=== PATIENT | female | born 1955 | race Caucasian/White ===

== ENCOUNTER 2021-12-30 22:38 | Inpatient (IN) | payer MEDICARE ==
[2021-12-30] MEDS ORDERED: SODIUM CHLORIDE 0.9% 1,000 ML IV STA (23:12)
--- NOTE | 2021-12-30 23:19 | ED ---
Dizziness HPI - General Chief Complaint: Dizziness Stated Complaint: weakness, SOB Time Seen by Provider: 12/30/21 22:48 Source: patient, EMS Mode of arrival: EMS - History of Present Illness Initial Comments: This patient is a 66-year-old woman who presents with complaint that she is having generalized weakness, nausea, and feeling off balance which is been getting progressively worse over about the past 9 days. The patient states that she had been stressed by the ride back from [facility] proximally 9 days ago. She states since that time she was having nausea and not taking much to eat or drink. She is noted she is becoming increasingly weak and feeling off balance. She is having use a walker to get around her house which she typically does not do. She denies focal weakness, but states that its everywhere. MD Complaint: dizziness, difficulty walking Onset/Timin -: days(s) Timing: gradual onset Description: lightheadedness, off-balance, difficulty walking Severity: moderate Improves With: remaining still Worsens With: exertion Associated Symptoms: weakness - Related Data Home Medications Medication Instructions Recorded Confirmed Aspirin EC [Ecotrin Low Dose] 81 mg PO DAILY 12/31/21 12/31/21 Atorvastatin Calcium [Lipitor] 80 mg PO HS 12/31/21 12/31/21 Bumetanide [BUMEX] 2 mg PO BID 12/31/21 12/31/21 Clopidogrel [Plavix] 75 mg PO DAILY 12/31/21 12/31/21 Spironolactone 25 mg PO DAILY 12/31/21 12/31/21 carvediloL [Coreg] 6.25 mg PO BID 12/31/21 12/31/21 glipiZIDE 10 mg PO BID 12/31/21 12/31/21 lisinopriL [Zestril] 20 mg PO DAILY 12/31/21 12/31/21 metFORMIN HCL [Glucophage] 500 mg PO BID 12/31/21 12/31/21 Allergies Allergy/AdvReac Type Severity Reaction Status Date / Time moxifloxacin [From Avelox] Allergy Anaphylaxis Verified 12/31/21 10:41 Review of Systems ROS Statement: Those systems with pertinent positive or pertinent negative responses have been documented in the HPI. ROS Other: All systems not noted in ROS Statement are negative. Constitutional: Reports: weakness. Denies: fever, chills Respiratory: Denies: cough, dyspnea, wheezes Cardiovascular: Denies: chest pain, palpitations Gastrointestinal: Reports: nausea. Denies: abdominal pain, vomiting, diarrhea Genitourinary: Denies: dysuria, hematuria Musculoskeletal: Denies: back pain Skin: Denies: rash Neurological: Denies: headache, weakness, numbness Past Medical History Additional Past Medical History / Comment(s): pacemaker History of Any Multi-Drug Resistant Organisms: None Reported Past Surgical History: Adenoidectomy, Heart Catheterization With Stent, Hysterectomy, Tonsillectomy Additional Past Surgical History / Comment(s): pacemaker Past Psychological History: No Psychological Hx Reported Smoking Status: Former smoker Past Alcohol Use History: None Reported Past Drug Use History: None Reported General Exam General appearance: alert, in no apparent distress Head exam: Present: atraumatic, normocephalic Eye exam: Present: normal appearance, PERRL, EOMI. Absent: scleral icterus, conjunctival injection ENT exam: Present: mucous membranes dry Neck exam: Present: normal inspection Respiratory exam: Present: normal lung sounds bilaterally. Absent: respiratory distress, wheezes, rales, rhonchi, stridor Cardiovascular Exam: Present: regular rate, normal rhythm, normal heart sounds. Absent: systolic murmur, diastolic murmur, rubs, gallop GI/Abdominal exam: Present: soft. Absent: distended, tenderness, guarding, rebound, rigid, mass Extremities exam: Present: normal inspection, normal capillary refill. Absent: pedal edema, calf tenderness Back exam: Present: normal inspection. Absent: CVA tenderness (R), CVA tenderness (L) Neurological exam: Present: alert, CN II-XII intact. Absent: motor sensory deficit Skin exam: Present: warm, dry, intact, normal color. Absent: rash Course Vital Signs 12/30/21 12/31/21 12/31/21 22:51 00:18 02:00 Temperature 98.4 F 98.3 F Pulse Rate 80 85 79 Respiratory Rate Blood Pressure 98/76 102/48 120/55 O2 Sat by Pulse 98 98 100 Oximetry EKG Findings - EKG Comments: EKG Findings:: Ventricular paced rhythm 79 bpm - EKG Results: EKG: interpreted by JOO, normal axis, normal QRS, normal ST/T Medical Decision Making - Lab Data Result diagrams: 01/02/22 08:08 01/02/22 08:08 Lab Results 12/30/21 12/30/21 12/30/21 Range/Units 23:05 23:05 23:05 WBC 20.2 H (3.8-10.6) k/uL RBC 2.78 L (3.80-5.40) m/uL Hgb 8.4 L (11.4-16.0) gm/dL Hct 25.1 L (34.0-46.0) % MCV 90.2 (80.0-100.0) fL MCH 30.4 (25.0-35.0) pg MCHC 33.6 (31.0-37.0) g/dL RDW 12.0 (11.5-15.5) % Plt Count 480 H (150-450) k/uL MPV 7.9 Neutrophils % 90 % Lymphocytes % 3 % Monocytes % 4 % Eosinophils % 2 % Basophils % 0 % Neutrophils # 18.2 H (1.3-7.7) k/uL Lymphocytes # 0.7 L (1.0-4.8) k/uL Monocytes # 0.8 (0-1.0) k/uL Eosinophils # 0.3 (0-0.7) k/uL Basophils # 0.1 (0-0.2) k/uL Sodium 129 L (137-145) mmol/L Potassium 5.4 H (3.5-5.1) mmol/L Chloride 90 L (98-107) mmol/L Carbon Dioxide 15 L (22-30) mmol/L Anion Gap 24 mmol/L BUN 191 H* (7-17) mg/dL Creatinine 3.51 H (0.52-1.04) mg/dL Est GFR (CKD-EPI)AfAm 15 (>60 ml/min/1.73 sqM) Est GFR (CKD-EPI)NonAf 13 (>60 ml/min/1.73 sqM) Glucose 278 H (74-99) mg/dL Lactic Ac Sepsis Rflx Plasma Lactic Acid Diogenes 3.1 H* (0.7-2.0) mmol/L Calcium 9.2 (8.4-10.2) mg/dL Magnesium 2.0 (1.6-2.3) mg/dL Total Bilirubin 0.7 (0.2-1.3) mg/dL AST 138 H (14-36) U/L ALT 124 H (4-34) U/L Alkaline Phosphatase 171 H (38-126) U/L Troponin I (0.000-0.034) ng/mL NT-Pro-B Natriuret Pep pg/mL Total Protein 7.0 (6.3-8.2) g/dL Albumin 3.7 (3.5-5.0) g/dL 12/30/21 12/30/21 12/31/21 Range/Units 23:05 23:05 00:02 WBC (3.8-10.6) k/uL RBC (3.80-5.40) m/uL Hgb (11.4-16.0) gm/dL Hct (34.0-46.0) % MCV (80.0-100.0) fL MCH (25.0-35.0) pg MCHC (31.0-37.0) g/dL RDW (11.5-15.5) % Plt Count (150-450) k/uL MPV Neutrophils % % Lymphocytes % % Monocytes % % Eosinophils % % Basophils % % Neutrophils # (1.3-7.7) k/uL Lymphocytes # (1.0-4.8) k/uL Monocytes # (0-1.0) k/uL Eosinophils # (0-0.7) k/uL Basophils # (0-0.2) k/uL Sodium (137-145) mmol/L Potassium (3.5-5.1) mmol/L Chloride (98-107) mmol/L Carbon Dioxide (22-30) mmol/L Anion Gap mmol/L BUN (7-17) mg/dL Creatinine (0.52-1.04) mg/dL Est GFR (CKD-EPI)AfAm (>60 ml/min/1.73 sqM) Est GFR (CKD-EPI)NonAf (>60 ml/min/1.73 sqM) Glucose (74-99) mg/dL Lactic Ac Sepsis Rflx Y Plasma Lactic Acid Diogenes (0.7-2.0) mmol/L Calcium (8.4-10.2) mg/dL Magnesium (1.6-2.3) mg/dL Total Bilirubin (0.2-1.3) mg/dL AST (14-36) U/L ALT (4-34) U/L Alkaline Phosphatase (38-126) U/L Troponin I 0.051 H* (0.000-0.034) ng/mL NT-Pro-B Natriuret Pep 1550 pg/mL Total Protein (6.3-8.2) g/dL Albumin (3.5-5.0) g/dL Disposition Clinical Impression: Generalized weakness, Acute kidney injury Disposition: ADMITTED IP TO THIS [facility] Condition: Serious Is patient prescribed a controlled substance at d/c from ED?: No
[2021-12-30 23:27] LABS: Basophils # (A) 0.1 k/uL (0-0.2); Basophils % (A) 0 %; Eosinophils # (A) 0.3 k/uL (0-0.7); Eosinophils % (A) 2 %; HCT 25.1 % (34.0-46.0); HGB 8.4 gm/dL (11.4-16.0); Lymphocytes # (A) 0.7 k/uL (1.0-4.8); Lymphocytes % (A) 3 %; MCH 30.4 pg (25.0-35.0); MCHC 33.6 g/dL (31.0-37.0); MCV 90.2 fL (80.0-100.0); Mean Platelet Volume 7.9; Monocytes # (A) 0.8 k/uL (0-1.0); Monocytes % (A) 4 %; Neutrophils # (A) 18.2 k/uL (1.3-7.7); Neutrophils % (A) 90 %; Platelet Count 480 k/uL (150-450); RBC 2.78 m/uL (3.80-5.40); WBC 20.2 k/uL (3.8-10.6)
--- NOTE | 2021-12-30 23:37 | XR ---
EXAMINATION TYPE: XR chest 1V portable DATE OF EXAM: 12/30/2021 COMPARISON: NONE HISTORY: Weakness TECHNIQUE: Single view FINDINGS: There is no heart failure nor confluent pneumonic infiltrate. Costophrenic angles are clear . There is left axillary pacemaker. There are chest leads. Bony thorax is intact. IMPRESSION: No active cardiopulmonary disease.
[2021-12-30 23:54] LABS: Albumin 3.7 g/dL (3.5-5.0); Calcium 9.2 mg/dL (8.4-10.2); Potassium 5.4 mmol/L (3.5-5.1); Total Bilirubin 0.7 mg/dL (0.2-1.3)
[2021-12-31] MEDS ORDERED: SODIUM CHLORIDE 0.9% 500 ML 500 ML IV STA (00:03)
[2021-12-31] MEDS ORDERED: INSULIN REGULAR 100 UNIT/ML VIAL (IV) SQ STA (00:04)
[2021-12-31] MEDS ORDERED: NALOXONE 0.4 MG/ML 1 ML VIAL IV PRN (02:01)
[2021-12-31] MEDS: SODIUM CHLORIDE 0.9% 1,000 ML IV SCH ×2 (04:23→16:58)
[2021-12-31 06:12] LABS: Glucose,Whole Blood 228 mg/dL (70-110)
[2021-12-31 07:08] LABS: Appearance,Urine Cloudy (Clear); Bacteria,Urine Rare /hpf; Bilirubin,Urine Negative (Negative); Blood,Urine Negative (Negative); Color,Urine Light Yellow; Glucose,Urine (UA) Negative (Negative); Hyaline Casts,Urine 9 /lpf (0-2); Ketones,Urine Negative (Negative); Leukocyte Esterase,Urine Large (Negative); Mucus,Urine Rare /hpf; Nitrite,Urine Negative (Negative); Protein,Urine Negative (Negative); Specific Gravity,Urine 1.011 (1.001-1.035); Squamous Epithelial Cell,Urine 3 /hpf (0-4); Urobilinogen,Urine <2.0 mg/dL (<2.0); WBC,Urine 21 /hpf (0-5)
[2021-12-31] MEDS ORDERED: FAMOTIDINE 20 MG TAB PO SCH (09:00)
--- NOTE | 2021-12-31 09:26 | US ---
EXAMINATION TYPE: US kidneys/renal and bladder DATE OF EXAM: 12/31/2021 COMPARISON: NONE CLINICAL HISTORY: sinan. EXAM MEASUREMENTS: Right Kidney: 10.7 x 3.8 x 4.7 cm Left Kidney: 10.0 x4.4 x 4.7 cm Right Kidney: No hydronephrosis or masses seen Left Kidney: No hydronephrosis or masses seen Bladder: wnl There is no evidence for hydronephrosis at this point in time. No nephrolithiasis is seen. No leila s are identified. The urinary bladder is anechoic. Bilateral ureteral jets are seen. IMPRESSION: No discrete abnormality appreciated.
[2021-12-31] MEDS: FAMOTIDINE 20 MG TAB PO SCH (09:40)
--- NOTE | 2021-12-31 10:40 | P.NPCON ---
History of Present Illness - Reason for Consult acute renal failure - History of Present Illness Reason for consultation: Acute kidney injury History of present illness: Patient is a 66-year-old female seen in the left consultation for acute kidney injury. Unknown baseline renal function. Creatinine 3.51 on admission yesterday. Patient presented to the hospital with generalized weakness along with nausea vomiting and diarrhea going on for about 5 days. Oral intake has been poor as well. She's currently receiving IV fluids. Vomiting and diarrhea have improved. Denies use of nonsteroidals. She does have history of diabetes. Also has history of coronary artery disease and multiple cardiac stents. No hematuria or dysuria. No chest pain or shortness of breath. Most recent blood pressure from this morning was 93/51. Renal ultrasound shows no evidence of hydronephrosis. No acute findings noted on chest x-ray. Denies fever or chills. Denies family history of renal disease. Denies any personal history of kidney disease. Vital signs are stable. Blood pressure on the lower side. General: Awake. No acute distress. HEENT: Head exam is unremarkable. LUNGS: Breath sounds decreased. HEART: Rate and Rhythm are regular. ABDOMEN: Soft, no distention. EXTREMITITES: No edema. Past Medical History Additional Past Medical History / Comment(s): pacemaker History of Any Multi-Drug Resistant Organisms: None Reported Past Surgical History: Adenoidectomy, Heart Catheterization With Stent, Hysterectomy, Tonsillectomy Additional Past Surgical History / Comment(s): pacemaker Date of Last Stent Placement:: 06/27/20 Past Psychological History: No Psychological Hx Reported Smoking Status: Former smoker Past Alcohol Use History: None Reported Past Drug Use History: None Reported Medications and Allergies Allergies Allergy/AdvReac Type Severity Reaction Status Date / Time avolox Allergy Anaphylaxis Uncoded 12/30/21 22:57 Physical Exam Vitals: Vital Signs Temp Pulse Pulse Resp BP BP Pulse Ox 12/31/21 07:57 75 93/51 100 12/31/21 02:38 98.2 F 78 15 101/65 100 12/31/21 02:00 98.3 F 79 22 120/55 100 12/31/21 00:18 85 22 102/48 98 12/30/21 22:51 98.4 F 80 18 98/76 98 Intake and Output 12/30/21 12/31/21 12/31/21 22:59 06:59 14:59 Intake Total 180 118 Output Total 400 Balance 180 -282 Intake: Intake, IV Titration 180 Amount Sodium Chloride 0.9% 1, 180 000 ml @ 75 mls/hr IV . [id number] [facility] Rx#:[id number] Oral 118 Output: Urine 400 Other: Voiding Method Bedside Commode Bedpan # Voids 2 1 Weight 72.575 kg 72.575 kg Results - Lab Results Most recent lab results Calcium 9.2 mg/dL (8.4-10.2) 12/30/21 23:05 Magnesium 2.0 mg/dL (1.6-2.3) 12/30/21 23:05 12/30/21 23:05 12/30/21 23:05 Assessment and Plan Plan: Assessment: 1. Acute kidney injury mostly prerenal secondary to hypovolemia from poor intake and vomiting and diarrhea. Creatinine 3.51 on admission. Unknown baseline renal function. No hydronephrosis noted on CAT scan. No proteinuria on UA. 2. Nausea vomiting and diarrhea. Possible gastroenteritis. Improved. 3. Hypovolemic hyponatremia. 4. Metabolic acidosis secondary to acute kidney injury and GI losses. Also lactic acidosis. 5. Anemia. Iron deficiency. 6. Diabetes mellitus. 7. Coronary artery disease status post cardiac stenting. Plan: Maintain IV fluids. Check cortisol level. Encourage oral intake. Avoid nephrotoxins. Follow-up labs. Check iron studies. Thank you for the consultation. I will continue to follow the patient with you during her hospital stay.
[2021-12-31 11:17] LABS: Calcium 8.3 mg/dL (8.4-10.2); Magnesium 1.9 mg/dL (1.6-2.3); Potassium 4.5 mmol/L (3.5-5.1)
[2021-12-31 11:31] LABS: Glucose,Whole Blood 327 mg/dL (70-110)
[2021-12-31] MEDS ORDERED: DEXTROSE 50% SYRINGE 50 ML IVP PRN ×2 (11:41)
--- NOTE | 2021-12-31 12:23 | P.CRDCN ---
History of Present Illness Consult date: 12/31/21 History of present illness: History of Present Illness: The patient is a 66-year-old female with a history of hypertension, diabetes and hyperlipidemia as well as a history of ischemic cardiomyopathy, post stenting and ICD implantation who presented to the hospital with symptoms of nausea, vomiting and fatigue. Her symptoms been going on for the last few days, she be came much worse yesterday. On admission she was noted to have mild troponin elevation. She has no fever, evidence of GI bleeding. She's feeling slightly better today. She had worsening of her renal functions on admission. Her cardiac history is remarkable for the fact that in June 2020 she presented with evidence of CHF and cardiomyopathy, details are not available, subsequently transferred to [facility] underwent multiple stenting, received 7 stents according to her and subsequent placement of an ICD in April of this year. She has been doing relatively well from the cardiac standpoint since that time, her physical activity has been stable. She denies any significant changes in her breathing. She has no chest discomfort, PND or orthopnea. She denies any peripheral edema. She had no discharges from the device. The detail of her workup at [facility] are not available at this time. She has been followed by Dr. Kowalski. She has been told that she has renal insufficiency although the severity is not clear. Medications: Metformin 500 mg twice a day, glipizide 10 mg twice a day, Lipitor 80 mg daily, Zestril 20 mg daily, Coreg 6.5 mg twice a day, spironolactone 25 mg daily, Plavix 75 mg daily, aspirin once a day, Bumex 2 mg twice a day Review of Systems: Respiratory: No history of asthma, bronchitis or recent cough. GI: She has the recent nausea and vomiting but denies any GI bleeding : No hematuria or dysuria. Nervous System: No stroke or seizure. Physical Examination: 66-year-old female, alert oriented no apparent distress ,Blood pressure 101/60, Heart rate 70 Head: Normocephalic. Eyes: Sclerae nonicteric. Neck: Good carotid upstroke, no bruit, no jugular venous distention. Lungs: Clear to auscultation. Heart: Regular rate and rhythm, S1-S2, no S3, no rub. Systolic ejection murmur. Abdomen: Soft nontender, positive bowel sounds no organomegaly. Extremities: No edema, intact distal pulses. Labs: White blood cell 20.2, hemoglobin 8.4, BUN 191, creatinine 3.5, potassium 5.4, troponin 0.05 and 0.04. NT proBNP 1550, plasma lactic acid 3.1. AST 138, ALT 124. Today her BUN is 171 and creatinine 2.67, her potassium 4.5, ultrasound of the abdomen is unremarkable, chest x-ray shows no acute infiltrate EKG: Sinus mechanism with 100% ventricular pacing Impression: 1. Nausea and vomiting, probable gastroenteritis 2. Troponin elevation, no evidence to suggest acute coronary syndrome, probably related to the worsening renal failure 3. Acute on chronic renal failure, worsened by the nausea and vomiting and dehydration 4. History of CAD with multiple stenting with no evidence to suggest acute event 5. History of cardiomyopathy, no evidence of heart failure 6. Status post ICD 7. History of diabetes 8. Hyperlipidemia Plan: 1. IV hydration 2. Follow her renal function 3. Obtain an echocardiogram with Doppler 4. Obtain records from [facility] 5. Hold diuretics and SUYAPA inhibitor at this time 6. Depending on her progress further recommendations will be made, thank you for this consult we will follow with you. Past Medical History Additional Past Medical History / Comment(s): pacemaker History of Any Multi-Drug Resistant Organisms: None Reported Past Surgical History: Adenoidectomy, Heart Catheterization With Stent, Hysterectomy, Tonsillectomy Additional Past Surgical History / Comment(s): pacemaker Date of Last Stent Placement:: 06/27/20 Past Psychological History: No Psychological Hx Reported Smoking Status: Former smoker Past Alcohol Use History: None Reported Past Drug Use History: None Reported Medications and Allergies Home Medications Medication Instructions Recorded Confirmed Type Aspirin EC [Ecotrin Low Dose] 81 mg PO DAILY 12/31/21 12/31/21 History Atorvastatin Calcium [Lipitor] 80 mg PO HS 12/31/21 12/31/21 History Bumetanide [BUMEX] 2 mg PO BID 12/31/21 12/31/21 History Clopidogrel [Plavix] 75 mg PO DAILY 12/31/21 12/31/21 History Spironolactone 25 mg PO DAILY 12/31/21 12/31/21 History carvediloL [Coreg] 6.25 mg PO BID 12/31/21 12/31/21 History glipiZIDE 10 mg PO BID 12/31/21 12/31/21 History lisinopriL [Zestril] 20 mg PO DAILY 12/31/21 12/31/21 History metFORMIN HCL [Glucophage] 500 mg PO BID 12/31/21 12/31/21 History Allergies Allergy/AdvReac Type Severity Reaction Status Date / Time moxifloxacin [From Avelox] Allergy Anaphylaxis Verified 12/31/21 10:41 Physical Exam Vitals: Vital Signs Temp Pulse Pulse Resp BP BP Pulse Ox 12/31/21 07:57 75 93/51 100 12/31/21 02:38 98.2 F 78 15 101/65 100 12/31/21 02:00 98.3 F 79 22 120/55 100 12/31/21 00:18 85 22 102/48 98 12/30/21 22:51 98.4 F 80 18 98/76 98 Intake and Output 12/30/21 12/31/21 12/31/21 22:59 06:59 14:59 Intake Total 180 118 Output Total 400 Balance 180 -282 Intake: Intake, IV Titration 180 Amount Sodium Chloride 0.9% 1, 180 000 ml @ 75 mls/hr IV . [id number] [facility] Rx#:[id number] Oral 118 Output: Urine 400 Other: Voiding Method Bedside Commode Bedpan # Voids 2 1 Weight 72.575 kg 72.575 kg Results 12/30/21 23:05 12/31/21 08:35 Cardiac Enzymes 12/30/21 12/30/21 12/31/21 Range/Units 23:05 23:05 04:04 AST 138 H (14-36) U/L Troponin I 0.051 H* 0.041 H* (0.000-0.034) ng/mL 12/31/21 Range/Units 08:35 AST (14-36) U/L Troponin I 0.036 H* (0.000-0.034) ng/mL CBC 12/30/21 Range/Units 23:05 WBC 20.2 H (3.8-10.6) k/uL RBC 2.78 L (3.80-5.40) m/uL Hgb 8.4 L (11.4-16.0) gm/dL Hct 25.1 L (34.0-46.0) % Plt Count 480 H (150-450) k/uL Comprehensive Metabolic Panel 12/30/21 12/31/21 Range/Units 23:05 08:35 Sodium 129 L 134 L (137-145) mmol/L Potassium 5.4 H 4.5 (3.5-5.1) mmol/L Chloride 90 L 98 (98-107) mmol/L Carbon Dioxide 15 L 17 L (22-30) mmol/L BUN 191 H* 171 H* (7-17) mg/dL Creatinine 3.51 H 2.67 H (0.52-1.04) mg/dL Glucose 278 H 249 H (74-99) mg/dL Calcium 9.2 8.3 L (8.4-10.2) mg/dL AST 138 H (14-36) U/L ALT 124 H (4-34) U/L Alkaline Phosphatase 171 H (38-126) U/L Total Protein 7.0 (6.3-8.2) g/dL Albumin 3.7 (3.5-5.0) g/dL Current Medications Generic Name Dose Route Start Last Admin Trade Name Freq PRN Reason Stop Dose Admin Acetaminophen 650 mg 12/31/21 02:01 Acetaminophen Tab 325 Mg Tab PO Q6HR PRN Mild Pain or Fever > 100.5 Al Hydroxide/Mg Hydroxide 15 ml 12/31/21 02:01 Mag Hydrox/Al Hydrox/Simeth 30 Ml Cup PO Q6HR PRN Indigestion Aspirin 81 mg 01/01/22 09:00 Aspirin 81 Mg PO DAILY [facility] Atorvastatin Calcium 80 mg 12/31/21 21:00 Atorvastatin 80 Mg Tab PO HS [facility] Carvedilol 6.25 mg 12/31/21 11:45 Carvedilol 6.25 Mg Tab PO AC-BID [facility] Clopidogrel Bisulfate 75 mg 12/31/21 11:45 Clopidogrel 75 Mg Tab PO DAILY [facility] Dextrose/Water 25 ml 12/31/21 11:41 Dextrose 50% Syringe 50 Ml IVP PER PROTOCOL PRN Hypoglycemia Protocol Dextrose/Water 50 ml 12/31/21 11:41 Dextrose 50% Syringe 50 Ml IVP PER PROTOCOL PRN Hypoglycemia Protocol Famotidine 20 mg 12/31/21 09:00 12/31/21 09:40 Famotidine 20 Mg Tab PO 20 mg DAILY [facility] Administration Glipizide 10 mg 12/31/21 21:00 Glipizide 10 Mg Tab PO BID [facility] Sodium Chloride 1,000 mls @ 75 mls/hr 12/30/21 23:12 12/30/21 23:19 Saline 0.9% IV 12/31/21 12:31 75 mls/hr .[id number] [facility] Administration Sodium Chloride 1,000 mls @ 75 mls/hr 12/31/21 02:15 12/31/21 04:23 Saline 0.9% IV Not Given .[id number] [facility] Ceftriaxone Sodium 1 gm/ 50 mls @ 100 mls/hr 12/31/21 10:00 12/31/21 10:24 Sodium Chloride IVPB 100 mls/hr Q24HR [facility] Administration Protocol Insulin Aspart 0 unit 12/31/21 12:30 Insulin Aspart (Novolog) 100 Unit/Ml Vial SQ ACHS [facility] Protocol Naloxone HCl 0.2 mg 12/31/21 02:01 Naloxone 0.4 Mg/Ml 1 Ml Vial IV Q2M PRN Opioid Reversal Intake and Output 12/30/21 12/31/21 12/31/21 22:59 06:59 14:59 Intake Total 180 118 Output Total 400 Balance 180 -282 Intake: Intake, IV Titration 180 Amount Sodium Chloride 0.9% 1, 180 000 ml @ 75 mls/hr IV . [id number] [facility] Rx#:[id number] Oral 118 Output: Urine 400 Other: Voiding Method Bedside Commode Bedpan # Voids 2 1 Weight 72.575 kg 72.575 kg 12/30/21 23:05 12/31/21 08:35
[2021-12-31] MEDS: carvediloL 6.25 MG TAB PO SCH ×2 (12:32→18:29)
[2021-12-31] MEDS: CLOPIDOGREL 75 MG TAB PO SCH (12:32)
[2021-12-31] MEDS: INSULIN ASPART (NovoLOG) 100 UNIT/ML VIAL SQ SCH ×3 (12:32→20:04)
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
[2021-12-31 16:42] LABS: Glucose,Whole Blood 293 mg/dL (70-110)
--- NOTE | 2021-12-31 16:45 | CA ---
Transthoracic Echo Report Name: Monica Crawley Age: 66 Gender: F : 1955 Exam Date: 12/31/2021 15:59 Exam Location: [facility] Ht (in): 68 Wt (lb): 160 Ordering Physician: Roberth Lay MD ([id number]) Attending/Referring Phys: Clam Dredge Boat Captain Ellen Meadows RDCS Procedure CPT: Indications: CAD Cardiac Hx: Technical Quality: Good Contrast 1: Total Dose (mL): Contrast 2: Total Dose (mL): MEASUREMENTS (Male / Female) Normal Values 2D ECHO LV Diastolic Diameter PLAX 4.6 cm 4.2 - 5.9 / 3.9 - 5.3 cm LV Systolic Diameter PLAX 2.4 cm IVS Diastolic Thickness 1.3 cm 0.6 - 1.0 / 0.6 - 0.9 cm LVPW Diastolic Thickness 1.3 cm 0.6 - 1.0 / 0.6 - 0.9 cm LV Relative Wall Thickness 0.6 RV Internal Dim ED PLAX 3.2 cm LA Systolic Diameter LX 3.8 cm 3.0 - 4.0 / 2.7 - 3.8 cm LA Volume 65.4 cm??? 18 - 58 / 22 - 52 cm??? M-MODE Aortic Root Diameter MM 3.3 cm MV E Point Septal Separation 1.2 cm AV Cusp Separation MM 1.6 cm DOPPLER AV Peak Velocity 134.4 cm/s AV Peak Gradient 7.2 mmHg MV Area PHT 3.0 cm??? Mitral E Point Velocity 81.4 cm/s Mitral A Point Velocity 95.4 cm/s Mitral E to A Ratio 0.9 MV Deceleration Time 249.4 ms MV E' Velocity 5.1 cm/s Mitral E to MV E' Ratio 15.9 TR Peak Velocity 236.9 cm/s TR Peak Gradient 22.5 mmHg Right Ventricular Systolic Press 26.8 mmHg FINDINGS Left Ventricle Left ventricular ejection fraction is estimated at 50-55 %. Left ventricular cavity size normal. Mild concentric left ventricular hypertrophy. Right Ventricle Normal right ventricular size and function. Right ventricular systolic pressure within normal limits. A wire is noted in the right ventricle Right Atrium Normal right atrial size. Left Atrium Moderately increased left atrial volume. Mildly increased left atrial area. No evidence for an atrial septal defect. Mitral Valve Mitral valve thickened. Mild mitral regurgitation. Aortic Valve Focal thickening of the aortic valve cusps. No aortic valve stenosis or regurgitation. Tricuspid Valve Mild tricuspid regurgitation.structurally normal tricuspid valve. Pulmonic Valve Structurally normal pulmonic valve. Pericardium Normal pericardium. No pericardial effusion. Aorta Normal size aortic root and proximal ascending aorta. CONCLUSIONS 1. The ventricle size is normal with borderline left ventricle systolic function 2. Mild mitral and tricuspid regurgitation 3. A wire was noted in the right ventricle Previewed by: Dr. Roberth Lay MD (Electronically Signed) Final Date: 31 December 2021 16:44
[2021-12-31] MEDS: SODIUM BICARBONATE TAB 650 MG TAB PO SCH ×2 (16:53→20:04)
[2021-12-31 17:05] LABS: % Iron Saturation 11.99 (12.00-45.00)
[2021-12-31 19:57] LABS: Glucose,Whole Blood 287 mg/dL (70-110)
[2021-12-31] MEDS: glipiZIDE 10 MG TAB PO SCH (20:04)
[2021-12-31] MEDS: ATORVASTATIN 80 MG TAB PO SCH (20:04)
[2022-01-01] MEDS: SODIUM CHLORIDE 0.9% 1,000 ML IV SCH ×2 (04:32→18:12)
[2022-01-01 06:05] LABS: Glucose,Whole Blood 178 mg/dL (70-110)
[2022-01-01] MEDS: carvediloL 6.25 MG TAB PO SCH ×2 (06:21→17:25)
[2022-01-01] MEDS: INSULIN ASPART (NovoLOG) 100 UNIT/ML VIAL SQ SCH ×4 (06:21→20:32)
[2022-01-01 07:25] LABS: Basophils % (A) 0 %; Eosinophils # (A) 0.2 k/uL (0-0.7); Eosinophils % (A) 2 %; HGB 7.1 gm/dL (11.4-16.0); Lymphocytes # (A) 0.5 k/uL (1.0-4.8); Lymphocytes % (A) 4 %; MCH 28.7 pg (25.0-35.0); MCHC 32.3 g/dL (31.0-37.0); MCV 88.9 fL (80.0-100.0); Monocytes # (A) 0.7 k/uL (0-1.0); Monocytes % (A) 5 %; Neutrophils % (A) 88 %; Platelet Count 329 k/uL (150-450); RBC 2.48 m/uL (3.80-5.40); RDW 12.1 % (11.5-15.5); WBC 13.7 k/uL (3.8-10.6)
[2022-01-01 07:39] LABS: Albumin 2.7 g/dL (3.5-5.0); Calcium 8.1 mg/dL (8.4-10.2); Magnesium 1.8 mg/dL (1.6-2.3); Potassium 4.1 mmol/L (3.5-5.1); Total Bilirubin 0.5 mg/dL (0.2-1.3); Total Protein 5.5 g/dL (6.3-8.2)
[2022-01-01] MEDS: CLOPIDOGREL 75 MG TAB PO SCH (08:51)
[2022-01-01] MEDS: SODIUM BICARBONATE TAB 650 MG TAB PO SCH ×3 (08:51→20:32)
[2022-01-01] MEDS: FAMOTIDINE 20 MG TAB PO SCH (08:51)
[2022-01-01] MEDS: glipiZIDE 10 MG TAB PO SCH ×2 (08:51→20:32)
[2022-01-01] MEDS: ASPIRIN 81 MG PO SCH (08:51)
--- NOTE | 2022-01-01 09:47 | P.PN ---
Subjective Patient is seen in follow-up for acute kidney injury. Renal function improving. Receiving IV fluids. Good urine output. No vomiting or diarrhea. Vital signs are stable. General: Awake. No acute distress. HEENT: Head exam is unremarkable. LUNGS: Breath sounds decreased. HEART: Rate and Rhythm are regular. ABDOMEN: Soft, no distention. EXTREMITITES: No edema. Objective - Vital Signs Vital signs: Vital Signs Temp 98.3 F 01/01/22 04:00 Pulse 79 01/01/22 08:09 Resp 20 01/01/22 04:00 BP 97/59 01/01/22 08:09 Pulse Ox 99 01/01/22 08:09 FiO2 Intake & Output 12/31/21 01/01/22 01/01/22 18:59 06:59 18:59 Intake Total 118 240 358 Output Total 1450 1000 200 Balance -1332 -760 158 Intake: Oral 118 240 358 Output: Urine 1450 1000 200 Other: Voiding Method Bedside Commode Bedside Commode Bedpan # Voids 1 2 - Labs CBC & Chem 7: 01/01/22 06:54 01/01/22 06:54 Labs: Abnormal Lab Results - Last 24 Hours (Table) 12/31/21 12/31/21 12/31/21 Range/Units 08:35 08:35 08:35 WBC (3.8-10.6) k/uL RBC (3.80-5.40) m/uL Hgb (11.4-16.0) gm/dL Hct (34.0-46.0) % Neutrophils # (1.3-7.7) k/uL Lymphocytes # (1.0-4.8) k/uL Sodium 134 L (137-145) mmol/L Carbon Dioxide 17 L (22-30) mmol/L BUN 171 H* (7-17) mg/dL Creatinine 2.67 H (0.52-1.04) mg/dL Glucose 249 H (74-99) mg/dL POC Glucose (mg/dL) (70-110) mg/dL Hemoglobin A1c (0.0-6.0) % Calcium 8.3 L (8.4-10.2) mg/dL Iron 24 L (50-170) ug/dL TIBC 200 L (228-460) ug/dL % Saturation 11.99 L (12.00-45.00) Transferrin 143.0 L (204.0-354.0) mg/dL Ferritin 805.0 H (10.0-291.0) ng/mL AST (14-36) U/L ALT (4-34) U/L Alkaline Phosphatase (38-126) U/L Troponin I 0.036 H* (0.000-0.034) ng/mL Total Protein (6.3-8.2) g/dL Albumin (3.5-5.0) g/dL 12/31/21 12/31/21 12/31/21 Range/Units 08:35 11:29 16:36 WBC (3.8-10.6) k/uL RBC (3.80-5.40) m/uL Hgb (11.4-16.0) gm/dL Hct (34.0-46.0) % Neutrophils # (1.3-7.7) k/uL Lymphocytes # (1.0-4.8) k/uL Sodium (137-145) mmol/L Carbon Dioxide (22-30) mmol/L BUN (7-17) mg/dL Creatinine (0.52-1.04) mg/dL Glucose (74-99) mg/dL POC Glucose (mg/dL) 327 H 293 H (70-110) mg/dL Hemoglobin A1c 9.1 H (0.0-6.0) % Calcium (8.4-10.2) mg/dL Iron (50-170) ug/dL TIBC (228-460) ug/dL % Saturation (12.00-45.00) Transferrin (204.0-354.0) mg/dL Ferritin (10.0-291.0) ng/mL AST (14-36) U/L ALT (4-34) U/L Alkaline Phosphatase (38-126) U/L Troponin I (0.000-0.034) ng/mL Total Protein (6.3-8.2) g/dL Albumin (3.5-5.0) g/dL 12/31/21 01/01/22 01/01/22 Range/Units 19:57 06:04 06:54 WBC 13.7 H (3.8-10.6) k/uL RBC 2.48 L (3.80-5.40) m/uL Hgb 7.1 L (11.4-16.0) gm/dL Hct 22.0 L (34.0-46.0) % Neutrophils # 12.0 H (1.3-7.7) k/uL Lymphocytes # 0.5 L (1.0-4.8) k/uL Sodium (137-145) mmol/L Carbon Dioxide (22-30) mmol/L BUN (7-17) mg/dL Creatinine (0.52-1.04) mg/dL Glucose (74-99) mg/dL POC Glucose (mg/dL) 287 H 178 H (70-110) mg/dL Hemoglobin A1c (0.0-6.0) % Calcium (8.4-10.2) mg/dL Iron (50-170) ug/dL TIBC (228-460) ug/dL % Saturation (12.00-45.00) Transferrin (204.0-354.0) mg/dL Ferritin (10.0-291.0) ng/mL AST (14-36) U/L ALT (4-34) U/L Alkaline Phosphatase (38-126) U/L Troponin I (0.000-0.034) ng/mL Total Protein (6.3-8.2) g/dL Albumin (3.5-5.0) g/dL 01/01/22 Range/Units 06:54 WBC (3.8-10.6) k/uL RBC (3.80-5.40) m/uL Hgb (11.4-16.0) gm/dL Hct (34.0-46.0) % Neutrophils # (1.3-7.7) k/uL Lymphocytes # (1.0-4.8) k/uL Sodium (137-145) mmol/L Carbon Dioxide 19 L (22-30) mmol/L BUN 116 H* (7-17) mg/dL Creatinine 1.73 H (0.52-1.04) mg/dL Glucose 163 H (74-99) mg/dL POC Glucose (mg/dL) (70-110) mg/dL Hemoglobin A1c (0.0-6.0) % Calcium 8.1 L (8.4-10.2) mg/dL Iron (50-170) ug/dL TIBC (228-460) ug/dL % Saturation (12.00-45.00) Transferrin (204.0-354.0) mg/dL Ferritin (10.0-291.0) ng/mL AST 67 H (14-36) U/L ALT 81 H (4-34) U/L Alkaline Phosphatase 128 H (38-126) U/L Troponin I (0.000-0.034) ng/mL Total Protein 5.5 L (6.3-8.2) g/dL Albumin 2.7 L (3.5-5.0) g/dL Assessment and Plan Plan: Assessment: 1. Acute kidney injury mostly prerenal secondary to hypovolemia from poor intake and vomiting and diarrhea. Creatinine 3.51 on admission -1.73 today. Unknown baseline renal function. No hydronephrosis noted on ultrasound.. No proteinuria on UA. 2. Nausea vomiting and diarrhea. Possible gastroenteritis. Improved. 3. Hypovolemic hyponatremia.Improved. 4. Metabolic acidosis secondary to acute kidney injury and GI losses. Also lactic acidosis. On oral bicarbonate. Better. 5. Anemia. Iron deficiency noted. 6. Diabetes mellitus. 7. Coronary artery disease status post cardiac stenting. Plan: Maintain IV fluids. Cortisol level not low. Add IV iron. Encourage oral intake. Avoid nephrotoxins. Defer to cardiology if for Coreg dose can be decreased. Add midodrine 5 mg 3 times daily. Hold for systolic blood pressure greater than 1:15. EF preserved.
[2022-01-01] MEDS: SODIUM FERRIC GLUCONAT-SUCROSE 125 MG in SODIUM CHLORIDE 0.9% 100 ML IVPB SCH (11:29)
[2022-01-01 11:42] LABS: Glucose,Whole Blood 267 mg/dL (70-110)
[2022-01-01] MEDS: MIDODRINE 5 MG TAB PO SCH ×2 (11:55→17:26)
--- NOTE | 2022-01-01 12:49 | P.PN ---
Subjective Progress Note Date: 01/01/22 This is a pleasant 66-year-old female patient with history of hypertension, diabetes and hyperlipidemia. Also has a history of ischemic cardiomyopathy post-stenting and ICD implantation done in [facility]. She presented to the hospital with symptoms of nausea, vomiting and fatigue. She was noted to be anemic with mild troponin elevation and acute kidney injury. Echocardiogram with Doppler study done this admission showed EF 50-55% with mild MR and mild TR. Labs this morning showed improvement in her renal function with a BUN of 116 and a creatinine of 1.73. Hemoglobin is 7.1. She is overall feeling better. Objective - Vital Signs Vital signs: Vital Signs Temp 98.3 F 01/01/22 04:00 Pulse 74 01/01/22 12:00 Resp 20 01/01/22 04:00 BP 104/51 01/01/22 12:00 Pulse Ox 98 01/01/22 12:00 FiO2 Intake & Output 12/31/21 01/01/22 01/01/22 18:59 06:59 18:59 Intake Total 118 240 358 Output Total 1450 1000 200 Balance -1332 -760 158 Intake: Oral 118 240 358 Output: Urine 1450 1000 200 Other: Voiding Method Bedside Commode Bedside Commode Toilet Bedpan # Voids 1 2 - Exam Head: Normocephalic. Eyes: Sclerae nonicteric. Neck: Good carotid upstroke, no bruit, no jugular venous distention. Lungs: Clear to auscultation. Heart: Regular rate and rhythm, S1-S2, no S3, no rub. Systolic ejection murmur. Abdomen: Soft nontender, positive bowel sounds no organomegaly. Extremities: No edema, intact distal pulses. - Labs CBC & Chem 7: 01/01/22 06:54 01/01/22 06:54 Labs: Abnormal Lab Results - Last 24 Hours (Table) 12/31/21 12/31/21 12/31/21 Range/Units 08:35 08:35 16:36 WBC (3.8-10.6) k/uL RBC (3.80-5.40) m/uL Hgb (11.4-16.0) gm/dL Hct (34.0-46.0) % Neutrophils # (1.3-7.7) k/uL Lymphocytes # (1.0-4.8) k/uL Carbon Dioxide (22-30) mmol/L BUN (7-17) mg/dL Creatinine (0.52-1.04) mg/dL Glucose (74-99) mg/dL POC Glucose (mg/dL) 293 H (70-110) mg/dL Hemoglobin A1c 9.1 H (0.0-6.0) % Calcium (8.4-10.2) mg/dL Iron 24 L (50-170) ug/dL TIBC 200 L (228-460) ug/dL % Saturation 11.99 L (12.00-45.00) Transferrin 143.0 L (204.0-354.0) mg/dL Ferritin 805.0 H (10.0-291.0) ng/mL AST (14-36) U/L ALT (4-34) U/L Alkaline Phosphatase (38-126) U/L Total Protein (6.3-8.2) g/dL Albumin (3.5-5.0) g/dL 12/31/21 01/01/22 01/01/22 Range/Units 19:57 06:04 06:54 WBC 13.7 H (3.8-10.6) k/uL RBC 2.48 L (3.80-5.40) m/uL Hgb 7.1 L (11.4-16.0) gm/dL Hct 22.0 L (34.0-46.0) % Neutrophils # 12.0 H (1.3-7.7) k/uL Lymphocytes # 0.5 L (1.0-4.8) k/uL Carbon Dioxide (22-30) mmol/L BUN (7-17) mg/dL Creatinine (0.52-1.04) mg/dL Glucose (74-99) mg/dL POC Glucose (mg/dL) 287 H 178 H (70-110) mg/dL Hemoglobin A1c (0.0-6.0) % Calcium (8.4-10.2) mg/dL Iron (50-170) ug/dL TIBC (228-460) ug/dL % Saturation (12.00-45.00) Transferrin (204.0-354.0) mg/dL Ferritin (10.0-291.0) ng/mL AST (14-36) U/L ALT (4-34) U/L Alkaline Phosphatase (38-126) U/L Total Protein (6.3-8.2) g/dL Albumin (3.5-5.0) g/dL 01/01/22 01/01/22 Range/Units 06:54 11:41 WBC (3.8-10.6) k/uL RBC (3.80-5.40) m/uL Hgb (11.4-16.0) gm/dL Hct (34.0-46.0) % Neutrophils # (1.3-7.7) k/uL Lymphocytes # (1.0-4.8) k/uL Carbon Dioxide 19 L (22-30) mmol/L BUN 116 H* (7-17) mg/dL Creatinine 1.73 H (0.52-1.04) mg/dL Glucose 163 H (74-99) mg/dL POC Glucose (mg/dL) 267 H (70-110) mg/dL Hemoglobin A1c (0.0-6.0) % Calcium 8.1 L (8.4-10.2) mg/dL Iron (50-170) ug/dL TIBC (228-460) ug/dL % Saturation (12.00-45.00) Transferrin (204.0-354.0) mg/dL Ferritin (10.0-291.0) ng/mL AST 67 H (14-36) U/L ALT 81 H (4-34) U/L Alkaline Phosphatase 128 H (38-126) U/L Total Protein 5.5 L (6.3-8.2) g/dL Albumin 2.7 L (3.5-5.0) g/dL Assessment and Plan Assessment: 1. Nausea and vomiting, probable gastroenteritis 2. Troponin elevation, no evidence to suggest acute coronary syndrome, probably related to the worsening renal failure 3. Acute on chronic renal failure, worsened by the nausea and vomiting and dehydration, improving 4. History of CAD with multiple stenting with no evidence to suggest acute event 5. History of cardiomyopathy, no evidence of heart failure, EF currently 50-55% 6. Status post ICD 7. History of diabetes 8. Hyperlipidemia Plan: From cardiology's perspective will continue to hold diuretics and SUYAPA inhibitor at this time. Continue to follow renal function. We will continue to follow the patient and provide further recommendations accordingly. [employer] note has been reviewed, I agree with a documented findings and plan of care. Patient was seen and examined.
[2022-01-01 14:15] LABS: Glucose,Whole Blood 345 mg/dL (70-110)
[2022-01-01 16:42] LABS: Glucose,Whole Blood 289 mg/dL (70-110)
[2022-01-01 20:08] LABS: Glucose,Whole Blood 238 mg/dL (70-110)
[2022-01-01] MEDS: ATORVASTATIN 80 MG TAB PO SCH (20:32)
[2022-01-02 06:12] LABS: Glucose,Whole Blood 150 mg/dL (70-110)
[2022-01-02] MEDS: MIDODRINE 5 MG TAB PO SCH ×3 (06:14→16:31)
[2022-01-02] MEDS: carvediloL 6.25 MG TAB PO SCH ×2 (06:14→16:35)
[2022-01-02] MEDS: INSULIN ASPART (NovoLOG) 100 UNIT/ML VIAL SQ SCH ×4 (06:15→20:05)
--- NOTE | 2022-01-02 07:06 | PN ---
PROGRESS NOTE SUBJECTIVE: This 66-year-old woman was admitted with UTI and renal failure, is being closely monitored. The patient also had chest pain on presentation. Multiple consultants following the patient closely. No fever. No cough. Cultures are negative so far. 2D echo showed borderline left ventricular systolic function. Creatinine is 1.73. PHYSICAL EXAMINATION: VITAL SIGNS: Pulse is 79, blood pressure 97/50, respiration 20. HEENT: Conjunctivae normal. NECK: No jugular venous distention. CARDIOVASCULAR: S1, S2 normal. RESPIRATIONS: Clear to auscultation. ABDOMEN: Soft, nontender. NERVOUS SYSTEM: No focal deficit. LABORATORY DATA: Reviewed. Hemoglobin 7.1. The rest of the labs are noted. ASSESSMENT: 1. Acute renal failure from dehydration. 2. Acute urinary tract infection, present on admission. 3. Troponin 0.036, indeterminate. 4. Possible coronary artery disease. 5. Diabetes mellitus type 2. 6. Multiple medical issues. RECOMMENDATIONS AND DISCUSSION: To continue current medications, symptomatic treatment. Otherwise, continue the antibiotics. Repeat labs. Prognosis guarded. Because of multiple complex medical issues, will closely follow up with multiple consultants. Discussed with the patient. Further recommendations to follow. MMODL / IJN: [id number] /
[2022-01-02] MEDS: ASPIRIN 81 MG PO SCH (08:54)
[2022-01-02] MEDS: glipiZIDE 10 MG TAB PO SCH ×2 (08:55→20:05)
[2022-01-02] MEDS: SODIUM BICARBONATE TAB 650 MG TAB PO SCH ×3 (08:55→20:05)
[2022-01-02] MEDS: FAMOTIDINE 20 MG TAB PO SCH (08:55)
[2022-01-02] MEDS: CLOPIDOGREL 75 MG TAB PO SCH (08:55)
--- NOTE | 2022-01-02 09:25 | P.PN ---
Subjective Patient is seen in follow-up for acute kidney injury. Renal function improving. Receiving IV fluids. Good urine output. No vomiting or diarrhea. Hemodynamically stable. Vital signs are stable. General: Awake. No acute distress. HEENT: Head exam is unremarkable. LUNGS: Breath sounds decreased. HEART: Rate and Rhythm are regular. ABDOMEN: Soft, no distention. EXTREMITITES: No edema. Objective - Vital Signs Vital signs: Vital Signs Temp 98.2 F 01/02/22 00:00 Pulse 91 01/02/22 03:10 Resp 18 01/02/22 03:10 BP 101/58 01/02/22 03:10 Pulse Ox 96 01/02/22 03:10 FiO2 Intake & Output 01/01/22 01/02/22 01/02/22 18:59 06:59 18:59 Intake Total 594 120 Output Total 500 1050 400 Balance 94 -1050 -280 Intake: Oral 594 120 Output: Urine 500 1050 400 Other: Voiding Method Toilet Toilet # Voids 1 # Bowel Movements 1 - Labs CBC & Chem 7: 01/01/22 06:54 01/01/22 06:54 Labs: Abnormal Lab Results - Last 24 Hours (Table) 01/01/22 01/01/22 01/01/22 Range/Units 11:41 14:12 16:41 POC Glucose (mg/dL) 267 H 345 H 289 H (70-110) mg/dL 01/01/22 01/02/22 Range/Units 20:07 06:11 POC Glucose (mg/dL) 238 H 150 H (70-110) mg/dL Assessment and Plan Plan: Assessment: 1. Acute kidney injury mostly prerenal secondary to hypovolemia from poor intake and vomiting and diarrhea. Creatinine 3.51 on admission -1.73 yesterday. Unknown baseline renal function. No hydronephrosis noted on ultrasound.. No proteinuria on UA. 2. Nausea vomiting and diarrhea. Possible gastroenteritis. Improved. 3. Hypovolemic hyponatremia. Improved. 4. Metabolic acidosis secondary to acute kidney injury and GI losses. Also lactic acidosis. On oral bicarbonate. Better. 5. Anemia. Iron deficiency noted. 6. Diabetes mellitus. 7. Coronary artery disease status post cardiac stenting. Plan: Maintain IV fluids. Cortisol level not low. Maintain IV iron. Encourage oral intake. Avoid nephrotoxins. Defer to cardiology if for Coreg dose can be decreased. Maintain midodrine 5 mg 3 times daily. Hold for systolic blood pressure greater than 1:15. EF preserved. Morning labs pending.
[2022-01-02 09:32] LABS: Basophils % (A) 0 %; Eosinophils # (A) 0.3 k/uL (0-0.7); Eosinophils % (A) 2 %; HCT 23.4 % (34.0-46.0); HGB 7.5 gm/dL (11.4-16.0); Hypochromasia Slight; Lymphocytes # (A) 0.6 k/uL (1.0-4.8); Lymphocytes % (A) 5 %; MCHC 32.1 g/dL (31.0-37.0); MCV 93.7 fL (80.0-100.0); Mean Platelet Volume 7.3; Monocytes # (A) 0.6 k/uL (0-1.0); Monocytes % (A) 5 %; Neutrophils # (A) 11.1 k/uL (1.3-7.7); Neutrophils % (A) 87 %; Platelet Count 346 k/uL (150-450); RBC 2.49 m/uL (3.80-5.40); RDW 12.4 % (11.5-15.5); WBC 12.8 k/uL (3.8-10.6)
[2022-01-02 09:57] LABS: Calcium 7.9 mg/dL (8.4-10.2); Magnesium 1.7 mg/dL (1.6-2.3); Potassium 4.7 mmol/L (3.5-5.1)
[2022-01-02] MEDS: SODIUM FERRIC GLUCONAT-SUCROSE 125 MG in SODIUM CHLORIDE 0.9% 100 ML IVPB SCH (09:58)
[2022-01-02 10:44] VITALS: BMI 24.3
[2022-01-02 11:38] LABS: Glucose,Whole Blood 340 mg/dL (70-110)
--- NOTE | 2022-01-02 11:53 | P.PN ---
Subjective This is a pleasant 66-year-old female patient with history of hypertension, diabetes and hyperlipidemia. Also has a history of ischemic cardiomyopathy post-stenting and ICD implantation done in [facility]. 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 She presented to the hospital with symptoms of nausea, vomiting and fatigue. She was noted to be anemic with mild troponin elevation and acute kidney injury. Echocardiogram with Doppler study done this admission showed EF 50-55% with mild MR and mild TR. Patient seen and examined at bedside, no acute distress. Denies any chest pain or shortness of breath. Vital signs are stable. BMP this morning pending GENERAL: Well-appearing, well-nourished and in no acute distress. NECK: Supple without JVD or thyromegaly. LUNGS: Breath sounds clear to auscultation bilaterally. Respiration equal and unlabored. No wheezes, rales or rhonchi. HEART: Regular rate and rhythm without murmurs, rubs or gallops. S1 and S2 heard. EXTREMITIES: Normal range of motion, no edema. No clubbing or cyanosis. Peripheral pulses intact. ASSESSMENT 1. Nausea and vomiting, probable gastroenteritis 2. Troponin elevation, no evidence to suggest acute coronary syndrome, probably related to the worsening renal failure 3. Acute on chronic renal failure, worsened by the nausea and vomiting and dehydration, improving 4. History of CAD with multiple stenting with no evidence to suggest acute event 5. History of cardiomyopathy, no evidence of heart failure, EF currently 50-55% 6. Status post ICD 7. History of diabetes 8. Hyperlipidemia PLAN From cardiology's perspective will continue to hold diuretics and SUYAPA inhibitor at this time. Renal function is improving. Continue aspirin, statin, Coreg. Continue to follow renal function. Nephrology following Continue to monitor BP closely. On discharge, patient to follow up outpatient with her primary dock operations supervisor at [facility] or Dr. Lay per patient preference Nurse Practitioner note has been reviewed, I agree with a documented findings and plan of care. Patient was seen and examined. Objective - Vital Signs Vital signs: Vital Signs Temp 98.2 F 01/02/22 00:00 Pulse 91 01/02/22 03:10 Resp 18 01/02/22 03:10 BP 101/58 01/02/22 03:10 Pulse Ox 96 01/02/22 03:10 FiO2 Intake & Output 01/01/22 01/02/22 01/02/22 18:59 06:59 18:59 Intake Total 594 120 Output Total 500 1050 400 Balance 94 -1050 -280 Intake: Oral 594 120 Output: Urine 500 1050 400 Other: Voiding Method Toilet Toilet # Voids 1 # Bowel Movements 1 - Labs CBC & Chem 7: 01/02/22 08:08 01/02/22 08:08 Labs: Abnormal Lab Results - Last 24 Hours (Table) 01/01/22 01/01/22 01/01/22 Range/Units 11:41 14:12 16:41 POC Glucose (mg/dL) 267 H 345 H 289 H (70-110) mg/dL 01/01/22 01/02/22 Range/Units 20:07 06:11 POC Glucose (mg/dL) 238 H 150 H (70-110) mg/dL
[2022-01-02] MEDS: SODIUM CHLORIDE 0.9% 1,000 ML IV SCH (12:02)
--- NOTE | 2022-01-02 14:12 | P.CONS ---
History of Present Illness - Reason for Consult Consult date: 01/02/22 GI bleed Requesting physician: Tri Walters - Chief Complaint Weakness - History of Present Illness This is a pleasant 66-year-old female with a significant cardiac history including heart failure, multiple cardiac stents, diabetes mellitus, who presented to the emergency department [facility] with complaints of generalized weakness, fall, and nausea and vomiting. At that time patient was noted to have a hemoglobin 8.4 which has subsequently dropped to 7.4 today. Gastroenterology was consulted for possible GI bleed. Patient denies any blood in her stool or black stool. However when asked about her emesis she does state that there were a couple that were dark. She states that she did feel that she had indigestion and epigastric discomfort. She denies any previous history of ulcers or GI bleed. She has no previous EGD or colonoscopy. Unsure if she has a history of anemia. No prior admissions for comparison at this hospital. Currently denies any abdominal pain, nausea or vomiting. Denies any blood in her stool. Labs: WBC 12.8 hemoglobin 7.5 hematocrit 23 platelet count 346,000 sodium 139 potassium 4.7P 158 creatinine 1.28 iron 24 TIBC 200 saturation 11.9 ferritin 805 total bilirubin 0.5 AST 67 AST 81 alkaline phosphatase 128 Review of Systems REVIEW OF SYSTEMS: CARDIOPULMONARY: No chest pain or shortness of breath. Gastrointestinal: Complaints of indigestion discomfort last week when she was having episodes of nausea with vomiting. States that possible dark emesis 1-2 times. No rectal bleeding, or melena. GENITOURINARY: No dysuria or hematuria. MUSCULOSKELETAL: Reports normal range of motion. SKIN: No rashes. No jaundice. ENDOCRINE: No chills, fevers. No excessive weight gain or loss. No polydipsia or polyuria. PSYCHIATRIC: Unremarkable. NEUROLOGY: No change in mental status. Denies dizziness, headache. ENT: Vision unremarkable. CONSTITUTIONAL: No recent weight loss. No fever, chills, night sweats. Weakness, dizziness. Past Medical History Additional Past Medical History / Comment(s): pacemaker History of Any Multi-Drug Resistant Organisms: None Reported Past Surgical History: Adenoidectomy, Heart Catheterization With Stent, Hysterectomy, Tonsillectomy Additional Past Surgical History / Comment(s): pacemaker Date of Last Stent Placement:: 06/27/20 Past Psychological History: No Psychological Hx Reported Smoking Status: Former smoker Past Alcohol Use History: None Reported Past Drug Use History: None Reported Medications and Allergies Home Medications Medication Instructions Recorded Confirmed Type Aspirin EC [Ecotrin Low Dose] 81 mg PO DAILY 12/31/21 12/31/21 History Atorvastatin Calcium [Lipitor] 80 mg PO HS 12/31/21 12/31/21 History Bumetanide [BUMEX] 2 mg PO BID 12/31/21 12/31/21 History Clopidogrel [Plavix] 75 mg PO DAILY 12/31/21 12/31/21 History Spironolactone 25 mg PO DAILY 12/31/21 12/31/21 History carvediloL [Coreg] 6.25 mg PO BID 12/31/21 12/31/21 History glipiZIDE 10 mg PO BID 12/31/21 12/31/21 History lisinopriL [Zestril] 20 mg PO DAILY 12/31/21 12/31/21 History metFORMIN HCL [Glucophage] 500 mg PO BID 12/31/21 12/31/21 History Allergies Allergy/AdvReac Type Severity Reaction Status Date / Time moxifloxacin [From Avelox] Allergy Anaphylaxis Verified 12/31/21 10:41 Physical Exam Vitals: Vital Signs Temp Pulse Resp BP Pulse Ox 01/02/22 03:10 91 18 101/58 96 01/02/22 00:00 98.2 F 74 18 113/58 100 01/01/22 20:30 98 F 75 17 108/66 100 01/01/22 17:22 128/61 01/01/22 15:06 73 14 112/55 97 01/01/22 12:00 74 104/51 98 Intake and Output 01/01/22 01/02/22 01/02/22 22:59 06:59 14:59 Intake Total 118 120 Output Total 397 405 8976 Balance -382 -430 -655 Intake: Oral 118 120 Output: Urine 167 044 2706 Other: Voiding Method Toilet Toilet Weight 72.575 kg General appearance: The patient is alert, oriented, appears in no acute distress. HET: Head is normocephalic and atraumatic. Conjunctiva pink. Sclera anicteric. Neck: Supple without lymphadenopathy. Trachea midline. Heart: S1 S2. Regular rate and rhythm. Lungs: Clear to auscultation. Abdomen: Soft, nontender, nondistended with bowel sounds. No guarding or rigidity. Skin: No rashes. No jaundice. Extremities: Normal skin color and turgor. No pedal edema. Neurological: No focal deficits. Alert and oriented x3. Results CBC & Chem 7: 01/02/22 08:08 01/02/22 08:08 Labs: Abnormal Lab Results - Last 24 Hours (Table) 01/01/22 01/01/22 01/01/22 Range/Units 14:12 16:41 20:07 WBC (3.8-10.6) k/uL RBC (3.80-5.40) m/uL Hgb (11.4-16.0) gm/dL Hct (34.0-46.0) % Neutrophils # (1.3-7.7) k/uL Lymphocytes # (1.0-4.8) k/uL Carbon Dioxide (22-30) mmol/L BUN (7-17) mg/dL Creatinine (0.52-1.04) mg/dL Glucose (74-99) mg/dL POC Glucose (mg/dL) 345 H 289 H 238 H (70-110) mg/dL Calcium (8.4-10.2) mg/dL 01/02/22 01/02/22 01/02/22 Range/Units 06:11 08:08 08:08 WBC 12.8 H (3.8-10.6) k/uL RBC 2.49 L (3.80-5.40) m/uL Hgb 7.5 L (11.4-16.0) gm/dL Hct 23.4 L (34.0-46.0) % Neutrophils # 11.1 H (1.3-7.7) k/uL Lymphocytes # 0.6 L (1.0-4.8) k/uL Carbon Dioxide 20 L (22-30) mmol/L BUN 58 H (7-17) mg/dL Creatinine 1.28 H (0.52-1.04) mg/dL Glucose 300 H (74-99) mg/dL POC Glucose (mg/dL) 150 H (70-110) mg/dL Calcium 7.9 L (8.4-10.2) mg/dL 01/02/22 Range/Units 11:37 WBC (3.8-10.6) k/uL RBC (3.80-5.40) m/uL Hgb (11.4-16.0) gm/dL Hct (34.0-46.0) % Neutrophils # (1.3-7.7) k/uL Lymphocytes # (1.0-4.8) k/uL Carbon Dioxide (22-30) mmol/L BUN (7-17) mg/dL Creatinine (0.52-1.04) mg/dL Glucose (74-99) mg/dL POC Glucose (mg/dL) 340 H (70-110) mg/dL Calcium (8.4-10.2) mg/dL Assessment and Plan (1) Normocytic normochromic anemia Narrative/Plan: 66-year-old female presented to the emergency department with complaints of generalized weakness and fall. States she was dehydrated. She was having episodes of nausea with vomiting. Presented to the emergency department with acute kidney injury. Patient has significant cardiac history with history of heart failure and 7 stents, AICD placement. On admission patient was found to be anemic. She had a hemoglobin 8.4 with strep to 7.4. Denies any blood in her stool or black stool. She was having episodes of nausea and vomiting which she states a couple may have been dark. No previous history of ulcers, no NSAID use or anticoagulation however patient is on a low-dose aspirin and Plavix daily for cardiac disease. No previous history of ulcer, unsure if she has a history of anemia. Iron studies were consistent with an iron deficiency anemia. Patient is currently getting IV iron. This quite possibly could be anemia of chronic disease. However patient has not had prior EGD or colonoscopy silk cannot rule out GI blood source for anemia. Patient has been on Plavix, recommend outpatient EGD and colonoscopy with patient being off her Plavix for 5 days. Patient is agreeable to this plan. Current Visit: Yes Status: Acute Code(s): D64.9 - ANEMIA, UNSPECIFIED SNOMED Code(s): 11527425 (2) History of coronary artery disease Current Visit: Yes Status: Acute Code(s): Z86.79 - PERSONAL HISTORY OF OTHER DISEASES OF THE CIRCULATORY SYSTEM SNOMED Code(s): 487156247 (3) Acute kidney injury Current Visit: Yes Status: Acute Code(s): N17.9 - ACUTE KIDNEY FAILURE, UNSPECIFIED SNOMED Code(s): 95982424 (4) Generalized weakness Current Visit: Yes Status: Acute Code(s): R53.1 - WEAKNESS SNOMED Code(s): 85441023 Plan: 1. Continue symptomatic and supportive care 2. Daily CBC, transfuse for hemoglobin less than 7 3. Avoid NSAIDs 4. Protonix 40 mg daily GI prophylaxis 5. Continue IV iron 6. Recommend outpatient EGD colonoscopy, at that time patient will have to be off her Plavix for 5 days prior to procedure. 7. Continue with recommendations from nephrology and cardiology Thank you for this consultation, we will continue to follow. Dr. Beatriz Martin I agree with the dictator's note, documented as a scribe by Bella Tanner.
[2022-01-02 16:19] LABS: % Iron Saturation 21.43 (12.00-45.00)
[2022-01-02 16:27] LABS: Glucose,Whole Blood 235 mg/dL (70-110)
[2022-01-02] MEDS: PANTOPRAZOLE 40 MG TABLET PO SCH (16:35)
[2022-01-02 19:37] LABS: Glucose,Whole Blood 187 mg/dL (70-110)
[2022-01-02] MEDS: ATORVASTATIN 80 MG TAB PO SCH (20:05)
[2022-01-03 05:45] LABS: Glucose,Whole Blood 225 mg/dL (70-110)
[2022-01-03] MEDS: MIDODRINE 5 MG TAB PO SCH ×3 (06:22→17:01)
[2022-01-03] MEDS: INSULIN ASPART (NovoLOG) 100 UNIT/ML VIAL SQ SCH ×4 (06:22→20:24)
[2022-01-03] MEDS: carvediloL 6.25 MG TAB PO SCH ×2 (06:22→17:01)
[2022-01-03] MEDS: PANTOPRAZOLE 40 MG TABLET PO SCH ×2 (06:22→17:01)
[2022-01-03] MEDS: ASPIRIN 81 MG PO SCH (08:41)
[2022-01-03] MEDS: FAMOTIDINE 20 MG TAB PO SCH (08:42)
[2022-01-03] MEDS: CLOPIDOGREL 75 MG TAB PO SCH (08:42)
[2022-01-03] MEDS: SODIUM BICARBONATE TAB 650 MG TAB PO SCH ×3 (08:43→20:24)
[2022-01-03] MEDS: glipiZIDE 10 MG TAB PO SCH ×2 (08:43→20:24)
[2022-01-03] MEDS: SODIUM CHLORIDE 0.9% 1,000 ML IV SCH (08:52)
[2022-01-03 09:03] LABS: HCT 21.2 % (34.0-46.0); Hypochromasia Slight; MCH 30.5 pg (25.0-35.0); MCHC 32.3 g/dL (31.0-37.0); MCV 94.4 fL (80.0-100.0); Mean Platelet Volume 7.3; Platelet Count 343 k/uL (150-450); RBC 2.25 m/uL (3.80-5.40); RDW 12.3 % (11.5-15.5); WBC 13.6 k/uL (3.8-10.6)
[2022-01-03 09:15] LABS: HGB 6.9 gm/dL (11.4-16.0)
[2022-01-03 09:19] LABS: Calcium 7.6 mg/dL (8.4-10.2)
--- NOTE | 2022-01-03 09:32 | P.PN ---
Subjective Patient is seen in follow-up for acute kidney injury. Renal function continues to improve. Receiving IV fluids. Good urine output. No vomiting or diarrhea. Hemodynamically stable. Hemoglobin 6.9 today. No active bleeding noted. Vital signs are stable. General: Awake. No acute distress. HEENT: Head exam is unremarkable. LUNGS: Breath sounds decreased. HEART: Rate and Rhythm are regular. ABDOMEN: Soft, no distention. EXTREMITITES: No edema. Objective - Vital Signs Vital signs: Vital Signs Temp 98.1 F 01/03/22 08:00 Pulse 79 01/03/22 08:00 Resp 18 01/03/22 08:00 BP 113/55 01/03/22 08:00 Pulse Ox 97 01/03/22 08:00 FiO2 Intake & Output 01/02/22 01/03/22 01/03/22 18:59 06:59 18:59 Intake Total 240 Output Total 1550 450 Balance -1310 -450 Weight 72.575 kg Intake: Oral 240 Output: Urine 1550 450 Other: Voiding Method Toilet Toilet # Voids 3 - Labs CBC & Chem 7: 01/03/22 07:50 01/03/22 07:50 Labs: Abnormal Lab Results - Last 24 Hours (Table) 01/02/22 01/02/22 01/02/22 Range/Units 08:08 08:08 08:08 WBC 12.8 H (3.8-10.6) k/uL RBC 2.49 L (3.80-5.40) m/uL Hgb 7.5 L (11.4-16.0) gm/dL Hct 23.4 L (34.0-46.0) % Neutrophils # 11.1 H (1.3-7.7) k/uL Lymphocytes # 0.6 L (1.0-4.8) k/uL Carbon Dioxide 20 L (22-30) mmol/L BUN 58 H (7-17) mg/dL Creatinine 1.28 H (0.52-1.04) mg/dL Glucose 300 H (74-99) mg/dL POC Glucose (mg/dL) (70-110) mg/dL Calcium 7.9 L (8.4-10.2) mg/dL Iron 38 L (50-170) ug/dL TIBC 175 L (228-460) ug/dL Transferrin 125.0 L (204.0-354.0) mg/dL Ferritin 890.0 H (10.0-291.0) ng/mL 01/02/22 01/02/22 01/02/22 Range/Units 11:37 16:20 19:34 WBC (3.8-10.6) k/uL RBC (3.80-5.40) m/uL Hgb (11.4-16.0) gm/dL Hct (34.0-46.0) % Neutrophils # (1.3-7.7) k/uL Lymphocytes # (1.0-4.8) k/uL Carbon Dioxide (22-30) mmol/L BUN (7-17) mg/dL Creatinine (0.52-1.04) mg/dL Glucose (74-99) mg/dL POC Glucose (mg/dL) 340 H 235 H 187 H (70-110) mg/dL Calcium (8.4-10.2) mg/dL Iron (50-170) ug/dL TIBC (228-460) ug/dL Transferrin (204.0-354.0) mg/dL Ferritin (10.0-291.0) ng/mL 01/03/22 01/03/22 01/03/22 Range/Units 05:42 07:50 07:50 WBC 13.6 H (3.8-10.6) k/uL RBC 2.25 L (3.80-5.40) m/uL Hgb 6.9 L* (11.4-16.0) gm/dL Hct 21.2 L (34.0-46.0) % Neutrophils # (1.3-7.7) k/uL Lymphocytes # (1.0-4.8) k/uL Carbon Dioxide (22-30) mmol/L BUN 28 H (7-17) mg/dL Creatinine 1.09 H (0.52-1.04) mg/dL Glucose 179 H (74-99) mg/dL POC Glucose (mg/dL) 225 H (70-110) mg/dL Calcium 7.6 L (8.4-10.2) mg/dL Iron (50-170) ug/dL TIBC (228-460) ug/dL Transferrin (204.0-354.0) mg/dL Ferritin (10.0-291.0) ng/mL Assessment and Plan Plan: Assessment: 1. Acute kidney injury mostly prerenal secondary to hypovolemia from poor intake and vomiting and diarrhea. Creatinine 3.51 on admission -1.09 today. Unknown baseline renal function. No hydronephrosis noted on ultrasound.. No proteinuria on UA. 2. Nausea vomiting and diarrhea. Possible gastroenteritis. Improved. 3. Hypovolemic hyponatremia. Improved. 4. Metabolic acidosis secondary to acute kidney injury and GI losses. Also lactic acidosis. On oral bicarbonate. Better. 5. Anemia. Iron deficiency noted. Hemoglobin 6.9 today. No active bleeding. 6. Diabetes mellitus. 7. Coronary artery disease status post cardiac stenting. Plan: Hep-Lock IV fluids. Cortisol level not low. Maintain IV iron. Consider blood transfusion. Defer to primary team. Encourage oral intake. Avoid nephrotoxins. Maintain midodrine 5 mg 3 times daily. Hold for systolic blood pressure greater than 115. EF preserved.
[2022-01-03] MEDS: SODIUM FERRIC GLUCONAT-SUCROSE 125 MG in SODIUM CHLORIDE 0.9% 100 ML IVPB SCH (10:00)
[2022-01-03] MEDS ORDERED: MAGNESIUM SULFATE-D5W PMX 1 GM in DEXTROSE/WATER 1 100ML.BAG IVPB ONE (10:00)
[2022-01-03 11:40] LABS: Glucose,Whole Blood 221 mg/dL (70-110)
--- NOTE | 2022-01-03 11:42 | P.PN ---
Subjective This is a pleasant 66-year-old female patient with history of hypertension, diabetes and hyperlipidemia. Also has a history of ischemic cardiomyopathy post-stenting and ICD implantation done in [facility]. She follows with a elementary secretary at [facility] Dr. Kowalski. She presented to the hospital with symptoms of nausea, vomiting and fatigue. She was noted to be anemic with mild troponin elevation and acute kidney injury. Echocardiogram with Doppler study done this admission showed EF 50-55% with mild MR and mild TR. Patient seen and examined at bedside, no acute distress. Denies any chest pain or shortness of breath. Vital signs are stable. Labs revealed a hemoglobin is 6.9, renal function is improving, BUN 28, serum creatinine 1.09 GENERAL: Well-appearing, well-nourished and in no acute distress. NECK: Supple without JVD or thyromegaly. LUNGS: Breath sounds clear to auscultation bilaterally. Respiration equal and unlabored. No wheezes, rales or rhonchi. HEART: Regular rate and rhythm without murmurs, rubs or gallops. S1 and S2 heard. EXTREMITIES: Normal range of motion, no edema. No clubbing or cyanosis. Peripheral pulses intact. ASSESSMENT 1. Nausea and vomiting, probable gastroenteritis 2. Troponin elevation, no evidence to suggest acute coronary syndrome, probably related to the worsening renal failure 3. Acute on chronic renal failure, worsened by the nausea and vomiting and dehydration, improving 4. History of CAD with multiple stenting with no evidence to suggest acute event, Most recent stenting per patient 08/2020 5. History of cardiomyopathy, no evidence of heart failure, EF currently 50-55% 6. Status post ICD 7. History of diabetes 8. Hyperlipidemia 9. Anemia PLAN From cardiology's perspective will continue to hold diuretics and SUYAPA inhibitor at this time. Recommend Stopping Plavix with most recent PCI 08/2020 and anemia with decreased hemoglobin. Renal function is improving. Continue aspirin, statin, Coreg. Continue to follow renal function. Nephrology following GI consulted for possible EGD/Colonoscopy inpatient vs outpatient, no absolute cardiac contraindication to not proceed with procedure if indicated We will follow the patient as needed. Please reconsult if needed On discharge, patient to follow up outpatient with her primary elementary secretary at [facility] Dr. Kowalski. Nurse Practitioner note has been reviewed, I agree with a documented findings and plan of care. Patient was seen and examined. Objective - Vital Signs Vital signs: Vital Signs Temp 97.9 F 01/03/22 11:24 Pulse 77 01/03/22 11:24 Resp 17 01/03/22 11:24 BP 114/53 01/03/22 11:24 Pulse Ox 98 01/03/22 11:24 FiO2 Intake & Output 01/02/22 01/03/22 01/03/22 18:59 06:59 18:59 Intake Total 240 120 Output Total 1550 450 Balance -1310 -450 120 Weight 72.575 kg Intake: Oral 240 120 Output: Urine 1550 450 Other: Voiding Method Toilet Toilet Toilet # Voids 3 - Labs CBC & Chem 7: 01/03/22 07:50 01/03/22 07:50 Labs: Abnormal Lab Results - Last 24 Hours (Table) 01/02/22 01/02/22 01/02/22 Range/Units 08:08 11:37 16:20 WBC (3.8-10.6) k/uL RBC (3.80-5.40) m/uL Hgb (11.4-16.0) gm/dL Hct (34.0-46.0) % BUN (7-17) mg/dL Creatinine (0.52-1.04) mg/dL Glucose (74-99) mg/dL POC Glucose (mg/dL) 340 H 235 H (70-110) mg/dL Calcium (8.4-10.2) mg/dL Iron 38 L (50-170) ug/dL TIBC 175 L (228-460) ug/dL Transferrin 125.0 L (204.0-354.0) mg/dL Ferritin 890.0 H (10.0-291.0) ng/mL 01/02/22 01/03/22 01/03/22 Range/Units 19:34 05:42 07:50 WBC (3.8-10.6) k/uL RBC (3.80-5.40) m/uL Hgb (11.4-16.0) gm/dL Hct (34.0-46.0) % BUN 28 H (7-17) mg/dL Creatinine 1.09 H (0.52-1.04) mg/dL Glucose 179 H (74-99) mg/dL POC Glucose (mg/dL) 187 H 225 H (70-110) mg/dL Calcium 7.6 L (8.4-10.2) mg/dL Iron (50-170) ug/dL TIBC (228-460) ug/dL Transferrin (204.0-354.0) mg/dL Ferritin (10.0-291.0) ng/mL 01/03/22 Range/Units 07:50 WBC 13.6 H (3.8-10.6) k/uL RBC 2.25 L (3.80-5.40) m/uL Hgb 6.9 L* (11.4-16.0) gm/dL Hct 21.2 L (34.0-46.0) % BUN (7-17) mg/dL Creatinine (0.52-1.04) mg/dL Glucose (74-99) mg/dL POC Glucose (mg/dL) (70-110) mg/dL Calcium (8.4-10.2) mg/dL Iron (50-170) ug/dL TIBC (228-460) ug/dL Transferrin (204.0-354.0) mg/dL Ferritin (10.0-291.0) ng/mL
--- NOTE | 2022-01-03 13:32 | P.PN ---
Subjective Progress Note Date: 01/03/22 Principal diagnosis: Anemia This is a pleasant 66-year-old female with a significant cardiac history including heart failure, multiple cardiac stents, diabetes mellitus, who prese nted to the emergency department Dick with complaints of generalized weakness, fall, and nausea and vomiting. At that time patient was noted to have a hemoglobin 8.4 which has subsequently dropped to 7.4 today. Gastroenterology was consulted for possible GI bleed. Patient denies any blood in her stool or black stool. However when asked about her emesis she does state that there were a couple that were dark. She states that she did feel that she had indigestion and epigastric discomfort. She denies any previous history of ulcers or GI bleed. She has no previous EGD or colonoscopy. Unsure if she has a history of anemia. No prior admissions for comparison at this hospital. Currently denies any abdominal pain, nausea or vomiting. Denies any blood in her stool. 01/03/2022: Patient is seen today's follow-up. Patient states she is feeling tired other than that she is feeling well. She's been up and ambulating. Has not had any bowel movements. She denies any abdominal pain, nausea or vomiting. No rectal bleeding. Hemoglobin this morning was 6.9. Iron studies are consistent with an iron deficiency anemia. She is getting IV iron. Objective - Vital Signs Vital signs: Vital Signs Temp 98.1 F 01/03/22 08:00 Pulse 79 01/03/22 08:00 Resp 18 01/03/22 08:00 BP 113/55 01/03/22 08:00 Pulse Ox 97 01/03/22 08:00 FiO2 Intake & Output 01/02/22 01/03/22 01/03/22 18:59 06:59 18:59 Intake Total 240 Output Total 1550 450 Balance -1310 -450 Weight 72.575 kg Intake: Oral 240 Output: Urine 1550 450 Other: Voiding Method Toilet Toilet # Voids 3 - Exam General appearance: The patient is alert, oriented, appears in no acute distress. HET: Head is normocephalic and atraumatic. Conjunctiva pink. Sclera anicteric. Neck: Supple without lymphadenopathy. Abdomen: Soft, nontender, nondistended with bowel sounds. No guarding or rigidity. Extremities: Normal skin color and turgor. No pedal edema Skin: No rashes, no jaundice Neurological: No focal deficits. Alert and oriented x 3. - Labs CBC & Chem 7: 01/03/22 07:50 01/03/22 07:50 Labs: Abnormal Lab Results - Last 24 Hours (Table) 01/02/22 01/02/22 01/02/22 Range/Units 08:08 08:08 11:37 WBC (3.8-10.6) k/uL RBC (3.80-5.40) m/uL Hgb (11.4-16.0) gm/dL Hct (34.0-46.0) % Carbon Dioxide 20 L (22-30) mmol/L BUN 58 H (7-17) mg/dL Creatinine 1.28 H (0.52-1.04) mg/dL Glucose 300 H (74-99) mg/dL POC Glucose (mg/dL) 340 H (70-110) mg/dL Calcium 7.9 L (8.4-10.2) mg/dL Iron 38 L (50-170) ug/dL TIBC 175 L (228-460) ug/dL Transferrin 125.0 L (204.0-354.0) mg/dL Ferritin 890.0 H (10.0-291.0) ng/mL 01/02/22 01/02/22 01/03/22 Range/Units 16:20 19:34 05:42 WBC (3.8-10.6) k/uL RBC (3.80-5.40) m/uL Hgb (11.4-16.0) gm/dL Hct (34.0-46.0) % Carbon Dioxide (22-30) mmol/L BUN (7-17) mg/dL Creatinine (0.52-1.04) mg/dL Glucose (74-99) mg/dL POC Glucose (mg/dL) 235 H 187 H 225 H (70-110) mg/dL Calcium (8.4-10.2) mg/dL Iron (50-170) ug/dL TIBC (228-460) ug/dL Transferrin (204.0-354.0) mg/dL Ferritin (10.0-291.0) ng/mL 01/03/22 01/03/22 Range/Units 07:50 07:50 WBC 13.6 H (3.8-10.6) k/uL RBC 2.25 L (3.80-5.40) m/uL Hgb 6.9 L* (11.4-16.0) gm/dL Hct 21.2 L (34.0-46.0) % Carbon Dioxide (22-30) mmol/L BUN 28 H (7-17) mg/dL Creatinine 1.09 H (0.52-1.04) mg/dL Glucose 179 H (74-99) mg/dL POC Glucose (mg/dL) (70-110) mg/dL Calcium 7.6 L (8.4-10.2) mg/dL Iron (50-170) ug/dL TIBC (228-460) ug/dL Transferrin (204.0-354.0) mg/dL Ferritin (10.0-291.0) ng/mL Assessment and Plan (1) Normocytic normochromic anemia Narrative/Plan: 66-year-old female presented to the emergency department with complaints of generalized weakness and fall. States she was dehydrated. She was having episodes of nausea with vomiting. Presented to the emergency department with acute kidney injury. Patient has significant cardiac history with history of heart failure and 7 stents, AICD placement. On admission patient was found to b e anemic. She had a hemoglobin 8.4 with strep to 7.4. Denies any blood in her stool or black stool. She was having episodes of nausea and vomiting which she states a couple may have been dark. No previous history of ulcers, no NSAID use or anticoagulation however patient is on a low-dose aspirin and Plavix daily for cardiac disease. No previous history of ulcer, unsure if she has a history of anemia. Iron studies were consistent with an iron deficiency anemia. Patient is currently getting IV iron. This quite possibly could be anemia of chronic disease. However patient has not had prior EGD or colonoscopy silk cannot rule out GI blood source for anemia. Patient has been on Plavix, recommend outpatient EGD and colonoscopy with patient being off her Plavix for 5 days. Patient is agreeable to this plan. Patient had a drop in her hemoglobin today is 6.9. Plavix has been discontin ued. No overt signs or symptoms of GI bleed. 1 unit of PRBC transfusion ordered. If no further drop in hemoglobin we'll continue to plan outpatient EGD colonoscopy next week otherwise if patient continues to have drop in his and admitted to the hospital will consider EGD colonoscopy on Sunday. Current Visit: Yes Status: Acute Code(s): D64.9 - ANEMIA, UNSPECIFIED SNOMED Code(s): 04416154 (2) History of coronary artery disease Current Visit: Yes Status: Acute Code(s): Z86.79 - PERSONAL HISTORY OF OTHER DISEASES OF THE CIRCULATORY SYSTEM SNOMED Code(s): 398370734 (3) Acute kidney injury Current Visit: Yes Status: Acute Code(s): N17.9 - ACUTE KIDNEY FAILURE, UNSPECIFIED SNOMED Code(s): 89201603 (4) Generalized weakness Current Visit: Yes Status: Acute Code(s): R53.1 - WEAKNESS SNOMED Code(s): 63289641 Plan: 1. Continue symptomatic and supportive care 2. Daily CBC, transfuse for hemoglobin less than 7 3. Avoid NSAIDs 4. Protonix 40 mg daily GI prophylaxis 5. Transfuse 1 unit blood 6. Recommend outpatient EGD and colonoscopy and 5 no further bleeding or drop in hemoglobin. Otherwise if patient continues to have drop in hemoglobin will need to consider EGD colonoscopy on Sunday.. 7. Continue with recommendations from nephrology and cardiology Thank you for this consultation, we will continue to follow. Dr. Beatriz Martin I agree with the dictator's note, documented as a scribe by Bella Tanner.
--- NOTE | 2022-01-03 15:36 | P.PN ---
Subjective Progress Note Date: 01/02/22 Patient was admitted to the hospital due to complaints of chest discomfort and also found have acute urinary tract infection and acute kidney injury. Next and 01/02/2022 Patient is currently lying in bed. Awake alert and oriented 3. Denied any complaints of chest discomfort today. Symptomatically improved. Renal function is improving as well. No complaints of shortness of breath. Mild nausea. No feverno cough or sputum production. Laboratory data showed WBC 12.8 hemoglobin 7.5 and platelets 346. Patient was also found have iron deficient and was given IV iron Laboratory data showed BUN 58 and creatinine 1.8 and bicarb is 20 and magnesium 1.7 Patient is being currently on antibiotics in the form of ceftriaxone. Cultures have been negative. cardiology and nephrology is on board. Current medications reviewed. Objective - Vital Signs Vital signs: Vital Signs Temp 98 F 01/02/22 20:05 Pulse 70 01/02/22 20:05 Resp 17 01/02/22 20:05 BP 114/65 01/02/22 20:05 Pulse Ox 100 01/02/22 20:05 FiO2 Intake & Output 01/02/22 01/02/22 01/03/22 06:59 18:59 06:59 Intake Total 240 Output Total 1050 1550 Balance -1050 -1310 Weight 72.575 kg Intake: Oral 240 Output: Urine 1050 1550 Other: Voiding Method Toilet Toilet Toilet - Exam PHYSICAL EXAMINATION: Patient is lying in the bed comfortably, no acute distress, awake alert and oriented.. HEENT: Normocephalic. Neck is supple. Pupils reactive. Nostrils clear. Oral cavity is moist. Neck reveals no JVD, carotid bruits, or thyromegaly. CHEST EXAMINATION: Trachea is central. Symmetrical expansion. Lung salas clear to auscultation and percussion. CARDIAC: Normal S1, S2 with no gallops. No murmurs ABDOMEN: Soft. Bowel sounds normal. No organomegaly. No abdominal bruits. Extremities: reveal no edema. No clubbing or cyanosis Neurologically awake, alert, oriented x3 with well-coordinated movements. No focal deficits noted Skin: No rash or skin lesions. Psychiatric: Coperative. Nonsuicidal Musculoskeletal: No joint swelling or deformity. Normal range of motion. - Labs CBC & Chem 7: 01/03/22 07:50 01/03/22 07:50 Labs: Abnormal Lab Results - Last 24 Hours (Table) 01/02/22 01/02/22 01/02/22 Range/Units 06:11 08:08 08:08 WBC 12.8 H (3.8-10.6) k/uL RBC 2.49 L (3.80-5.40) m/uL Hgb 7.5 L (11.4-16.0) gm/dL Hct 23.4 L (34.0-46.0) % Neutrophils # 11.1 H (1.3-7.7) k/uL Lymphocytes # 0.6 L (1.0-4.8) k/uL Carbon Dioxide 20 L (22-30) mmol/L BUN 58 H (7-17) mg/dL Creatinine 1.28 H (0.52-1.04) mg/dL Glucose 300 H (74-99) mg/dL POC Glucose (mg/dL) 150 H (70-110) mg/dL Calcium 7.9 L (8.4-10.2) mg/dL Iron (50-170) ug/dL TIBC (228-460) ug/dL Transferrin (204.0-354.0) mg/dL Ferritin (10.0-291.0) ng/mL 01/02/22 01/02/22 01/02/22 Range/Units 08:08 11:37 16:20 WBC (3.8-10.6) k/uL RBC (3.80-5.40) m/uL Hgb (11.4-16.0) gm/dL Hct (34.0-46.0) % Neutrophils # (1.3-7.7) k/uL Lymphocytes # (1.0-4.8) k/uL Carbon Dioxide (22-30) mmol/L BUN (7-17) mg/dL Creatinine (0.52-1.04) mg/dL Glucose (74-99) mg/dL POC Glucose (mg/dL) 340 H 235 H (70-110) mg/dL Calcium (8.4-10.2) mg/dL Iron 38 L (50-170) ug/dL TIBC 175 L (228-460) ug/dL Transferrin 125.0 L (204.0-354.0) mg/dL Ferritin 890.0 H (10.0-291.0) ng/mL 01/02/22 Range/Units 19:34 WBC (3.8-10.6) k/uL RBC (3.80-5.40) m/uL Hgb (11.4-16.0) gm/dL Hct (34.0-46.0) % Neutrophils # (1.3-7.7) k/uL Lymphocytes # (1.0-4.8) k/uL Carbon Dioxide (22-30) mmol/L BUN (7-17) mg/dL Creatinine (0.52-1.04) mg/dL Glucose (74-99) mg/dL POC Glucose (mg/dL) 187 H (70-110) mg/dL Calcium (8.4-10.2) mg/dL Iron (50-170) ug/dL TIBC (228-460) ug/dL Transferrin (204.0-354.0) mg/dL Ferritin (10.0-291.0) ng/mL Assessment and Plan Assessment: Acute kidney injury likely prerenal secondary to hypovolemia and nausea vomiting and poor oral intake. Improved creatinine level Metabolic acidosis secondary to acute kidney injury. Improving Nausea vomiting and diarrhea likely due to gastroenteritis. Improved now Intermediate troponin level elevation. Likely due to worsening. Unlikely ACS as per cardiology. Hypovolemic hyponatremia History of CAD with multiple stent placement Cardiomyopathy with no evidence of heart failure. Ejection fraction currently at 50-55 %. Patient is status post AICD placement Possible acute urinary tract infection Diabetes type 2 Hyperlipidemia DVT prophylaxis Plan: Plan: patient is being continued on IV hydration and encourage oral intake. Renal fu nction is improving. Patient is being converted on Midodrin 5 mg 3 times a day due to hypotension. Diuretics and esther inhibitors on hold. Continue with aspirin statins and Coreg and is also on Midodrin with holding parameters. Continue with Protonix and symptomatic management for nausea. GI evaluation. Follow up closely. Monitor H&H. Time with Patient: Greater than 30
[2022-01-03 16:40] LABS: Glucose,Whole Blood 201 mg/dL (70-110)
[2022-01-03 19:25] LABS: Glucose,Whole Blood 209 mg/dL (70-110)
[2022-01-03] MEDS: ATORVASTATIN 80 MG TAB PO SCH (20:23)
[2022-01-04 05:37] LABS: Glucose,Whole Blood 176 mg/dL (70-110)
[2022-01-04 06:11] LABS: Basophils # (A) 0.1 k/uL (0-0.2); Basophils % (A) 0 %; Eosinophils # (A) 0.4 k/uL (0-0.7); Eosinophils % (A) 3 %; HCT 24.2 % (34.0-46.0); HGB 7.8 gm/dL (11.4-16.0); Lymphocytes # (A) 0.7 k/uL (1.0-4.8); Lymphocytes % (A) 6 %; MCH 29.2 pg (25.0-35.0); MCHC 32.4 g/dL (31.0-37.0); MCV 90.4 fL (80.0-100.0); Mean Platelet Volume 7.7; Monocytes # (A) 0.7 k/uL (0-1.0); Monocytes % (A) 5 %; Neutrophils # (A) 11.5 k/uL (1.3-7.7); Neutrophils % (A) 85 %; Platelet Count 332 k/uL (150-450); Poikilocytosis Slight; RBC 2.67 m/uL (3.80-5.40); RDW 13.7 % (11.5-15.5); WBC 13.5 k/uL (3.8-10.6)
[2022-01-04 06:15] LABS: Calcium 7.7 mg/dL (8.4-10.2); Potassium 4.2 mmol/L (3.5-5.1)
[2022-01-04] MEDS: MIDODRINE 5 MG TAB PO SCH ×3 (06:15→16:54)
[2022-01-04] MEDS: INSULIN ASPART (NovoLOG) 100 UNIT/ML VIAL SQ SCH ×4 (06:15→21:01)
[2022-01-04] MEDS: PANTOPRAZOLE 40 MG TABLET PO SCH ×2 (06:15→16:58)
[2022-01-04] MEDS: carvediloL 6.25 MG TAB PO SCH ×2 (06:15→16:58)
[2022-01-04] MEDS: SODIUM BICARBONATE TAB 650 MG TAB PO SCH ×3 (08:16→21:09)
[2022-01-04] MEDS: ASPIRIN 81 MG PO SCH (08:16)
[2022-01-04] MEDS: CLOPIDOGREL 75 MG TAB PO SCH (08:16)
[2022-01-04] MEDS: glipiZIDE 10 MG TAB PO SCH ×2 (08:16→21:10)
[2022-01-04] MEDS: SODIUM FERRIC GLUCONAT-SUCROSE 125 MG in SODIUM CHLORIDE 0.9% 100 ML IVPB SCH (08:16)
[2022-01-04] MEDS: FAMOTIDINE 20 MG TAB PO SCH (08:16)
[2022-01-04] MEDS: polyethylene glycoL 3350 17 GM POWD.PACK PO SCH (09:37)
--- NOTE | 2022-01-04 10:11 | P.PN ---
Subjective Patient is seen in follow-up for acute kidney injury. Renal function continues to improve. Off IV fluids. Oral intake is good. Good urine output. No vomiting or diarrhea. Hemodynamically stable. Hemoglobin improved post blood test fusion. No active bleeding noted. Vital signs are stable. General: Awake. No acute distress. HEENT: Head exam is unremarkable. LUNGS: Breath sounds decreased. HEART: Rate and Rhythm are regular. ABDOMEN: Soft, no distention. EXTREMITITES: No edema. Objective - Vital Signs Vital signs: Vital Signs Temp 98.6 F 01/04/22 08:06 Pulse 74 01/04/22 08:06 Resp 17 01/04/22 08:06 BP 118/68 01/04/22 08:06 Pulse Ox 98 01/04/22 08:06 FiO2 Intake & Output 01/03/22 01/04/22 01/04/22 18:59 06:59 18:59 Intake Total 300 310 Output Total 1350 300 Balance -1050 10 Intake: Oral 300 Blood Product 0 310 Rc As-1 Unit 0 310 [id number] Output: Urine 1350 300 Other: Voiding Method Toilet Toilet Toilet - Labs CBC & Chem 7: 01/04/22 04:58 01/04/22 04:58 Labs: Abnormal Lab Results - Last 24 Hours (Table) 01/03/22 01/03/22 01/03/22 Range/Units 10:20 11:38 16:38 WBC (3.8-10.6) k/uL RBC (3.80-5.40) m/uL Hgb (11.4-16.0) gm/dL Hct (34.0-46.0) % Neutrophils # (1.3-7.7) k/uL Lymphocytes # (1.0-4.8) k/uL Chloride (98-107) mmol/L BUN (7-17) mg/dL Glucose (74-99) mg/dL POC Glucose (mg/dL) 221 H 201 H (70-110) mg/dL Calcium (8.4-10.2) mg/dL Crossmatch See Detail 01/03/22 01/04/22 01/04/22 Range/Units 19:24 04:58 04:58 WBC 13.5 H (3.8-10.6) k/uL RBC 2.67 L (3.80-5.40) m/uL Hgb 7.8 L (11.4-16.0) gm/dL Hct 24.2 L (34.0-46.0) % Neutrophils # 11.5 H (1.3-7.7) k/uL Lymphocytes # 0.7 L (1.0-4.8) k/uL Chloride 108 H (98-107) mmol/L BUN 21 H (7-17) mg/dL Glucose 149 H (74-99) mg/dL POC Glucose (mg/dL) 209 H (70-110) mg/dL Calcium 7.7 L (8.4-10.2) mg/dL Crossmatch 01/04/22 Range/Units 05:35 WBC (3.8-10.6) k/uL RBC (3.80-5.40) m/uL Hgb (11.4-16.0) gm/dL Hct (34.0-46.0) % Neutrophils # (1.3-7.7) k/uL Lymphocytes # (1.0-4.8) k/uL Chloride (98-107) mmol/L BUN (7-17) mg/dL Glucose (74-99) mg/dL POC Glucose (mg/dL) 176 H (70-110) mg/dL Calcium (8.4-10.2) mg/dL Crossmatch Assessment and Plan Plan: Assessment: 1. Acute kidney injury mostly prerenal secondary to hypovolemia from poor intake and vomiting and diarrhea. Creatinine 3.51 on admission -0.98 today. Unknown baseline renal function. No hydronephrosis noted on ultrasound.. No proteinuria on UA. 2. Nausea vomiting and diarrhea. Possible gastroenteritis. Improved. 3. Hypovolemic hyponatremia. Improved. 4. Metabolic acidosis secondary to acute kidney injury and GI losses. Also lactic acidosis. On oral bicarbonate. Better. 5. Anemia. Iron deficiency noted. Status post IV iron. Status post blood transfusion this admission. No active bleeding. GI following. Possible endoscopy this admission. 6. Diabetes mellitus. 7. Coronary artery disease status post cardiac stenting. Plan: Remains off IV fluids. Cortisol level not low. Encouraged oral intake. Avoid nephrotoxins. Maintain midodrine 5 mg 3 times daily. Hold for systolic blood pressure greater than 115. EF preserved.
[2022-01-04 11:33] LABS: Glucose,Whole Blood 368 mg/dL (70-110)
--- NOTE | 2022-01-04 15:04 | P.PN ---
Subjective Progress Note Date: 01/04/22 Principal diagnosis: Anemia This is a pleasant 66-year-old female with a significant cardiac history including heart failure, multiple cardiac stents, diabetes mellitus, who prese nted to the emergency department [facility] with complaints of generalized weakness, fall, and nausea and vomiting. At that time patient was noted to have a hemoglobin 8.4 which has subsequently dropped to 7.4 today. Gastroenterology was consulted for possible GI bleed. Patient denies any blood in her stool or black stool. However when asked about her emesis she does state that there were a couple that were dark. She states that she did feel that she had indigestion and epigastric discomfort. She denies any previous history of ulcers or GI bleed. She has no previous EGD or colonoscopy. Unsure if she has a history of anemia. No prior admissions for comparison at this hospital. Currently denies any abdominal pain, nausea or vomiting. Denies any blood in her stool. 01/03/2022: Patient is seen today's follow-up. Patient states she is feeling tired other than that she is feeling well. She's been up and ambulating. Has not had any bowel movements. She denies any abdominal pain, nausea or vomiting. No rectal bleeding. Hemoglobin this morning was 6.9. Iron studies are consistent with an iron deficiency anemia. She is getting IV iron. On 01/04/2022. Patient seen and examined as a follow-up for anemia. Patient had a drop in her hemoglobin yesterday to 6.9 and was transfused 1 unit of blood. Today's repeat hemoglobin is 7.8. She continues to deny any signs or symptoms of GI bleed. She has not had any bowel movement since she's been here. No abdominal pain, nausea or vomiting. Objective - Vital Signs Vital signs: Vital Signs Temp 98.6 F 01/04/22 08:06 Pulse 74 01/04/22 08:06 Resp 17 01/04/22 08:06 BP 118/68 01/04/22 08:06 Pulse Ox 98 01/04/22 08:06 FiO2 Intake & Output 01/03/22 01/04/22 01/04/22 18:59 06:59 18:59 Intake Total 300 310 Output Total 1350 300 Balance -1050 10 Intake: Oral 300 Blood Product 0 310 Rc As-1 Unit 0 310 [id number] Output: Urine 1350 300 Other: Voiding Method Toilet Toilet - Exam General appearance: The patient is alert, oriented, appears in no acute distress. HET: Head is normocephalic and atraumatic. Conjunctiva pink. Sclera anicteric. Neck: Supple without lymphadenopathy. Abdomen: Soft, nontender, nondistended with bowel sounds. No guarding or rigidity. Extremities: Normal skin color and turgor. No pedal edema Skin: No rashes, no jaundice Neurological: No focal deficits. Alert and oriented x 3. - Labs CBC & Chem 7: 01/04/22 04:58 01/04/22 04:58 Labs: Abnormal Lab Results - Last 24 Hours (Table) 01/03/22 01/03/22 01/03/22 Range/Units 10:20 11:38 16:38 WBC (3.8-10.6) k/uL RBC (3.80-5.40) m/uL Hgb (11.4-16.0) gm/dL Hct (34.0-46.0) % Neutrophils # (1.3-7.7) k/uL Lymphocytes # (1.0-4.8) k/uL Chloride (98-107) mmol/L BUN (7-17) mg/dL Glucose (74-99) mg/dL POC Glucose (mg/dL) 221 H 201 H (70-110) mg/dL Calcium (8.4-10.2) mg/dL Crossmatch See Detail 01/03/22 01/04/22 01/04/22 Range/Units 19:24 04:58 04:58 WBC 13.5 H (3.8-10.6) k/uL RBC 2.67 L (3.80-5.40) m/uL Hgb 7.8 L (11.4-16.0) gm/dL Hct 24.2 L (34.0-46.0) % Neutrophils # 11.5 H (1.3-7.7) k/uL Lymphocytes # 0.7 L (1.0-4.8) k/uL Chloride 108 H (98-107) mmol/L BUN 21 H (7-17) mg/dL Glucose 149 H (74-99) mg/dL POC Glucose (mg/dL) 209 H (70-110) mg/dL Calcium 7.7 L (8.4-10.2) mg/dL Crossmatch 01/04/22 Range/Units 05:35 WBC (3.8-10.6) k/uL RBC (3.80-5.40) m/uL Hgb (11.4-16.0) gm/dL Hct (34.0-46.0) % Neutrophils # (1.3-7.7) k/uL Lymphocytes # (1.0-4.8) k/uL Chloride (98-107) mmol/L BUN (7-17) mg/dL Glucose (74-99) mg/dL POC Glucose (mg/dL) 176 H (70-110) mg/dL Calcium (8.4-10.2) mg/dL Crossmatch Assessment and Plan (1) Normocytic normochromic anemia Narrative/Plan: 66-year-old female presented to the emergency department with complaints of generalized weakness and fall. States she was dehydrated. She was having episodes of nausea with vomiting. Presented to the emergency department with acute kidney injury. Patient has significant cardiac history with history of heart failure and 7 stents, AICD placement. On admission patient was found to be anemic. She had a hemoglobin 8.4 with strep to 7.4. Denies any blood in her stool or black stool. She was having episodes of nausea and vomiting which she states a couple may have been dark. No previous history of ulcers, no NSAID use or anticoagulation however patient is on a low-dose aspirin and Plavix daily for cardiac disease. No previous history of ulcer, unsure if she has a history of anemia. Iron studies were consistent with an iron deficiency anemia. Patient is currently getting IV iron. This quite possibly could be anemia of chronic disease. However patient has not had prior EGD or colonoscopy silk cannot rule out GI blood source for anemia. Patient has been on Plavix, recommend outpatient EGD and colonoscopy with patient being off her Plavix for 5 days. Patient is agreeable to this plan. Patient had a drop in her hemoglobin today is 6.9. Plavix has been discontinued. No overt signs or symptoms of GI bleed. 1 unit of PRBC transfusion ordered. We will plan on outpatient EGD and colonoscopy as patient has had Plavix yesterday and today. Patient will need to be off Plavix for 5 days prior to EGD colonoscopy Current Visit: Yes Status: Acute Code(s): D64.9 - ANEMIA, UNSPECIFIED SNOMED Code(s): 47369792 (2) History of coronary artery disease Current Visit: Yes Status: Acute Code(s): Z86.79 - PERSONAL HISTORY OF OTHER DISEASES OF THE CIRCULATORY SYSTEM SNOMED Code(s): 043369693 (3) Acute kidney injury Narrative/Plan: Improved Current Visit: Yes Status: Acute Code(s): N17.9 - ACUTE KIDNEY FAILURE, UNSPECIFIED SNOMED Code(s): 07877680 (4) Generalized weakness Current Visit: Yes Status: Acute Code(s): R53.1 - WEAKNESS SNOMED Code(s): 44721778 Plan: 1. Continue symptomatic and supportive care 2. Daily CBC, transfuse for hemoglobin less than 7 3. Avoid NSAIDs 4. Protonix 40 mg daily GI prophylaxis 5. Discontinue Plavix 6. No plans for inpatient EGD at this time due to Plavix. Recommend outpatient EGD and colonoscopy. Patient will be scheduled for outpatient colonoscopy next week, will need to be off of Plavix for 5 days duration prior. 7. Continue with recommendations from nephrology and cardiology Thank you for this consultation, we will continue to follow. Dr. Beatriz Martin I agree with the dictator's note, documented as a scribe by Bella Tanner.
[2022-01-04 16:25] LABS: Glucose,Whole Blood 177 mg/dL (70-110)
[2022-01-04] MEDS ORDERED: ONDANSETRON 4 MG/2 ML VIAL IVP PRN (19:08)
[2022-01-04 20:26] LABS: Glucose,Whole Blood 147 mg/dL (70-110)
[2022-01-04] MEDS: ATORVASTATIN 80 MG TAB PO SCH (21:09)
[2022-01-04] MEDS: ACETAMINOPHEN TAB 325 MG TAB PO PRN (21:10)
[2022-01-05 06:06] LABS: Glucose,Whole Blood 116 mg/dL (70-110)
[2022-01-05] MEDS: MIDODRINE 5 MG TAB PO SCH ×3 (06:37→16:10)
[2022-01-05] MEDS: INSULIN ASPART (NovoLOG) 100 UNIT/ML VIAL SQ SCH ×4 (06:38→20:25)
[2022-01-05] MEDS: PANTOPRAZOLE 40 MG TABLET PO SCH ×2 (06:40→16:10)
[2022-01-05] MEDS: carvediloL 6.25 MG TAB PO SCH ×2 (06:40→16:10)
[2022-01-05 08:05] LABS: Basophils % (A) 0 %; Eosinophils # (A) 0.3 k/uL (0-0.7); Eosinophils % (A) 3 %; HCT 28.5 % (34.0-46.0); HGB 9.2 gm/dL (11.4-16.0); Hypochromasia Slight; Lymphocytes # (A) 0.4 k/uL (1.0-4.8); Lymphocytes % (A) 3 %; MCH 29.4 pg (25.0-35.0); MCHC 32.2 g/dL (31.0-37.0); MCV 91.2 fL (80.0-100.0); Mean Platelet Volume 7.5; Monocytes # (A) 0.5 k/uL (0-1.0); Monocytes % (A) 4 %; Neutrophils % (A) 89 %; Platelet Count 304 k/uL (150-450); RBC 3.13 m/uL (3.80-5.40); RDW 13.4 % (11.5-15.5); WBC 12.4 k/uL (3.8-10.6)
[2022-01-05 08:18] LABS: Calcium 8.1 mg/dL (8.4-10.2); Potassium 5.2 mmol/L (3.5-5.1)
[2022-01-05] MEDS: ASPIRIN 81 MG PO SCH (09:30)
[2022-01-05] MEDS: glipiZIDE 10 MG TAB PO SCH ×2 (09:30→20:24)
[2022-01-05] MEDS: MAG HYDROX/AL HYDROX/SIMETH 30 ML CUP PO PRN ×3 (09:30→23:50)
[2022-01-05] MEDS: SODIUM BICARBONATE TAB 650 MG TAB PO SCH ×3 (09:30→20:25)
[2022-01-05] MEDS: FAMOTIDINE 20 MG TAB PO SCH ×2 (09:30→20:25)
[2022-01-05] MEDS: polyethylene glycoL 3350 17 GM POWD.PACK PO SCH ×2 (09:31→16:09)
[2022-01-05] MEDS: ACETAMINOPHEN TAB 325 MG TAB PO PRN ×2 (09:40→20:25)
--- NOTE | 2022-01-05 10:49 | XR ---
EXAMINATION TYPE: XR chest 1V DATE OF EXAM: 01/05/2022 COMPARISON: NONE HISTORY: Fever TECHNIQUE: Single frontal view of the chest is obtained. FINDINGS: There is no focal air space opacity, pleural effusion, or pneumothorax seen. The cardiac silhouette size is within normal limits. The osseous structures are intact. Triple lead cardiac dev ice seen with suggestion coronary artery stenting. Atherosclerotic change aorta. Arthropathy of the s houlders with diffuse osteopenia. IMPRESSION: No acute process.
[2022-01-05 11:42] LABS: Glucose,Whole Blood 179 mg/dL (70-110)
[2022-01-05] MEDS: IPRATROPIUM-ALBUTEROL 3 ML NEB INHALATION SCH ×3 (14:54→21:32)
[2022-01-05 15:15] LABS: Appearance,Urine Clear (Clear); Bacteria,Urine Rare /hpf; Bilirubin,Urine Negative (Negative); Blood,Urine Trace (Negative); Color,Urine Yellow; Glucose,Urine (UA) 2+ (Negative); Ketones,Urine Trace (Negative); Leukocyte Esterase,Urine Trace (Negative); Mucus,Urine Rare /hpf; Nitrite,Urine Negative (Negative); PH, Urine 5.5 (5.0-8.0); Protein,Urine 1+ (Negative); RBC,Urine 1 /hpf (0-5); Specific Gravity,Urine 1.015 (1.001-1.035); Squamous Epithelial Cell,Urine 1 /hpf (0-4); Urobilinogen,Urine <2.0 mg/dL (<2.0); WBC,Urine 1 /hpf (0-5)
--- NOTE | 2022-01-05 16:11 | P.PN ---
Subjective Progress Note Date: 01/05/22 Principal diagnosis: Anemia This is a pleasant 66-year-old female with a significant cardiac history including heart failure, multiple cardiac stents, diabetes mellitus, who prese nted to the emergency department [facility] with complaints of generalized weakness, fall, and nausea and vomiting. At that time patient was noted to have a hemoglobin 8.4 which has subsequently dropped to 7.4 today. Gastroenterology was consulted for possible GI bleed. Patient denies any blood in her stool or black stool. However when asked about her emesis she does state that there were a couple that were dark. She states that she did feel that she had indigestion and epigastric discomfort. She denies any previous history of ulcers or GI bleed. She has no previous EGD or colonoscopy. Unsure if she has a history of anemia. No prior admissions for comparison at this hospital. Currently denies any abdominal pain, nausea or vomiting. Denies any blood in her stool. 01/03/2022: Patient is seen today's follow-up. Patient states she is feeling tired other than that she is feeling well. She's been up and ambulating. Has not had any bowel movements. She denies any abdominal pain, nausea or vomiting. No rectal bleeding. Hemoglobin this morning was 6.9. Iron studies are consistent with an iron deficiency anemia. She is getting IV iron. On 01/04/2022. Patient seen and examined as a follow-up for anemia. Patient had a drop in her hemoglobin yesterday to 6.9 and was transfused 1 unit of blood. Today's repeat hemoglobin is 7.8. She continues to deny any signs or symptoms of GI bleed. She has not had any bowel movement since she's been here. No abdominal pain, nausea or vomiting. 01/05/2022. Again patient seen and examined as follow-up for anemia. Hemoglobin is improving now at 9.2. The patient continues to deny any rectal bleeding, no bowel movement. No nausea or vomiting, no abdominal pain. Apparently patient spiked a fever through the night with a max temp of 100.6. Again this morning had a temp of 100.7. Chest x-ray showed no acute process. Objective - Vital Signs Vital signs: Vital Signs Temp 100.7 F H 01/05/22 08:00 Pulse 90 01/05/22 08:00 Resp 15 01/05/22 08:00 BP 119/57 01/05/22 08:00 Pulse Ox 99 01/05/22 08:00 FiO2 Intake & Output 01/04/22 01/05/22 01/05/22 18:59 06:59 18:59 Intake Total 236 Output Total 1425 400 Balance -1189 -400 Intake: Oral 236 Output: Urine 1425 400 Other: Voiding Method Toilet Toilet Toilet # Voids 2 - Exam General appearance: The patient is alert, oriented, appears in no acute distress. HET: Head is normocephalic and atraumatic. Conjunctiva pink. Sclera anicteric. Neck: Supple without lymphadenopathy. Abdomen: Soft, nontender, nondistended with bowel sounds. No guarding or rigidity. Extremities: Normal skin color and turgor. No pedal edema Skin: No rashes, no jaundice Neurological: No focal deficits. Alert and oriented x 3. - Labs CBC & Chem 7: 01/05/22 07:12 01/05/22 07:12 Labs: Abnormal Lab Results - Last 24 Hours (Table) 01/04/22 01/04/22 01/04/22 Range/Units 11:32 16:23 20:24 WBC (3.8-10.6) k/uL RBC (3.80-5.40) m/uL Hgb (11.4-16.0) gm/dL Hct (34.0-46.0) % Neutrophils # (1.3-7.7) k/uL Lymphocytes # (1.0-4.8) k/uL Potassium (3.5-5.1) mmol/L Glucose (74-99) mg/dL POC Glucose (mg/dL) 368 H 177 H 147 H (70-110) mg/dL Calcium (8.4-10.2) mg/dL 01/05/22 01/05/22 01/05/22 Range/Units 06:04 07:12 07:12 WBC 12.4 H (3.8-10.6) k/uL RBC 3.13 L (3.80-5.40) m/uL Hgb 9.2 L (11.4-16.0) gm/dL Hct 28.5 L (34.0-46.0) % Neutrophils # 11.0 H (1.3-7.7) k/uL Lymphocytes # 0.4 L (1.0-4.8) k/uL Potassium 5.2 H (3.5-5.1) mmol/L Glucose 150 H (74-99) mg/dL POC Glucose (mg/dL) 116 H (70-110) mg/dL Calcium 8.1 L (8.4-10.2) mg/dL Assessment and Plan (1) Normocytic normochromic anemia Narrative/Plan: 66-year-old female presented to the emergency department with complaints of generalized weakness and fall. States she was dehydrated. She was having episodes of nausea with vomiting. Presented to the emergency department with acute kidney injury. Patient has significant cardiac history with history of heart failure and 7 stents, AICD placement. On admission patient was found to be anemic. She had a hemoglobin 8.4 with strep to 7.4. Denies any blood in her stool or black stool. She was having episodes of nausea and vomiting which she states a couple may have been dark. No previous history of ulcers, no NSAID use or anticoagulation however patient is on a low-dose aspirin and Plavix daily for cardiac disease. No previous history of ulcer, unsure if she has a history of anemia. Iron studies were consistent with an iron deficiency anemia. Patient is currently getting IV iron. This quite possibly could be anemia of chronic disease. However patient has not had prior EGD or colonoscopy silk cannot rule out GI blood source for anemia. Patient has been on Plavix, recommend outpatient EGD and colonoscopy with patient being off her Plavix for 5 days. Patient is agreeable to this plan. Patient had a drop in her hemoglobin today is 6.9. Plavix has been discontinued. No overt signs or symptoms of GI bleed. 1 unit of PRBC transfusion ordered. We will plan on outpatient EGD and colonoscopy as patient has had Plavix yesterday and today. Patient will need to be off Plavix for 5 days prior to EGD colonoscopy Current Visit: Yes Status: Acute Code(s): D64.9 - ANEMIA, UNSPECIFIED SNOMED Code(s): 64152957 (2) History of coronary artery disease Current Visit: Yes Status: Acute Code(s): Z86.79 - PERSONAL HISTORY OF OTHER DISEASES OF THE CIRCULATORY SYSTEM SNOMED Code(s): 484629738 (3) Acute kidney injury Narrative/Plan: Improved Current Visit: Yes Status: Acute Code(s): N17.9 - ACUTE KIDNEY FAILURE, UNSPECIFIED SNOMED Code(s): 77135456 (4) Generalized weakness Current Visit: Yes Status: Acute Code(s): R53.1 - WEAKNESS SNOMED Code(s): 86474389 (5) Fever of unknown origin Current Visit: Yes Status: Acute Code(s): R50.9 - FEVER, UNSPECIFIED SNOMED Code(s): 6635638 Plan: 1. Continue symptomatic and supportive care 2. Avoid NSAIDs 3. Protonix 40 mg daily GI prophylaxis 4. Discontinue Plavix 5. Recommend outpatient EGD and colonoscopy. This is been scheduled for January [address] Martin. Thank you for this consultation, we will sign off at this time. Dr. Beatriz Martin I agree with the dictator's note, documented as a scribe by Bella Tanner.
[2022-01-05 16:33] LABS: Glucose,Whole Blood 236 mg/dL (70-110)
[2022-01-05 20:14] LABS: Glucose,Whole Blood 249 mg/dL (70-110)
[2022-01-05] MEDS: ATORVASTATIN 80 MG TAB PO SCH (20:25)
[2022-01-06] MEDS: ACETAMINOPHEN TAB 325 MG TAB PO PRN ×3 (03:55→20:12)
[2022-01-06 06:21] LABS: Glucose,Whole Blood 141 mg/dL (70-110)
[2022-01-06] MEDS: INSULIN ASPART (NovoLOG) 100 UNIT/ML VIAL SQ SCH ×4 (06:24→20:13)
[2022-01-06] MEDS: PANTOPRAZOLE 40 MG TABLET PO SCH (06:39)
[2022-01-06] MEDS: MIDODRINE 5 MG TAB PO SCH ×3 (06:39→16:57)
[2022-01-06] MEDS: carvediloL 6.25 MG TAB PO SCH ×2 (06:39→16:57)
[2022-01-06 07:44] LABS: Basophils % (A) 0 %; Eosinophils # (A) 0.1 k/uL (0-0.7); Eosinophils % (A) 2 %; HCT 22.7 % (34.0-46.0); Lymphocytes # (A) 0.3 k/uL (1.0-4.8); Lymphocytes % (A) 4 %; MCH 29.6 pg (25.0-35.0); MCHC 33.4 g/dL (31.0-37.0); MCV 88.6 fL (80.0-100.0); Mean Platelet Volume 7.7; Monocytes # (A) 0.7 k/uL (0-1.0); Monocytes % (A) 7 %; Neutrophils # (A) 7.8 k/uL (1.3-7.7); Neutrophils % (A) 86 %; Platelet Count 265 k/uL (150-450); RBC 2.56 m/uL (3.80-5.40); RDW 13.7 % (11.5-15.5); WBC 9.1 k/uL (3.8-10.6)
[2022-01-06 07:47] LABS: HGB 7.6 gm/dL (11.4-16.0)
[2022-01-06 07:58] LABS: Calcium 7.1 mg/dL (8.4-10.2); Potassium 4.3 mmol/L (3.5-5.1)
[2022-01-06] MEDS: FAMOTIDINE 20 MG TAB PO SCH (08:37)
[2022-01-06] MEDS: polyethylene glycoL 3350 17 GM POWD.PACK PO SCH (08:37)
[2022-01-06] MEDS: ASPIRIN 81 MG PO SCH (08:37)
[2022-01-06] MEDS: glipiZIDE 10 MG TAB PO SCH ×2 (08:37→20:12)
[2022-01-06] MEDS: SODIUM BICARBONATE TAB 650 MG TAB PO SCH ×3 (08:37→20:12)
[2022-01-06] MEDS: MAG HYDROX/AL HYDROX/SIMETH 30 ML CUP PO PRN (08:37)
[2022-01-06] MEDS: IPRATROPIUM-ALBUTEROL 3 ML NEB INHALATION SCH ×4 (09:06→20:22)
[2022-01-06] MEDS: AZITHROMYCIN 500 MG TAB PO SCH (09:38)
--- NOTE | 2022-01-06 10:55 | P.PN ---
Subjective Progress Note Date: 01/03/22 Patient was admitted to the hospital due to complaints of chest discomfort and also found have acute urinary tract infection and acute kidney injury. Next and 01/02/2022 Patient is currently lying in bed. Awake alert and oriented 3. Denied any complaints of chest discomfort today. Symptomatically improved. Renal function is improving as well. No complaints of shortness of breath. Mild nausea. No feverno cough or sputum production. Laboratory data showed WBC 12.8 hemoglobin 7.5 and platelets 346. Patient was also found have iron deficient and was given IV iron Laboratory data showed BUN 58 and creatinine 1.8 and bicarb is 20 and magnesium 1.7 Patient is being currently on antibiotics in the form of ceftriaxone. Cultures have been negative. cardiology and nephrology is on board. 01/03/2022 Patient is resting in the bed. Awake alert and oriented 3. Denied any complaints of chest pain or shortness breath. No complaints of nausea vomiting or abdominal pain. No diarrhea. Patient did have a bowel movement. Renal function is improving. Patient is being fed on IV hydration. Patient was seen in the this morning with hemoglobin level .9 and ordered 1 unit of PRBC. Other laboratory data showed a BUN 28 and creatinine 1.09, WBC 13.6 and hemoglobin 6.9 and platelets 343. Magnesium 1.7. Patient was seen by GI and recommended outpatient EGD and colonoscopy. Current medications reviewed. Objective - Vital Signs Vital signs: Vital Signs Temp 99.4 F 01/03/22 20:44 Pulse 72 01/03/22 20:44 Resp 18 01/03/22 20:44 BP 122/73 01/03/22 20:44 Pulse Ox 99 01/03/22 20:44 FiO2 Intake & Output 01/03/22 01/03/22 01/04/22 06:59 18:59 06:59 Intake Total 300 310 Output Total 450 1350 Balance -450 -1050 310 Intake: Oral 300 Blood Product 0 310 Rc As-1 Unit 0 310 [id number] Output: Urine 450 1350 Other: Voiding Method Toilet Toilet Toilet # Voids 3 - Exam PHYSICAL EXAMINATION: Patient is lying in the bed comfortably, no acute distress, awake alert and oriented.. HEENT: Normocephalic. Neck is supple. Pupils reactive. Nostrils clear. Oral cavity is moist. Neck reveals no JVD, carotid bruits, or thyromegaly. CHEST EXAMINATION: Trachea is central. Symmetrical expansion. Lung salas clear to auscultation and percussion. CARDIAC: Normal S1, S2 with no gallops. No murmurs ABDOMEN: Soft. Bowel sounds normal. No organomegaly. No abdominal bruits. Extremities: reveal no edema. No clubbing or cyanosis Neurologically awake, alert, oriented x3 with well-coordinated movements. No focal deficits noted Skin: No rash or skin lesions. Psychiatric: Coperative. Nonsuicidal Musculoskeletal: No joint swelling or deformity. Normal range of motion. - Labs CBC & Chem 7: 01/06/22 06:58 01/06/22 06:58 Labs: Abnormal Lab Results - Last 24 Hours (Table) 01/03/22 01/03/22 01/03/22 Range/Units 05:42 07:50 07:50 WBC 13.6 H (3.8-10.6) k/uL RBC 2.25 L (3.80-5.40) m/uL Hgb 6.9 L* (11.4-16.0) gm/dL Hct 21.2 L (34.0-46.0) % BUN 28 H (7-17) mg/dL Creatinine 1.09 H (0.52-1.04) mg/dL Glucose 179 H (74-99) mg/dL POC Glucose (mg/dL) 225 H (70-110) mg/dL Calcium 7.6 L (8.4-10.2) mg/dL Crossmatch 01/03/22 01/03/22 01/03/22 Range/Units 10:20 11:38 16:38 WBC (3.8-10.6) k/uL RBC (3.80-5.40) m/uL Hgb (11.4-16.0) gm/dL Hct (34.0-46.0) % BUN (7-17) mg/dL Creatinine (0.52-1.04) mg/dL Glucose (74-99) mg/dL POC Glucose (mg/dL) 221 H 201 H (70-110) mg/dL Calcium (8.4-10.2) mg/dL Crossmatch See Detail 01/03/22 Range/Units 19:24 WBC (3.8-10.6) k/uL RBC (3.80-5.40) m/uL Hgb (11.4-16.0) gm/dL Hct (34.0-46.0) % BUN (7-17) mg/dL Creatinine (0.52-1.04) mg/dL Glucose (74-99) mg/dL POC Glucose (mg/dL) 209 H (70-110) mg/dL Calcium (8.4-10.2) mg/dL Crossmatch Assessment and Plan Assessment: Acute kidney injury likely prerenal secondary to hypovolemia and nausea vomiting and poor oral intake. Improved creatinine level Metabolic acidosis secondary to acute kidney injury. Improving Iron deficiency anemia Nausea vomiting and diarrhea likely due to gastroenteritis. Improved now Intermediate troponin level elevation. Likely due to worsening. Unlikely ACS as per cardiology. Hypovolemic hyponatremia History of CAD with multiple stent placement Cardiomyopathy with no evidence of heart failure. Ejection fraction currently at 50-55 %. Patient is status post AICD placement Possible acute urinary tract infection Diabetes type 2 Hyperlipidemia DVT prophylaxis Plan: Plan: Encourage oral intake. IV fluids on hold.. Renal function is improving. Pat ient is being converted on Midodrin 5 mg 3 times a day due to hypotension. Diuretics and esther inhibitors on hold. Continue with aspirin statins and Coreg and is also on Midodrin with holding parameters. Continue with Protonix and symptomatic management for nausea. GI evaluation. Recommended outpatient EGD and colonoscopy unless there is drop in hemoglobin.. Follow up closely. Monitor H&H. Time with Patient: Greater than 30
--- NOTE | 2022-01-06 10:56 | P.PN ---
Subjective Progress Note Date: 01/04/22 Patient was admitted to the hospital due to complaints of chest discomfort and also found have acute urinary tract infection and acute kidney injury. Next and 01/02/2022 Patient is currently lying in bed. Awake alert and oriented 3. Denied any complaints of chest discomfort today. Symptomatically improved. Renal function is improving as well. No complaints of shortness of breath. Mild nausea. No feverno cough or sputum production. Laboratory data showed WBC 12.8 hemoglobin 7.5 and platelets 346. Patient was also found have iron deficient and was given IV iron Laboratory data showed BUN 58 and creatinine 1.8 and bicarb is 20 and magnesium 1.7 Patient is being currently on antibiotics in the form of ceftriaxone. Cultures have been negative. cardiology and nephrology is on board. 01/03/2022 Patient is resting in the bed. Awake alert and oriented 3. Denied any complaints of chest pain or shortness breath. No complaints of nausea vomiting or abdominal pain. No diarrhea. Patient did have a bowel movement. Renal function is improving. Patient is being fed on IV hydration. Patient was seen in the this morning with hemoglobin level .9 and ordered 1 unit of PRBC. Other laboratory data showed a BUN 28 and creatinine 1.09, WBC 13.6 and hemoglobin 6.9 and platelets 343. Magnesium 1.7. Patient was seen by GI and recommended outpatient EGD and colonoscopy. 01/04/2022 Patient is resting in bed. Awake alert and oriented 3. Patient was transfused with 1 unit of PRBC yesterday and hemoglobin improved to 7.8 today. No further episodes of GI bleeding. Patient also received IV iron. Next and no complaints of nausea vomiting abdominal pain or diarrhea. Patient was started on oral diet. Lasix is on hold for EGD and colonoscopy. Monitor H&H. GI and nephrology is on board.. Current medications reviewed. Objective - Vital Signs Vital signs: Vital Signs Temp 101.6 F H 01/04/22 20:00 Pulse 83 01/04/22 20:00 Resp 14 01/04/22 20:00 BP 130/60 01/04/22 20:00 Pulse Ox 98 01/04/22 20:00 FiO2 Intake & Output 01/04/22 01/04/22 01/05/22 06:59 18:59 06:59 Intake Total 310 236 Output Total 300 1425 Balance 10 -1189 Intake: Oral 236 Blood Product 310 Rc As-1 Unit 310 [id number] Output: Urine 300 1425 Other: Voiding Method Toilet Toilet # Voids 2 - Exam PHYSICAL EXAMINATION: Patient is lying in the bed comfortably, no acute distress, awake alert and oriented.. HEENT: Normocephalic. Neck is supple. Pupils reactive. Nostrils clear. Oral cavity is moist. Neck reveals no JVD, carotid bruits, or thyromegaly. CHEST EXAMINATION: Trachea is central. Symmetrical expansion. Lung salas clear to auscultation and percussion. CARDIAC: Normal S1, S2 with no gallops. No murmurs ABDOMEN: Soft. Bowel sounds normal. No organomegaly. No abdominal bruits. Extremities: reveal no edema. No clubbing or cyanosis Neurologically awake, alert, oriented x3 with well-coordinated movements. No focal deficits noted Skin: No rash or skin lesions. Psychiatric: Coperative. Nonsuicidal Musculoskeletal: No joint swelling or deformity. Normal range of motion. - Labs CBC & Chem 7: 01/06/22 06:58 01/06/22 06:58 Labs: Abnormal Lab Results - Last 24 Hours (Table) 01/04/22 01/04/22 01/04/22 Range/Units 04:58 04:58 05:35 WBC 13.5 H (3.8-10.6) k/uL RBC 2.67 L (3.80-5.40) m/uL Hgb 7.8 L (11.4-16.0) gm/dL Hct 24.2 L (34.0-46.0) % Neutrophils # 11.5 H (1.3-7.7) k/uL Lymphocytes # 0.7 L (1.0-4.8) k/uL Chloride 108 H (98-107) mmol/L BUN 21 H (7-17) mg/dL Glucose 149 H (74-99) mg/dL POC Glucose (mg/dL) 176 H (70-110) mg/dL Calcium 7.7 L (8.4-10.2) mg/dL 01/04/22 01/04/22 01/04/22 Range/Units 11:32 16:23 20:24 WBC (3.8-10.6) k/uL RBC (3.80-5.40) m/uL Hgb (11.4-16.0) gm/dL Hct (34.0-46.0) % Neutrophils # (1.3-7.7) k/uL Lymphocytes # (1.0-4.8) k/uL Chloride (98-107) mmol/L BUN (7-17) mg/dL Glucose (74-99) mg/dL POC Glucose (mg/dL) 368 H 177 H 147 H (70-110) mg/dL Calcium (8.4-10.2) mg/dL Assessment and Plan Assessment: Acute kidney injury likely prerenal secondary to hypovolemia and nausea vomiting and poor oral intake. Improved creatinine level Metabolic acidosis secondary to acute kidney injury. Improving Iron deficiency anemia Nausea vomiting and diarrhea likely due to gastroenteritis. Improved now Intermediate troponin level elevation. Likely due to worsening. Unlikely ACS as per cardiology. Hypovolemic hyponatremia History of CAD with multiple stent placement Cardiomyopathy with no evidence of heart failure. Ejection fraction currently at 50-55 %. Patient is status post AICD placement Possible acute urinary tract infection Diabetes type 2 Hyperlipidemia DVT prophylaxis Plan: Plan: Encourage oral intake. IV fluids on hold.. Renal function is improving. Patient is being converted on Midodrin 5 mg 3 times a day due to hypotension. Diuretics and esther inhibitors on hold. Continue with aspirin statins and Coreg and is also on Midodrin with holding par ameters. Continue with Protonix and symptomatic management for nausea. GI evaluation. Recommended outpatient EGD and colonoscopy unless there is drop in hemoglobin.. Follow up closely. Monitor H&H. Time with Patient: Greater than 30
[2022-01-06 11:38] LABS: Glucose,Whole Blood 141 mg/dL (70-110)
--- NOTE | 2022-01-06 11:48 | P.PN ---
Subjective Progress Note Date: 01/05/22 Patient was admitted to the hospital due to complaints of chest discomfort and also found have acute urinary tract infection and acute kidney injury. Next and 01/02/2022 Patient is currently lying in bed. Awake alert and oriented 3. Denied any complaints of chest discomfort today. Symptomatically improved. Renal function is improving as well. No complaints of shortness of breath. Mild nausea. No feverno cough or sputum production. Laboratory data showed WBC 12.8 hemoglobin 7.5 and platelets 346. Patient was also found have iron deficient and was given IV iron Laboratory data showed BUN 58 and creatinine 1.8 and bicarb is 20 and magnesium 1.7 Patient is being currently on antibiotics in the form of ceftriaxone. Cultures have been negative. cardiology and nephrology is on board. 01/03/2022 Patient is resting in the bed. Awake alert and oriented 3. Denied any complaints of chest pain or shortness breath. No complaints of nausea vomiting or abdominal pain. No diarrhea. Patient did have a bowel movement. Renal function is improving. Patient is being fed on IV hydration. Patient was seen in the this morning with hemoglobin level .9 and ordered 1 unit of PRBC. Other laboratory data showed a BUN 28 and creatinine 1.09, WBC 13.6 and hemoglobin 6.9 and platelets 343. Magnesium 1.7. Patient was seen by GI and recommended outpatient EGD and colonoscopy. 01/04/2022 Patient is resting in bed. Awake alert and oriented 3. Patient was transfused with 1 unit of PRBC yesterday and hemoglobin improved to 7.8 today. No further episodes of GI bleeding. Patient also received IV iron. Next and no complaints of nausea vomiting abdominal pain or diarrhea. Patient was started on oral diet. Lasix is on hold for EGD and colonoscopy. Monitor H&H. GI and nephrology is on board.. 01/05/2011 Patient is currently lying in the bed. Awake alert and oriented. Patient was febrile with T-max 101.6 overnight. No complaints of nausea vomiting or abdominal pain. No diarrhea. Pain is complaining of cough with brownish sputum production. On antibiotics of ceftriaxone. Chest x-ray, UA and blood cultures were sent. Otherwise laboratory data showed WBC count 12.4, hemoglobin 9.2 and platelets 304. Sodium 137 potassium 5.2 BUN 15 and creatinine 0.98 and calcium 8.1. GI is planning for EGD as an outpatient and Plavix is on hold currently. Current medications reviewed. Objective - Vital Signs Vital signs: Vital Signs Temp 99.3 F 01/05/22 20:00 Pulse 84 01/05/22 21:42 Resp 12 01/05/22 20:00 BP 115/65 01/05/22 20:00 Pulse Ox 97 01/05/22 20:00 FiO2 Intake & Output 01/05/22 01/05/22 01/06/22 06:59 18:59 06:59 Output Total 400 Balance -400 Output: Urine 400 Other: Voiding Method Toilet Toilet Toilet # Voids 2 - Exam PHYSICAL EXAMINATION: Patient is lying in the bed comfortably, no acute distress, awake alert and oriented.. HEENT: Normocephalic. Neck is supple. Pupils reactive. Nostrils clear. Oral cavity is moist. Neck reveals no JVD, carotid bruits, or thyromegaly. CHEST EXAMINATION: Trachea is central. Symmetrical expansion. Lung salas clear to auscultation and percussion. CARDIAC: Normal S1, S2 with no gallops. No murmurs ABDOMEN: Soft. Bowel sounds normal. No organomegaly. No abdominal bruits. Extremities: reveal no edema. No clubbing or cyanosis Neurologically awake, alert, oriented x3 with well-coordinated movements. No focal deficits noted Skin: No rash or skin lesions. Psychiatric: Coperative. Nonsuicidal Musculoskeletal: No joint swelling or deformity. Normal range of motion. - Labs CBC & Chem 7: 01/06/22 06:58 01/06/22 06:58 Labs: Abnormal Lab Results - Last 24 Hours (Table) 01/05/22 01/05/22 01/05/22 Range/Units 06:04 07:12 07:12 WBC 12.4 H (3.8-10.6) k/uL RBC 3.13 L (3.80-5.40) m/uL Hgb 9.2 L (11.4-16.0) gm/dL Hct 28.5 L (34.0-46.0) % Neutrophils # 11.0 H (1.3-7.7) k/uL Lymphocytes # 0.4 L (1.0-4.8) k/uL Potassium 5.2 H (3.5-5.1) mmol/L Glucose 150 H (74-99) mg/dL POC Glucose (mg/dL) 116 H (70-110) mg/dL Calcium 8.1 L (8.4-10.2) mg/dL Urine Protein (Negative) Urine Glucose (UA) (Negative) Urine Ketones (Negative) Urine Blood (Negative) Ur Leukocyte Esterase (Negative) Urine Bacteria (None) /hpf Urine Mucus (None) /hpf 01/05/22 01/05/22 01/05/22 Range/Units 11:40 16:31 20:13 WBC (3.8-10.6) k/uL RBC (3.80-5.40) m/uL Hgb (11.4-16.0) gm/dL Hct (34.0-46.0) % Neutrophils # (1.3-7.7) k/uL Lymphocytes # (1.0-4.8) k/uL Potassium (3.5-5.1) mmol/L Glucose (74-99) mg/dL POC Glucose (mg/dL) 179 H 236 H 249 H (70-110) mg/dL Calcium (8.4-10.2) mg/dL Urine Protein (Negative) Urine Glucose (UA) (Negative) Urine Ketones (Negative) Urine Blood (Negative) Ur Leukocyte Esterase (Negative) Urine Bacteria (None) /hpf Urine Mucus (None) /hpf 01/05/22 Range/Units Unknown WBC (3.8-10.6) k/uL RBC (3.80-5.40) m/uL Hgb (11.4-16.0) gm/dL Hct (34.0-46.0) % Neutrophils # (1.3-7.7) k/uL Lymphocytes # (1.0-4.8) k/uL Potassium (3.5-5.1) mmol/L Glucose (74-99) mg/dL POC Glucose (mg/dL) (70-110) mg/dL Calcium (8.4-10.2) mg/dL Urine Protein 1+ H (Negative) Urine Glucose (UA) 2+ H (Negative) Urine Ketones Trace H (Negative) Urine Blood Trace H (Negative) Ur Leukocyte Esterase Trace H (Negative) Urine Bacteria Rare H (None) /hpf Urine Mucus Rare H (None) /hpf Assessment and Plan Assessment: Fever. Likely due to acute tracheobronchitis and possible pneumonia Acute kidney injury likely prerenal secondary to hypovolemia and nausea vomiting and poor oral intake. Improved creatinine level Metabolic acidosis secondary to acute kidney injury. Improving Iron deficiency anemia Nausea vomiting and diarrhea likely due to gastroenteritis. Improved now Intermediate troponin level elevation. Likely due to worsening. Unlikely ACS as per cardiology. Hypovolemic hyponatremia History of CAD with multiple stent placement Cardiomyopathy with no evidence of heart failure. Ejection fraction currently at 50-55 %. Patient is status post AICD placement Possible acute urinary tract infection Diabetes type 2 Hyperlipidemia DVT prophylaxis Plan: Plan: Encourage oral intake. IV fluids on hold.. Renal function is improving. Patient is being converted on Midodrin 5 mg 3 times a day due to hypotension. Diuretics and esther inhibitors on hold. Continue with aspirin statins and Coreg and is also on Midodrin with holding parameters. Continue with ceftriaxone and follow-up sputum culture report. Continue with Protonix and symptomatic management for nausea. GI evaluation. Recommended outpatient EGD and colonoscopy unless there is drop in hemoglobin.. Follow up closely. Monitor H&H. Time with Patient: Greater than 30
[2022-01-06 14:41] LABS: Glucose,Whole Blood 256 mg/dL (70-110)
[2022-01-06] MEDS: TRIMETHOBENZAMIDE 100 MG/ML 2 ML VIAL IM PRN (15:24)
[2022-01-06 16:47] LABS: Glucose,Whole Blood 301 mg/dL (70-110)
--- NOTE | 2022-01-06 16:58 | CT ---
EXAMINATION TYPE: CT abdomen wo con DATE OF EXAM: 01/06/2022 COMPARISON: None HISTORY: N/V Abdomen pain CT DLP: 399.9 mGycm Automated exposure control for dose reduction was used. Images obtained from the diaphragm to the floor the pelvis with no contrast. There is some infiltrate and atelectasis at the lung bases. Heart is enlarged. There is small pericar dial effusion. Liver and spleen are intact. Stomach is intact. There is no pancreatic mass. Gallbladder appears norm al. The bile ducts are not dilated. There is no adrenal mass. Kidneys have normal size and contour. No hydronephrosis. Ureters are not di lated. No retroperitoneal adenopathy. No evidence of a bowel obstruction. No mesenteric edema. No ascites or free air. The lumbar vertebrae have normal alignment. There is moderate narrowing of disc spaces at L4-5 and L5-S1 with spurring of the endplates. No compression fracture. Visualized iliac bones appear intact. Appendix is posterior and appears normal. IMPRESSION: Mild infiltrates and atelectasis at the posterior lung bases. Small pericardial effusion. Mild cardio megaly. No acute abnormality within the abdomen. Normal appendix.
[2022-01-06 20:08] LABS: Glucose,Whole Blood 205 mg/dL (70-110)
[2022-01-06] MEDS: ATORVASTATIN 80 MG TAB PO SCH (20:12)
[2022-01-06] MEDS: FAMOTIDINE 20 MG/2 ML VIAL IV SCH (20:12)
[2022-01-07] MEDS: TRIMETHOBENZAMIDE 100 MG/ML 2 ML VIAL IM PRN (05:48)
[2022-01-07 06:05] LABS: Glucose,Whole Blood 89 mg/dL (70-110)
[2022-01-07] MEDS: INSULIN ASPART (NovoLOG) 100 UNIT/ML VIAL SQ SCH ×4 (06:29→20:19)
[2022-01-07] MEDS: carvediloL 6.25 MG TAB PO SCH ×2 (06:29→17:17)
[2022-01-07] MEDS: MIDODRINE 5 MG TAB PO SCH ×3 (06:35→17:17)
[2022-01-07 07:08] LABS: Basophils % (A) 0 %; Eosinophils % (A) 0 %; HCT 25.9 % (34.0-46.0); HGB 8.2 gm/dL (11.4-16.0); Hypochromasia Slight; Lymphocytes # (A) 0.6 k/uL (1.0-4.8); Lymphocytes % (A) 5 %; MCHC 31.8 g/dL (31.0-37.0); MCV 91.4 fL (80.0-100.0); Mean Platelet Volume 7.9; Monocytes # (A) 0.7 k/uL (0-1.0); Monocytes % (A) 7 %; Neutrophils # (A) 8.8 k/uL (1.3-7.7); Neutrophils % (A) 86 %; Platelet Count 259 k/uL (150-450); RBC 2.83 m/uL (3.80-5.40); RDW 13.8 % (11.5-15.5); WBC 10.3 k/uL (3.8-10.6)
[2022-01-07] MEDS: IPRATROPIUM-ALBUTEROL 3 ML NEB INHALATION SCH ×4 (07:30→20:58)
[2022-01-07 07:34] LABS: Calcium 7.6 mg/dL (8.4-10.2); Potassium 4.4 mmol/L (3.5-5.1)
[2022-01-07] MEDS ORDERED: FAMOTIDINE 20 MG TAB PO SCH (09:00)
[2022-01-07] MEDS: glipiZIDE 10 MG TAB PO SCH ×2 (09:26→20:22)
[2022-01-07] MEDS: AZITHROMYCIN 500 MG TAB PO SCH (09:26)
[2022-01-07] MEDS: ASPIRIN 81 MG PO SCH (09:26)
[2022-01-07] MEDS: SODIUM BICARBONATE TAB 650 MG TAB PO SCH ×3 (09:26→20:22)
[2022-01-07] MEDS: polyethylene glycoL 3350 17 GM POWD.PACK PO SCH (09:30)
--- NOTE | 2022-01-07 11:02 | P.PN ---
Subjective Patient is seen for follow-up for acute kidney injury which was mostly prerenal. Renal function has improved with IV hydration. Serum creatinine is down from 3.5 on initial admission to 1.1 to now. Blood pressure remains low and patient is maintained on midodrine 5 mg 3 times a day. This morning patient is complaining of nausea and vomiting. She has had some abdominal discomfort. Plans for possible EGD and colonoscopy on Sunday. Patient also had a temp of 10 1F yesterday evening. Currently off of IV fluids. Objective - Vital Signs Vital signs: Vital Signs Temp 99.1 F 01/07/22 04:00 Pulse 68 01/07/22 10:48 Resp 16 01/07/22 08:00 BP 116/67 01/07/22 08:00 Pulse Ox 96 01/07/22 08:00 FiO2 Intake & Output 01/06/22 01/07/22 01/07/22 18:59 06:59 18:59 Intake Total 236 Output Total 550 Balance -314 Intake: Oral 236 Output: Urine 550 Other: Voiding Method Toilet Toilet # Voids 0 # Bowel Movements 1 - Exam Awake, comfortable, not in any acute distress Examination of the heart S1 and S2 Examination lungs bilateral breath sounds are heard, occasional wheezing Abdomen is soft nontender exam Examination lower extremity shows no evidence of edema 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 - Labs CBC & Chem 7: 01/07/22 06:31 01/07/22 06:31 Labs: Abnormal Lab Results - Last 24 Hours (Table) 01/06/22 01/06/22 01/06/22 Range/Units 11:37 14:39 16:45 RBC (3.80-5.40) m/uL Hgb (11.4-16.0) gm/dL Hct (34.0-46.0) % Neutrophils # (1.3-7.7) k/uL Lymphocytes # (1.0-4.8) k/uL Sodium (137-145) mmol/L Creatinine (0.52-1.04) mg/dL POC Glucose (mg/dL) 141 H 256 H 301 H (70-110) mg/dL Calcium (8.4-10.2) mg/dL 01/06/22 01/07/22 01/07/22 Range/Units 20:07 06:31 06:31 RBC 2.83 L (3.80-5.40) m/uL Hgb 8.2 L (11.4-16.0) gm/dL Hct 25.9 L (34.0-46.0) % Neutrophils # 8.8 H (1.3-7.7) k/uL Lymphocytes # 0.6 L (1.0-4.8) k/uL Sodium 136 L (137-145) mmol/L Creatinine 1.12 H (0.52-1.04) mg/dL POC Glucose (mg/dL) 205 H (70-110) mg/dL Calcium 7.6 L (8.4-10.2) mg/dL Microbiology - Last 24 Hours (Table) 01/06/22 11:16 Gram Stain - Preliminary Sputum Sputum Culture - Preliminary 01/05/22 10:02 Blood Culture - Preliminary Blood No Growth after 24 hours Assessment and Plan Assessment: 1. Acute kidney injury mostly prerenal secondary to hypovolemia from poor intake and vomiting and diarrhea. Creatinine 3.51 on admission and decreased to 1.1 to today. Unknown baseline renal function. No hydronephrosis noted on ultrasound.. No proteinuria on UA. 2. Nausea vomiting and diarrhea. Possible gastroenteritis. Improved. 3. Hypovolemic hyponatremia. Improved. 4. Metabolic acidosis secondary to acute kidney injury and GI losses. Also lactic acidosis. On oral bicarbonate. Better. 5. Anemia. Iron deficiency noted. Status post IV iron. Status post blood transfusion this admission. No active bleeding. GI following. Possible endoscopy this admission. 6. Diabetes mellitus. 7. Coronary artery disease status post cardiac stenting. 8. Hypotension rule out adrenal insufficiency Plan: Continue with midodrine Check random cortisol level May need to resume IV fluids if patient is not able to tolerate by mouth intake.
[2022-01-07 12:01] LABS: Glucose,Whole Blood 116 mg/dL (70-110)
[2022-01-07 16:35] LABS: Glucose,Whole Blood 163 mg/dL (70-110)
[2022-01-07 20:17] LABS: Glucose,Whole Blood 101 mg/dL (70-110)
[2022-01-07] MEDS: ATORVASTATIN 80 MG TAB PO SCH (20:22)
[2022-01-07] MEDS: FAMOTIDINE 20 MG/2 ML VIAL IV SCH (20:23)
[2022-01-08 06:04] LABS: Glucose,Whole Blood 71 mg/dL (70-110)
[2022-01-08] MEDS: INSULIN ASPART (NovoLOG) 100 UNIT/ML VIAL SQ SCH ×4 (06:05→21:32)
[2022-01-08] MEDS: MIDODRINE 5 MG TAB PO SCH ×3 (06:17→16:36)
[2022-01-08] MEDS: carvediloL 6.25 MG TAB PO SCH ×2 (06:30→16:36)
[2022-01-08] MEDS: IPRATROPIUM-ALBUTEROL 3 ML NEB INHALATION SCH ×4 (07:35→21:38)
[2022-01-08] MEDS: ASPIRIN 81 MG PO SCH (08:51)
[2022-01-08] MEDS: AZITHROMYCIN 500 MG TAB PO SCH (08:51)
[2022-01-08] MEDS: glipiZIDE 10 MG TAB PO SCH ×2 (08:51→21:30)
[2022-01-08] MEDS: SODIUM BICARBONATE TAB 650 MG TAB PO SCH ×3 (08:51→21:30)
[2022-01-08] MEDS: polyethylene glycoL 3350 17 GM POWD.PACK PO SCH (08:52)
--- NOTE | 2022-01-08 09:51 | P.PN ---
Subjective Patient is seen for follow-up for acute kidney injury which was mostly prerenal. Renal function has improved with IV hydration. Serum creatinine is down from 3.5 on initial admission to 1.1 to now. Blood pressure remains low and patient is maintained on midodrine 5 mg 3 times a day. This morning nausea has improved. Patient tolerated breakfast fairly well today. No other complaints. Blood pressure appears to be improved as well and staying above 100 mmHg systolic Objective - Vital Signs Vital signs: Vital Signs Temp 98.6 F 01/08/22 08:00 Pulse 57 L 01/08/22 08:00 Resp 16 01/08/22 08:00 BP 94/52 01/08/22 08:00 Pulse Ox 98 01/08/22 08:00 FiO2 Intake & Output 01/07/22 01/08/22 01/08/22 18:59 06:59 18:59 Intake Total 118 Balance 118 Intake: Oral 118 Other: Voiding Method Toilet Toilet # Voids 1 0 - Exam Awake, comfortable, not in any acute distress Examination of the heart S1 and S2 Examination lungs bilateral breath sounds are heard, occasional wheezing Abdomen is soft nontender exam Examination lower extremity shows no evidence of edema 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 Acute kidney injury mostly prerenal secondary to hypovolemia from poor intake and vomiting and diarrhea. Creatinine 3.51 on admission and decreased to 1.1 to today. Unknown baseline renal function. No hydronephrosis noted on ultrasound.. No proteinuria on UA. 2. Nausea vomiting and diarrhea. Possible gastroenteritis. Improved. 3. Hypovolemic hyponatremia. Improved. 4. Metabolic acidosis secondary to acute kidney injury and GI losses. Also lactic acidosis. On oral bicarbonate. Better. 5. Anemia. Iron deficiency noted. Status post IV iron. Status post blood transfusion this admission. No active bleeding. GI following. Possible endoscopy this admission. 6. Diabetes mellitus. 7. Coronary artery disease status post cardiac stenting. 8. Hypotension rule out adrenal insufficiency Plan: Continue with midodrine Continue sodium bicarb Repeat labs in a.m.
[2022-01-08 11:30] LABS: Glucose,Whole Blood 253 mg/dL (70-110)
[2022-01-08 16:21] LABS: Glucose,Whole Blood 124 mg/dL (70-110)
[2022-01-08 20:59] LABS: Glucose,Whole Blood 118 mg/dL (70-110)
[2022-01-08] MEDS: ATORVASTATIN 80 MG TAB PO SCH (21:30)
[2022-01-08] MEDS: FAMOTIDINE 20 MG/2 ML VIAL IV SCH (21:30)
[2022-01-09 05:54] LABS: Glucose,Whole Blood 74 mg/dL (70-110)
[2022-01-09] MEDS: INSULIN ASPART (NovoLOG) 100 UNIT/ML VIAL SQ SCH ×4 (06:11→20:59)
[2022-01-09] MEDS: MIDODRINE 5 MG TAB PO SCH ×3 (06:34→17:39)
[2022-01-09] MEDS: carvediloL 6.25 MG TAB PO SCH ×2 (06:34→17:42)
[2022-01-09] MEDS: IPRATROPIUM-ALBUTEROL 3 ML NEB INHALATION SCH ×4 (07:15→21:17)
[2022-01-09 07:35] LABS: Basophils % (A) 0 %; Eosinophils # (A) 0.2 k/uL (0-0.7); Eosinophils % (A) 5 %; HCT 23.8 % (34.0-46.0); Hypochromasia Slight; Lymphocytes # (A) 0.6 k/uL (1.0-4.8); Lymphocytes % (A) 14 %; MCH 30.6 pg (25.0-35.0); MCHC 33.7 g/dL (31.0-37.0); MCV 90.8 fL (80.0-100.0); Mean Platelet Volume 7.6; Monocytes # (A) 0.3 k/uL (0-1.0); Monocytes % (A) 7 %; Neutrophils # (A) 2.8 k/uL (1.3-7.7); Neutrophils % (A) 71 %; Platelet Count 215 k/uL (150-450); RBC 2.62 m/uL (3.80-5.40); RDW 13.5 % (11.5-15.5); WBC 3.9 k/uL (3.8-10.6)
[2022-01-09 07:48] LABS: Calcium 7.1 mg/dL (8.4-10.2); Potassium 3.8 mmol/L (3.5-5.1)
[2022-01-09] MEDS: SODIUM BICARBONATE TAB 650 MG TAB PO SCH ×3 (09:51→21:02)
[2022-01-09] MEDS: ASPIRIN 81 MG PO SCH (09:51)
[2022-01-09] MEDS: glipiZIDE 10 MG TAB PO SCH ×2 (09:51→21:02)
[2022-01-09] MEDS: AZITHROMYCIN 500 MG TAB PO SCH (09:51)
[2022-01-09] MEDS: polyethylene glycoL 3350 17 GM POWD.PACK PO SCH (09:52)
--- NOTE | 2022-01-09 10:53 | P.PN ---
Subjective Patient is seen for follow-up for acute kidney injury which was mostly prerenal. Renal function has improved with IV hydration. Serum creatinine is down from 3.5 on initial admission to 1.1 to now. Blood pressure remains low and patient is maintained on midodrine 5 mg 3 times a day. This morning nausea has improved. Patient tolerated breakfast fairly well today. No other complaints. Blood pressure appears to be improved as well and staying above 100 mmHg systolic Objective - Vital Signs Vital signs: Vital Signs Temp 98.3 F 01/09/22 09:16 Pulse 58 L 01/09/22 09:16 Resp 16 01/09/22 09:16 BP 123/58 01/09/22 09:16 Pulse Ox 98 01/09/22 09:16 FiO2 Intake & Output 01/08/22 01/09/22 01/09/22 18:59 06:59 18:59 Intake Total 776 118 Balance 776 118 Intake: Oral 776 118 Other: Voiding Method Toilet Toilet # Voids 1 - Exam Awake, comfortable, not in any acute distress Examination of the heart S1 and S2 Examination lungs bilateral breath sounds are heard, occasional wheezing Abdomen is soft nontender exam Examination lower extremity shows no evidence of edema [employer] exam grossly intact - Labs CBC & Chem 7: 01/09/22 06:28 01/09/22 06:28 Labs: Abnormal Lab Results - Last 24 Hours (Table) 01/08/22 01/08/22 01/08/22 Range/Units 11:29 16:19 20:58 RBC (3.80-5.40) m/uL Hgb (11.4-16.0) gm/dL Hct (34.0-46.0) % Lymphocytes # (1.0-4.8) k/uL Sodium (137-145) mmol/L POC Glucose (mg/dL) 253 H 124 H 118 H (70-110) mg/dL Calcium (8.4-10.2) mg/dL 01/09/22 01/09/22 Range/Units 06:28 06:28 RBC 2.62 L (3.80-5.40) m/uL Hgb 8.0 L (11.4-16.0) gm/dL Hct 23.8 L (34.0-46.0) % Lymphocytes # 0.6 L (1.0-4.8) k/uL Sodium 133 L (137-145) mmol/L POC Glucose (mg/dL) (70-110) mg/dL Calcium 7.1 L (8.4-10.2) mg/dL Microbiology - Last 24 Hours (Table) 01/05/22 10:02 Blood Culture - Preliminary Blood No Growth after 72 hours 01/06/22 11:16 Gram Stain - Final Sputum Sputum Culture - Final Assessment and Plan Assessment: 1. Acute kidney injury mostly prerenal secondary to hypovolemia from poor intake and vomiting and diarrhea. Creatinine 3.51 on admission and decreased to 1.1 to today. Unknown baseline renal function. No hydronephrosis noted on ultrasound.. No proteinuria on UA. 2. Nausea vomiting and diarrhea. Possible gastroenteritis. Improved. possible EGD/colonoscopy 3. Hypovolemic hyponatremia. Improved. 4. Metabolic acidosis secondary to acute kidney injury and GI losses. Also lactic acidosis. On oral bicarbonate. Better. 5. Anemia. Iron deficiency noted. Status post IV iron. Status post blood transfusion this admission. No active bleeding. GI following. Possible endoscopy this admission. 6. Diabetes mellitus. 7. Coronary artery disease status post cardiac stenting. 8. Hypotension rule out adrenal insufficiency Plan: Continue with midodrine Continue sodium bicarb monitor labs periodically
--- NOTE | 2022-01-09 11:40 | P.PN ---
Subjective Progress Note Date: 01/06/22 Patient was admitted to the hospital due to complaints of chest discomfort and also found have acute urinary tract infection and acute kidney injury. Next and 01/02/2022 Patient is currently lying in bed. Awake alert and oriented 3. Denied any complaints of chest discomfort today. Symptomatically improved. Renal function is improving as well. No complaints of shortness of breath. Mild nausea. No feverno cough or sputum production. Laboratory data showed WBC 12.8 hemoglobin 7.5 and platelets 346. Patient was also found have iron deficient and was given IV iron Laboratory data showed BUN 58 and creatinine 1.8 and bicarb is 20 and magnesium 1.7 Patient is being currently on antibiotics in the form of ceftriaxone. Cultures have been negative. cardiology and nephrology is on board. 01/03/2022 Patient is resting in the bed. Awake alert and oriented 3. Denied any complaints of chest pain or shortness breath. No complaints of nausea vomiting or abdominal pain. No diarrhea. Patient did have a bowel movement. Renal function is improving. Patient is being fed on IV hydration. Patient was seen in the this morning with hemoglobin level .9 and ordered 1 unit of PRBC. Other laboratory data showed a BUN 28 and creatinine 1.09, WBC 13.6 and hemoglobin 6.9 and platelets 343. Magnesium 1.7. Patient was seen by GI and recommended outpatient EGD and colonoscopy. 01/04/2022 Patient is resting in bed. Awake alert and oriented 3. Patient was transfused with 1 unit of PRBC yesterday and hemoglobin improved to 7.8 today. No further episodes of GI bleeding. Patient also received IV iron. Next and no complaints of nausea vomiting abdominal pain or diarrhea. Patient was started on oral diet. Lasix is on hold for EGD and colonoscopy. Monitor H&H. GI and nephrology is on board.. 01/05/2011 Patient is currently lying in the bed. Awake alert and oriented. Patient was febrile with T-max 101.6 overnight. No complaints of nausea vomiting or abdominal pain. No diarrhea. Pain is complaining of cough with brownish sputum production. On antibiotics of ceftriaxone. Chest x-ray, UA and blood cultures were sent. Otherwise laboratory data showed WBC count 12.4, hemoglobin 9.2 and platelets 304. Sodium 137 potassium 5.2 BUN 15 and creatinine 0.98 and calcium 8.1. GI is planning for EGD as an outpatient and Plavix is on hold currently. 01/06/2022 Patient is lying in the bed. Awake alert and oriented 3. Does have cough with copious amount of purulent sputum. Patient had have low-grade fever last night. Continued on ceftriaxone and we'll add azithromycin. Sputum culture was sent. Patient does have 1 episode of explosive diarrhea. Complains of discomfort and abdominal. No chest pain or shortness of breath. Chest x-ray showed no acute cardiopulmonary process. Urinalysis negative for infection. Laboratory data showed WBC 9.1 hemoglobin 7.6 and platelets 265 Sodium 133 potassium 4.3 chloride 102 bicarb is 23 BUN 17 and creatinine 1.1 and calcium 7.1 Nephrology is on board. Current medications reviewed. Objective - Vital Signs Vital signs: Vital Signs Temp 101.1 F H 01/06/22 20:00 Pulse 88 01/06/22 20:33 Resp 14 01/06/22 20:00 BP 100/59 01/06/22 20:00 Pulse Ox 96 01/06/22 20:00 FiO2 Intake & Output 01/06/22 01/06/22 01/07/22 06:59 18:59 06:59 Intake Total 236 Output Total 550 Balance -314 Intake: Oral 236 Output: Urine 550 Other: Voiding Method Toilet Toilet Toilet # Voids 1 # Bowel Movements 1 - Exam PHYSICAL EXAMINATION: Patient is lying in the bed comfortably, no acute distress, awake alert and oriented.. HEENT: Normocephalic. Neck is supple. Pupils reactive. Nostrils clear. Oral cavity is moist. Neck reveals no JVD, carotid bruits, or thyromegaly. CHEST EXAMINATION: Trachea is central. Symmetrical expansion. Lung salas clear to auscultation and percussion. CARDIAC: Normal S1, S2 with no gallops. No murmurs ABDOMEN: Soft. Bowel sounds normal. No organomegaly. No abdominal bruits. Extremities: reveal no edema. No clubbing or cyanosis Neurologically awake, alert, oriented x3 with well-coordinated movements. No focal deficits noted Skin: No rash or skin lesions. Psychiatric: Coperative. Nonsuicidal Musculoskeletal: No joint swelling or deformity. Normal range of motion. - Labs CBC & Chem 7: 01/09/22 06:28 01/09/22 06:28 Labs: Abnormal Lab Results - Last 24 Hours (Table) 01/06/22 01/06/22 01/06/22 Range/Units 06:19 06:58 06:58 RBC 2.56 L (3.80-5.40) m/uL Hgb 7.6 L D (11.4-16.0) gm/dL Hct 22.7 L (34.0-46.0) % Neutrophils # 7.8 H (1.3-7.7) k/uL Lymphocytes # 0.3 L (1.0-4.8) k/uL Sodium 133 L (137-145) mmol/L Creatinine 1.16 H (0.52-1.04) mg/dL Glucose 127 H (74-99) mg/dL POC Glucose (mg/dL) 141 H (70-110) mg/dL Calcium 7.1 L (8.4-10.2) mg/dL 01/06/22 01/06/22 01/06/22 Range/Units 11:37 14:39 16:45 RBC (3.80-5.40) m/uL Hgb (11.4-16.0) gm/dL Hct (34.0-46.0) % Neutrophils # (1.3-7.7) k/uL Lymphocytes # (1.0-4.8) k/uL Sodium (137-145) mmol/L Creatinine (0.52-1.04) mg/dL Glucose (74-99) mg/dL POC Glucose (mg/dL) 141 H 256 H 301 H (70-110) mg/dL Calcium (8.4-10.2) mg/dL 01/06/22 Range/Units 20:07 RBC (3.80-5.40) m/uL Hgb (11.4-16.0) gm/dL Hct (34.0-46.0) % Neutrophils # (1.3-7.7) k/uL Lymphocytes # (1.0-4.8) k/uL Sodium (137-145) mmol/L Creatinine (0.52-1.04) mg/dL Glucose (74-99) mg/dL POC Glucose (mg/dL) 205 H (70-110) mg/dL Calcium (8.4-10.2) mg/dL Microbiology - Last 24 Hours (Table) 01/06/22 11:16 Sputum Culture - Preliminary Sputum 01/05/22 10:02 Blood Culture - Preliminary Blood No Growth after 24 hours Assessment and Plan Assessment: Fever. Likely due to acute purulent tracheobronchitis . Chest x-ray showed no pneumonia. Possible sinusitis and also suspected. Acute kidney injury likely prerenal secondary to hypovolemia and nausea vomiting and poor oral intake. Improved creatinine level Metabolic acidosis secondary to acute kidney injury. Improving Iron deficiency anemia Nausea vomiting and diarrhea likely due to gastroenteritis. Improved now Intermediate troponin level elevation. Likely due to worsening. Unlikely ACS as per cardiology. Hypovolemic hyponatremia History of CAD with multiple stent placement Cardiomyopathy with no evidence of heart failure. Ejection fraction currently at 50-55 %. Patient is status post AICD placement Possible acute urinary tract infection Diabetes type 2 Hyperlipidemia DVT prophylaxis Plan: Patient will be continued on antibiotics of ceftriaxone and azithromycin was added. Encourage oral intake. IV fluids on hold.. Renal function is improving. Patient is being converted on Midodrin 5 mg 3 times a day due to hypotension. Diuretics and esther inhibitors on hold. Continue with aspirin statins and Coreg and is also on Midodrin with holding parameters. Continue with ceftriaxone and follow-up sputum culture report. Continue with Protonix and symptomatic management for nausea. GI evaluation. Recommended outpatient EGD and colonoscopy unless there is drop in hemoglobin.. Follow up closely. Monitor H&H. Time with Patient: Greater than 30
--- NOTE | 2022-01-09 11:42 | P.PN ---
Subjective Progress Note Date: 01/07/22 Patient was admitted to the hospital due to complaints of chest discomfort and also found have acute urinary tract infection and acute kidney injury. Next and 01/02/2022 Patient is currently lying in bed. Awake alert and oriented 3. Denied any complaints of chest discomfort today. Symptomatically improved. Renal function is improving as well. No complaints of shortness of breath. Mild nausea. No feverno cough or sputum production. Laboratory data showed WBC 12.8 hemoglobin 7.5 and platelets 346. Patient was also found have iron deficient and was given IV iron Laboratory data showed BUN 58 and creatinine 1.8 and bicarb is 20 and magnesium 1.7 Patient is being currently on antibiotics in the form of ceftriaxone. Cultures have been negative. cardiology and nephrology is on board. 01/03/2022 Patient is resting in the bed. Awake alert and oriented 3. Denied any complaints of chest pain or shortness breath. No complaints of nausea vomiting or abdominal pain. No diarrhea. Patient did have a bowel movement. Renal function is improving. Patient is being fed on IV hydration. Patient was seen in the this morning with hemoglobin level .9 and ordered 1 unit of PRBC. Other laboratory data showed a BUN 28 and creatinine 1.09, WBC 13.6 and hemoglobin 6.9 and platelets 343. Magnesium 1.7. Patient was seen by GI and recommended outpatient EGD and colonoscopy. 01/04/2022 Patient is resting in bed. Awake alert and oriented 3. Patient was transfused with 1 unit of PRBC yesterday and hemoglobin improved to 7.8 today. No further episodes of GI bleeding. Patient also received IV iron. Next and no complaints of nausea vomiting abdominal pain or diarrhea. Patient was started on oral diet. Lasix is on hold for EGD and colonoscopy. Monitor H&H. GI and nephrology is on board.. 01/05/2011 Patient is currently lying in the bed. Awake alert and oriented. Patient was febrile with T-max 101.6 overnight. No complaints of nausea vomiting or abdominal pain. No diarrhea. Pain is complaining of cough with brownish sputum production. On antibiotics of ceftriaxone. Chest x-ray, UA and blood cultures were sent. Otherwise laboratory data showed WBC count 12.4, hemoglobin 9.2 and platelets 304. Sodium 137 potassium 5.2 BUN 15 and creatinine 0.98 and calcium 8.1. GI is planning for EGD as an outpatient and Plavix is on hold currently. 01/06/2022 Patient is lying in the bed. Awake alert and oriented 3. Does have cough with copious amount of purulent sputum. Patient had have low-grade fever last night. Continued on ceftriaxone and we'll add azithromycin. Sputum culture was sent. Patient does have 1 episode of explosive diarrhea. Complains of discomfort and abdominal. No chest pain or shortness of breath. Chest x-ray showed no acute cardiopulmonary process. Urinalysis negative for infection. Laboratory data showed WBC 9.1 hemoglobin 7.6 and platelets 265 Sodium 133 potassium 4.3 chloride 102 bicarb is 23 BUN 17 and creatinine 1.1 and calcium 7.1 Nephrology is on board. 01/07/2022 Patient is currently resting in bed. Awake alert and oriented 3. Did complain of nausea and episode of vomiting this morning. Patient is being continued on PPI. Patient is being continued on antibiotics in the form of ceftriaxone and azithromycin. Last night she did have a temp with T-max 10.1. Afebrile now. No complaints of abdominal pain. Denied any chest pain or shortness of breath. Laboratory data showed WBC 10.3 hemoglobin 8.2 and platelets 259 Sodium 136 potassium 4.4 chloride 104 bicarb is 25 BUN 17 and creatinine 1.12, cortisol level is 26. Current medications reviewed. Objective - Vital Signs Vital signs: Vital Signs Temp 98.9 F 01/07/22 19:52 Pulse 73 01/07/22 21:07 Resp 14 01/07/22 19:52 BP 116/66 01/07/22 19:52 Pulse Ox 91 L 01/07/22 19:52 FiO2 Intake & Output 01/07/22 01/07/22 01/08/22 06:59 18:59 06:59 Other: Voiding Method Toilet Toilet # Voids 0 1 - Exam PHYSICAL EXAMINATION: Patient is lying in the bed comfortably, no acute distress, awake alert and oriented.. HEENT: Normocephalic. Neck is supple. Pupils reactive. Nostrils clear. Oral cavity is moist. Neck reveals no JVD, carotid bruits, or thyromegaly. CHEST EXAMINATION: Trachea is central. Symmetrical expansion. Lung salas clear to auscultation and percussion. CARDIAC: Normal S1, S2 with no gallops. No murmurs ABDOMEN: Soft. Bowel sounds normal. No organomegaly. No abdominal bruits. Extremities: reveal no edema. No clubbing or cyanosis Neurologically awake, alert, oriented x3 with well-coordinated movements. No focal deficits noted Skin: No rash or skin lesions. Psychiatric: Coperative. Nonsuicidal Musculoskeletal: No joint swelling or deformity. Normal range of motion. - Labs CBC & Chem 7: 01/09/22 06:28 01/09/22 06:28 Labs: Abnormal Lab Results - Last 24 Hours (Table) 01/07/22 01/07/22 01/07/22 Range/Units 06:31 06:31 11:57 RBC 2.83 L (3.80-5.40) m/uL Hgb 8.2 L (11.4-16.0) gm/dL Hct 25.9 L (34.0-46.0) % Neutrophils # 8.8 H (1.3-7.7) k/uL Lymphocytes # 0.6 L (1.0-4.8) k/uL Sodium 136 L (137-145) mmol/L Creatinine 1.12 H (0.52-1.04) mg/dL POC Glucose (mg/dL) 116 H (70-110) mg/dL Calcium 7.6 L (8.4-10.2) mg/dL 01/07/22 Range/Units 16:34 RBC (3.80-5.40) m/uL Hgb (11.4-16.0) gm/dL Hct (34.0-46.0) % Neutrophils # (1.3-7.7) k/uL Lymphocytes # (1.0-4.8) k/uL Sodium (137-145) mmol/L Creatinine (0.52-1.04) mg/dL POC Glucose (mg/dL) 163 H (70-110) mg/dL Calcium (8.4-10.2) mg/dL Microbiology - Last 24 Hours (Table) 01/05/22 10:02 Blood Culture - Preliminary Blood No Growth after 48 hours 01/06/22 11:16 Gram Stain - Preliminary Sputum Sputum Culture - Preliminary Assessment and Plan Assessment: Fever. Likely due to acute purulent tracheobronchitis . Chest x-ray showed no pneumonia. Possible sinusitis and also suspected. Acute kidney injury likely prerenal secondary to hypovolemia and nausea vomiting and poor oral intake. Improved creatinine level Metabolic acidosis secondary to acute kidney injury. Improving Iron deficiency anemia Nausea vomiting and diarrhea likely due to gastroenteritis. Improved now Intermediate troponin level elevation. Likely due to worsening. Unlikely ACS as per cardiology. Hypovolemic hyponatremia History of CAD with multiple stent placement Cardiomyopathy with no evidence of heart failure. Ejection fraction currently at 50-55 %. Patient is status post AICD placement Possible acute urinary tract infection Diabetes type 2 Hyperlipidemia DVT prophylaxis Plan: Patient will be continued on antibiotics of ceftriaxone and azithromycin was added. Encourage oral intake. IV fluids on hold.. Renal function is improving. Patient is being converted on Midodrin 5 mg 3 times a day due to hypotension. Diuretics and esther inhibitors on hold. Continue with aspirin statins and Coreg and is also on Midodrin with holding parameters. Continue with ceftriaxone and follow-up sputum culture report. Continue with Protonix and symptomatic management for nausea. GI evaluation. Recommended outpatient EGD and colonoscopy unless there is drop in hemoglobin.. Follow up closely. Monitor H&H. Time with Patient: Greater than 30
[2022-01-09 11:47] LABS: Glucose,Whole Blood 147 mg/dL (70-110)
--- NOTE | 2022-01-09 11:50 | P.PN ---
Subjective Progress Note Date: 01/08/22 Patient was admitted to the hospital due to complaints of chest discomfort and also found have acute urinary tract infection and acute kidney injury. Next and 01/02/2022 Patient is currently lying in bed. Awake alert and oriented 3. Denied any complaints of chest discomfort today. Symptomatically improved. Renal function is improving as well. No complaints of shortness of breath. Mild nausea. No feverno cough or sputum production. Laboratory data showed WBC 12.8 hemoglobin 7.5 and platelets 346. Patient was also found have iron deficient and was given IV iron Laboratory data showed BUN 58 and creatinine 1.8 and bicarb is 20 and magnesium 1.7 Patient is being currently on antibiotics in the form of ceftriaxone. Cultures have been negative. cardiology and nephrology is on board. 01/03/2022 Patient is resting in the bed. Awake alert and oriented 3. Denied any complaints of chest pain or shortness breath. No complaints of nausea vomiting or abdominal pain. No diarrhea. Patient did have a bowel movement. Renal function is improving. Patient is being fed on IV hydration. Patient was seen in the this morning with hemoglobin level .9 and ordered 1 unit of PRBC. Other laboratory data showed a BUN 28 and creatinine 1.09, WBC 13.6 and hemoglobin 6.9 and platelets 343. Magnesium 1.7. Patient was seen by GI and recommended outpatient EGD and colonoscopy. 01/04/2022 Patient is resting in bed. Awake alert and oriented 3. Patient was transfused with 1 unit of PRBC yesterday and hemoglobin improved to 7.8 today. No further episodes of GI bleeding. Patient also received IV iron. Next and no complaints of nausea vomiting abdominal pain or diarrhea. Patient was started on oral diet. Lasix is on hold for EGD and colonoscopy. Monitor H&H. GI and nephrology is on board.. 01/05/2011 Patient is currently lying in the bed. Awake alert and oriented. Patient was febrile with T-max 101.6 overnight. No complaints of nausea vomiting or abdominal pain. No diarrhea. Pain is complaining of cough with brownish sputum production. On antibiotics of ceftriaxone. Chest x-ray, UA and blood cultures were sent. Otherwise laboratory data showed WBC count 12.4, hemoglobin 9.2 and platelets 304. Sodium 137 potassium 5.2 BUN 15 and creatinine 0.98 and calcium 8.1. GI is planning for EGD as an outpatient and Plavix is on hold currently. 01/06/2022 Patient is lying in the bed. Awake alert and oriented 3. Does have cough with copious amount of purulent sputum. Patient had have low-grade fever last night. Continued on ceftriaxone and we'll add azithromycin. Sputum culture was sent. Patient does have 1 episode of explosive diarrhea. Complains of discomfort and abdominal. No chest pain or shortness of breath. Chest x-ray showed no acute cardiopulmonary process. Urinalysis negative for infection. Laboratory data showed WBC 9.1 hemoglobin 7.6 and platelets 265 Sodium 133 potassium 4.3 chloride 102 bicarb is 23 BUN 17 and creatinine 1.1 and calcium 7.1 Nephrology is on board. 01/07/2022 Patient is currently resting in bed. Awake alert and oriented 3. Did complain of nausea and episode of vomiting this morning. Patient is being continued on PPI. Patient is being continued on antibiotics in the form of ceftriaxone and azithromycin. Last night she did have a temp with T-max 10.1. Afebrile now. No complaints of abdominal pain. Denied any chest pain or shortness of breath. Laboratory data showed WBC 10.3 hemoglobin 8.2 and platelets 259 Sodium 136 potassium 4.4 chloride 104 bicarb is 25 BUN 17 and creatinine 1.12, cortisol level is 26. 01/08/2022 Patient is currently lying in the bed. Feels better. Cough improved and decreased sputum production. No complaints of chest pain or shortness breath. Able to tolerate oral diet today. No complaints of dizziness or lightheadedness. Afebrile today. Patient is on antibiotics. Also be continued on Midodrin and blood pressure is maintained. Renal function is normalized. Possible EGD/colonoscopy by GI in the next week. Plavix is on hold. Current medications reviewed. Objective - Vital Signs Vital signs: Vital Signs Temp 97.9 F 01/08/22 12:00 Pulse 72 01/08/22 16:19 Resp 16 01/08/22 16:00 BP 129/75 01/08/22 16:00 Pulse Ox 98 01/08/22 16:00 FiO2 Intake & Output 01/08/22 01/08/22 01/09/22 06:59 18:59 06:59 Intake Total 776 Balance 776 Intake: Oral 776 Other: Voiding Method Toilet Toilet # Voids 0 1 - Exam PHYSICAL EXAMINATION: Patient is lying in the bed comfortably, no acute distress, awake alert and oriented.. HEENT: Normocephalic. Neck is supple. Pupils reactive. Nostrils clear. Oral cavity is moist. Neck reveals no JVD, carotid bruits, or thyromegaly. CHEST EXAMINATION: Trachea is central. Symmetrical expansion. Lung salas clear to auscultation and percussion. CARDIAC: Normal S1, S2 with no gallops. No murmurs ABDOMEN: Soft. Bowel sounds normal. No organomegaly. No abdominal bruits. Extremities: reveal no edema. No clubbing or cyanosis Neurologically awake, alert, oriented x3 with well-coordinated movements. No focal deficits noted Skin: No rash or skin lesions. Psychiatric: Coperative. Nonsuicidal Musculoskeletal: No joint swelling or deformity. Normal range of motion. - Labs CBC & Chem 7: 01/09/22 06:28 01/09/22 06:28 Labs: Abnormal Lab Results - Last 24 Hours (Table) 01/08/22 01/08/22 01/08/22 Range/Units 11:29 16:19 20:58 POC Glucose (mg/dL) 253 H 124 H 118 H (70-110) mg/dL Microbiology - Last 24 Hours (Table) 01/05/22 10:02 Blood Culture - Preliminary Blood No Growth after 72 hours 01/06/22 11:16 Gram Stain - Final Sputum Sputum Culture - Final Assessment and Plan Assessment: Fever. Likely due to acute purulent tracheobronchitis . Chest x-ray showed no pneumonia. Possible sinusitis and also suspected. Acute kidney injury likely prerenal secondary to hypovolemia and nausea vomiting and poor oral intake. Improved creatinine level Metabolic acidosis secondary to acute kidney injury. Improving Iron deficiency anemia Nausea vomiting and diarrhea likely due to gastroenteritis. Improved now Intermediate troponin level elevation. Likely due to worsening. Unlikely ACS as per cardiology. Hypovolemic hyponatremia History of CAD with multiple stent placement Cardiomyopathy with no evidence of heart failure. Ejection fraction currently at 50-55 %. Patient is status post AICD placement Possible acute urinary tract infection Diabetes type 2 Hyperlipidemia DVT prophylaxis Plan: Patient will be continued on antibiotics of ceftriaxone and azithromycin was added. Follow-up sputum culture. Encourage oral intake. IV fluids on hold.. Renal function is improving. Patient is being converted on Midodrin 5 mg 3 times a day due to hypotension. Diuretics and esther inhibitors on hold. Continue with aspirin statins and Coreg and is also on Midodrin with holding parameters. Continue with ceftriaxone and follow-up sputum culture report. Continue with Protonix and symptomatic management for nausea. GI evaluation. Recommended outpatient EGD and colonoscopy unless there is drop in hemoglobin.. Follow up closely. Monitor H&H. Time with Patient: Greater than 30
[2022-01-09 16:40] LABS: Glucose,Whole Blood 176 mg/dL (70-110)
[2022-01-09 20:43] LABS: Glucose,Whole Blood 143 mg/dL (70-110)
[2022-01-09] MEDS: FAMOTIDINE 20 MG/2 ML VIAL IV SCH (21:02)
[2022-01-09] MEDS: ATORVASTATIN 80 MG TAB PO SCH (21:02)
--- NOTE | 2022-01-10 00:44 | P.PN ---
Subjective Progress Note Date: 01/09/22 Patient was admitted to the hospital due to complaints of chest discomfort and also found have acute urinary tract infection and acute kidney injury. Next and 01/02/2022 Patient is currently lying in bed. Awake alert and oriented 3. Denied any complaints of chest discomfort today. Symptomatically improved. Renal function is improving as well. No complaints of shortness of breath. Mild nausea. No feverno cough or sputum production. Laboratory data showed WBC 12.8 hemoglobin 7.5 and platelets 346. Patient was also found have iron deficient and was given IV iron Laboratory data showed BUN 58 and creatinine 1.8 and bicarb is 20 and magnesium 1.7 Patient is being currently on antibiotics in the form of ceftriaxone. Cultures have been negative. cardiology and nephrology is on board. 01/03/2022 Patient is resting in the bed. Awake alert and oriented 3. Denied any complaints of chest pain or shortness breath. No complaints of nausea vomiting or abdominal pain. No diarrhea. Patient did have a bowel movement. Renal function is improving. Patient is being fed on IV hydration. Patient was seen in the this morning with hemoglobin level .9 and ordered 1 unit of PRBC. Other laboratory data showed a BUN 28 and creatinine 1.09, WBC 13.6 and hemoglobin 6.9 and platelets 343. Magnesium 1.7. Patient was seen by GI and recommended outpatient EGD and colonoscopy. 01/04/2022 Patient is resting in bed. Awake alert and oriented 3. Patient was transfused with 1 unit of PRBC yesterday and hemoglobin improved to 7.8 today. No further episodes of GI bleeding. Patient also received IV iron. Next and no complaints of nausea vomiting abdominal pain or diarrhea. Patient was started on oral diet. Lasix is on hold for EGD and colonoscopy. Monitor H&H. GI and nephrology is on board.. 01/05/2011 Patient is currently lying in the bed. Awake alert and oriented. Patient was febrile with T-max 101.6 overnight. No complaints of nausea vomiting or abdominal pain. No diarrhea. Pain is complaining of cough with brownish sputum production. On antibiotics of ceftriaxone. Chest x-ray, UA and blood cultures were sent. Otherwise laboratory data showed WBC count 12.4, hemoglobin 9.2 and platelets 304. Sodium 137 potassium 5.2 BUN 15 and creatinine 0.98 and calcium 8.1. GI is planning for EGD as an outpatient and Plavix is on hold currently. 01/06/2022 Patient is lying in the bed. Awake alert and oriented 3. Does have cough with copious amount of purulent sputum. Patient had have low-grade fever last night. Continued on ceftriaxone and we'll add azithromycin. Sputum culture was sent. Patient does have 1 episode of explosive diarrhea. Complains of discomfort and abdominal. No chest pain or shortness of breath. Chest x-ray showed no acute cardiopulmonary process. Urinalysis negative for infection. Laboratory data showed WBC 9.1 hemoglobin 7.6 and platelets 265 Sodium 133 potassium 4.3 chloride 102 bicarb is 23 BUN 17 and creatinine 1.1 and calcium 7.1 Nephrology is on board. 01/07/2022 Patient is currently resting in bed. Awake alert and oriented 3. Did complain of nausea and episode of vomiting this morning. Patient is being continued on PPI. Patient is being continued on antibiotics in the form of ceftriaxone and azithromycin. Last night she did have a temp with T-max 10.1. Afebrile now. No complaints of abdominal pain. Denied any chest pain or shortness of breath. Laboratory data showed WBC 10.3 hemoglobin 8.2 and platelets 259 Sodium 136 potassium 4.4 chloride 104 bicarb is 25 BUN 17 and creatinine 1.12, cortisol level is 26. 01/08/2022 Patient is currently lying in the bed. Feels better. Cough improved and decreased sputum production. No complaints of chest pain or shortness breath. Able to tolerate oral diet today. No complaints of dizziness or lightheadedness. Afebrile today. Patient is on antibiotics. Also be continued on Midodrin and blood pressure is maintained. Renal function is normalized. Possible EGD/colonoscopy by GI in the next week. Plavix is on hold. 01/09/2022 Admitted to hospital due to acute gastroenteritis and acute kidney injury. Also has having significant purulent tracheobronchitis and possible sinusitis. Patient is lying in the bed. Awake alert and oriented x3. Denies any complaints of nausea vomiting or abdominal pain. Did have a bowel movement. No diarrhea. Cough improved as well as sputum production. Sputum culture showed moderate polymorphonuclear leukocytes. Few gram-negative bacilli and rare gram-positive cocci. Patient is on antibiotics and off ceftriaxone and azithromycin. Afebrile today. T-max was 100.2 last night. As well as renal function did improve to 0.88 today. Plavix is on hold for possible EGD and colonoscopy. GI is not in service this week. PT OT consult and possible discharge home and follow-up with GI as outpatient for procedure. Other lab data reviewed. Hemoglobin at 8.0 and is stable.. Current medications reviewed. Objective - Vital Signs Vital signs: Vital Signs Temp 99.2 F 01/09/22 20:00 Pulse 71 01/09/22 20:00 Resp 16 01/09/22 20:00 BP 122/71 01/09/22 20:00 Pulse Ox 98 01/09/22 20:00 FiO2 Intake & Output 01/09/22 01/09/22 01/10/22 06:59 18:59 06:59 Intake Total 354 10 Balance 354 10 Intake: IV 10 Invasive Line 3 10 Oral 354 Other: Voiding Method Toilet Toilet Toilet # Voids 1 2 - Exam PHYSICAL EXAMINATION: Patient is lying in the bed comfortably, no acute distress, awake alert and oriented.. HEENT: Normocephalic. Neck is supple. Pupils reactive. Nostrils clear. Oral cavity is moist. Neck reveals no JVD, carotid bruits, or thyromegaly. CHEST EXAMINATION: Trachea is central. Symmetrical expansion. Lung salas clear to auscultation and percussion. CARDIAC: Normal S1, S2 with no gallops. No murmurs ABDOMEN: Soft. Bowel sounds normal. No organomegaly. No abdominal bruits. Extremities: reveal no edema. No clubbing or cyanosis Neurologically awake, alert, oriented x3 with well-coordinated movements. No focal deficits noted Skin: No rash or skin lesions. Psychiatric: Coperative. Nonsuicidal Musculoskeletal: No joint swelling or deformity. Normal range of motion. - Labs CBC & Chem 7: 01/09/22 06:28 01/09/22 06:28 Labs: Abnormal Lab Results - Last 24 Hours (Table) 01/09/22 01/09/22 01/09/22 Range/Units 06:28 06:28 11:43 RBC 2.62 L (3.80-5.40) m/uL Hgb 8.0 L (11.4-16.0) gm/dL Hct 23.8 L (34.0-46.0) % Lymphocytes # 0.6 L (1.0-4.8) k/uL Sodium 133 L (137-145) mmol/L POC Glucose (mg/dL) 147 H (70-110) mg/dL Calcium 7.1 L (8.4-10.2) mg/dL 01/09/22 01/09/22 Range/Units 16:38 20:36 RBC (3.80-5.40) m/uL Hgb (11.4-16.0) gm/dL Hct (34.0-46.0) % Lymphocytes # (1.0-4.8) k/uL Sodium (137-145) mmol/L POC Glucose (mg/dL) 176 H 143 H (70-110) mg/dL Calcium (8.4-10.2) mg/dL Microbiology - Last 24 Hours (Table) 01/05/22 10:02 Blood Culture - Preliminary Blood No Growth after 96 hours Assessment and Plan Assessment: Fever. Likely due to acute purulent tracheobronchitis . Chest x-ray showed no pneumonia. Possible sinusitis and also suspected. Acute kidney injury likely prerenal secondary to hypovolemia and nausea vomiting and poor oral intake. Improved creatinine level Metabolic acidosis secondary to acute kidney injury. Improving Iron deficiency anemia Nausea vomiting and diarrhea likely due to gastroenteritis. Improved now Intermediate troponin level elevation. Likely due to worsening. Unlikely ACS as per cardiology. Hypovolemic hyponatremia History of CAD with multiple stent placement Cardiomyopathy with no evidence of heart failure. Ejection fraction currently at 50-55 %. Patient is status post AICD placement Possible acute urinary tract infection Diabetes type 2 Hyperlipidemia DVT prophylaxis Plan: Patient will be continued on antibiotics of ceftriaxone and azithromycin was added. Follow-up sputum culture. Encourage oral intake. IV fluids on hold.. Renal function is improving. Patient is being converted on Midodrin 5 mg 3 times a day due to hypotension. Diuretics and esther inhibitors on hold. Continue with statins and Coreg and is also on Midodrin with holding parameters. Continue with Protonix and symptomatic management for nausea. GI evaluation. Recommended outpatient EGD and colonoscopy unless there is drop in hemoglobin.. Follow up closely. Monitor H&H. Time with Patient: Greater than 30
[2022-01-10 05:59] LABS: Glucose,Whole Blood 111 mg/dL (70-110)
[2022-01-10] MEDS: INSULIN ASPART (NovoLOG) 100 UNIT/ML VIAL SQ SCH ×4 (06:15→20:21)
[2022-01-10] MEDS: MIDODRINE 5 MG TAB PO SCH ×3 (06:16→16:05)
[2022-01-10] MEDS: carvediloL 6.25 MG TAB PO SCH ×2 (06:28→17:13)
[2022-01-10] MEDS: IPRATROPIUM-ALBUTEROL 3 ML NEB INHALATION SCH ×4 (07:27→20:11)
[2022-01-10 08:56] LABS: Calcium 7.3 mg/dL (8.4-10.2); Potassium 4.4 mmol/L (3.5-5.1)
[2022-01-10 09:03] LABS: Basophils % (A) 1 %; Eosinophils # (A) 0.1 k/uL (0-0.7); Eosinophils % (A) 4 %; HCT 23.6 % (34.0-46.0); HGB 7.8 gm/dL (11.4-16.0); Hypochromasia Slight; Lymphocytes # (A) 0.6 k/uL (1.0-4.8); Lymphocytes % (A) 21 %; MCHC 32.9 g/dL (31.0-37.0); MCV 91.3 fL (80.0-100.0); Mean Platelet Volume 7.7; Monocytes # (A) 0.3 k/uL (0-1.0); Monocytes % (A) 11 %; Neutrophils # (A) 1.7 k/uL (1.3-7.7); Neutrophils % (A) 60 %; Platelet Count 198 k/uL (150-450); RBC 2.59 m/uL (3.80-5.40); RDW 13.4 % (11.5-15.5); WBC 2.8 k/uL (3.8-10.6)
[2022-01-10] MEDS: glipiZIDE 10 MG TAB PO SCH ×2 (09:25→20:21)
[2022-01-10] MEDS: ASPIRIN 81 MG PO SCH (09:25)
[2022-01-10] MEDS: SODIUM BICARBONATE TAB 650 MG TAB PO SCH ×3 (09:26→20:34)
[2022-01-10] MEDS: polyethylene glycoL 3350 17 GM POWD.PACK PO SCH (09:29)
--- NOTE | 2022-01-10 09:32 | P.PN ---
Subjective Progress Note Date: 01/10/22 Principal diagnosis: Anemia This is a pleasant 66-year-old female with a significant cardiac history including heart failure, multiple cardiac stents, diabetes mellitus, who prese nted to the emergency department [facility] with complaints of generalized weakness, fall, and nausea and vomiting. At that time patient was noted to have a hemoglobin 8.4 which has subsequently dropped to 7.4 today. Gastroenterology was consulted for possible GI bleed. Patient denies any blood in her stool or black stool. However when asked about her emesis she does state that there were a couple that were dark. She states that she did feel that she had indigestion and epigastric discomfort. She denies any previous history of ulcers or GI bleed. She has no previous EGD or colonoscopy. Unsure if she has a history of anemia. No prior admissions for comparison at this hospital. Currently denies any abdominal pain, nausea or vomiting. Denies any blood in her stool. 01/03/2022: Patient is seen today's follow-up. Patient states she is feeling tired other than that she is feeling well. She's been up and ambulating. Has not had any bowel movements. She denies any abdominal pain, nausea or vomiting. No rectal bleeding. Hemoglobin this morning was 6.9. Iron studies are consistent with an iron deficiency anemia. She is getting IV iron. On 01/04/2022. Patient seen and examined as a follow-up for anemia. Patient had a drop in her hemoglobin yesterday to 6.9 and was transfused 1 unit of blood. Today's repeat hemoglobin is 7.8. She continues to deny any signs or symptoms of GI bleed. She has not had any bowel movement since she's been here. No abdominal pain, nausea or vomiting. 01/05/2022. Again patient seen and examined as follow-up for anemia. Hemoglobin is improving now at 9.2. The patient continues to deny any rectal bleeding, no bowel movement. No nausea or vomiting, no abdominal pain. Apparently patient spiked a fever through the night with a max temp of 100.6. Again this morning had a temp of 100.7. Chest x-ray showed no acute process. 01/10/2022: Patient remains in the hospital related to a productive bronchial cough. She's been off-and-on with fevers. Hemoglobin has been stable at 7.8. She denies any blood in her stool or black stool. States her bowel movements have been daily to twice a day soft and brown. Denies any abdominal pain. Nausea or vomiting. Objective - Vital Signs Vital signs: Vital Signs Temp 99.5 F 01/10/22 07:44 Pulse 71 01/10/22 07:44 Resp 16 01/10/22 07:44 BP 115/73 01/10/22 07:44 Pulse Ox 98 01/10/22 07:44 FiO2 Intake & Output 01/09/22 01/10/22 01/10/22 18:59 06:59 18:59 Intake Total 354 10 118 Balance 354 10 118 Intake: IV 10 Invasive Line 3 10 Oral 354 118 Other: Voiding Method Toilet Toilet # Voids 1 - Exam General appearance: The patient is alert, oriented, appears in no acute distress. HET: Head is normocephalic and atraumatic. Conjunctiva pink. Sclera anicteric. Neck: Supple without lymphadenopathy. Abdomen: Soft, nontender, nondistended with bowel sounds. No guarding or rigidity. Extremities: Normal skin color and turgor. No pedal edema Skin: No rashes, no jaundice Neurological: No focal deficits. Alert and oriented x 3. - Labs CBC & Chem 7: 01/10/22 07:58 01/10/22 07:58 Labs: Abnormal Lab Results - Last 24 Hours (Table) 01/09/22 01/09/22 01/09/22 Range/Units 11:43 16:38 20:36 WBC (3.8-10.6) k/uL RBC (3.80-5.40) m/uL Hgb (11.4-16.0) gm/dL Hct (34.0-46.0) % Lymphocytes # (1.0-4.8) k/uL Glucose (74-99) mg/dL POC Glucose (mg/dL) 147 H 176 H 143 H (70-110) mg/dL Calcium (8.4-10.2) mg/dL 01/10/22 01/10/22 01/10/22 Range/Units 05:58 07:58 07:58 WBC 2.8 L (3.8-10.6) k/uL RBC 2.59 L (3.80-5.40) m/uL Hgb 7.8 L (11.4-16.0) gm/dL Hct 23.6 L (34.0-46.0) % Lymphocytes # 0.6 L (1.0-4.8) k/uL Glucose 152 H (74-99) mg/dL POC Glucose (mg/dL) 111 H (70-110) mg/dL Calcium 7.3 L (8.4-10.2) mg/dL Microbiology - Last 24 Hours (Table) 01/05/22 10:02 Blood Culture - Preliminary Blood No Growth after 96 hours Assessment and Plan (1) Normocytic normochromic anemia Narrative/Plan: 66-year-old female presented to the emergency department with complaints of generalized weakness and fall. States she was dehydrated. She was having episodes of nausea with vomiting. Presented to the emergency department with acute kidney injury. Patient has significant cardiac history with history of heart failure and 7 stents, AICD placement. On admission patient was found to be anemic. She had a hemoglobin 8.4 with strep to 7.4. Denies any blood in her stool or black stool. She was having episodes of nausea and vomiting which she states a couple may have been dark. No previous history of ulcers, no NSAID use or anticoagulation however patient is on a low-dose aspirin and Plavix daily for cardiac disease. No previous history of ulcer, unsure if she has a history of anemia. Iron studies were consistent with an iron deficiency anemia. Patient is currently getting IV iron. This quite possibly could be anemia of chronic disease. However patient has not had prior EGD or colonoscopy silk cannot rule out GI blood source for anemia. Patient has been on Plavix, recommend outpatient EGD and colonoscopy with patient being off her Plavix for 5 days. Patient is agreeable to this plan. Patient had a drop in her hemoglobin today is 6.9. Plavix has been discontinued. No overt signs or symptoms of GI bleed. 1 unit of PRBC transfusion ordered. We will plan on outpatient EGD and colonoscopy as patient has had Plavix yesterday and today. Patient will need to be off Plavix for 5 days prior to EGD colonoscopy Current Visit: Yes Status: Acute Code(s): D64.9 - ANEMIA, UNSPECIFIED SNOMED Code(s): 57651605 (2) History of coronary artery disease Current Visit: Yes Status: Acute Code(s): Z86.79 - PERSONAL HISTORY OF OTHER DISEASES OF THE CIRCULATORY SYSTEM SNOMED Code(s): 029613073 (3) Acute kidney injury Current Visit: Yes Status: Acute Code(s): N17.9 - ACUTE KIDNEY FAILURE, UNSPECIFIED SNOMED Code(s): 97045688 (4) Generalized weakness Current Visit: Yes Status: Acute Code(s): R53.1 - WEAKNESS SNOMED Code(s): 25382552 (5) Fever of unknown origin Current Visit: Yes Status: Acute Code(s): R50.9 - FEVER, UNSPECIFIED SNOMED Code(s): 2961999 (6) Productive cough Current Visit: Yes Status: Acute Code(s): R05.8 - OTHER SPECIFIED COUGH SNOMED Code(s): 66488020 Plan: 1. Continue symptomatic and supportive care 2. Avoid NSAIDs 3. Protonix 40 mg daily GI prophylaxis 4. Patient is scheduled for outpatient EGD colonoscopy tomorrow however patient remains in the hospital with a productive bronchial cough. The tentative plan for possible EGD colonoscopy tomorrow. 5. Bowel prep this evening 6. Clear liquid diet, nothing by mouth after midnight Dr. Beatriz Martin I agree with the dictator's note, documented as a scribe by Bella Tanner.
[2022-01-10 11:35] LABS: Glucose,Whole Blood 199 mg/dL (70-110)
--- NOTE | 2022-01-10 14:04 | P.PN ---
Subjective Progress Note Date: 01/10/22 Patient was admitted to the hospital due to complaints of chest discomfort and also found have acute urinary tract infection and acute kidney injury. Next and 01/02/2022 Patient is currently lying in bed. Awake alert and oriented 3. Denied any complaints of chest discomfort today. Symptomatically improved. Renal function is improving as well. No complaints of shortness of breath. Mild nausea. No fever no cough or sputum production. Laboratory data showed WBC 12.8 hemoglobin 7.5 and platelets 346. Patient was also found have iron deficient and was given IV iron Laboratory data showed BUN 58 and creatinine 1.8 and bicarb is 20 and magnesium 1.7 Patient is being currently on antibiotics in the form of ceftriaxone. Cultures have been negative. cardiology and nephrology is on board. 01/03/2022 Patient is resting in the bed. Awake alert and oriented 3. Denied any complaints of chest pain or shortness breath. No complaints of nausea vomiting or abdominal pain. No diarrhea. Patient did have a bowel movement. Renal function is improving. Patient is being fed on IV hydration. Patient was seen in the this morning with hemoglobin level .9 and ordered 1 unit of PRBC. Other laboratory data showed a BUN 28 and creatinine 1.09, WBC 13.6 and hemoglobin 6.9 and platelets 343. Magnesium 1.7. Patient was seen by GI and recommended outpatient EGD and colonoscopy. 01/04/2022 Patient is resting in bed. Awake alert and oriented 3. Patient was transfused with 1 unit of PRBC yesterday and hemoglobin improved to 7.8 today. No further episodes of GI bleeding. Patient also received IV iron. Next and no complaints of nausea vomiting abdominal pain or diarrhea. Patient was started on oral diet. Lasix is on hold for EGD and colonoscopy. Monitor H&H. GI and nephrology is on board.. 01/05/2011 Patient is currently lying in the bed. Awake alert and oriented. Patient was febrile with T-max 101.6 overnight. No complaints of nausea vomiting or abdominal pain. No diarrhea. Pain is complaining of cough with brownish sputum production. On antibiotics of ceftriaxone. Chest x-ray, UA and blood cultures were sent. Otherwise laboratory data showed WBC count 12.4, hemoglobin 9.2 and platelets 304. Sodium 137 potassium 5.2 BUN 15 and creatinine 0.98 and calcium 8.1. GI is planning for EGD as an outpatient and Plavix is on hold currently. 01/06/2022 Patient is lying in the bed. Awake alert and oriented 3. Does have cough with copious amount of purulent sputum. Patient had have low-grade fever last night. Continued on ceftriaxone and we'll add azithromycin. Sputum culture was sent. Patient does have 1 episode of explosive diarrhea. Complains of discomfort and abdominal. No chest pain or shortness of breath. Chest x-ray showed no acute cardiopulmonary process. Urinalysis negative for infection. Laboratory data showed WBC 9.1 hemoglobin 7.6 and platelets 265 Sodium 133 potassium 4.3 chloride 102 bicarb is 23 BUN 17 and creatinine 1.1 and calcium 7.1 Nephrology is on board. 01/07/2022 Patient is currently resting in bed. Awake alert and oriented 3. Did complain of nausea and episode of vomiting this morning. Patient is being continued on PPI. Patient is being continued on antibiotics in the form of ceftriaxone and azithromycin. Last night she did have a temp with T-max 10.1. Afebrile now. No complaints of abdominal pain. Denied any chest pain or shortness of breath. Laboratory data showed WBC 10.3 hemoglobin 8.2 and platelets 259 Sodium 136 potassium 4.4 chloride 104 bicarb is 25 BUN 17 and creatinine 1.12, cortisol level is 26. 01/08/2022 Patient is currently lying in the bed. Feels better. Cough improved and decreased sputum production. No complaints of chest pain or shortness breath. Able to tolerate oral diet today. No complaints of dizziness or lightheadedness. Afebrile today. Patient is on antibiotics. Also be continued on Midodrin and blood pressure is maintained. Renal function is normalized. Possible EGD/colonoscopy by GI in the next week. Plavix is on hold. 01/09/2022 Admitted to hospital due to acute gastroenteritis and acute kidney injury. Also has having significant purulent tracheobronchitis and possible sinusitis. Patient is lying in the bed. Awake alert and oriented x3. Denies any complaint s of nausea vomiting or abdominal pain. Did have a bowel movement. No diarrhea. Cough improved as well as sputum production. Sputum culture showed moderate polymorphonuclear leukocytes. Few gram-negative bacilli and rare gram-positive cocci. Patient is on antibiotics and off ceftriaxone and azithromycin. Afebrile today. T-max was 100.2 last night. As well as renal function did improve to 0.88 today. Plavix is on hold for possible EGD and colonoscopy. GI is not in service this week. PT OT consult and possible discharge home and follow-up with GI as outpatient for procedure. Other lab data reviewed. Hemoglobin at 8.0 and is stable.. 01/10/22 Patient seen and examined. Complaining of cough. Denies any shortness of breath. Hemoglobin this morning is 7.8. No blood in the stools. Vital signs stable REVIEW OF SYSTEMS: CONSTITUTIONAL: No fever, no malaise, no fatigue. CARDIOVASCULAR: No chest pain, orthopnea, PND, no palpitations, no syncope. PULMONARY: No shortness of breath, no hemoptysis. GASTROINTESTINAL: No diarrhea, no nausea, no vomiting, no abdominal pain. NEUROLOGICAL: No headaches, no weakness, no numbness. PHYSICAL EXAMINATION: GENERAL: The patient is alert and oriented x3, not in any acute distress. Well developed, well nourished. HEENT: Pupils are round and equally reacting to light. EOMI. No scleral icterus. No conjunctival pallor. Normocephalic, atraumatic. No pharyngeal erythema. No thyromegaly. CARDIOVASCULAR: S1 and S2 present. No murmurs, rubs, or gallops. PULMONARY: Chest is clear to auscultation, no wheezing or crackles. ABDOMEN: Soft, nontender, nondistended, normoactive bowel sounds. No palpable organomegaly. EXTREMITIES: No cyanosis, clubbing, or pedal edema. Assessment; Fever. Likely due to acute purulent tracheobronchitis . Chest x-ray showed no pneumonia. Possible sinusitis and also suspected. Acute kidney injury likely prerenal secondary to hypovolemia and nausea vomiting and poor oral intake. Improved creatinine level Metabolic acidosis secondary to acute kidney injury. Improving Iron deficiency anemia Nausea vomiting and diarrhea likely due to gastroenteritis. Improved now Intermediate troponin level elevation. Likely due to worsening. Unlikely ACS as per cardiology. Hypovolemic hyponatremia History of CAD with multiple stent placement Cardiomyopathy with no evidence of heart failure. Ejection fraction currently at 50-55 %. Patient is status post AICD placement Possible acute urinary tract infection Diabetes type 2 Hyperlipidemia DVT prophylaxis Plan: Monitor CBC Monitor renal functions Continue midodrine and sodium bicarb per nephrology Diuretics and esther inhibitors on hold. Continue with statins and Coreg and is also on Midodrin with holding parameters. Continue with Protonix and symptomatic management for nausea. GI evaluation. Recommended EGD and colonoscopy for tomorrow, nothing by mouth after midnight Objective - Vital Signs Vital signs: Vital Signs Temp 99.0 F 01/10/22 12:46 Pulse 65 01/10/22 12:46 Resp 16 01/10/22 12:46 BP 120/71 01/10/22 12:46 Pulse Ox 96 01/10/22 12:46 FiO2 Intake & Output 01/09/22 01/10/22 01/10/22 18:59 06:59 18:59 Intake Total 354 10 358 Balance 354 10 358 Intake: IV 10 Invasive Line 3 10 Oral 354 358 Other: Voiding Method Toilet Toilet Toilet # Voids 1 - Labs CBC & Chem 7: 01/10/22 07:58 01/10/22 07:58 Labs: Abnormal Lab Results - Last 24 Hours (Table) 01/09/22 01/09/22 01/10/22 Range/Units 16:38 20:36 05:58 WBC (3.8-10.6) k/uL RBC (3.80-5.40) m/uL Hgb (11.4-16.0) gm/dL Hct (34.0-46.0) % Lymphocytes # (1.0-4.8) k/uL Glucose (74-99) mg/dL POC Glucose (mg/dL) 176 H 143 H 111 H (70-110) mg/dL Calcium (8.4-10.2) mg/dL 01/10/22 01/10/22 01/10/22 Range/Units 07:58 07:58 11:33 WBC 2.8 L (3.8-10.6) k/uL RBC 2.59 L (3.80-5.40) m/uL Hgb 7.8 L (11.4-16.0) gm/dL Hct 23.6 L (34.0-46.0) % Lymphocytes # 0.6 L (1.0-4.8) k/uL Glucose 152 H (74-99) mg/dL POC Glucose (mg/dL) 199 H (70-110) mg/dL Calcium 7.3 L (8.4-10.2) mg/dL Microbiology - Last 24 Hours (Table) 01/05/22 10:02 Blood Culture - Preliminary Blood No Growth after 120 hours
[2022-01-10] MEDS ORDERED: PEG 3350 (236 GM/BTL) + LYTES 4,000 ML BOTTLE PO ONE (15:00)
[2022-01-10 16:38] LABS: Glucose,Whole Blood 207 mg/dL (70-110)
[2022-01-10 20:11] LABS: Glucose,Whole Blood 88 mg/dL (70-110)
[2022-01-10] MEDS: ATORVASTATIN 80 MG TAB PO SCH (20:34)
[2022-01-10] MEDS: FAMOTIDINE 20 MG/2 ML VIAL IV SCH (20:34)
[2022-01-10 23:31] LABS: Glucose,Whole Blood 93 mg/dL (70-110)
[2022-01-11 06:05] LABS: Glucose,Whole Blood 100 mg/dL (70-110)
[2022-01-11] MEDS: INSULIN ASPART (NovoLOG) 100 UNIT/ML VIAL SQ SCH ×4 (06:13→21:20)
[2022-01-11] MEDS: MIDODRINE 5 MG TAB PO SCH ×3 (06:13→16:44)
[2022-01-11] MEDS: carvediloL 6.25 MG TAB PO SCH ×2 (06:22→16:49)
[2022-01-11] MEDS: IPRATROPIUM-ALBUTEROL 3 ML NEB INHALATION SCH ×4 (08:15→19:15)
[2022-01-11] MEDS: ASPIRIN 81 MG PO SCH (09:33)
[2022-01-11] MEDS: SODIUM BICARBONATE TAB 650 MG TAB PO SCH ×3 (09:33→20:27)
[2022-01-11] MEDS: glipiZIDE 10 MG TAB PO SCH ×2 (09:34→20:27)
[2022-01-11] MEDS: polyethylene glycoL 3350 17 GM POWD.PACK PO SCH (09:34)
[2022-01-11 10:37] LABS: Basophils % (A) 0 %; Eosinophils # (A) 0.1 k/uL (0-0.7); Eosinophils % (A) 5 %; HCT 22.5 % (34.0-46.0); HGB 7.8 gm/dL (11.4-16.0); Hypochromasia Slight; Lymphocytes # (A) 0.5 k/uL (1.0-4.8); Lymphocytes % (A) 18 %; MCH 31.2 pg (25.0-35.0); MCHC 34.7 g/dL (31.0-37.0); MCV 89.9 fL (80.0-100.0); Mean Platelet Volume 7.9; Monocytes # (A) 0.3 k/uL (0-1.0); Monocytes % (A) 11 %; Neutrophils # (A) 1.9 k/uL (1.3-7.7); Neutrophils % (A) 64 %; Platelet Count 197 k/uL (150-450); RDW 13.7 % (11.5-15.5); WBC 2.9 k/uL (3.8-10.6)
[2022-01-11 10:48] LABS: African American GFR (CKD) >90 (>60 ml/min/1.73 sqM); Anion Gap 10 mmol/L; Blood Urea Nitrogen 7 mg/dL (7-17); Calcium 7.1 mg/dL (8.4-10.2); Carbon Dioxide 23 mmol/L (22-30); Chloride 102 mmol/L (98-107); Glucose 102 mg/dL (74-99); Non-African American GFR(CKD) 80 (>60 ml/min/1.73 sqM); Sodium 135 mmol/L (137-145)
[2022-01-11 11:41] LABS: Glucose,Whole Blood 147 mg/dL (70-110)
[2022-01-11] MEDS ORDERED: LIDOCAINE 2% INJ 20 MG/ML (2 ML VIAL) ONE (12:48)
[2022-01-11] MEDS ORDERED: PROPOFOL 10 MG/ML 20 ML VIAL IV ONE (12:48)
[2022-01-11] MEDS ORDERED: LACTATED RINGERS 1,000 ML IV ONE (12:57)
--- NOTE | 2022-01-11 13:18 | P.PCN ---
Date of Procedure: 01/11/22 Procedure(s) Performed: Brief history: Patient is a pleasant 66-year-old white female admitted hospital with severe symptomatic anemia and hemoglobin of 6.2 g/dL. She has been for many of intermittent dark colored stools. She is been on aspirin and Plavix is currently on hold and is scheduled for an elective upper endoscopy as well as colonoscopy . Procedure performed: Esophagogastroduodenoscopy with biopsy Colonoscopy Preoperative diagnosis: Symptomatic anemia Black tarry stools [place] [facility] [place]: After informed consent was obtained from the patient was brought into the endoscopy unit and IV sedation was administered by anesthesia under continuous monitoring. Initially upper endoscopy was done. The Olympus GF 160 video endoscope was inserted inserted into the mouth and esophagus intubated without any difficulty and was gradually advanced into the stomach and duodenum and carefully examined. The bulb and second part of the duodenum appeared normal. Biopsies were done from the duodenum to rule out celiac disease. The scope was then withdrawn into the stomach adequately insufflated with air and upon careful examination the antrum and body, cardia and fundus appeared normal. The scope was then withdrawn into the esophagus. Small hiatal hernia noted. The GE berta ction was located at 40 cm to the incisors. It appeared regular with circumferential erythema consistent with LA grade a reflux esophagitis.. Rest of the esophagus appeared normal. Patient tolerated the procedure well. At this time the patient continued to remain sedation. Initial digital rectal examination was normal. Olympus CF 160 video colonoscope was then inserted into the rectum and gradually advanced to the cecum without any difficulty. Careful examination was performed as the scope was gradually being withdrawn. The prep was excellent. The cecum, ascending colon, transverse colon, descending colon, sigmoid colon and rectum appeared normal. Retroflexion was performed in the rectum and no lesions were noted. Patient tolerated the procedure well. Impression: 1. Upper endoscopy revealed small hiatal hernia, LA grade A reflux esophagitis 2. Colonoscopy was within normal limits with no evidence of colorectal neoplasia Recommendations: Findings of this examination were discussed with the patient . She was advised to follow with the biopsy results. Continue with Protonix 40 mg daily and follow antireflux measures. Recommend repeat screening colonoscopy in 10 years. Plavix can be resumed today.
--- NOTE | 2022-01-11 13:41 | P.PN ---
Subjective Progress Note Date: 01/11/22 Patient was admitted to the hospital due to complaints of chest discomfort and also found have acute urinary tract infection and acute kidney injury. Next and 01/02/2022 Patient is currently lying in bed. Awake alert and oriented 3. Denied any complaints of chest discomfort today. Symptomatically improved. Renal function is improving as well. No complaints of shortness of breath. Mild nausea. No fever no cough or sputum production. Laboratory data showed WBC 12.8 hemoglobin 7.5 and platelets 346. Patient was also found have iron deficient and was given IV iron Laboratory data showed BUN 58 and creatinine 1.8 and bicarb is 20 and magnesium 1.7 Patient is being currently on antibiotics in the form of ceftriaxone. Cultures have been negative. cardiology and nephrology is on board. 01/03/2022 Patient is resting in the bed. Awake alert and oriented 3. Denied any complaints of chest pain or shortness breath. No complaints of nausea vomiting or abdominal pain. No diarrhea. Patient did have a bowel movement. Renal function is improving. Patient is being fed on IV hydration. Patient was seen in the this morning with hemoglobin level .9 and ordered 1 unit of PRBC. Other laboratory data showed a BUN 28 and creatinine 1.09, WBC 13.6 and hemoglobin 6.9 and platelets 343. Magnesium 1.7. Patient was seen by GI and recommended outpatient EGD and colonoscopy. 01/04/2022 Patient is resting in bed. Awake alert and oriented 3. Patient was transfused with 1 unit of PRBC yesterday and hemoglobin improved to 7.8 today. No further episodes of GI bleeding. Patient also received IV iron. Next and no complaints of nausea vomiting abdominal pain or diarrhea. Patient was started on oral diet. Lasix is on hold for EGD and colonoscopy. Monitor H&H. GI and nephrology is on board.. 01/05/2011 Patient is currently lying in the bed. Awake alert and oriented. Patient was febrile with T-max 101.6 overnight. No complaints of nausea vomiting or abdominal pain. No diarrhea. Pain is complaining of cough with brownish sputum production. On antibiotics of ceftriaxone. Chest x-ray, UA and blood cultures were sent. Otherwise laboratory data showed WBC count 12.4, hemoglobin 9.2 and platelets 304. Sodium 137 potassium 5.2 BUN 15 and creatinine 0.98 and calcium 8.1. GI is planning for EGD as an outpatient and Plavix is on hold currently. 01/06/2022 Patient is lying in the bed. Awake alert and oriented 3. Does have cough with copious amount of purulent sputum. Patient had have low-grade fever last night. Continued on ceftriaxone and we'll add azithromycin. Sputum culture was sent. Patient does have 1 episode of explosive diarrhea. Complains of discomfort and abdominal. No chest pain or shortness of breath. Chest x-ray showed no acute cardiopulmonary process. Urinalysis negative for infection. Laboratory data showed WBC 9.1 hemoglobin 7.6 and platelets 265 Sodium 133 potassium 4.3 chloride 102 bicarb is 23 BUN 17 and creatinine 1.1 and calcium 7.1 Nephrology is on board. 01/07/2022 Patient is currently resting in bed. Awake alert and oriented 3. Did complain of nausea and episode of vomiting this morning. Patient is being continued on PPI. Patient is being continued on antibiotics in the form of ceftriaxone and azithromycin. Last night she did have a temp with T-max 10.1. Afebrile now. No complaints of abdominal pain. Denied any chest pain or shortness of breath. Laboratory data showed WBC 10.3 hemoglobin 8.2 and platelets 259 Sodium 136 potassium 4.4 chloride 104 bicarb is 25 BUN 17 and creatinine 1.12, cortisol level is 26. 01/08/2022 Patient is currently lying in the bed. Feels better. Cough improved and decreased sputum production. No complaints of chest pain or shortness breath. Able to tolerate oral diet today. No complaints of dizziness or lightheadedness. Afebrile today. Patient is on antibiotics. Also be continued on Midodrin and blood pressure is maintained. Renal function is normalized. Possible EGD/colonoscopy by GI in the next week. Plavix is on hold. 01/09/2022 Admitted to hospital due to acute gastroenteritis and acute kidney injury. Also has having significant purulent tracheobronchitis and possible sinusitis. Patient is lying in the bed. Awake alert and oriented x3. Denies any complaint s of nausea vomiting or abdominal pain. Did have a bowel movement. No diarrhea. Cough improved as well as sputum production. Sputum culture showed moderate polymorphonuclear leukocytes. Few gram-negative bacilli and rare gram-positive cocci. Patient is on antibiotics and off ceftriaxone and azithromycin. Afebrile today. T-max was 100.2 last night. As well as renal function did improve to 0.88 today. Plavix is on hold for possible EGD and colonoscopy. GI is not in service this week. PT OT consult and possible discharge home and follow-up with GI as outpatient for procedure. Other lab data reviewed. Hemoglobin at 8.0 and is stable.. 01/10/22 Patient seen and examined. Complaining of cough. Denies any shortness of breath. Hemoglobin this morning is 7.8. No blood in the stools. Vital signs stable 01/11/22. Patient seen and examined. Currently waiting on EGD and colonoscopy. No episode of bleeding. Denies any nausea or vomiting. Vital signs stable. Case discussed with nursing staff REVIEW OF SYSTEMS: CONSTITUTIONAL: No fever, no malaise, no fatigue. CARDIOVASCULAR: No chest pain, orthopnea, PND, no palpitations, no syncope. PULMONARY: No shortness of breath, no hemoptysis. GASTROINTESTINAL: No diarrhea, no nausea, no vomiting, no abdominal pain. NEUROLOGICAL: No headaches, no weakness, no numbness. PHYSICAL EXAMINATION: GENERAL: The patient is alert and oriented x3, not in any acute distress. Well developed, well nourished. HEENT: Pupils are round and equally reacting to light. EOMI. No scleral icterus. No conjunctival pallor. Normocephalic, atraumatic. No pharyngeal erythema. No thyromegaly. CARDIOVASCULAR: S1 and S2 present. No murmurs, rubs, or gallops. PULMONARY: Chest is clear to auscultation, no wheezing or crackles. ABDOMEN: Soft, nontender, nondistended, normoactive bowel sounds. No palpable organomegaly. EXTREMITIES: No cyanosis, clubbing, or pedal edema. Assessment; Fever. Likely due to acute purulent tracheobronchitis . Chest x-ray showed no pneumonia. Possible sinusitis and also suspected. Acute kidney injury likely prerenal secondary to hypovolemia and nausea vomiting and poor oral intake. Improved creatinine level Metabolic acidosis secondary to acute kidney injury. Improving Iron deficiency anemia Nausea vomiting and diarrhea likely due to gastroenteritis. Improved now Intermediate troponin level elevation. Likely due to worsening. Unlikely ACS as per cardiology. Hypovolemic hyponatremia History of CAD with multiple stent placement Cardiomyopathy with no evidence of heart failure. Ejection fraction currently at 50-55 %. Patient is status post AICD placement Possible acute urinary tract infection Diabetes type 2 Hyperlipidemia DVT prophylaxis Plan: Monitor CBC Monitor renal functions, JAYCEE resolved Continue midodrine and sodium bicarb per nephrology Continue with statins and Coreg and is also on Midodrin with holding parameters. Continue with Protonix and symptomatic management for nausea. Currently nothing by mouth, going for EGD and colonoscopy today Objective - Vital Signs Vital signs: Vital Signs Temp 98.4 F 01/11/22 12:02 Pulse 74 01/11/22 12:02 Resp 16 01/11/22 12:02 BP 124/62 01/11/22 12:02 Pulse Ox 95 01/11/22 12:02 FiO2 Intake & Output 01/10/22 01/11/22 01/11/22 18:59 06:59 18:59 Intake Total 358 250 200 Balance 358 250 200 Intake: IV 10 200 Invasive Line 3 10 Oral 358 240 Other: Voiding Method Toilet Toilet Toilet # Voids 1 # Bowel Movements 1 5 1 - Labs CBC & Chem 7: 01/11/22 08:13 01/11/22 08:13 Labs: Abnormal Lab Results - Last 24 Hours (Table) 01/10/22 01/11/22 01/11/22 Range/Units 16:37 08:13 08:13 WBC 2.9 L (3.8-10.6) k/uL RBC 2.50 L (3.80-5.40) m/uL Hgb 7.8 L (11.4-16.0) gm/dL Hct 22.5 L (34.0-46.0) % Lymphocytes # 0.5 L (1.0-4.8) k/uL Sodium 135 L (137-145) mmol/L Glucose 102 H (74-99) mg/dL POC Glucose (mg/dL) 207 H (70-110) mg/dL Calcium 7.1 L (8.4-10.2) mg/dL 01/11/22 Range/Units 11:39 WBC (3.8-10.6) k/uL RBC (3.80-5.40) m/uL Hgb (11.4-16.0) gm/dL Hct (34.0-46.0) % Lymphocytes # (1.0-4.8) k/uL Sodium (137-145) mmol/L Glucose (74-99) mg/dL POC Glucose (mg/dL) 147 H (70-110) mg/dL Calcium (8.4-10.2) mg/dL Microbiology - Last 24 Hours (Table) 01/05/22 10:02 Blood Culture - Final Blood No Growth after 144 hours
[2022-01-11 16:34] LABS: Glucose,Whole Blood 137 mg/dL (70-110)
[2022-01-11] MEDS: FAMOTIDINE 20 MG/2 ML VIAL IV SCH (20:27)
[2022-01-11] MEDS: ATORVASTATIN 80 MG TAB PO SCH (20:27)
[2022-01-11 20:48] LABS: Glucose,Whole Blood 225 mg/dL (70-110)
[2022-01-12] MEDS: INSULIN ASPART (NovoLOG) 100 UNIT/ML VIAL SQ SCH ×2 (05:53→11:32)
[2022-01-12 05:54] LABS: Glucose,Whole Blood 78 mg/dL (70-110)
[2022-01-12] MEDS: carvediloL 6.25 MG TAB PO SCH (06:06)
[2022-01-12] MEDS: MIDODRINE 5 MG TAB PO SCH ×2 (06:31→11:35)
[2022-01-12] MEDS: IPRATROPIUM-ALBUTEROL 3 ML NEB INHALATION SCH ×2 (07:18→11:04)
[2022-01-12 07:52] VITALS: RESP 18
[2022-01-12] MEDS: polyethylene glycoL 3350 17 GM POWD.PACK PO SCH (08:39)
[2022-01-12] MEDS: ASPIRIN 81 MG PO SCH (08:39)
[2022-01-12] MEDS: SODIUM BICARBONATE TAB 650 MG TAB PO SCH (08:39)
[2022-01-12] MEDS: glipiZIDE 10 MG TAB PO SCH (08:39)
[2022-01-12 11:27] LABS: Glucose,Whole Blood 188 mg/dL (70-110)
--- NOTE | 2022-01-12 11:32 | P.PN ---
Subjective Progress Note Date: 01/12/22 Principal diagnosis: Anemia This is a pleasant 66-year-old female with a significant cardiac history including heart failure, multiple cardiac stents, diabetes mellitus, who prese nted to the emergency department Dick with complaints of generalized weakness, fall, and nausea and vomiting. At that time patient was noted to have a hemoglobin 8.4 which has subsequently dropped to 7.4 today. Gastroenterology was consulted for possible GI bleed. Patient denies any blood in her stool or black stool. However when asked about her emesis she does state that there were a couple that were dark. She states that she did feel that she had indigestion and epigastric discomfort. She denies any previous history of ulcers or GI bleed. She has no previous EGD or colonoscopy. Unsure if she has a history of anemia. No prior admissions for comparison at this hospital. Currently denies any abdominal pain, nausea or vomiting. Denies any blood in her stool. 01/03/2022: Patient is seen today's follow-up. Patient states she is feeling tired other than that she is feeling well. She's been up and ambulating. Has not had any bowel movements. She denies any abdominal pain, nausea or vomiting. No rectal bleeding. Hemoglobin this morning was 6.9. Iron studies are consistent with an iron deficiency anemia. She is getting IV iron. On 01/04/2022. Patient seen and examined as a follow-up for anemia. Patient had a drop in her hemoglobin yesterday to 6.9 and was transfused 1 unit of blood. Today's repeat hemoglobin is 7.8. She continues to deny any signs or symptoms of GI bleed. She has not had any bowel movement since she's been here. No abdominal pain, nausea or vomiting. 01/05/2022. Again patient seen and examined as follow-up for anemia. Hemoglobin is improving now at 9.2. The patient continues to deny any rectal bleeding, no bowel movement. No nausea or vomiting, no abdominal pain. Apparently patient spiked a fever through the night with a max temp of 100.6. Again this morning had a temp of 100.7. Chest x-ray showed no acute process. 01/10/2022: Patient remains in the hospital related to a productive bronchial cough. She's been off-and-on with fevers. Hemoglobin has been stable at 7.8. She denies any blood in her stool or black stool. States her bowel movements have been daily to twice a day soft and brown. Denies any abdominal pain. Nausea or vomiting. 01/12/2022: Patient seen and examined as a follow-up. Yesterday she underwent EGD and colonoscopy. EGD showed a small hiatal hernia and LA grade a reflux esophagitis, colonoscopy was normal with no signs of neoplasia. She denies any further dark bowel movements. Denies any abdominal pain, nausea vomiting. Objective - Vital Signs Vital signs: Vital Signs Temp 97.9 F 01/12/22 07:50 Pulse 70 01/12/22 07:50 Resp 18 01/12/22 07:50 BP 107/69 01/12/22 07:50 Pulse Ox 96 01/12/22 07:50 FiO2 Intake & Output 01/11/22 01/12/22 01/12/22 18:59 06:59 18:59 Intake Total 440 Balance 440 Intake: IV 200 Oral 240 Other: Voiding Method Toilet Toilet # Voids 2 1 # Bowel Movements 1 - Exam General appearance: The patient is alert, oriented, appears in no acute distress. HET: Head is normocephalic and atraumatic. Conjunctiva pink. Sclera anicteric. Neck: Supple without lymphadenopathy. Abdomen: Soft, nontender, nondistended with bowel sounds. No guarding or rigidity. Extremities: Normal skin color and turgor. No pedal edema Skin: No rashes, no jaundice Neurological: No focal deficits. Alert and oriented x 3. - Labs CBC & Chem 7: 01/11/22 08:13 01/11/22 08:13 Labs: Abnormal Lab Results - Last 24 Hours (Table) 01/11/22 01/11/22 01/11/22 Range/Units 08:13 08:13 11:39 WBC 2.9 L (3.8-10.6) k/uL RBC 2.50 L (3.80-5.40) m/uL Hgb 7.8 L (11.4-16.0) gm/dL Hct 22.5 L (34.0-46.0) % Lymphocytes # 0.5 L (1.0-4.8) k/uL Sodium 135 L (137-145) mmol/L Glucose 102 H (74-99) mg/dL POC Glucose (mg/dL) 147 H (70-110) mg/dL Calcium 7.1 L (8.4-10.2) mg/dL 01/11/22 01/11/22 Range/Units 16:33 20:47 WBC (3.8-10.6) k/uL RBC (3.80-5.40) m/uL Hgb (11.4-16.0) gm/dL Hct (34.0-46.0) % Lymphocytes # (1.0-4.8) k/uL Sodium (137-145) mmol/L Glucose (74-99) mg/dL POC Glucose (mg/dL) 137 H 225 H (70-110) mg/dL Calcium (8.4-10.2) mg/dL Microbiology - Last 24 Hours (Table) 01/05/22 10:02 Blood Culture - Final Blood No Growth after 144 hours Assessment and Plan (1) Normocytic normochromic anemia Narrative/Plan: 66-year-old female presented to the emergency department with complaints of generalized weakness and fall. States she was dehydrated. She was having episodes of nausea with vomiting. Presented to the emergency department with acute kidney injury. Patient has significant cardiac history with history of heart failure and 7 stents, AICD placement. On admission patient was found to be anemic. She had a hemoglobin 8.4 with strep to 7.4. Denies any blood in her stool or black stool. She was having episodes of nausea and vomiting which she states a couple may have been dark. No previous history of ulcers, no NSAID use or anticoagulation however patient is on a low-dose aspirin and Plavix daily for cardiac disease. No previous history of ulcer, unsure if she has a history of anemia. Iron studies were consistent with an iron deficiency anemia. Patient is currently getting IV iron. This quite possibly could be anemia of chronic disease. However patient has not had prior EGD or colonoscopy silk cannot rule out GI blood source for anemia. Patient has been on Plavix, recommend outpatient EGD and colonoscopy with patient being off her Plavix for 5 days. Patient is agreeable to this plan. Patient had a drop in her hemoglobin today is 6.9. Plavix has been discontinued. No overt signs or symptoms of GI bleed. 1 unit of PRBC transfusion ordered. We will plan on outpatient EGD and colonoscopy as patient has had Plavix yesterday and today. Patient will need to be off Plavix for 5 days prior to EGD colonoscopy The patient is status post colonoscopy no evidence of active bleeding or old blood noted. LA grade a reflux esophagitis seen on EGD with a small hiatal he rnia and normal colonoscopy. Current Visit: Yes Status: Acute Code(s): D64.9 - ANEMIA, UNSPECIFIED SNOMED Code(s): 28489865 (2) History of coronary artery disease Current Visit: Yes Status: Acute Code(s): Z86.79 - PERSONAL HISTORY OF OTHER DISEASES OF THE CIRCULATORY SYSTEM SNOMED Code(s): 866131348 (3) Acute kidney injury Narrative/Plan: Improved Current Visit: Yes Status: Acute Code(s): N17.9 - ACUTE KIDNEY FAILURE, UNSPECIFIED SNOMED Code(s): 79521823 (4) Generalized weakness Current Visit: Yes Status: Acute Code(s): R53.1 - WEAKNESS SNOMED Code(s): 89524838 (5) Fever of unknown origin Current Visit: Yes Status: Acute Code(s): R50.9 - FEVER, UNSPECIFIED SNOMED Code(s): 6006988 (6) Productive cough Current Visit: Yes Status: Acute Code(s): R05.8 - OTHER SPECIFIED COUGH SNOMED Code(s): 30732984 Plan: 1. Continue symptomatic and supportive care 2. Avoid NSAIDs 3. Protonix 40 mg daily GI prophylaxis 4. Patient is status post EGD and colonoscopy with active bleeding or old blood found. Thank you for this consultation, patient is cleared from gastroenterology for discharge. We will sign off at this time. Dr. Beatriz Martin I agree with the dictator's note, documented as a scribe by Bella Tanner.
[2022-01-12 11:40] VITALS: BP 111/69; PULSE 72; TEMP 98.4
--- NOTE | 2022-01-12 12:05 | P.DS ---
Providers Date of admission: 12/31/21 02:01 Expected date of discharge: 01/12/22 Attending physician: Leonard Andrews MD Consults: 12/31/21 02:01 Consult Physician Routine Consulting Provider: Saad García Consult Reason/Comments: chest pain Do you want consulting provider notified?: Yes Consult Physician Routine Consulting Provider: Ch[place] Charles Consult Reason/Comments: Acute renal failure Do you want consulting provider notified?: Yes Primary care physician: [facility] Course: Discharge diagnoses; Fever. Likely due to acute purulent tracheobronchitis . Chest x-ray showed no pneumonia. Possible sinusitis and also suspected. Acute kidney injury likely prerenal secondary to hypovolemia and nausea vomiting and poor oral intake. Improved creatinine level Metabolic acidosis secondary to acute kidney injury. Improving Iron deficiency anemia Nausea vomiting and diarrhea likely due to gastroenteritis. Improved now Intermediate troponin level elevation. Likely due to worsening. Unlikely ACS as per cardiology. Hypovolemic hyponatremia History of CAD with multiple stent placement Cardiomyopathy with no evidence of heart failure. Ejection fraction currently at 50-55 %. Patient is status post AICD placement Possible acute urinary tract infection Diabetes type 2 Hyperlipidemia Plan: Continue midodrine per nephrology Continue with statins and Coreg and is also on Midodrin. Continue with Protonix Outpatient follow with PCP, GI, cardiology, nephrology Hospital course; Patient was admitted to the hospital due to complaints of chest discomfort and also found have acute urinary tract infection and acute kidney injury. Next and 01/02/2022 Patient is currently lying in bed. Awake alert and oriented 3. Denied any complaints of chest discomfort today. Symptomatically improved. Renal function is improving as well. No complaints of shortness of breath. Mild nausea. No fever no cough or sputum production. Laboratory data showed WBC 12.8 hemoglobin 7.5 and platelets 346. Patient was also found have iron deficient and was given IV iron Laboratory data showed BUN 58 and creatinine 1.8 and bicarb is 20 and magnesium 1.7 Patient is being currently on antibiotics in the form of ceftriaxone. Cultures have been negative. cardiology and nephrology is on board. 01/03/2022 Patient is resting in the bed. Awake alert and oriented 3. Denied any complaints of chest pain or shortness breath. No complaints of nausea vomiting or abdominal pain. No diarrhea. Patient did have a bowel movement. Renal function is improving. Patient is being fed on IV hydration. Patient was seen in the this morning with hemoglobin level .9 and ordered 1 unit of PRBC. Other laboratory data showed a BUN 28 and creatinine 1.09, WBC 13.6 and hemoglobin 6.9 and platelets 343. Magnesium 1.7. Patient was seen by GI and recommended outpatient EGD and colonoscopy. 01/04/2022 Patient is resting in bed. Awake alert and oriented 3. Patient was transfused with 1 unit of PRBC yesterday and hemoglobin improved to 7.8 today. No further episodes of GI bleeding. Patient also received IV iron. Next and no complaints of nausea vomiting abdominal pain or diarrhea. Patient was started on oral diet. Lasix is on hold for EGD and colonoscopy. Monitor H&H. GI and nephrology is on board.. 01/05/2011 Patient is currently lying in the bed. Awake alert and oriented. Patient was febrile with T-max 101.6 overnight. No complaints of nausea vomiting or abdominal pain. No diarrhea. Pain is complaining of cough with brownish sputum production. On antibiotics of ceftriaxone. Chest x-ray, UA and blood cultures were sent. Otherwise laboratory data showed WBC count 12.4, hemoglobin 9.2 and platelets 304. Sodium 137 potassium 5.2 BUN 15 and creatinine 0.98 and calcium 8.1. GI is planning for EGD as an outpatient and Plavix is on hold currently. 01/06/2022 Patient is lying in the bed. Awake alert and oriented 3. Does have cough with copious amount of purulent sputum. Patient had have low-grade fever last night. Continued on ceftriaxone and we'll add azithromycin. Sputum culture was sent. Patient does have 1 episode of explosive diarrhea. Complains of discomfort and abdominal. No chest pain or shortness of breath. Chest x-ray showed no acute cardiopulmonary process. Urinalysis negative for infection. Laboratory data showed WBC 9.1 hemoglobin 7.6 and platelets 265 Sodium 133 potassium 4.3 chloride 102 bicarb is 23 BUN 17 and creatinine 1.1 and calcium 7.1 Nephrology is on board. 01/07/2022 Patient is currently resting in bed. Awake alert and oriented 3. Did complain of nausea and episode of vomiting this morning. Patient is being continued on PPI. Patient is being continued on antibiotics in the form of ceftriaxone and azithromycin. Last night she did have a temp with T-max 10.1. Afebrile now. No complaints of abdominal pain. Denied any chest pain or shortness of breath. Laboratory data showed WBC 10.3 hemoglobin 8.2 and platelets 259 Sodium 136 potassium 4.4 chloride 104 bicarb is 25 BUN 17 and creatinine 1.12, cortisol level is 26. 01/08/2022 Patient is currently lying in the bed. Feels better. Cough improved and decreased sputum production. No complaints of chest pain or shortness breath. Able to tolerate oral diet today. No complaints of dizziness or lightheadedness. Afebrile today. Patient is on antibiotics. Also be continued on Midodrin and blood pressure is maintained. Renal function is normalized. Possible EGD/colonoscopy by GI in the next week. Plavix is on hold. 01/09/2022 Admitted to hospital due to acute gastroenteritis and acute kidney injury. Also has having significant purulent tracheobronchitis and possible sinusitis. Patient is lying in the bed. Awake alert and oriented x3. Denies any complaints of nausea vomiting or abdominal pain. Did have a bowel movement. No diarrhea. Cough improved as well as sputum production. Sputum culture showed moderate polymorphonuclear leukocytes. Few gram-negative bacilli and rare gram-positive cocci. Patient is on antibiotics and off ceftriaxone and azithromycin. Afebrile today. T-max was 100.2 last night. As well as renal function did improve to 0.88 today. Plavix is on hold for possible EGD and colonoscopy. GI is not in service this week. PT OT consult and possible discharge home and follow-up with GI as outpatient for procedure. Other lab data reviewed. Hemoglobin at 8.0 and is stable.. 01/10/22 Patient seen and examined. Complaining of cough. Denies any shortness of breath. Hemoglobin this morning is 7.8. No blood in the stools. Vital signs stable 01/11/22. Patient seen and examined. Currently waiting on EGD and colonoscopy. No episode of bleeding. Denies any nausea or vomiting. Vital signs stable. Case discussed with nursing staff 01/12. Patient seen and examined. Patient EGD and colonoscopy done yesterday which showed the following 1. Upper endoscopy revealed small hiatal hernia, LA grade A reflux esophagitis 2. Colonoscopy was within normal limits with no evidence of colorectal neoplasia Currently tolerating diet, being discharged to follow up outpatient with PCP. PHYSICAL EXAMINATION: GENERAL: The patient is alert and oriented x3, not in any acute distress. Well developed, well nourished. HEENT: Pupils are round and equally reacting to light. EOMI. No scleral icterus. No conjunctival pallor. Normocephalic, atraumatic. No pharyngeal erythema. No thyromegaly. CARDIOVASCULAR: S1 and S2 present. No murmurs, rubs, or gallops. PULMONARY: Chest is clear to auscultation, no wheezing or crackles. ABDOMEN: Soft, nontender, nondistended, normoactive bowel sounds. No palpable organomegaly. MUSCULOSKELETAL: No joint swelling or deformity. EXTREMITIES: No cyanosis, clubbing, or pedal edema. NEUROLOGICAL: Gross neurological examination did not reveal any focal deficits. SKIN: No rashes. Patient Condition at Discharge: Good Plan - Discharge Summary Discharge Rx Participant: Yes New Discharge Prescriptions: New Midodrine [ProAmatine] 5 mg PO AC-TID 14 Days #42 tab Pantoprazole Sodium [Protonix] 40 mg PO AC-BRKFST #30 tab Continue carvediloL [Coreg] 6.25 mg PO BID metFORMIN HCL [Glucophage] 500 mg PO BID glipiZIDE 10 mg PO BID Atorvastatin Calcium [Lipitor] 80 mg PO HS Aspirin EC [Ecotrin Low Dose] 81 mg PO DAILY Discontinued lisinopriL [Zestril] 20 mg PO DAILY Clopidogrel [Plavix] 75 mg PO DAILY Spironolactone 25 mg PO DAILY Bumetanide [BUMEX] 2 mg PO BID Discharge Medication List Aspirin EC [Ecotrin Low Dose] 81 mg PO DAILY 12/31/21 [History] Atorvastatin Calcium [Lipitor] 80 mg PO HS 12/31/21 [History] carvediloL [Coreg] 6.25 mg PO BID 12/31/21 [History] glipiZIDE 10 mg PO BID 12/31/21 [History] metFORMIN HCL [Glucophage] 500 mg PO BID 12/31/21 [History] Midodrine [ProAmatine] 5 mg PO AC-TID 14 Days #42 tab 01/12/22 [Rx] Pantoprazole Sodium [Protonix] 40 mg PO AC-BRKFST #30 tab 01/12/22 [Rx] Follow up Appointment(s)/Referral(s): Brandi Kowalski MD [REFERRING] - 1 Week Nella Martin MD [STAFF PHYSICIAN] - 01/11/22 (This is for COLONOSCOPY at [facility], office will call you regarding prep. Hospital will call you with time.) [facility], [NON-STAFF] - Morales Rojas MD [Primary Care Provider] - 1-2 days Ambulatory/Diagnostic Orders: Comprehensive Metabolic Panel [LAB.AMB] Time Frame: 1 Week, Location: None Selected Discharge Disposition: TRANSFER TO SNF/ECF
--- NOTE | 2022-01-14 22:25 | CDI ---
Date: 01/14/2022 10:10:25 PM From: Sinai Pleitez Phone: Admit Date: 12/31/2021 02:01:00 AM Patient Name: Monica Crawley Visit Number: [id number] Discharge Date: 01/12/2022 03:54:00 PM ATTENTION: The Clinical Documentation Specialists (CDI) and [facility] Coding Staff appreciate your assistance in clarifying documentation. Please respond to the clarification below the line at the bottom and electronically sign. The CDI & [facility] Coding staff will review the response and follow-up if needed. Please note: Queries are made part of the Legal Health Record. If you have any questions, please contact the author of this message via ITS. Dr. Jan Garcia Unspecified CKD is documented per Nephrology & Cardiology 12/31/21 Consult Note. Additional clarification regarding the stage of CKD is requested. History/Risk Factors: 66yo F, JAYCEE on CKD, UTI, ICM, dehydration, acidosis, DMII, gastroenteritis, hyponatremia, hypovolemia, HTN, HLD, CAD w stents, PPM, CHUY Patients Historical BUN/CR/GFR: Unknown baseline renal function. Clinical Indicators: BUN 191 H* (7-17) mg/dL Creatinine 3.51 H (0.52-1.04) mg/dL Est GFR (CKD-EPI) AfAm 15 (>60 ml/min/1.73 sqM) Est GFR (CKD-EPI) NonAf 13 (>60 ml/min/1.73 sqM) Treatment: From cardiology's perspective will continue to hold diuretics and SUYAPA inhibitor at this time. Renal function is improving. Continue aspirin, statin, Coreg. Continue to follow renal function. Nephrology following. Continue to monitor BP closely. On discharge, patient to follow up outpatient with her primary securities attorney Consults: Nephrology & Cardiology Please clarify the stage of the CKD, if known: [ x ] CKD Stage 4 (GFR 15-29) [ ] CKD Stage 5 (GFR <15) [ ] ESRD [ ] Other, please specify [ ] Unable to determine (Template last revised: May 2020) MTDD
--- NOTE | 2022-01-14 23:01 | CDI ---
Documentation Clarification Form Date: 01/14/2022 10:26:30 PM From: Sinai Pleitez Phone: Admit Date: 12/31/2021 02:01:00 AM Patient Name: Monica Crawley Visit Number: [id number] Discharge Date: 01/12/2022 03:54:00 PM ATTENTION: The Clinical Documentation Specialists (CDI) and [facility] Coding Staff appreciate your assistance in clarifying documentation. Please respond to the clarification below the line at the bottom and electronically sign. The CDI & [facility] Coding staff will review the response and follow-up if needed. Please note: Queries are made part of the Legal Health Record. If you have any questions, please contact the author of this message via ITS. Dr. Jan Garcia Conflicting documentation has been found in the medical record. As attending physician, please provide clarification. Medical Consult 01/02/22 significant cardiac history including heart failure Cardiology Consult Note 12/31/21 History of cardiomyopathy, no evidence of heart failure History/Risk Factors: 66yo F, JAYCEE on CKD, UTI, ICM, dehydration, acidosis, DMII, PPM, CHUY, AICD, gastroenteritis, hyponatremia, hypovolemia, HTN, HLD, CAD w stents Clinical Indicators: VS/Pulse OX: 100 12/31/21 BNP: 1550 12/30/21 Echocardiogram Results: The ventricle size is normal with borderline left ventricle systolic function 2.Mild mitral and tricuspid regurgitation 3.A wire was noted in the right ventricle Chest x ray: There is no heart failure nor confluent pneumonic infiltrate. Costophrenic angles are clear. There is left axillary pacemaker. There are chest leads. Bony thorax is intact. Treatment: Continue with midodrine. Continue sodium bicarb. Repeat labs in a.m. Please clarify which diagnosis is most appropriate: [x ] No CHF [ ] CHF [ ] Acute [ ] Chronic [ ] Acute on Chronic [ ] Systolic Heart Failure [ ] Diastolic Heart Failure [ ] Systolic & Diastolic Heart Failure [ ] Other (please specify) [ ] Unable to determine (Template Last Revised: June 2020) MTDD
== END 2022-01-12 15:54 | DRG 683 ==
LOC: EC 22:38 → 3SCARD 12-31 02:01
PROVIDERS: ADMIT Internal Medicine; ATTEND Internal Medicine
PROC: 0DB98ZX Excision of Duodenum, Via Natural or Artificial Opening Endoscopic, Diagnostic (ICD-10-PCS; principal; 2022-01-11 12:00)
PROC: 0DJD8ZZ Inspection of Lower Intestinal Tract, Via Natural or Artificial Opening Endoscopic (ICD-10-PCS; 2022-01-11 12:00)
DX: I13.10 Hypertensive heart and chronic kidney disease without heart failure, with stage 1 through stage 4 chronic kidney disease, or unspecified chronic kidney disease (principal); E87.1 Hypo-osmolality and hyponatremia; N17.9 Acute kidney failure, unspecified; E87.4 Mixed disorder of acid-base balance; E87.20 Acidosis, unspecified; N39.0 Urinary tract infection, site not specified; N18.4 Chronic kidney disease, stage 4 (severe); J20.9 Acute bronchitis, unspecified; D63.8 Anemia in other chronic diseases classified elsewhere; E11.22 Type 2 diabetes mellitus with diabetic chronic kidney disease; D50.9 Iron deficiency anemia, unspecified; I08.1 Rheumatic disorders of both mitral and tricuspid valves; I95.9 Hypotension, unspecified; I25.10 Atherosclerotic heart disease of native coronary artery without angina pectoris; E78.5 Hyperlipidemia, unspecified; E86.0 Dehydration; K21.00 Gastro-esophageal reflux disease with esophagitis, without bleeding; K44.9 Diaphragmatic hernia without obstruction or gangrene; W19.XXXA Unspecified fall, initial encounter; E86.1 Hypovolemia; K52.9 Noninfective gastroenteritis and colitis, unspecified; J32.9 Chronic sinusitis, unspecified; I25.5 Ischemic cardiomyopathy; K30 Functional dyspepsia; R26.2 Difficulty in walking, not elsewhere classified; Z79.899 Other long term (current) drug therapy; Z79.82 Long term (current) use of aspirin; Z79.84 Long term (current) use of oral hypoglycemic drugs; Z79.02 Long term (current) use of antithrombotics/antiplatelets; Z95.5 Presence of coronary angioplasty implant and graft; Z88.1 Allergy status to other antibiotic agents; Z87.891 Personal history of nicotine dependence; Z28.311 Partially vaccinated for COVID-19; Z95.810 Presence of automatic (implantable) cardiac defibrillator
CPT/HCPCS: 36415; 43239; 45378; 71045; 74150; 76770; 80048; 80053; 81001; 82533; 82728; 83036; 83540; 83550; 83605; 83735; 83880; 84484; 85025; 85027; 86850; 86900; 86901; 86920; 87040; 87070; 87205; 87502; 87634; 87635; 88305; 93005; 93306; 94640; 94760; 96360; 96361; 99285

== ENCOUNTER 2022-02-12 04:04 | Inpatient (IN) | payer MEDICARE ==
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
[2022-02-12 04:48] LABS: Glucose,Whole Blood 592 mg/dL (70-110)
--- NOTE | 2022-02-12 04:48 | XR ---
EXAMINATION TYPE: XR chest 1V DATE OF EXAM: 02/12/2022 COMPARISON: 01/05/2022 HISTORY: Fall. Chest pain TECHNIQUE: FINDINGS: Heart is enlarged. No heart failure seen. Lungs are clear of infiltrate. There is left axil beba pacemaker. No pleural effusion. There are no hilar masses. IMPRESSION: Cardiomegaly. Heart appears increased compared to old exam. Pericardial effusion is possi ble. No obvious heart failure.
[2022-02-12] MEDS ORDERED: MORPHINE SULFATE 4 MG/ML SYRINGE IV STA (04:49)
[2022-02-12] MEDS ORDERED: SODIUM CHLORIDE 0.9% 1,000 ML IV STA (04:49)
--- NOTE | 2022-02-12 04:51 | XR ---
EXAMINATION TYPE: XR Hip LT and AP Pelvis DATE OF EXAM: 02/12/2022 COMPARISON: NONE HISTORY: Fall. Pain TECHNIQUE: 3 views FINDINGS: There is an acute intertrochanteric fracture left femur. No displacement. Pelvic ring is in tact. The acetabula appear intact. Sacroiliac joints are intact. IMPRESSION: Acute nondisplaced intertrochanteric fracture left femur.
[2022-02-12] MEDS ORDERED: INSULIN REGULAR 100 UNIT/ML VIAL (IM/SQ) SQ ONE (04:56)
[2022-02-12] MEDS ORDERED: INSULIN REGULAR 100 UNIT/ML VIAL (IV) IV ONE (04:56)
--- NOTE | 2022-02-12 05:00 | CT ---
EXAMINATION TYPE: CT brain ren blake con DATE OF EXAM: 02/12/2022 COMPARISON: None HISTORY: fall CT DLP: 1364.8 mGycm Automated exposure control for dose reduction was used. Images of the brain and cervical spine obtained with no contrast There is mild cerebral cortical atrophy. There is no mass effect or midline shift. No sign of intracr anial hemorrhage. Calvarium is intact. There is some mucosal thickening in the ethmoid air cells. No evidence of orbital mass. There is normal aeration of the mastoid sinuses. Skull base is intact. The cervical vertebra have fairly normal spacing and alignment. There is minor spurring of the endpla ashley at C3-4. Facet joints are intact. No compression fracture. No subluxation. IMPRESSION: Mild cerebral atrophy. No acute intracranial abnormality. Negative CT scan cervical spine. Minor degenerative disc changes at C3-4.
[2022-02-12 05:21] LABS: Basophils # (A) 0.1 k/uL (0-0.2); Basophils % (A) 1 %; Eosinophils # (A) 0.4 k/uL (0-0.7); Eosinophils % (A) 4 %; HCT 29.6 % (34.0-46.0); HGB 9.5 gm/dL (11.4-16.0); Hypochromasia Moderate; Lymphocytes # (A) 0.6 k/uL (1.0-4.8); Lymphocytes % (A) 5 %; MCH 29.7 pg (25.0-35.0); MCHC 32.1 g/dL (31.0-37.0); MCV 92.5 fL (80.0-100.0); Mean Platelet Volume 7.7; Monocytes # (A) 0.4 k/uL (0-1.0); Monocytes % (A) 3 %; Neutrophils # (A) 9.9 k/uL (1.3-7.7); Neutrophils % (A) 86 %; Platelet Count 306 k/uL (150-450); RDW 14.3 % (11.5-15.5); WBC 11.6 k/uL (3.8-10.6)
[2022-02-12 05:26] LABS: Albumin 3.5 g/dL (3.5-5.0); Calcium 8.4 mg/dL (8.4-10.2); Magnesium 2.3 mg/dL (1.6-2.3); Partial Thromboplastin Time 24.3 sec (22.0-30.0); Phosphorus 3.8 mg/dL (2.5-4.5); Prothrombin Time 10.9 sec (9.0-12.0); Total Bilirubin 0.5 mg/dL (0.2-1.3); Total Protein 6.9 g/dL (6.3-8.2)
[2022-02-12] MEDS ORDERED: ONDANSETRON 4 MG/2 ML VIAL IVP PRN (05:35)
[2022-02-12] MEDS ORDERED: NALOXONE 0.4 MG/ML 1 ML VIAL IV PRN (05:35)
[2022-02-12 05:41] LABS: Potassium 6.1 mmol/L (3.5-5.1)
[2022-02-12] MEDS ORDERED: SODIUM BICARB 8.4% 50 ML SYR (1 MEQ/ML) IV STA ×2 (05:44)
[2022-02-12] MEDS ORDERED: SODIUM CHLORIDE 0.9% 1,000 ML IV ONE (05:44)
[2022-02-12] MEDS ORDERED: FUROSEMIDE 10 MG/ML 4 ML VIAL IV STA (05:49)
[2022-02-12 06:01] LABS: Glucose,Whole Blood 535 mg/dL (70-110)
[2022-02-12 06:35] LABS: Appearance,Urine Clear (Clear); Bilirubin,Urine Negative (Negative); Blood,Urine Negative (Negative); Color,Urine Colorless; Glucose,Urine (UA) 4+ (Negative); Ketones,Urine Negative (Negative); Leukocyte Esterase,Urine Negative (Negative); Nitrite,Urine Negative (Negative); Protein,Urine Negative (Negative); Specific Gravity,Urine 1.025 (1.001-1.035); Urobilinogen,Urine <2.0 mg/dL (<2.0)
[2022-02-12 07:34] LABS: Glucose,Whole Blood 392 mg/dL (70-110)
[2022-02-12] MEDS: SODIUM CHLORIDE 0.9% 1,000 ML IV SCH ×5 (07:50→23:38)
--- NOTE | 2022-02-12 08:03 | P.CNOR ---
History of Present Illness - HPI Consult date: 02/12/22 Consult reason: fracture History of present illness: Patient is seen and examined at bedside. She is a very pleasant 66-year-old female who sustained a fall at home. Patient felt lightheaded head she said her eyes when blurry and she passed out and fell onto the floor. She said she woke up later and had severe pain at her left hip and left side was unable to get up and presented to the emergency room via ambulance. Patient has history of diabetic ketoacidosis just couple weeks ago and was in the hospital for about 14 days. She was managed closely with medicine and then was released from hospital about 2 weeks half weeks ago and was at home making some recovery. She says she was feeling better until she experienced this issue and fell. She denies any prior pain with her left leg. She denies any prior hip pain. She is normally is an 80 ambulate without assistance. Patient has significant medical history with diabetic ketoacidosis and her sugars in the emergency room were greater than 500, her potassium 6.1. She has history of cardiac stents and defibrillator. She says she is not on blood thinners. She denies other pains. Her primary issues at her left hip but she does have some pain in her at her left lower ribs. She denies any shortness of breath or chest pain. She denies any abdominal pain. She denies any neck pain or back pain. Denies any right lower extremity pain or upper extremity pain Review of Systems As stated per HPI. Denies any chest patient was breath. Denies any nausea vomiting or diarrhea. Denies abdominal pain. Denies any loss control of her lower extremities but has severe pain with her left leg with any sort of motion. Denies prior problems with her legs. She is normally a community ambulate without any assistance Past Medical History Past Medical History: Coronary Artery Disease (CAD), Chest Pain / Angina, Diabetes Mellitus Additional Past Medical History / Comment(s): Significant history of diabetic ketoacidosis just 2 weeks ago and was hospitalized for approximately 2 weeks just within the last month. pacemaker History of Any Multi-Drug Resistant Organisms: None Reported Past Surgical History: Adenoidectomy, Heart Catheterization With Stent, Hysterectomy, Tonsillectomy Additional Past Surgical History / Comment(s): pacemaker Date of Last Stent Placement:: 06/27/20 Past Psychological History: No Psychological Hx Reported Smoking Status: Former smoker Past Alcohol Use History: None Reported Past Drug Use History: None Reported Medications and Allergies Home Medications Medication Instructions Recorded Confirmed Type Aspirin EC [Ecotrin Low Dose] 81 mg PO DAILY 12/31/21 12/31/21 History Atorvastatin Calcium [Lipitor] 80 mg PO HS 12/31/21 12/31/21 History carvediloL [Coreg] 6.25 mg PO BID 12/31/21 12/31/21 History glipiZIDE 10 mg PO BID 12/31/21 12/31/21 History metFORMIN HCL [Glucophage] 500 mg PO BID 12/31/21 12/31/21 History Midodrine [ProAmatine] 5 mg PO AC-TID 14 Days #42 tab 01/12/22 Rx Pantoprazole Sodium [Protonix] 40 mg PO AC-BRKFST #30 tab 01/12/22 Rx Allergies Allergy/AdvReac Type Severity Reaction Status Date / Time moxifloxacin [From Avelox] Allergy Anaphylaxis Verified 02/12/22 04:11 Physical Examination Osteopathic Statement: *. No significant issues noted on an osteopathic structural exam other than those noted in the History and Physical/Consult. - Hip left Gait: other (Patient has severe pain with any motion at her left hip. She'll left leg with external rotation and slight shortening. Her calves and thighs are soft nontender) Tenderness with palpation: anterior (She has sustained dorsal flexion plantarflexion and EHL intact in her bilateral lower extremity. Severe pain with palpation at her left hip.) Pain with motion: internal rotation and hip flexion, internal rotation and hip extension ROM: flexion: 0 degrees (Severe pain with any motion in her left hip. She has 5 over 5 strength distally. Capillary refill intact 2 plus pulses distally. Abdomen soft nontender. Right lower extremity and upper extremities have full active passive range of motion. Nontender over her neck and back with good motion in her) Results - Labs Labs: Abnormal Lab Results - Last 24 Hours (Table) 02/12/22 02/12/22 02/12/22 Range/Units 04:47 05:06 05:06 WBC 11.6 H (3.8-10.6) k/uL RBC 3.20 L (3.80-5.40) m/uL Hgb 9.5 L D (11.4-16.0) gm/dL Hct 29.6 L (34.0-46.0) % Neutrophils # 9.9 H (1.3-7.7) k/uL Lymphocytes # 0.6 L (1.0-4.8) k/uL Sodium 130 L (137-145) mmol/L Potassium 6.1 H* (3.5-5.1) mmol/L Carbon Dioxide 18 L (22-30) mmol/L BUN 31 H (7-17) mg/dL Creatinine 1.44 H (0.52-1.04) mg/dL Glucose 474 H (74-99) mg/dL POC Glucose (mg/dL) 592 H (70-110) mg/dL Urine Glucose (UA) (Negative) 02/12/22 02/12/22 02/12/22 Range/Units 05:55 05:57 07:28 WBC (3.8-10.6) k/uL RBC (3.80-5.40) m/uL Hgb (11.4-16.0) gm/dL Hct (34.0-46.0) % Neutrophils # (1.3-7.7) k/uL Lymphocytes # (1.0-4.8) k/uL Sodium (137-145) mmol/L Potassium (3.5-5.1) mmol/L Carbon Dioxide (22-30) mmol/L BUN (7-17) mg/dL Creatinine (0.52-1.04) mg/dL Glucose (74-99) mg/dL POC Glucose (mg/dL) 535 H 392 H (70-110) mg/dL Urine Glucose (UA) 4+ H (Negative) H & H 02/12/22 Range/Units 05:06 Hgb 9.5 L D (11.4-16.0) gm/dL Hct 29.6 L (34.0-46.0) % Coagulation 02/12/22 Range/Units 05:06 INR 1.0 (<1.2) Result Diagrams: 02/12/22 05:06 02/12/22 05:06 - Diagnostic results Hip x-ray: report reviewed, image reviewed (Pelvis and left hip show intertrochanteric hip femur fracture with mild displacement.) Assessment and Plan Assessment: Acute left hip intertrochanteric femur fracture due to a fall at home Syncopal episode at home Hyperglycemia glucose around 500 Hypokalemia with potassium at 6.1 History of cardiac pacemaker defibrillator Recent hospitalization within the last month Plan: Acute left hip intertrochanteric femur fracture due to a fall at home Syncopal episode at home Hyperglycemia glucose around 500 Hypokalemia with potassium at 6.1 History of cardiac pacemaker defibrillator Recent hospitalization within the last month The patient has a new left hip intertrochanteric femur fracture due to her fall. This with prior surgical intervention for appropriate fixation with intramedullary hip screw to allow her mobilization and appropriate healing. We discussed the nature of her injury and the various treatments ranging from conservative to surgical. I think that her best chance of having the best results would be to pursue surgical intervention for fixation. This will allow early mobilization and management and offer the best chance of healing her intertrochanteric femur fracture. We discussed the risk of occasions alternatives and benefits at length including but not limited to risk of bleeding risk of infection risk and need for further surgery risk of decreased loss of motion loss of function loss of ambulatory status as well as up possible issues with surgical setting in general for her heart and lungs. We answered he r questions in a language that she can understand and she elects to proceed with surgical intervention as soon as possible. We will see if we're able to pursue surgical intervention tomorrow on Sunday if she is medically cleared. She'll be nothing by mouth after midnight and will have a Sellers placed as she will need to be in bed rest with her fracture She'll need medical clearance as she is hyperglycemic and hyperkalemic. I think that cardiac clearance would be appropriate given her history of cardiac pacemaker and defibrillator as well. We'll plan for surgery for her hip on Sunday tomorrow if she is medically cleared
[2022-02-12] MEDS: MORPHINE SULFATE 4 MG/ML SYRINGE IV PRN ×3 (08:10→18:03)
[2022-02-12 11:39] LABS: Glucose,Whole Blood 250 mg/dL (70-110)
[2022-02-12] MEDS ORDERED: DEXTROSE 50% SYRINGE 50 ML IVP PRN ×2 (11:55)
[2022-02-12] MEDS: PANTOPRAZOLE 40 MG TABLET PO SCH (12:40)
[2022-02-12] MEDS: carvediloL 6.25 MG TAB PO SCH ×2 (12:40→16:55)
[2022-02-12] MEDS: ASPIRIN 81 MG PO SCH (12:40)
[2022-02-12] MEDS: INSULIN ASPART (NovoLOG) 100 UNIT/ML VIAL SQ SCH ×2 (12:40→18:01)
[2022-02-12] MEDS: SODIUM ZIRCONIUM CYCLOSILICATE 10 GM PACKET PO SCH ×3 (12:41→21:28)
--- NOTE | 2022-02-12 12:56 | P.CRDCN ---
History of Present Illness Consult date: 02/12/22 Requesting physician: Roman Vieyra Reason for Consult (text): Cardiac risk stratification for surgery Chief complaint: syncope History of present illness: This is a pleasant 66-year-old female patient with history of hypertension, diabetes and hyperlipidemia. She has been having issues with ongoing anemia and workup has been negative for any source of bleeding including colonoscopy and EGD. Also has a history of ischemic cardiomyopathy s/p multi-vessel stenting and ICD implantation done in [facility]. Most recent echocardiogram done in December showed ejection fraction 50-55% with mild MR and TR. She presented to the emergency department via EMS after having a syncopal episode at home. She had been running multiple errands yesterday after recently being discharged from home health care including physical therapy, occupational therapy and nursing care. In the evening she felt that her blood sugar may have been dropping walked into her kitchen to get some serial put the cereal and milk and herbal put the milk back in the refrigerator and as she turned around things went dark and she had a syncopal episode and fell to the floor. When she woke up she had significant pain in her left hip. She then called EMS and according to her blood pressure was in the 70s systolic. Upon presentation her glucose was in the 500s. Initial labs show sodium of 1:30, potassium 6.1, BUN 31 and creatinine of 1.44. She follows regularly with nephrology and according to her her renal function has been stable. She was recently seen by her primary care physician and metformin was stopped and she was started on Farxiga. Chest x-ray shows acute nondisplaced intertrochanteric fracture of the left femur. She's been evaluated by orthopedics and plan for surgery tomorrow. Biventricular ICD has been interrogated and shows no acute abnormalities, no tachyarrhythmias and no discharges from the device. There is no EKG available for review. Vital signs within stable with no evidence of hypotension this time. She's been afebrile. On examination she is resting comfortably in bed, supine. She is overall been feeling well. She denies any shortness of breath or chest disc omfort. She's had no edema, orthopnea or PND. She denies any dizziness or lightheadedness besides for the episode she had last night. She's had no nausea, vomiting, heartburn or evidence of bleeding. Her hemoglobin is 9.5 which was previously in the 7 range. Past Medical History Past Medical History: Coronary Artery Disease (CAD), Chest Pain / Angina, D iabetes Mellitus Additional Past Medical History / Comment(s): Significant history of diabetic ketoacidosis just 2 weeks ago and was hospitalized for approximately 2 weeks jus t within the last month. pacemaker History of Any Multi-Drug Resistant Organisms: None Reported Past Surgical History: Adenoidectomy, Heart Catheterization With Stent, Hysterectomy, Tonsillectomy Additional Past Surgical History / Comment(s): pacemaker Past Anesthesia/Blood Transfusion Reactions: No Reported Reaction Date of Last Stent Placement:: 06/27/20 Past Psychological History: No Psychological Hx Reported Smoking Status: Former smoker Past Alcohol Use History: None Reported Past Drug Use History: None Reported Medications and Allergies Home Medications Medication Instructions Recorded Confirmed Type Aspirin EC [Ecotrin Low Dose] 81 mg PO DAILY 12/31/21 02/12/22 History Atorvastatin Calcium [Lipitor] 80 mg PO HS 12/31/21 02/12/22 History carvediloL [Coreg] 6.25 mg PO BID 12/31/21 02/12/22 History glipiZIDE 10 mg PO BID 12/31/21 02/12/22 History Midodrine [ProAmatine] 5 mg PO AC-TID 14 Days #42 tab 01/12/22 02/12/22 Rx Pantoprazole Sodium [Protonix] 40 mg PO AC-BRKFST #30 tab 01/12/22 02/12/22 Rx Dapagliflozin Propanediol [Farxiga] 10 mg PO 02/12/22 History Ferrous Sulfate [Feosol] 325 mg PO DAILY 02/12/22 02/12/22 History lisinopriL [Zestril] 5 mg PO DAILY 02/12/22 02/12/22 History Allergies Allergy/AdvReac Type Severity Reaction Status Date / Time moxifloxacin [From Avelox] Allergy Anaphylaxis Verified 02/12/22 11:11 Physical Exam Vitals: Vital Signs Temp Pulse Pulse Resp BP BP Pulse Ox 02/12/22 07:07 97.7 F 89 16 144/85 100 02/12/22 06:28 98.1 F 02/12/22 05:37 86 18 139/75 99 02/12/22 04:06 98 F 88 19 132/98 100 Intake and Output 02/11/22 02/12/22 02/12/22 23:59 06:59 14:59 Other: Weight 71.668 kg PHYSICAL EXAMINATION: This is a 66-year-old female in no apparent distress at the time of my examination. VITAL SIGNS: Reviewed. HEENT: Head is atraumatic, normocephalic. Pupils are equal, round. Sclerae anicteric. Conjunctivae are clear. Mucous membranes of the mouth are moist. Neck is supple. There is no elevated jugular venous pressure. No carotid bruit is heard. CHEST EXAMINATION: Clear to auscultation bilaterally, anteriorly. No wheezes rales or rhonchi. Respirations even and nonlabored. HEART EXAMINATION: Heart regular, positive S1 and S2. No S3. No S4. No clicks, rubs or murmurs. ABDOMEN: Soft, nontender. Bowel sounds are heard. No organomegaly noted. EXTREMITIES: 1+ peripheral pulses with no evidence of peripheral edema and no calf tenderness noted. NEUROLOGIC EXAMINATION: Patient is awake, alert and oriented x3. Results 02/12/22 05:06 02/12/22 05:06 Cardiac Enzymes 02/12/22 02/12/22 Range/Units 05:06 05:06 AST 25 (14-36) U/L Troponin I <0.012 (0.000-0.034) ng/mL Coagulation 02/12/22 Range/Units 05:06 PT 10.9 (9.0-12.0) sec APTT 24.3 (22.0-30.0) sec CBC 02/12/22 Range/Units 05:06 WBC 11.6 H (3.8-10.6) k/uL RBC 3.20 L (3.80-5.40) m/uL Hgb 9.5 L D (11.4-16.0) gm/dL Hct 29.6 L (34.0-46.0) % Plt Count 306 (150-450) k/uL Comprehensive Metabolic Panel 02/12/22 Range/Units 05:06 Sodium 130 L (137-145) mmol/L Potassium 6.1 H* (3.5-5.1) mmol/L Chloride 103 (98-107) mmol/L Carbon Dioxide 18 L (22-30) mmol/L BUN 31 H (7-17) mg/dL Creatinine 1.44 H (0.52-1.04) mg/dL Glucose 474 H (74-99) mg/dL Calcium 8.4 (8.4-10.2) mg/dL AST 25 (14-36) U/L ALT 18 (4-34) U/L Alkaline Phosphatase 125 (38-126) U/L Total Protein 6.9 (6.3-8.2) g/dL Albumin 3.5 (3.5-5.0) g/dL Current Medications Generic Name Dose Route Start Last Admin Trade Name Freq PRN Reason Stop Dose Admin Sodium Chloride 1,000 mls @ 130 mls/hr 02/12/22 05:45 02/12/22 07:50 Saline 0.9% IV 130 mls/hr .[id number] MARIA Administration Cefazolin Sodium 2 gm/ Sodium 50 mls @ 100 mls/hr 02/12/22 07:52 Chloride IVPB 02/13/22 01:52 ONCE PRN Pre-Op Protocol Sodium Chloride 1,000 mls @ 100 mls/hr 02/12/22 08:00 02/12/22 08:11 Saline 0.9% IV 100 mls/hr .Q10H MARIA Administration Morphine Sulfate 4 mg 02/12/22 05:35 02/12/22 08:10 Morphine Sulfate 4 Mg/Ml Syringe IV 4 mg Q4HR PRN Administration Severe Pain (Scale 7 to 10) Naloxone HCl 0.2 mg 02/12/22 05:35 Naloxone 0.4 Mg/Ml 1 Ml Vial IV Q2M PRN Opioid Reversal Ondansetron HCl 4 mg 02/12/22 05:35 Ondansetron 4 Mg/2 Ml Vial IVP Q8HR PRN Nausea And Vomiting Intake and Output 02/11/22 02/12/22 02/12/22 23:59 06:59 14:59 Other: Weight 71.668 kg Patient Weight 02/13/22 06:59 Weight 71.668 kg 02/12/22 05:06 02/12/22 05:06 Assessment and Plan Assessment: #1 syncope, could be related to orthostasis #2 acute kidney injury with hyperkalemia, hold SUYAPA inhibitor #3 intertrochanteric left femur fracture, requiring preoperative clearance #3 ischemic cardiomyopathy, improved with a ejection fraction of 50-55% on recent echocardiogram #4 CAD with multivessel stenting #5 diabetes mellitus, poorly controlled #6 status post biventricular ICD Plan: From cardiology's perspective there is no absolute contraindication for patient to undergo urgent left femur fracture repair. Continue cardiac medications perioperatively. Telemetry monitoring. Hold SUYAPA inhibitor due to hyperkalemia. Continue to monitor renal function and electrolytes. We will continue to follow the patient and provide further recommendations accordingly. AD COMPOSITOR note has been reviewed, I agree with a documented findings and plan of care. Patient was seen and examined.
[2022-02-12 17:19] LABS: Glucose,Whole Blood 190 mg/dL (70-110)
[2022-02-12] MEDS ORDERED: TEMAZEPAM 15 MG CAP PO PRN (19:45)
[2022-02-12] MEDS ORDERED: ACETAMINOPHEN TAB 325 MG TAB PO PRN (19:45)
[2022-02-12] MEDS ORDERED: LORazepam 0.5 MG TAB PO PRN (19:45)
[2022-02-12] MEDS ORDERED: LACTULOSE 20 GM/30 ML CUP PO PRN (19:45)
[2022-02-12] MEDS ORDERED: CALCIUM CARBONATE 500 MG CHEWABLE PO PRN (19:45)
--- NOTE | 2022-02-12 19:51 | P.HPIM ---
History of Present Illness H&P Date: 02/12/22 Chief Complaint: Fall I'm rounding for Dr. Meliton Rojas. This is a pleasant 66-year-old patient, who follows with Dr. Meliton Rojas. Chronic stable medical conditions include CAD with stent, diabetes, permanent pacemaker, hypertension, hyperlipidemia. Patient went to turkey picker something and then she turned around next thing she knows that she passed out. She felt everything was becoming darker just prior to that. No chest pain or palpitation. No tongue biting. No focal weakness. EMS had to be called out. Was having significant pain in the left hip. Left femur IT fracture. No chest pain or palpitation. Review of systems: GEN.: Tired EYES: None HEENT: None NECK: None RESPIRATORY: None CARDIOVASCULAR: None GASTROINTESTINAL: None GENITOURINARY: None MUSCULOSKELETAL: Joint pains LYMPHATICS: None HEMATOLOGICAL: None PSYCHIATRY: None NEUROLOGICAL: None. Past medical history to include: Diabetes, hypertension, hyperlipidemia, CAD with stent, AICD Social history: Ex-smoker. No alcohol. Lives alone. Family history: Reviewed, noncontributory to presentation Physical examination: VITAL SIGNS: 98, 88, 19, 132/98, 100% room air upon presentation GENERAL: BMI 23.3, laying in bed awake slightly uncomfortable. EYES: Pupils equal. Conjunctiva normal. HEENT: External appearance of nose and ears normal, oral cavity grossly normal. NECK: JVD not raised; masses not palpable. HEART: First and second heart sounds are normal; no edema. LUNGS: Respiratory rate normal; clear to auscultation. ABDOMEN: Soft, nontender, liver spleen not palpable, no masses palpable. PSYCH: Alert and oriented x3; mood and affect normal. MUSCULOSKELETAL:No Clubbing/cyanosis;muscles-grossly intact, limited range of motion left hip. Evidence of OA. NEUROLOGICAL: Cranial nerves grossly intact; no facial asymmetry, power and sensation grossly intact. LYMPHATICS: No lymph nodes palpable in the axilla and neck INVESTIGATIONS, reviewed in the clinical context: WBC 11.6 hemoglobin 9.5 platelets 306 sodium 1:30 potassium 6.1 BUN 31 creatinine 1.44 blood glucose 474 EKG tracing personally reviewed by me-normal sinus rhythm.. T wave changes. Chest x-ray film personally reviewed by me-cardiomegaly, pacemaker, lung salas clear Left hip x-ray: Left femur IT fracture Computed tomography scan brain and C-spine without contrast: Unremarkable for any significant changes Previous labs: Creatinine 0.78 on 01/11/2022 Assessment and plan: -Episode of patient passing out. Likely from hyperglycemia and subsequent volume loss. Telemetry without arrhythmia. No focal neurological findings. -CAD with a prior history of stent Aspirin, Coreg -Essential hypertension -Nonketotic hyperosmolar hyperglycemia IV fluids -Diabetes mellitus type 2 and oral hypoglycemia Continue farxiga. We'll Accu-Cheks. Cardiopulmonary perioperative risk assessment. Patient is a known history of CAD with stent. No active cardiac symptoms. Has fair exercise tolerance. Giv en her comorbidities is a moderate risk for surgery. No Court occasions. Is stable to proceed. Resumed medications. Follow Accu-Cheks. IV fluids. Subcu Lovenox. Consultation to cardiology and orthopedics. Care was discussed with the patient. Questions answered. Past Medical History Past Medical History: Coronary Artery Disease (CAD), Chest Pain / Angina, Diabetes Mellitus Additional Past Medical History / Comment(s): Significant history of diabetic ketoacidosis just 2 weeks ago and was hospitalized for approximately 2 weeks just within the last month. pacemaker History of Any Multi-Drug Resistant Organisms: None Reported Past Surgical History: Adenoidectomy, Heart Catheterization With Stent, Hysterectomy, Tonsillectomy Additional Past Surgical History / Comment(s): pacemaker Past Anesthesia/Blood Transfusion Reactions: No Reported Reaction Date of Last Stent Placement:: 06/27/20 Past Psychological History: No Psychological Hx Reported Smoking Status: Former smoker Past Alcohol Use History: None Reported Past Drug Use History: None Reported Medications and Allergies Home Medications Medication Instructions Recorded Confirmed Type Aspirin EC [Ecotrin Low Dose] 81 mg PO DAILY 12/31/21 02/12/22 History Atorvastatin Calcium [Lipitor] 80 mg PO HS 12/31/21 02/12/22 History carvediloL [Coreg] 6.25 mg PO BID 12/31/21 02/12/22 History glipiZIDE 10 mg PO BID 12/31/21 02/12/22 History Midodrine [ProAmatine] 5 mg PO AC-TID 14 Days #42 tab 01/12/22 02/12/22 Rx Pantoprazole Sodium [Protonix] 40 mg PO AC-BRKFST #30 tab 01/12/22 02/12/22 Rx Dapagliflozin Propanediol [Farxiga] 10 mg PO 02/12/22 History Ferrous Sulfate [Feosol] 325 mg PO DAILY 02/12/22 02/12/22 History lisinopriL [Zestril] 5 mg PO DAILY 02/12/22 02/12/22 History Allergies Allergy/AdvReac Type Severity Reaction Status Date / Time moxifloxacin [From Avelox] Allergy Anaphylaxis Verified 02/12/22 11:11 Physical Exam Vitals: Vital Signs Temp Pulse Pulse Resp BP BP Pulse Ox 02/12/22 11:34 97.8 F 106 H 16 115/75 99 02/12/22 07:07 97.7 F 89 16 144/85 100 02/12/22 06:28 98.1 F 02/12/22 05:37 86 18 139/75 99 02/12/22 04:06 98 F 88 19 132/98 100 Intake and Output 02/12/22 02/12/22 02/12/22 06:59 14:59 22:59 Intake Total 1200 Output Total 1300 Balance -1300 1200 Intake: Intake, IV Titration 1200 Amount Sodium Chloride 0.9% 1, 1200 000 ml @ 100 mls/hr IV . Q10H [facility] Rx#:[id number] Output: Urine 1300 Other: Voiding Method Indwelling Catheter Weight 71.668 kg Results CBC & Chem 7: 02/12/22 05:06 02/12/22 05:06 Labs: Abnormal Lab Results - Last 24 Hours (Table) 02/12/22 02/12/22 02/12/22 Range/Units 04:47 05:06 05:06 WBC 11.6 H (3.8-10.6) k/uL RBC 3.20 L (3.80-5.40) m/uL Hgb 9.5 L D (11.4-16.0) gm/dL Hct 29.6 L (34.0-46.0) % Neutrophils # 9.9 H (1.3-7.7) k/uL Lymphocytes # 0.6 L (1.0-4.8) k/uL Sodium 130 L (137-145) mmol/L Potassium 6.1 H* (3.5-5.1) mmol/L Carbon Dioxide 18 L (22-30) mmol/L BUN 31 H (7-17) mg/dL Creatinine 1.44 H (0.52-1.04) mg/dL Glucose 474 H (74-99) mg/dL POC Glucose (mg/dL) 592 H (70-110) mg/dL Urine Glucose (UA) (Negative) 02/12/22 02/12/22 02/12/22 Range/Units 05:55 05:57 07:28 WBC (3.8-10.6) k/uL RBC (3.80-5.40) m/uL Hgb (11.4-16.0) gm/dL Hct (34.0-46.0) % Neutrophils # (1.3-7.7) k/uL Lymphocytes # (1.0-4.8) k/uL Sodium (137-145) mmol/L Potassium (3.5-5.1) mmol/L Carbon Dioxide (22-30) mmol/L BUN (7-17) mg/dL Creatinine (0.52-1.04) mg/dL Glucose (74-99) mg/dL POC Glucose (mg/dL) 535 H 392 H (70-110) mg/dL Urine Glucose (UA) 4+ H (Negative) 02/12/22 02/12/22 Range/Units 11:38 17:09 WBC (3.8-10.6) k/uL RBC (3.80-5.40) m/uL Hgb (11.4-16.0) gm/dL Hct (34.0-46.0) % Neutrophils # (1.3-7.7) k/uL Lymphocytes # (1.0-4.8) k/uL Sodium (137-145) mmol/L Potassium (3.5-5.1) mmol/L Carbon Dioxide (22-30) mmol/L BUN (7-17) mg/dL Creatinine (0.52-1.04) mg/dL Glucose (74-99) mg/dL POC Glucose (mg/dL) 250 H 190 H (70-110) mg/dL Urine Glucose (UA) (Negative) Thrombosis Risk Factor Assmnt - Choose All That Apply Each Factor Represents 1 point: Medical pt on bed rest Each Risk Factor Represents 2 Points: Age 61-74 years Each Risk Factor Represents 5 Points: Hip, pelvis, or leg fracture (< 1 month) Thrombosis Risk Factor Assessment Total Risk Factor Score: 8 Thrombosis Risk Factor Assessment Level: High Risk
[2022-02-12 20:04] LABS: Glucose,Whole Blood 200 mg/dL (70-110)
[2022-02-12 21:21] LABS: African American GFR (CKD) 58 (>60 ml/min/1.73 sqM); Anion Gap 8 mmol/L; Blood Urea Nitrogen 23 mg/dL (7-17); Calcium 7.9 mg/dL (8.4-10.2); Carbon Dioxide 22 mmol/L (22-30); Chloride 105 mmol/L (98-107); Glucose 199 mg/dL (74-99); Non-African American GFR(CKD) 51 (>60 ml/min/1.73 sqM); Potassium 3.9 mmol/L (3.5-5.1); Sodium 135 mmol/L (137-145)
[2022-02-12] MEDS: ENOXAPARIN 40 MG/0.4 ML SYRINGE SQ SCH (21:28)
[2022-02-12] MEDS: ATORVASTATIN 80 MG TAB PO SCH (21:29)
[2022-02-13] MEDS: MORPHINE SULFATE 4 MG/ML SYRINGE IV PRN ×5 (00:22→13:21)
[2022-02-13] MEDS: SODIUM CHLORIDE 0.9% 1,000 ML IV SCH ×4 (06:13→16:07)
[2022-02-13 07:02] LABS: Glucose,Whole Blood 261 mg/dL (70-110)
[2022-02-13 07:35] LABS: African American GFR (CKD) 66 (>60 ml/min/1.73 sqM); Anion Gap 6 mmol/L; Blood Urea Nitrogen 19 mg/dL (7-17); Calcium 8.2 mg/dL (8.4-10.2); Carbon Dioxide 23 mmol/L (22-30); Chloride 106 mmol/L (98-107); Glucose 250 mg/dL (74-99); Non-African American GFR(CKD) 57 (>60 ml/min/1.73 sqM); Potassium 4.7 mmol/L (3.5-5.1); Sodium 135 mmol/L (137-145)
[2022-02-13] MEDS: carvediloL 6.25 MG TAB PO SCH ×2 (07:50→17:10)
[2022-02-13] MEDS: PANTOPRAZOLE 40 MG TABLET PO SCH (07:50)
[2022-02-13] MEDS: INSULIN ASPART (NovoLOG) 100 UNIT/ML VIAL SQ SCH ×3 (08:10→17:10)
[2022-02-13] MEDS ORDERED: lisinopriL 5 MG TAB PO SCH (09:00)
[2022-02-13] MEDS ORDERED: FERROUS SULFATE 325 MG TAB PO SCH (09:00)
[2022-02-13] MEDS: ASPIRIN 81 MG PO SCH (09:27)
[2022-02-13] MEDS: ENOXAPARIN 40 MG/0.4 ML SYRINGE SQ SCH (09:27)
[2022-02-13] MEDS: FERROUS SULFATE 325 MG TAB PO SCH (09:27)
--- NOTE | 2022-02-13 09:53 | P.PN ---
Subjective Progress Note Date: 02/13/22 HISTORY OF PRESENT ILLNESS: This is a pleasant 66-year-old female patient with history of hypertension, diabetes and hyperlipidemia. She has been having issues with ongoing anemia and workup has been negative for any source of bleeding including colonoscopy and EGD. Also has a history of ischemic cardiomyopathy s/p multi-vessel stenting and ICD implantation done in [facility]. Most recent echocardiogram done in December showed ejection fraction 50-55% with mild MR and TR. She presented to the emergency department via EMS after having a syncopal episode at home. She had been running multiple errands yesterday after recently being discharged from home health care including physical therapy, occupational therapy and nursing care. In the evening she felt that her blood sugar may have been dropping walked into her kitchen to get some serial put the cereal and milk and herbal put the milk back in the refrigerator and as she turned around things went dark and she had a syncopal episode and fell to the floor. When she woke up she had significant pain in her left hip. She then called EMS and according to her blood pressure was in the 70s systolic. Upon presentation her glucose was in the 500s. Initial labs show sodium of 1:30, potassium 6.1, BUN 31 and creatinine of 1.44. She follows regularly with nephrology and according to her her renal function has been stable. She was recently seen by her primary care physician and metformin was stopped and she was started on Farxiga. Chest x-ray shows acute nondisplaced intertrochanteric fracture of the left femur. She's been evaluated by orthopedics and plan for surgery tomorrow. Biventricular ICD has been interrogated and shows no acute abnormalities, no tachyarrhythmias and no discharges from the device. There is no EKG available for review. Vital signs within stable with no evidence of hypotension this time. She's been afebrile. On examination she is resting comfortably in bed, supine. She is overall been feeling well. She denies any shortness of breath or chest discomfort. She's had no edema, orthopnea or PND. She denies any dizziness or lightheadedness besides for the episode she had last night. She's had no nausea, vomiting, heartburn or evidence of bleeding. Her hemoglobin is 9.5 which was previously in the 7 range. 02/13/2022 Patient examined this morning at the bedside. Patient denies chest pain or pressure. Denies SOB. She reports pain to her left leg. She is scheduled for surgery today. Vital signs are stable. Potassium has normalized. PHYSICAL EXAM: VITAL SIGNS: Reviewed. GENERAL: Well-developed in no acute distress. NECK: Supple. No JVD or thyromegaly LUNGS: Respirations even and unlabored. Lungs essentially clear to auscultation bilaterally. HEART: Regular rate and rhythm. S1 and S2 heard. EXTREMITIES: Normal range of motion. No clubbing or cyanosis. Peripheral pulses intact. No lower extremity edema ASSESSMENT: #1 syncope, could be related to orthostasis #2 acute kidney injury with hyperkalemia, hold SUYAPA inhibitor #3 intertrochanteric left femur fracture, requiring preoperative clearance #3 ischemic cardiomyopathy, improved with a ejection fraction of 50-55% on recent echocardiogram #4 CAD with multivessel stenting #5 diabetes mellitus, poorly controlled #6 status post biventricular ICD PLAN: Patient scheduled for surgery today for left femur fracture. No absolute contraindications for patient to undergo surgery from a cardiac standpoint We'll continue to monitor blood pressure. Anticipate resuming SUYAPA inhibitor tomorrow. Further recommendations pending patient's course Nurse practitioner note has been reviewed by physician. Signing provider agrees with the documented findings, assessment, and plan of care. Objective - Vital Signs Vital signs: Vital Signs Temp 98.2 F 02/13/22 05:23 Pulse 77 02/13/22 07:56 Resp 16 02/13/22 07:56 BP 148/84 02/13/22 07:56 Pulse Ox 98 02/13/22 07:56 FiO2 Intake & Output 02/12/22 02/13/22 02/13/22 18:59 06:59 18:59 Intake Total 1200 800 Output Total 1300 900 Balance -100 -100 Weight 71.668 kg Intake: Intake, IV Titration 1200 800 Amount Sodium Chloride 0.9% 1, 1200 800 000 ml @ 100 mls/hr IV . Q10H [facility] Rx#:[id number] Output: Urine 1300 900 Other: Voiding Method Indwelling Catheter Indwelling Catheter - Labs CBC & Chem 7: 02/12/22 05:06 02/13/22 06:46 Labs: Abnormal Lab Results - Last 24 Hours (Table) 02/12/22 02/12/22 02/12/22 Range/Units 11:38 17:09 19:59 Sodium (137-145) mmol/L BUN (7-17) mg/dL Creatinine (0.52-1.04) mg/dL Glucose (74-99) mg/dL POC Glucose (mg/dL) 250 H 190 H 200 H (70-110) mg/dL Calcium (8.4-10.2) mg/dL 02/12/22 02/13/22 02/13/22 Range/Units 20:44 06:46 07:00 Sodium 135 L 135 L (137-145) mmol/L BUN 23 H 19 H (7-17) mg/dL Creatinine 1.14 H (0.52-1.04) mg/dL Glucose 199 H 250 H (74-99) mg/dL POC Glucose (mg/dL) 261 H (70-110) mg/dL Calcium 7.9 L 8.2 L (8.4-10.2) mg/dL
[2022-02-13 11:12] LABS: Glucose,Whole Blood 243 mg/dL (70-110)
[2022-02-13] MEDS ORDERED: SODIUM CHLORIDE 0.9% 300 ML IV ONE (16:58)
[2022-02-13] MEDS ORDERED: PHENYLEPHRINE-0.9% NACL SYG 1,000 MCG/10 ML SYRINGE ONE (18:06)
[2022-02-13] MEDS ORDERED: fentaNYL (PF) 50 MCG/ML 2 ML AMP ONE (18:06)
[2022-02-13] MEDS ORDERED: KETAMINE 10 MG/ML 20 ML VIAL ONE (18:06)
[2022-02-13] MEDS ORDERED: MIDAZOLAM 2 MG/2 ML VIAL ONE (18:06)
[2022-02-13] MEDS ORDERED: LACTATED RINGERS 1,000 ML IV ONE (18:20)
[2022-02-13] MEDS ORDERED: ceFAZolin 1,000 MG in SODIUM CHLORIDE 0.9% 1,000 ML IRRIGATION ONE (18:42)
[2022-02-13] MEDS ORDERED: ONDANSETRON 4 MG/2 ML VIAL IVP PRN (19:29)
[2022-02-13] MEDS ORDERED: HYDROmorphone 0.5 MG/0.5 ML SYRINGE IVP PRN (19:29)
[2022-02-13] MEDS ORDERED: NALOXONE 0.4 MG/ML 1 ML VIAL IV PRN (19:29)
[2022-02-13] MEDS ORDERED: MAGNESIUM HYDROXIDE 2,400 MG/10 ML CUP PO PRN (19:29)
[2022-02-13] MEDS ORDERED: ACETAMINOPHEN TAB 325 MG TAB PO PRN (19:29)
--- NOTE | 2022-02-13 19:39 | P.OP ---
Date of Procedure: 02/13/22 Preoperative Diagnosis: Left hip intertrochanteric fracture, traumatic due to a fall with displacement neurovascularly intact Inability to ambulate due to left hip fracture Postoperative Diagnosis: Same Anesthesia: spinal Pathology: other (Possible femur reaming sent to pathology) Condition: stable Disposition: PACU Description of Procedure: Preoperative diagnosis: Left hip intertrochanteric fracture, traumatic due to a fall with displacement neurovascularly intact Inability to ambulate due to left hip fracture Postoperative diagnosis: Same Procedure: intertrochanteric hip screw placement Use of fluoroscopic guidance Closed reduction Surgeon: Dr. Jarrell Madrigal.: project assistant who is present that the entire the case persistence during positioning dissection exposure placement of hardware and closure Anesthesia: Dr. Salazar Estimated blood loss: Approximately 100 mL Components implanted: [employer] InterTAN hip screw system with a 125 by 11.5 mm freedom and a 100 mm lag screw and appropriate locking screw with distal locking screw Disposition: To recovery room in good stable condition Operative indications The patient sustained a injury and suffered a hip fracture at the inter- trochanteric area of her femur which was displaced and angulated. She was found to have a traumatic left hip intertrochanteric fracture. We were involved in the case in regard to his hip fracture. She is a number of medical issues which have been addressed medicine and she has been cleared for surgical service. After evaluation it was determined that they would be a candidate for hip internal fixation and stabilization via surgical intervention. This would give them the best chance of mobilization and ambulation. We discussed the range of treatment options from conservative to surgical. They elected proceed with surgical intervention. We answered their questions to the best of our ability healing which they can understand. They signed an informed consent. Operative summary After obtaining informed consent evaluation by anesthesia, preoperative evaluation and clearance for medical service, the patient was identified and prepped Sellers area and the surgical site was marked. There brought to the operating room where the given appropriate anesthesia by the anesthesia department in standard fashion without any complications. Once the anesthesia was established we were able to position the patient. The patient was placed on a fracture table with a well-padded perineal post. The operative side was placed in a foot mcneill stirrup which was well-padded well molded and placed in gentle in-line traction. The nonoperative leg was placed in a padded stirrup. C-arm was brought in and we performed a closed reduction technique at the left hip. We are able to get good alignment good position of the intertrochanteric fracture with gentle reduction techniques and traction utilizing the fracture table. We had near anatomic alignment of fracture at the left intertrochanteric area Once patient was well positioned lower extremity was prepped and draped in normal standard sterile fashion. An appropriate keystone protocol and timeout was completed and were able to proceed with surgery. He started point just proximal to the greater trochanter was established and a median incision approximately 2 inches in length approximately to the greater trochanter. I dissected down through the fascia and I was able to expose the tip of the greater trochanter. A sharp starting hole was established at the tip of the greater trochanter near the junction of the anterior and middle third. Positioning was confirmed with C-arm guidance. I was able to start the awl into the bone and then use a guidepin at the starting point establish down to the level of the lesser trochanter at the intramedullary space. I then used a starting reamer for the greater trochanter placed over the guidepin and reamed down appropriately under C-arm guidance. I was unable to place a guidepin into the intramedullary aspect of the femur and then reamed appropriately to the appropriate length. The positioning was confirmed on C-arm guidance. With the femur appropriately reamed I then chose the appropriate size intramedullary freedom which was connected to the appropriate jig. The jig was checked for alignment. The area was copiously irrigated and suctioned dry and we're able place the freedom at intramedullary space through the starting hole appropriately. It was seated down for appropriate position to align the leg pain into the femoral neck and head. A second incision was established at the site for the placement of the lag screw area and the guide was established at the lateral aspect of the femur and a guidepin was drilled into the femoral neck and head and near center center position. With this appropriate alignment and position where a reamer over the guidepin making sure not to penetrate the a rticular surface. The position was confirmed on C-arm guidance in AP and lateral positions. With this established we were able to place the appropriate size lag screw after measuring. Lag screw was placed into the left femoral neck and head good alignment good position with excellent bony purchase. It was appropriately aligned and we placed a locking screw through the freedom appropriately and checked that the position was established. I was able to drill and place the compression screw immediately adjacent and inferior to the lag screw which gave good compression across the fracture site in good alignment and position. Had excellent compression across the fracture site and excellent fixation With the area in good position able place a distal locking screw. We utilized the guide sleeve a separate incision was made at the skin. The guide sleeve was placed in the lateral aspect of the femur and the distal locking screw hole was established through the femur and distal locking hole of the intramedullary freedom. It was measured appropriately and a distal locking screw was placed in good alignment and good position with excellent bony purchase. The position was checked to make sure it was through the appropriate hole in the intramedullary freedom. With this established we're able to remove the jig completely from the freedom and final images were taken which showed excellent alignment and position of the hardware and the fracture. With the freedom in place and the fracture stable, although the incision sites were copiously irrigated and suctioned dry. Good hemostasis was maintained. Deep fascial layers were closed with #1 Vicryl. Subcu tissue was closed with 2-0 Vicryl. Subcuticular tissues closed with 3-0 Vicryl. Was are cleaned and dried with dressed with excess skin glue which was allowed to dry and then ABDs and tape. Drapes were broken down, the hip was held in stable position with the post being removed safely once the positioning was stabilized. The patient was then transferred back to their hospital bed being careful to maintain the hip and C- spine alignment and airway. Once stable to patient was transferred back to the postanesthesia care unit to be readmitted for pain control and DVT prophylaxis medical management and monitoring and mobilization we will continue follow patient closely throughout their postoperative course.
[2022-02-13 20:20] LABS: Glucose,Whole Blood 195 mg/dL (70-110)
--- NOTE | 2022-02-13 20:29 | FL ---
Intraoperative/procedural fluoroscopic services were provided. Total fluoroscopy time is 56.7 seconds with a total of 3 submitted images to PACS. Please see the operative/procedural note for further det ails.
[2022-02-13 21:10] LABS: Basophils # (A) 0.1 k/uL (0-0.2); Basophils % (A) 1 %; Eosinophils # (A) 0.6 k/uL (0-0.7); Eosinophils % (A) 4 %; HGB 9.7 gm/dL (11.4-16.0); Hypochromasia Marked; Lymphocytes # (A) 0.6 k/uL (1.0-4.8); Lymphocytes % (A) 4 %; MCH 29.1 pg (25.0-35.0); MCHC 30.4 g/dL (31.0-37.0); MCV 95.7 fL (80.0-100.0); Mean Platelet Volume 7.8; Monocytes # (A) 0.4 k/uL (0-1.0); Monocytes % (A) 3 %; Neutrophils # (A) 12.1 k/uL (1.3-7.7); Neutrophils % (A) 87 %; Platelet Count 306 k/uL (150-450); RBC 3.35 m/uL (3.80-5.40); RDW 14.6 % (11.5-15.5); WBC 13.9 k/uL (3.8-10.6)
[2022-02-13] MEDS: ATORVASTATIN 80 MG TAB PO SCH (21:29)
[2022-02-13] MEDS: HYDROmorphone 1 MG/ML 1 ML SYRINGE IVP PRN (21:51)
[2022-02-13] MEDS: HYDROcodone/APAP 5-325MG 1 EACH TAB PO PRN (23:00)
[2022-02-14] MEDS: SODIUM CHLORIDE 0.9% 1,000 ML IV SCH ×3 (00:17→11:57)
[2022-02-14] MEDS: HYDROmorphone 1 MG/ML 1 ML SYRINGE IVP PRN (03:07)
[2022-02-14] MEDS: HYDROcodone/APAP 5-325MG 1 EACH TAB PO PRN ×2 (06:16→17:53)
[2022-02-14 07:11] LABS: Glucose,Whole Blood 246 mg/dL (70-110)
[2022-02-14] MEDS: FERROUS SULFATE 325 MG TAB PO SCH (08:41)
[2022-02-14] MEDS: ASPIRIN 81 MG PO SCH (08:41)
[2022-02-14] MEDS: ASPIRIN 325 MG TAB PO SCH (08:42)
[2022-02-14] MEDS: PANTOPRAZOLE 40 MG TABLET PO SCH (08:42)
[2022-02-14] MEDS: carvediloL 6.25 MG TAB PO SCH ×2 (08:42→17:53)
[2022-02-14] MEDS: INSULIN ASPART (NovoLOG) 100 UNIT/ML VIAL SQ SCH ×3 (08:42→17:53)
[2022-02-14] MEDS: ENOXAPARIN 40 MG/0.4 ML SYRINGE SQ SCH (08:42)
--- NOTE | 2022-02-14 08:59 | P.PN ---
Progress Note - Text Progress Note Date: 02/14/22 Orthopedics: History of present illness: Patient is a very pleasant 66-year-old female who is seen and examined bedside for follow up evaluation for her left hip. She is status post left hip intramedullary nail fixation for intertrochanteric hip fracture performed yesterday, 02/13/2022. Postoperatively her left hip pain continues to be present but is better controlled. She has not been out of bed yet this morning. She is looking forward to working with physical therapy. Her Sellers catheter remains intact. She is eating without difficulty. She is toe-touch weightbearing only on the left lower extremity. Patient states she was recently admitted to the hospital for 13 days from a cardiac standpoint. She was recently discharged this past Sunday and sustained a fall on the same day resulting in her left hip fracture. She continues to be seen and examined by medicine and cardiology. Patient has been seen by case management. She states she is planning for discharge home with home care or possibly to a rehabilitation facility depending on her progress. Physical Exam Intramedullary Rodding for Intertrochanteric Fracture: Status post surgical day number 1 Patient is examined lying in bed Patient is awake and alert, and oriented 3 Vital signs stable Good chest excursion with deep inspiration and expiration Sellers catheter currently intact No signs or symptoms of DVT; no calf pain Lower extremity cuffs not currently in place bilaterally Dressing of the left hip is clean, dry, and intact; no erythema, purulence, or signs of infection No pain with palpation over the surgical sites Full range of motion of ankles on the left Dorsiflexion, plantarflexion, and extensor hallucis longus positive sustained on the left Neurovascularly intact bilateral lower extremities Assessment: Status post left intramedullary nail fixation for left intertrochanteric hip fracture Status post fall Status post traumatic fall resulting in left hip fracture Left hip pain Coronary artery disease with multivessel stenting Status post biventricular ICD Diabetes mellitus Ischemic cardiomyopathy Acute kidney injury with hyperkalemia Plan: 1. Patient to remain toe-touch weightbearing on the left lower extremity; patient may work with physical therapy to increase mobility and ambulation 2. Keep dressing over the left hip clean, dry, and intact 3. Discontinue Sellers catheter when patient is able to increase mobility and ambulation; patient may have external catheter placed if needed 4. Continue pain control with oral Midkiff and IV Dilaudid as needed for pain control 5. Patient is currently on anticoagulation with Lovenox and aspirin. This was discussed with nursing. Patient was recently admitted for cardiac evaluation. We will currently defer anticoagulation to medicine or cardiology. From an orthopedic standpoint, patient would only need to continue with aspirin 325 mg daily. Patient could continue with Lovenox at their discretion without continued aspirin 325 mg daily. 6. Medicine to continue following the patient for their other medical diagnosis 7. We'll continue to follow the patient closely; depending on the patient's progress, we may plan for discharge as early as tomorrow, 02/15/2022, to a rehabilitation facility or possibly home with home health care. 8. Patient can follow-up with Candelario Mcdaniel PA-C or Dr. Robinson Vieyra at [facility] in 2-3 weeks following discharge
--- NOTE | 2022-02-14 10:03 | P.PN ---
Subjective Progress Note Date: 02/14/22 HISTORY OF PRESENT ILLNESS: This is a pleasant 66-year-old female patient with history of hypertension, diabetes and hyperlipidemia. She has been having issues with ongoing anemia and workup has been negative for any source of bleeding including colonoscopy and EGD. Also has a history of ischemic cardiomyopathy s/p multi-vessel stenting and ICD implantation done in [facility]. Most recent echocardiogram done in December showed ejection fraction 50-55% with mild MR and TR. She presented to the emergency department via EMS after having a syncopal episode at home. She had been running multiple errands yesterday after recently being discharged from home health care including physical therapy, occupational therapy and nursing care. In the evening she felt that her blood sugar may have been dropping walked into her kitchen to get some serial put the cereal and milk and herbal put the milk back in the refrigerator and as she turned around things went dark and she had a syncopal episode and fell to the floor. When she woke up she had significant pain in her left hip. She then called EMS and according to her blood pressure was in the 70s systolic. Upon presentation her glucose was in the 500s. Initial labs show sodium of 1:30, potassium 6.1, BUN 31 and creatinine of 1.44. She follows regularly with nephrology and according to her her renal function has been stable. She was recently seen by her primary care physician and metformin was stopped and she was started on Farxiga. Chest x-ray shows acute nondisplaced intertrochanteric fracture of the left femur. She's been evaluated by orthopedics and plan for surgery tomorrow. Biventricular ICD has been interrogated and shows no acute abnormalities, no tachyarrhythmias and no discharges from the device. There is no EKG available for review. Vital signs within stable with no evidence of hypotension this time. She's been afebrile. On examination she is resting comfortably in bed, supine. She is overall been feeling well. She denies any shortness of breath or chest discomfort. She's had no edema, orthopnea or PND. She denies any dizziness or lightheadedness besides for the episode she had last night. She's had no nausea, vomiting, heartburn or evidence of bleeding. Her hemoglobin is 9.5 which was previously in the 7 range. 02/13/2022 Patient examined this morning at the bedside. Patient denies chest pain or pressure. Denies SOB. She reports pain to her left leg. She is scheduled for surgery today. Vital signs are stable. Potassium has normalized. 02/14/2022 Patient examined this morning to bedside. She is status post surgery with orthopedic service. She reports pain at the surgical site. She denies any chest pain or pressure. She denies any shortness of breath. Vital signs are stable. PHYSICAL EXAM: VITAL SIGNS: Reviewed. GENERAL: Well-developed in no acute distress. NECK: Supple. No JVD or thyromegaly LUNGS: Respirations even and unlabored. Lungs essentially clear to auscultation bilaterally. HEART: Regular rate and rhythm. S1 and S2 heard. EXTREMITIES: Normal range of motion. No clubbing or cyanosis. Peripheral pulses intact. No lower extremity edema ASSESSMENT: #1 syncope, could be related to orthostasis #2 acute kidney injury with hyperkalemia, hold SUYAPA inhibitor #3 intertrochanteric left femur fracture, requiring preoperative clearance #3 ischemic cardiomyopathy, improved with a ejection fraction of 50-55% on recent echocardiogram #4 CAD with multivessel stenting #5 diabetes mellitus, poorly controlled #6 status post biventricular ICD PLAN: Continue current cardiac medications Patient may resume SUYAPA inhibitor at the time of discharge of her blood pressure remained stable We will sign off. Please reconsult if needed. Nurse practitioner note has been reviewed by physician. Signing provider agrees with the documented findings, assessment, and plan of care. Objective - Vital Signs Vital signs: Vital Signs Temp 98 F 02/14/22 05:10 Pulse 92 02/14/22 05:10 Resp 16 02/14/22 05:10 BP 125/77 02/14/22 05:10 Pulse Ox 96 02/14/22 05:10 FiO2 Intake & Output 02/13/22 02/14/22 02/14/22 18:59 06:59 18:59 Intake Total 1851 170 Output Total 925 725 Balance 926 -555 Intake: IV 751 50 Intake, IV Titration 1100 Amount Sodium Chloride 0.9% 1, 1100 000 ml @ 100 mls/hr IV . Q10H MARIA Rx#:[id number] Oral 120 Output: Urine 925 625 Estimated Blood Loss 100 Other: Voiding Method Indwelling Catheter Indwelling Catheter - Labs CBC & Chem 7: 02/13/22 20:23 02/13/22 06:46 Labs: Abnormal Lab Results - Last 24 Hours (Table) 02/13/22 02/13/22 02/13/22 Range/Units 11:11 20:19 20:23 WBC 13.9 H (3.8-10.6) k/uL RBC 3.35 L (3.80-5.40) m/uL Hgb 9.7 L (11.4-16.0) gm/dL Hct 32.0 L (34.0-46.0) % MCHC 30.4 L (31.0-37.0) g/dL Neutrophils # 12.1 H (1.3-7.7) k/uL Lymphocytes # 0.6 L (1.0-4.8) k/uL POC Glucose (mg/dL) 243 H 195 H (70-110) mg/dL 02/14/22 Range/Units 07:10 WBC (3.8-10.6) k/uL RBC (3.80-5.40) m/uL Hgb (11.4-16.0) gm/dL Hct (34.0-46.0) % MCHC (31.0-37.0) g/dL Neutrophils # (1.3-7.7) k/uL Lymphocytes # (1.0-4.8) k/uL POC Glucose (mg/dL) 246 H (70-110) mg/dL
[2022-02-14 11:16] LABS: Glucose,Whole Blood 234 mg/dL (70-110)
[2022-02-14 17:12] LABS: Glucose,Whole Blood 212 mg/dL (70-110)
[2022-02-14 20:14] LABS: Glucose,Whole Blood 346 mg/dL (70-110)
[2022-02-14] MEDS: ATORVASTATIN 80 MG TAB PO SCH (20:15)
[2022-02-15] MEDS: HYDROcodone/APAP 5-325MG 1 EACH TAB PO PRN ×4 (00:02→21:01)
[2022-02-15] MEDS: SODIUM CHLORIDE 0.9% 1,000 ML IV SCH ×2 (06:04→17:28)
--- NOTE | 2022-02-15 07:04 | PN ---
PROGRESS NOTE DATE OF SERVICE: 02/13/2022 SUBJECTIVE: Monica Crawley came in with a fractured hip. She is cleared for surgery right now. She has a history of cardiomyopathy, hypertension. She is saturating 96% on room air. PHYSICAL EXAMINATION: VITAL SIGNS: Blood pressure 116/69, pulse 85, temperature . CARDIOVASCULAR: S1, S2. LUNGS: Clear. GI: Soft. EXTREMITIES: Hip in a bind. ASSESSMENT: Hip fracture, cardiomyopathy, chronic obstructive pulmonary disease, diabetes. Continue Accu-Chek protocol. Cleared for surgery. Getting hip surgery today. Prognosis guarded. Possibly rehab placement. MMODL / IJN: [id number] /
[2022-02-15 07:21] LABS: Glucose,Whole Blood 210 mg/dL (70-110)
[2022-02-15] MEDS: INSULIN ASPART (NovoLOG) 100 UNIT/ML VIAL SQ SCH ×3 (08:48→17:06)
[2022-02-15] MEDS: PANTOPRAZOLE 40 MG TABLET PO SCH (09:42)
[2022-02-15] MEDS: carvediloL 6.25 MG TAB PO SCH ×2 (09:42→17:06)
[2022-02-15] MEDS: FERROUS SULFATE 325 MG TAB PO SCH (09:43)
[2022-02-15] MEDS: ASPIRIN 325 MG TAB PO SCH (09:44)
[2022-02-15] MEDS: ENOXAPARIN 40 MG/0.4 ML SYRINGE SQ SCH (09:45)
[2022-02-15 11:24] LABS: Glucose,Whole Blood 254 mg/dL (70-110)
[2022-02-15] MEDS ORDERED: traMADol 50 MG TAB PO PRN (12:20)
--- NOTE | 2022-02-15 12:21 | P.PN ---
Progress Note - Text Progress Note Date: 02/15/22 Orthopedics: History of present illness: Patient is a very pleasant 66-year-old female who is seen and examined bedside for follow up evaluation for her left hip. She is status post left hip intramedullary nail fixation for intertrochanteric hip fracture performed 02/13/2022. Postoperatively her left hip pain has continued to improve postoperatively. She has worked with physical therapy since yesterday and again today which she has found beneficial. Her Sellers catheter has been discontinued. She has an external catheter in place. She is urinating without difficulty. She is eating without difficulty. Nursing states patient has been drowsy with Dilaudid and Richwood. Her pain has been adequately controlled. Patient is currently planning for discharge to [facility]. She has been clear for discharge by cardiology. She is admitted to Dr. Rojsa in medicine. She has not been evaluated today. Physical Exam Intramedullary Rodding for Intertrochanteric Fracture: Status post surgical day number 2 Patient is examined lying in bed Patient is awake and alert, and oriented 3 Vital signs stable Good chest excursion with deep inspiration and expiration Sellers catheter has been discontinued; external catheter intact No signs or symptoms of DVT; no calf pain Lower extremity cuffs not currently in place bilaterally Compression stockings intact bilateral lower extremities Dressing of the left hip is clean, dry, and intact; no erythema, purulence, or signs of infection No pain with palpation over the surgical sites Full range of motion of ankles on the left Dorsiflexion, plantarflexion, and extensor hallucis longus positive sustained on the left Neurovascularly intact bilateral lower extremities Assessment: Status post left intramedullary nail fixation for left intertrochanteric hip fracture Status post fall Status post traumatic fall resulting in left hip fracture Left hip pain Coronary artery disease with multivessel stenting Status post biventricular ICD Diabetes mellitus Ischemic cardiomyopathy Acute kidney injury with hyperkalemia Plan: 1. Patient to remain toe-touch weightbearing on the left lower extremity; patient may work with physical therapy to increase mobility and ambulation 2. Keep dressing over the left hip clean, dry, and intact 3. Patient may utilize external catheter as needed. 4. Patient has had some drowsiness with oral Richwood and IV Dilaudid as needed for pain control. We will plan to add Ultram 50 mg 1-2 tabs every 6 hours as needed for pain and try to avoid oral Richwood and IV Dilaudid. MAPS has been reviewed today, 02/15/2022, and the patient was not in the system. A prescription has been written for Ultram 50 mg 1-2 tabs every 6 hours as needed for pain, dispensed #56 at the time of discharge. This prescription is written, printed, signed, and placed in the patient's chart for discharge to [facility]. 5. Patient is currently on anticoagulation with Lovenox and aspirin. This was discussed with nursing. Patient was recently admitted for cardiac evaluation. We will currently defer anticoagulation to medicine or cardiology. From an orthopedic standpoint, patient would only need to continue with aspirin 325 mg daily. Patient could continue with Lovenox at their discretion without continued aspirin 325 mg daily. 6. Medicine to continue following the patient for their other medical diagnosis 7. From an orthopedic standpoint, patient is clear for discharge. She has been cleared by cardiology. She is waiting for evaluation and clearance by medicine. She is admitted to medicine. Patient is currently planning to discharge to [facility]. 8. Patient can follow-up with Candelario Mcdaniel PA-C or Dr. Robinson Vieyra at [facility] in 2-3 weeks following discharge
[2022-02-15 16:18] LABS: Glucose,Whole Blood 233 mg/dL (70-110)
[2022-02-15 20:03] LABS: Basophils % (A) 1 %; Eosinophils # (A) 0.6 k/uL (0-0.7); Eosinophils % (A) 8 %; HCT 24.6 % (34.0-46.0); Hypochromasia Marked; Lymphocytes # (A) 0.6 k/uL (1.0-4.8); Lymphocytes % (A) 7 %; MCH 29.1 pg (25.0-35.0); MCHC 30.9 g/dL (31.0-37.0); MCV 94.4 fL (80.0-100.0); Mean Platelet Volume 8.2; Monocytes # (A) 0.3 k/uL (0-1.0); Monocytes % (A) 4 %; Neutrophils # (A) 6.2 k/uL (1.3-7.7); Neutrophils % (A) 79 %; Platelet Count 213 k/uL (150-450); RBC 2.61 m/uL (3.80-5.40); RDW 14.7 % (11.5-15.5); WBC 7.8 k/uL (3.8-10.6)
[2022-02-15 20:15] LABS: Glucose,Whole Blood 257 mg/dL (70-110)
[2022-02-15 20:18] LABS: HGB 7.6 gm/dL (11.4-16.0)
[2022-02-15] MEDS: ATORVASTATIN 80 MG TAB PO SCH (20:52)
--- NOTE | 2022-02-16 00:46 | PN ---
PROGRESS NOTE DATE OF SERVICE: 02/14/2022 SUBJECTIVE: A 66-year-old white female, left hip fracture, is unable to move her leg, 2 to 3 people get up to the chair. She needs physical therapy. She wants to go to cardiomyopathy, diabetes is improving. We have to check her out for orthostatic hypotension. She gets lightheaded and dizzy when she stands up, which contributed to her fall as her midodrine was stopped at home. PSYCH: Fair mood and affect. CARDIOVASCULAR: S1, S2. LUNGS: Clear. GI: Soft. ASSESSMENT: Left hip fracture, orthostatic hypotension, diabetes mellitus, cardiomyopathy. Continue current treatment. Check orthostatic hypotension prior to going to rehab. MMODL / IJN: [id number] /
[2022-02-16] MEDS: HYDROcodone/APAP 5-325MG 1 EACH TAB PO PRN (03:26)
[2022-02-16 07:18] LABS: Glucose,Whole Blood 181 mg/dL (70-110)
--- NOTE | 2022-02-16 07:26 | PN ---
PROGRESS NOTE SUBJECTIVE: Status post left hip fracture with pinning and surgery. She needs rehab placement leg problems to possibly go tomorrow. As she is improving, we are going to take off a lot of her medications, IV pain medicine due to movement to check her for orthostatic hypotension prior to going there as she has a history of this and she is dizzy when she gets up, stands on her feet with physical therapy. OBJECTIVE: CARDIOVASCULAR: S1, S2. LUNGS: Clear. GI: Soft. HEMATOLOGY: Negative Homans. PSYCH: Fair mood and affect. ASSESSMENT: Cardiomyopathy, orthostatic hypotension, fall, hip fracture. Physical therapy will be needed. Check for orthostatic hypotension for discharge in the morning. Diabetes mellitus, sugars under good control. Prognosis guarded. MMODL / IJN: [id number] /
[2022-02-16] MEDS: carvediloL 6.25 MG TAB PO SCH ×2 (08:53→19:09)
[2022-02-16] MEDS: PANTOPRAZOLE 40 MG TABLET PO SCH (08:53)
[2022-02-16] MEDS: FERROUS SULFATE 325 MG TAB PO SCH (08:54)
[2022-02-16] MEDS: ASPIRIN 325 MG TAB PO SCH (08:54)
[2022-02-16] MEDS: ENOXAPARIN 40 MG/0.4 ML SYRINGE SQ SCH (08:54)
[2022-02-16] MEDS: INSULIN ASPART (NovoLOG) 100 UNIT/ML VIAL SQ SCH ×3 (09:13→18:08)
--- NOTE | 2022-02-16 10:03 | P.PN ---
Progress Note - Text Progress Note Date: 02/16/22 Postoperative day #3 Patient is seen and examined today at bedside. The patient has some pain around the surgical site as expected. Pain is being controlled with medication. She is moving somewhat better especially in terms of her left leg. She still gets lightheaded when she changes position but her blood pressure when she went from laying the sitting up remain stable this morning. Physical Exam Afebrile with stable vital signs sitting up her blood pressure was 140/79 Abdomen is soft nontender. Chest has good excursion deep and space expiration The incision site is clean dry and intact. No erythema there is no purulence. Her thigh and calf are soft nontender. Her compartments are soft. Extremities have not had neurologic change from prior to surgery. She has motion intact at her knee ankle foot and toes Calves and thighs were soft nontender without evidence of DVT. Assessment/Plan Postoperative day #3 status post intramedullary hip screw internal fixation for her left intertrochanteric femur fracture due to her fall Patient is progressing as expected from the surgery. Her pain is really controlled. Her blood pressure seems to be stabilizing as is her dizziness when she tries to sit up. We will continue to increase the patient's mobilization with therapy. We will continue pain control with oral or IV medications. From an orthopedic surgery standpoint it is okay for the patient to discharge to long-term rehab when she is cleared with medicine Or home with home care as appropriate. We'll continue to follow patient closely.
[2022-02-16] MEDS: traMADol 50 MG TAB PO PRN ×2 (10:38→16:19)
[2022-02-16 11:01] LABS: Basophils # (A) 0.04 X 10*3/uL (0.00-0.10); Basophils % (A) 0.5 %; Eosinophils # (A) 0.66 X 10*3/uL (0.04-0.35); Eosinophils % (A) 8.6 %; HCT 26.7 % (37.2-46.3); Immature Grans, Automated 0.4 %; Lymphocytes # (A) 0.73 X 10*3/uL (0.90-5.00); Lymphocytes % (A) 9.6 %; MCH 28.5 pg (27.0-32.0); Mean Platelet Volume 9.8 fL (9.5-12.2); Monocytes # (A) 0.53 X 10*3/uL (0.20-1.00); Monocytes % (A) 6.9 %; NRBC Per 100 WBC 0 /100 WBCS (0.0-0.0); Neutrophils # (A) 5.65 X 10*3/uL (1.80-7.70); Platelet Count 222 X 10*3/uL (140-440); RBC 2.81 X 10*6/uL (4.10-5.20); RDW 14.6 % (11.5-14.5); WBC 7.64 X 10*3/uL (4.50-10.00)
[2022-02-16 11:26] LABS: Albumin 2.7 g/dL (3.8-4.9); Albumin/Globulin Ratio 0.96 (1.60-3.17); Anion Gap 12.1 mmol/L (10.00-18.00); BUN/Creat Ratio 19.88 Ratio (12.00-20.00); Blood Urea Nitrogen 15.9 mg/dL (9.0-27.0); Calcium 8.5 mg/dL (8.7-10.3); Carbon Dioxide 18.9 mmol/L (20.0-27.5); Globulin 2.8 g/dL (1.6-3.3); Non-African American GFR(CKD) 76.8 (60.0-200.0); Potassium 4.9 mmol/L (3.5-5.5); Total Bilirubin 0.4 mg/dL (0.30-1.20); Total Protein 5.5 g/dL (6.2-8.2)
[2022-02-16 11:55] LABS: Glucose,Whole Blood 327 mg/dL (70-110)
[2022-02-16 17:26] LABS: Glucose,Whole Blood 258 mg/dL (70-110)
[2022-02-16 20:16] LABS: Glucose,Whole Blood 236 mg/dL (70-110)
[2022-02-16] MEDS: ATORVASTATIN 80 MG TAB PO SCH (20:31)
[2022-02-17 07:14] LABS: Glucose,Whole Blood 213 mg/dL (70-110)
[2022-02-17 07:50] VITALS: BP 138/79; PULSE 81; RESP 13; TEMP 98.2
[2022-02-17] MEDS: INSULIN ASPART (NovoLOG) 100 UNIT/ML VIAL SQ SCH (08:10)
[2022-02-17] MEDS: ENOXAPARIN 40 MG/0.4 ML SYRINGE SQ SCH (08:10)
[2022-02-17] MEDS: FERROUS SULFATE 325 MG TAB PO SCH (08:25)
[2022-02-17] MEDS: ASPIRIN 325 MG TAB PO SCH (08:25)
[2022-02-17] MEDS: carvediloL 6.25 MG TAB PO SCH (08:25)
[2022-02-17] MEDS: PANTOPRAZOLE 40 MG TABLET PO SCH (08:26)
--- NOTE | 2022-02-17 08:37 | P.PN ---
Progress Note - Text Progress Note Date: 02/17/22 Orthopedics: History of present illness: Patient is a very pleasant 66-year-old female who is seen and examined bedside for follow up evaluation for her left hip. She is status post left hip intramedullary nail fixation for intertrochanteric hip fracture performed 02/13/2022. Postoperatively her left hip pain has continued to improve postoperatively. She has worked with physical therapy since yesterday and again today which she has found beneficial. Her Sellers catheter was previously discontinued. She has an external catheter is no longer in place. She is urinating without difficulty. She is eating without difficulty. Her pain has been adequately controlled. [facility] but this documentation was not completed in time for transfer. She is scheduled for discharge to [facility] today. She is very happy with her progress thus far postoperatively. Physical Exam Intramedullary Rodding for Intertrochanteric Fracture: Status post surgical day number 4 Patient is examined lying in bed Patient is awake and alert, and oriented 3 Vital signs stable Good chest excursion with deep inspiration and expiration No signs or symptoms of DVT; no calf pain Lower extremity cuffs not currently in place bilaterally Compression stockings intact bilateral lower extremities Patient does have difficulty performing hip flexion on the left Dressing of the left hip is is removed during physical examination Glue remains intact over the surgical sites at the left hip No active drainage over incisions over the left hip No significant pain with palpation over incisions over the left hip Full range of motion of ankles on the left Dorsiflexion, plantarflexion, and extensor hallucis longus positive sustained on the left Neurovascularly intact bilateral lower extremities Assessment: Status post left intramedullary nail fixation for left intertrochanteric hip fracture Status post fall Status post traumatic fall resulting in left hip fracture Left hip pain Coronary artery disease with multivessel stenting Status post biventricular ICD Diabetes mellitus Ischemic cardiomyopathy Acute kidney injury with hyperkalemia Plan: 1. Patient to remain toe-touch weightbearing on the left lower extremity; patient may work with physical therapy to increase mobility and ambulation 2. Surgical dressing has been removed over the incision sites at the left hip. Surgical incision sites are dry with glue intact. Patient may shower without a dressing intact at this time. 3. Patient may utilize external catheter as needed. 4. Patient has had some drowsiness with oral Pala and IV Dilaudid as needed for pain control. We will plan to add Ultram 50 mg 1-2 tabs every 6 hours as needed for pain and try to avoid oral Pala and IV Dilaudid. [facility] [place] been reviewed previously, 02/15/2022, and the patient was not in the system. A prescription has been written for Ultram 50 mg 1-2 tabs every 6 hours as needed for pain, dispensed #56 at the time of discharge. This prescription is written, printed, signed, and placed in the patient's chart for discharge to [facility]. 5. Patient is currently on anticoagulation with Lovenox and aspirin. This was discussed with nursing. Patient was recently admitted for cardiac evaluation. We will currently defer anticoagulation to medicine or cardiology. From an orthopedic standpoint, patient would only need to continue with aspirin 325 mg daily. Patient could continue with Lovenox at their discretion without continued aspirin 325 mg daily. 6. Medicine to continue following the patient for their other medical diagnosis 7. From an orthopedic standpoint, patient is clear for discharge. She has been cleared by cardiology and medicine. She is admitted to medicine. Patient is currently planning to discharge to [facility] today. 8. Patient can follow-up with Candelario Mcdaniel PA-C or Dr. Robinson Vieyra at [facility] in 2-3 weeks following discharge
--- NOTE | 2022-02-17 08:59 | DS ---
DISCHARGE SUMMARY She came with closed left hip fracture with syncope and a fall at home, dehydration, prerenal azotemia, acute kidney injury, diabetes mellitus, cardiomyopathy. She had femur [facility] during [facility]. She will need to get rehab for her left hip due to difficulty with ambulation. She had a history of orthostatic hypotension and wants to be careful ambulating her with check for orthostatic changes in the halfway. She is a diabetic also controlled with diabetes pills. MEDICATIONS: 1. She will be on carvedilol 6.25 b.i.d. 2. Lipitor 80 mg daily. 3. Pantoprazole 40 mg daily. 4. Farxiga 10 mg daily. 5. Accu-Chek protocol a.c. at bedtime. 6. Restoril 15 mg p.r.n. for insomnia at night. 7. Aspirin 325 daily. 8. Tylenol 650 every 4 to 6 hours p.r.n. 9. Lovenox 40 mg subcu daily for a month. 10.Ferrous sulfate 325 daily. 11.Tramadol 50 mg q.6 hours p.r.n. CONDITION: Stable. PROGNOSIS: Guarded. DISCHARGE INSTRUCTIONS: Ambulate as tolerated. Follow up with Dr. Rojas in the halfway. Diet will be as tolerated. PT/OT will be needed in rehab under Dr. Rojas's care. MMKIKIL / VAMSIN: [id number] /
== END 2022-02-17 10:43 | DRG 481 ==
LOC: EC 04:04 → 5NMEDONC 05:35
PROVIDERS: ADMIT Family Medicine; ATTEND Family Medicine
PROC: 0QS704Z Reposition Left Upper Femur with Internal Fixation Device, Open Approach (ICD-10-PCS; principal; 2022-02-13 07:30)
DX: S72.145A Nondisplaced intertrochanteric fracture of left femur, initial encounter for closed fracture (principal); N17.9 Acute kidney failure, unspecified; I10 Essential (primary) hypertension; E11.65 Type 2 diabetes mellitus with hyperglycemia; J44.9 Chronic obstructive pulmonary disease, unspecified; I08.1 Rheumatic disorders of both mitral and tricuspid valves; E86.0 Dehydration; E78.5 Hyperlipidemia, unspecified; I25.10 Atherosclerotic heart disease of native coronary artery without angina pectoris; I25.5 Ischemic cardiomyopathy; E87.6 Hypokalemia; I95.1 Orthostatic hypotension; E87.5 Hyperkalemia; Y92.009 Unspecified place in unspecified non-institutional (private) residence as the place of occurrence of the external cause; W01.0XXA Fall on same level from slipping, tripping and stumbling without subsequent striking against object, initial encounter; Z79.899 Other long term (current) drug therapy; Z79.84 Long term (current) use of oral hypoglycemic drugs; Z79.82 Long term (current) use of aspirin; Z88.1 Allergy status to other antibiotic agents; Z87.891 Personal history of nicotine dependence; Z95.810 Presence of automatic (implantable) cardiac defibrillator; Z95.5 Presence of coronary angioplasty implant and graft
CPT/HCPCS: 36415; 70450; 71045; 72125; 73501; 73502; 80048; 80053; 81003; 83735; 84100; 84484; 85025; 85610; 85730; 88304; 88311; 93005; 96361; 96374; 96375; 99285

== ENCOUNTER 2023-07-10 17:03 | Emergency (ER) | payer MEDICARE ==
--- NOTE | 2023-07-10 17:29 | ED ---
General Adult HPI - General Chief complaint: Fall Stated complaint: Right shoulder pain Time Seen by Provider: 07/10/23 17:03 Source: patient, EMS, RN notes reviewed, old records reviewed Mode of arrival: EMS Limitations: no limitations - History of Present Illness Initial comments: This is a 67-year-old female who presents to the emergency department stating she fell. Patient states she fell onto her left shoulder. Patient denies hitting her head patient denies hitting her neck. Patient denies any chest pain or back pain. Patient denies any other injury at this time. Patient states that is very painful to move her arm. - Related Data Home Medications Medication Instructions Recorded Confirmed Atorvastatin Calcium [Lipitor] 80 mg PO HS 12/31/21 06/08/22 carvediloL [Coreg] 6.25 mg PO BID 12/31/21 06/08/22 glipiZIDE 10 mg PO BID 12/31/21 06/08/22 Dapagliflozin Propanediol [Farxiga] 10 mg PO DAILY 02/12/22 06/08/22 Aspirin EC [Ecotrin Low Dose] 81 mg PO DAILY 06/08/22 06/08/22 Cephalexin [Keflex] 500 mg PO BID 06/08/22 06/08/22 Ferrous Sulfate [Iron (65 MG 325 mg PO HS 06/08/22 06/08/22 Elemental)] Fluticasone/Umeclidin/Vilanter 1 puff INHALATION RT-DAILY 06/08/22 06/08/22 [Trelegy Ellipta 200-62.5-25] INSULIN ASPART (NovoLOG) [NovoLOG See Protocol SQ TID-W/MEALS PRN 06/08/22 06/08/22 (formulary)] Ipratropium-Albuterol Nebulize 3 ml INHALATION RT-QID PRN 06/08/22 06/08/22 [Duoneb 0.5 mg-3 mg/3 ml Soln] Midodrine HCl [ProAmatine] 15 mg PO TID 06/08/22 06/08/22 Omeprazole 40 mg PO DAILY 06/08/22 06/08/22 Previous Rx's Medication Instructions Recorded Albuterol Inhaler [Ventolin Hfa 2 puff INHALATION RT-QID each 06/13/22 Inhaler] Furosemide [Lasix] 40 mg PO BID@0900,1600 90 Days 06/13/22 #180 tab Spironolactone [Aldactone] 25 mg PO DAILY 90 Days #90 tab 06/13/22 lisinopriL [Zestril] 2.5 mg PO DAILY 90 Days #90 tab 06/13/22 HYDROcodone/APAP 5-325MG [Alder 1 tab PO Q8H PRN 3 Days #12 tab 07/10/23 5-325] Ketorolac [Toradol] 10 mg PO Q6HR #15 tab 07/10/23 Allergies Allergy/AdvReac Type Severity Reaction Status Date / Time moxifloxacin [From Avelox] Allergy Anaphylaxis Verified 06/08/22 11:09 Review of Systems ROS Statement: Those systems with pertinent positive or pertinent negative responses have been documented in the HPI. ROS Other: All systems not noted in ROS Statement are negative. Past Medical History Past Medical History: Coronary Artery Disease (CAD), Heart Failure, Diabetes Mellitus, Hypertension Additional Past Medical History / Comment(s): pacemaker History of Any Multi-Drug Resistant Organisms: None Reported Past Surgical History: Adenoidectomy, Heart Catheterization With Stent, Hysterectomy, Tonsillectomy Additional Past Surgical History / Comment(s): Defibrilator Past Anesthesia/Blood Transfusion Reactions: No Reported Reaction Date of Last Stent Placement:: 06/27/20 Past Psychological History: No Psychological Hx Reported Smoking Status: Former smoker Past Alcohol Use History: None Reported Past Drug Use History: None Reported General Exam - General Exam Comments Initial Comments: GENERAL: Patient is well-developed and well-nourished. Patient is nontoxic and well- hydrated and is in mild distress. ENT: Neck is soft and supple. No significant lymphadenopathy is noted. Oropharynx is clear. Moist mucous membranes. Neck has full range of motion without eliciting any pain. EYES: The sclera were anicteric and conjunctiva were pink and moist. Extraocular movements were intact and pupils were equal round and reactive to light. Eyelids were unremarkable. SKIN: Skin is clear with no lesions or rashes and otherwise unremarkable. NEUROLOGIC: Patient is alert and oriented x3. Cranial nerves II through XII are grossly intact. Motor and sensory are also intact. Normal speech, volume and content. Symmetrical smile. MUSCULOSKELETAL: Patient's shoulder is very tender to palpate anteriorly and laterally. Patient is in too much pain to let me try to move the shoulder. LYMPHATICS: No significant lymphadenopathy is noted PSYCHIATRIC: Normal psychiatric evaluation. Limitations: no limitations Course Vital Signs 07/10/23 17:11 Temperature 97.7 F Pulse Rate 50 L Respiratory 18 Rate Blood Pressure 126/66 O2 Sat by Pulse 95 Oximetry Medical Decision Making - Medical Decision Making Was pt. sent in by a medical professional or institution (, CHE, CARE SERVICES MANAGER, urgent care, hospital, or longterm...) When possible be specific @ -No Did you speak to anyone other than the patient for history (EMS, parent, family, police, friend...)? What history was obtained from this source @ -No Did you review nursing and triage notes (agree or disagree)? Why? @ -I reviewed and agree with nursing and triage notes Were old charts reviewed (outside hosp., previous admission, EMS record, old EKG, old radiological studies, urgent care reports/EKG's, longterm records)? Report findings @ -No old charts were reviewed Differential Diagnosis (chest pain, altered mental status, abdominal pain women, abdominal pain men, vaginal bleeding, weakness, fever, dyspnea, syncope, headache, dizziness, GI bleed, back pain, seizure, CVA, palpatations, mental health, musculoskeletal)? @ -Fractured humerus, dislocated humerus fracture clavicle, broken ribs, fractured scapula, hematoma, contusion, this is not an all-inclusive list EKG interpreted by me (3pts min.). @ -As above X-rays interpreted by me (1pt min.). @ -Chest x-ray shows no acute agreeably other than what is mentioned in the x- ray for the humerus. Humerus x-ray shows a comminuted somewhat impacted fracture of the humeral head CT interpreted by me (1pt min.). @ -None done U/S interpreted by me (1pt. min.). @ -None done What testing was considered but not performed or refused? (CT, X-rays, U/S, labs)? Why? @ -None What meds were considered but not given or refused? Why? @ -None Did you discuss the management of the patient with other professionals (professionals i.e. CHE Hyman, CARE SERVICES MANAGER, lab, RT, psych nurse, drug abuse social worker, patternmaker, teacher, radiation officer, bottle caser)? Give summary @ -I spoke with Dr. Sellers he want to see the patient in the office Was smoking cessation discussed for >3mins.? @ -No Was critical care preformed (if so, how long)? @ -No Were there social determinants of health that impacted care today? How? (Homelessness, low income, unemployed, alcoholism, drug addiction, transportation, low edu. Level, literacy, decrease access to med. care, senior living, rehab)? @ -No Was there de-escalation of care discussed even if they declined (Discuss DNR or withdrawal of care, Hospice)? DNR status @ -No What co-morbidities impacted this encounter? (DM, HTN, Smoking, COPD, CAD, Cancer, CVA, ARF, Chemo, Hep., AIDS, mental health diagnosis, sleep apnea, morbid obesity)? @ -None Was patient admitted / discharged? Hospital course, mention meds given and route, prescriptions, significant lab abnormalities, going to OR and other pertinent info. @ -Patient will be placed in a sling immobilizer and be instructed to follow-up with Dr. Sellers. Patient was given a shot of Toradol and Dilaudid while in the emergency department Undiagnosed new problem with uncertain prognosis? @ -No Drug Therapy requiring intensive monitoring for toxicity (Heparin, Nitro, Insulin, Cardizem)? @ -No Were any procedures done? @ -No Diagnosis/symptom? @ -Humerus fracture Acute, or Chronic, or Acute on Chronic? @ -Acute Uncomplicated (without systemic symptoms) or Complicated (systemic symptoms)? @ -Complicated Side effects of treatment? @ -No Exacerbation, Progression, or Severe Exacerbation? @ -No Poses a threat to life or bodily function? How? (Chest pain, [place], [place], pneumonia, PE, COPD, DKA, ARF, appy, cholecystitis, CVA, Diverticulitis, Homicidal, Suicidal, threat to staff... and all critical care pts) @ -No Disposition Clinical Impression: Humeral head fracture Disposition: HOME SELF-CARE Instructions (If sedation given, give patient instructions): Fall Prevention for Older Adults (ED), Proximal Humerus Fracture (ED) Prescriptions: HYDROcodone/APAP 5-325MG [Alder 5-325] 1 tab PO Q8H PRN 3 Days #12 tab PRN Reason: Pain Ketorolac [Toradol] 10 mg PO Q6HR #15 tab Is patient prescribed a controlled substance at d/c from ED?: No Referrals: Mullally,Meliton, MD [Primary Care Provider] - 1-2 days Time of Disposition: 18:08
--- NOTE | 2023-07-10 17:35 | XR ---
EXAMINATION TYPE: XR shoulder complete RT DATE OF EXAM: 07/10/2023 CLINICAL HISTORY: pain TECHNIQUE: Three views of the right shoulder are obtained. COMPARISON: None FINDINGS: There is a partially impacted and mildly comminuted fracture involving the right humeral ne ck with extension into the greater tuberosity. Displacement noted up to 6 mm. Moderate AC joint arthr opathy. No additional displaced fracture seen with certainty. . The visualized ribs are intact and u nremarkable. IMPRESSION: 1. As above
--- NOTE | 2023-07-10 17:36 | XR ---
EXAMINATION TYPE: XR chest 2V DATE OF EXAM: 07/10/2023 COMPARISON: 06/08/2022 HISTORY: Shortness of breath TECHNIQUE: Frontal and lateral views of the chest are obtained. FINDINGS: Scattered senescent parenchymal changes noted. Hyperinflation compatible with COPD. No evidence for infiltrate. No evidence for atelectasis. Heart size is stable. Mediastinal structures are stable and grossly unremarkable. No evidence for hilar prominence. Degenerative changes dorsal spine. Proximal right humeral fracture. IACD device is in place. IMPRESSION: 1. No evidence for acute pulmonary disease.
[2023-07-10 17:51] VITALS: RESP 18; TEMP 97.7
[2023-07-10] MEDS: KETOROLAC 15 MG/ML 1 ML VIAL IVP STA (18:13)
[2023-07-10] MEDS: HYDROmorphone 0.5 MG/0.5 ML SYRINGE IVP STA (18:14)
[2023-07-10 19:50] VITALS: BP 117/62; PULSE 58
== END 2023-07-10 19:31 | disposition home or self-care (01) ==
LOC: EC 17:03
DX: S42.211A Unspecified displaced fracture of surgical neck of right humerus, initial encounter for closed fracture (principal); Z87.891 Personal history of nicotine dependence; Z88.8 Allergy status to other drugs, medicaments and biological substances; Z95.0 Presence of cardiac pacemaker; W01.0XXA Fall on same level from slipping, tripping and stumbling without subsequent striking against object, initial encounter
CPT/HCPCS: 99284; 96374; 96375; 73030; 71046; J1885; J1170

== ENCOUNTER 2024-07-24 15:34 | Inpatient (IN) | payer MEDICARE ==
[2024-07-24 15:46] LABS: Glucose,Whole Blood 222 mg/dL (70-110)
--- NOTE | 2024-07-24 16:13 | ED ---
General Adult HPI - General Chief complaint: Dizziness Stated complaint: dizziness Time Seen by Provider: 07/24/24 15:38 Source: patient, EMS Mode of arrival: EMS Limitations: no limitations - History of Present Illness Initial comments: Dictation was produced using [employer] dictation software. please excuse any grammatical, word or spelling errors. Chief Complaint: 68-year-old female presents to the emergency department for weakness History of Present Illness: Patient is a 68-year-old female presents emergency department for weakness nausea poor appetite she is accompanied by her siblings. She lives at home by herself. Siblings went to visit her when all of a sudden she was so weak. They brought her to the ER for further care. Patient has c ardiac [id number] male with w associated cardiac complications. She has been having urinary symptoms as well. Denies any flank pain. The ROS documented in this emergency department record has been reviewed and confirmed by me. Those systems with pertinent positive or negative responses escobedo ve been documented in the HPI. All other systems are other negative and/or noncontributory. - Related Data Home Medications Medication Instructions Recorded Confirmed Atorvastatin Calcium [Lipitor] 80 mg PO DAILY 12/31/21 07/24/24 carvediloL [Coreg] 6.25 mg PO BID 12/31/21 07/24/24 glipiZIDE 10 mg PO BID 12/31/21 07/24/24 Aspirin EC [Ecotrin Low Dose] 81 mg PO DAILY 06/08/22 07/24/24 INSULIN ASPART (NovoLOG) [NovoLOG 10 unit SQ TID-W/MEALS 06/08/22 07/24/24 (formulary)] Omeprazole 40 mg PO DAILY 06/08/22 07/24/24 Empagliflozin [Jardiance] 25 mg PO DAILY 07/24/24 07/24/24 Furosemide [Lasix] 40 mg PO DAILY 07/24/24 07/24/24 Previous Rx's Medication Instructions Recorded Spironolactone [Aldactone] 25 mg PO DAILY 90 Days #90 tab 06/13/22 lisinopriL [Zestril] 2.5 mg PO DAILY 90 Days #90 tab 06/13/22 Allergies Allergy/AdvReac Type Severity Reaction Status Date / Time moxifloxacin [From Avelox] Allergy Anaphylaxis Verified 07/24/24 16:10 Review of Systems ROS Statement: Those systems with pertinent positive or pertinent negative responses have been documented in the HPI. ROS Other: All systems not noted in ROS Statement are negative. Past Medical History Past Medical History: Coronary Artery Disease (CAD), Heart Failure, Diabetes Me llitus, Hypertension Additional Past Medical History / Comment(s): pacemaker History of Any Multi-Drug Resistant Organisms: None Reported Past Surgical History: Orthopedic Surgery Additional Past Surgical History / Comment(s): pacemaker, L hip surger Past Anesthesia/Blood Transfusion Reactions: No Reported Reaction Date of Last Stent Placement:: 06/27/20 Past Psychological History: No Psychological Hx Reported Smoking Status: Former smoker Past Alcohol Use History: None Reported Past Drug Use History: None Reported General Exam - General Exam Comments Initial Comments: PHYSICAL EXAM: General Impression: Alert and oriented x3/4, not in acute distress HEENT: Normocephalic atraumatic, extra-ocular movements intact, pupils equal and reactive to light bilaterally, dry mucous membranes Cardiovascular: Heart regular rate and rhythm Chest: Able to complete full sentences, no retractions, no tachypnea Abdomen: abdomen soft, non-tender, non-distended, no organomegaly Musculoskeletal: Pulses present and equal in all extremities, no peripheral edema Motor: no focal deficits noted Neurological: CN II-XII grossly intact, no focal motor or sensory deficits noted Skin: Intact with no visualized rashes Psych: Normal affect and mood Limitations: no limitations Course Vital Signs 07/24/24 07/24/24 07/24/24 15:38 15:42 17:34 Temperature 98.8 F Pulse Rate 98 96 89 Respiratory 18 14 16 Rate Blood Pressure 80/48 94/50 108/47 O2 Sat by Pulse 99 99 99 Oximetry EKG Findings - EKG Comments: EKG Findings:: My EKG interpretation: Ventricular rate 98, sinus rhythm. Questionable ST elevations in inferior leads and all precordial leads. Significant artifact making interpretation difficult. Lateral leads, lead II and septal precordial leads. Overall EKG is nonspecificOverall this EKG is nonspecific. Today's EKG is slightly more pronounced than previous EKG. Medical Decision Making - Medical Decision Making Was pt. sent in by a medical professional or institution (, PA, [employer], urgent care, hospital, or penitentiary...) When possible be specific @ -No Did you speak to anyone other than the patient for history (EMS, parent, family, police, friend...)? What history was obtained from this source @ -As described above Did you review nursing and triage notes (agree or disagree)? Why? @ -I reviewed and agree with nursing and triage notes Were old charts reviewed (outside hosp., previous admission, EMS record, old EKG, old radiological studies, urgent care reports/EKG's, penitentiary records)? Report findings @ -No old charts were reviewed Differential Diagnosis (chest pain, altered mental status, abdominal pain women, abdominal pain men, vaginal bleeding, musculoskeletal, weakness, fever, dyspnea, syncope, headache, dizziness, GI bleed, back pain, seizure, CVA, palpatations, mental health)? @ -Differential Weakness: Hypoglycemia, shock, sepsis, hyponatremia, anemia, infection, NV, ETOH, adverse medicine reaction, overdose, stroke, this is not meant to be an all-inclusive list. EKG interpreted by me (3pts min.). @ -See above X-rays interpreted by me (1pt min.). @ -None done CT interpreted by me (1pt min.). @ -CT brain is nonacute U/S interpreted by me (1pt. min.). @ -None done What testing was considered but not performed or refused? (CT, X-rays, U/S, labs)? Why? @ -None What meds were considered but not given or refused? Why? @ -None Was smoking cessation discussed for >3mins.? @ -No Were there social determinants of health that impacted care today? How? (Homelessness, low income, unemployed, alcoholism, drug addiction, transportation, low edu. Level, literacy, decrease access to med. care, longterm, rehab)? @ -No Was there de-escalation of care discussed even if they declined (Discuss DNR or withdrawal of care, Hospice)? DNR status @ -No What co-morbidities impacted this encounter? (DM, HTN, Smoking, COPD, CAD, Cancer, CVA, ARF, Chemo, Hep., AIDS, mental health diagnosis, sleep apnea, morbid obesity)? @ -Cardiac history Was patient admitted / discharged? Hospital course, mention meds given and route, prescriptions, significant lab abnormalities, going to OR and other pertinent info. @ -60-year-old female brought in from home by family. Patient lives alone. She has been having worsening weakness and mentation over the last couple days. She is alert oriented times 3 out of 4. She does have some tangential speech however no acute distress. Slightly pale with dry mucous membranes. Initial blood pressure was 80/48. Patient given IV fluids with improvement of her blood pressure to normal maps. CT brain is negative. Laboratory evaluation. Leukocytosis found unclear etiology. She does not have any focal infectious symptoms metabolic panel shows hyponatremia 126. Lactic acidosis 2.2. Elevated renal markers. BNP is 6000. Urinalysis is clean. Acetone negative. Patient acidotic with a bicarb of 12. Patient given fluids. Suspect that patient's symptoms are secondary to dehydration. She does not appear to be improved on reevaluation at 6:15 PM. Pending blood cultures. At this point no focal symptoms to suggest sepsis. At this point antibiotics not indicated. Did you discuss the management of the patient with other professionals (professionals i.e. , PA, [employer], lab, RT, psych nurse, elementary school social worker, watershed program manager, teacher, seaman officer, continuous pillowcase cutter)? Give summary @ -Discussed with hospitalist for admission Was critical care preformed (if so, how long)? @ -Yes, 33 minutes for hypertension management Undiagnosed new problem with uncertain prognosis? @ -No Drug Therapy requiring intensive monitoring for toxicity (Heparin, Nitro, Insulin, Cardizem)? @ -No Were any procedures done? @ -No Diagnosis/symptom? Acute, or Chronic, or Acute on Chronic? Uncomplicated (without systemic symptoms) or Complicated (systemic symptoms)? @ -Dehydration, SIRS Side effects of treatment? @ -No Exacerbation, Progression, or Severe Exacerbation? @ -No Poses a threat to life or bodily function? How? (Chest pain, USA, NV, pneumonia, PE, COPD, DKA, ARF, appy, cholecystitis, CVA, Diverticulitis, Homicidal, Suicidal, threat to staff... and all critical care pts) @ -yes - Lab Data Result diagrams: 07/24/24 16:13 07/24/24 16:13 Lab Results 07/24/24 07/24/24 07/24/24 Range/Units 15:44 16:13 16:13 WBC 22.37 H (4.50-10.00) 10*3/uL RBC 3.68 L (4.10-5.20) 10*6/uL Hgb 10.9 L (12.0-15.0) g/dL Hct 32.1 L (37.2-46.3) % MCV 87.2 (80.0-97.0) fL MCH 29.6 (27.0-32.0) pg MCHC 34.0 (32.0-37.0) g/dL Plt Count 120 L (140-440) 10*3/uL MPV 11.5 (9.5-12.2) fL Immature Gran % (Auto) 1.0 % Neutrophils % 94.1 % Lymphocytes % 1.4 % Monocytes % 3.0 % Eosinophils % 0.2 % Basophils % 0.3 % Immature Gran # 0.23 H (0.00-0.04) 10*3/uL Neutrophils # 21.06 H (1.80-7.70) 10*3/uL Lymphocytes # 0.31 L (0.90-5.00) 10*3/uL Monocytes # 0.66 (0.20-1.00) 10*3/uL Eosinophils # 0.04 (0.04-0.35) 10*3/uL Basophils # 0.07 (0.00-0.10) 10*3/uL PT (10.0-12.5) sec INR (<1.2) APTT (22.0-30.0) sec Sodium 126 L (137-145) mmol/L Potassium 4.5 (3.5-5.1) mmol/L Chloride 98 (98-107) mmol/L Carbon Dioxide 12 L (22-30) mmol/L Anion Gap 16 mmol/L BUN 86 H (7-17) mg/dL Creatinine 1.93 H (0.52-1.04) mg/dL Est GFR (CKD-EPI)AfAm 30 (>60 ml/min/1.73 sqM) Est GFR (CKD-EPI)NonAf 26 (>60 ml/min/1.73 sqM) Glucose 202 H (74-99) mg/dL POC Glucose (mg/dL) 222 H (70-110) mg/dL POC Glu Sheet Folder ID Banda Meliton Plasma Lactic Acid Diogenes (0.7-2.0) mmol/L Calcium 7.9 L (8.4-10.2) mg/dL Magnesium 2.7 H (1.6-2.3) mg/dL Total Bilirubin 1.0 (0.2-1.3) mg/dL AST 45 H (14-36) U/L ALT 40 H (4-34) U/L Alkaline Phosphatase 136 H (38-126) U/L Troponin I (0.000-0.034) ng/mL NT-Pro-B Natriuret Pep 6930 pg/mL Total Protein 6.2 L (6.3-8.2) g/dL Albumin 2.8 L (3.5-5.0) g/dL Urine Color Urine Appearance (Clear) Urine pH (5.0-8.0) Ur Specific [place] (1.001-1.035) Urine Protein (Negative) Urine Glucose (UA) (Negative) Urine Ketones (Negative) Urine Blood (Negative) Urine Nitrite (Negative) Urine Bilirubin (Negative) Urine Urobilinogen (<2.0) mg/dL Ur Leukocyte Esterase (Negative) Urine RBC (0-5) /hpf Urine WBC (0-5) /hpf Ur Squamous Epith Cells (0-4) /hpf Amorphous Sediment (None) /hpf Urine Bacteria (None) /hpf Urine Mucus (None) /hpf Acetone, Qual (Negative) 07/24/24 07/24/24 07/24/24 Range/Units 16:13 16:18 16:18 WBC (4.50-10.00) 10*3/uL RBC (4.10-5.20) 10*6/uL Hgb (12.0-15.0) g/dL Hct (37.2-46.3) % MCV (80.0-97.0) fL MCH (27.0-32.0) pg MCHC (32.0-37.0) g/dL Plt Count (140-440) 10*3/uL MPV (9.5-12.2) fL Immature Gran % (Auto) % Neutrophils % % Lymphocytes % % Monocytes % % Eosinophils % % Basophils % % Immature Gran # (0.00-0.04) 10*3/uL Neutrophils # (1.80-7.70) 10*3/uL Lymphocytes # (0.90-5.00) 10*3/uL Monocytes # (0.20-1.00) 10*3/uL Eosinophils # (0.04-0.35) 10*3/uL Basophils # (0.00-0.10) 10*3/uL PT 12.7 H (10.0-12.5) sec INR 1.2 H (<1.2) APTT 25.2 (22.0-30.0) sec Sodium (137-145) mmol/L Potassium (3.5-5.1) mmol/L Chloride (98-107) mmol/L Carbon Dioxide (22-30) mmol/L Anion Gap mmol/L BUN (7-17) mg/dL Creatinine (0.52-1.04) mg/dL Est GFR (CKD-EPI)AfAm (>60 ml/min/1.73 sqM) Est GFR (CKD-EPI)NonAf (>60 ml/min/1.73 sqM) Glucose (74-99) mg/dL POC Glucose (mg/dL) (70-110) mg/dL POC Glu Sheet Folder ID Plasma Lactic Acid Diogenes 2.2 H* (0.7-2.0) mmol/L Calcium (8.4-10.2) mg/dL Magnesium (1.6-2.3) mg/dL Total Bilirubin (0.2-1.3) mg/dL AST (14-36) U/L ALT (4-34) U/L Alkaline Phosphatase (38-126) U/L Troponin I <0.012 (0.000-0.034) ng/mL NT-Pro-B Natriuret Pep pg/mL Total Protein (6.3-8.2) g/dL Albumin (3.5-5.0) g/dL Urine Color Urine Appearance (Clear) Urine pH (5.0-8.0) Ur Specific [place] (1.001-1.035) Urine Protein (Negative) Urine Glucose (UA) (Negative) Urine Ketones (Negative) Urine Blood (Negative) Urine Nitrite (Negative) Urine Bilirubin (Negative) Urine Urobilinogen (<2.0) mg/dL Ur Leukocyte Esterase (Negative) Urine RBC (0-5) /hpf Urine WBC (0-5) /hpf Ur Squamous Epith Cells (0-4) /hpf Amorphous Sediment (None) /hpf Urine Bacteria (None) /hpf Urine Mucus (None) /hpf Acetone, Qual (Negative) 07/24/24 07/24/24 Range/Units 16:18 17:30 WBC (4.50-10.00) 10*3/uL RBC (4.10-5.20) 10*6/uL Hgb (12.0-15.0) g/dL Hct (37.2-46.3) % MCV (80.0-97.0) fL MCH (27.0-32.0) pg MCHC (32.0-37.0) g/dL Plt Count (140-440) 10*3/uL MPV (9.5-12.2) fL Immature Gran % (Auto) % Neutrophils % % Lymphocytes % % Monocytes % % Eosinophils % % Basophils % % Immature Gran # (0.00-0.04) 10*3/uL Neutrophils # (1.80-7.70) 10*3/uL Lymphocytes # (0.90-5.00) 10*3/uL Monocytes # (0.20-1.00) 10*3/uL Eosinophils # (0.04-0.35) 10*3/uL Basophils # (0.00-0.10) 10*3/uL PT (10.0-12.5) sec INR (<1.2) APTT (22.0-30.0) sec Sodium (137-145) mmol/L Potassium (3.5-5.1) mmol/L Chloride (98-107) mmol/L Carbon Dioxide (22-30) mmol/L Anion Gap mmol/L BUN (7-17) mg/dL Creatinine (0.52-1.04) mg/dL Est GFR (CKD-EPI)AfAm (>60 ml/min/1.73 sqM) Est GFR (CKD-EPI)NonAf (>60 ml/min/1.73 sqM) Glucose (74-99) mg/dL POC Glucose (mg/dL) (70-110) mg/dL POC Glu Sheet Folder ID Plasma Lactic Acid Diogenes (0.7-2.0) mmol/L Calcium (8.4-10.2) mg/dL Magnesium (1.6-2.3) mg/dL Total Bilirubin (0.2-1.3) mg/dL AST (14-36) U/L ALT (4-34) U/L Alkaline Phosphatase (38-126) U/L Troponin I (0.000-0.034) ng/mL NT-Pro-B Natriuret Pep pg/mL Total Protein (6.3-8.2) g/dL Albumin (3.5-5.0) g/dL Urine Color Colorless Urine Appearance Cloudy H (Clear) Urine pH 5.0 (5.0-8.0) Ur Specific [place] 1.011 (1.001-1.035) Urine Protein Trace H (Negative) Urine Glucose (UA) 4+ H (Negative) Urine Ketones Trace H (Negative) Urine Blood Trace H (Negative) Urine Nitrite Negative (Negative) Urine Bilirubin Negative (Negative) Urine Urobilinogen <2.0 (<2.0) mg/dL Ur Leukocyte Esterase Negative (Negative) Urine RBC 2 (0-5) /hpf Urine WBC 3 (0-5) /hpf Ur Squamous Epith Cells 1 (0-4) /hpf Amorphous Sediment Occasional H (None) /hpf Urine Bacteria Rare H (None) /hpf Urine Mucus Rare H (None) /hpf Acetone, Qual Negative (Negative) Disposition Clinical Impression: Dehydration Disposition: ADMITTED IP TO THIS [facility] Condition: Serious Referrals: Meliton Rojas MD [Primary Care Provider] - 1-2 days Decision Time: 18:15
[2024-07-24] MEDS: LACTATED RINGERS 1,000 ML IV SCH (16:15)
[2024-07-24 16:26] LABS: Basophils # (A) 0.07 10*3/uL (0.00-0.10); Basophils % (A) 0.3 %; Eosinophils # (A) 0.04 10*3/uL (0.04-0.35); Eosinophils % (A) 0.2 %; HCT 32.1 % (37.2-46.3); HGB 10.9 g/dL (12.0-15.0); Lymphocytes # (A) 0.31 10*3/uL (0.90-5.00); Lymphocytes % (A) 1.4 %; MCH 29.6 pg (27.0-32.0); MCV 87.2 fL (80.0-97.0); Mean Platelet Volume 11.5 fL (9.5-12.2); Monocytes # (A) 0.66 10*3/uL (0.20-1.00); Neutrophils # (A) 21.06 10*3/uL (1.80-7.70); Neutrophils % (A) 94.1 %; Platelet Count 120 10*3/uL (140-440); RBC 3.68 10*6/uL (4.10-5.20); RDW 13.6 % (11.5-14.5); WBC 22.37 10*3/uL (4.50-10.00)
[2024-07-24 16:37] LABS: ALT 40 U/L (4-34); AST 45 U/L (14-36); African American GFR (CKD) 30 (>60 ml/min/1.73 sqM); Albumin 2.8 g/dL (3.5-5.0); Alkaline Phosphatase 136 U/L (38-126); Anion Gap 16 mmol/L; Blood Urea Nitrogen 86 mg/dL (7-17); Calcium 7.9 mg/dL (8.4-10.2); Carbon Dioxide 12 mmol/L (22-30); Chloride 98 mmol/L (98-107); Glucose 202 mg/dL (74-99); Magnesium 2.7 mg/dL (1.6-2.3); Non-African American GFR(CKD) 26 (>60 ml/min/1.73 sqM); Potassium 4.5 mmol/L (3.5-5.1); Sodium 126 mmol/L (137-145); Total Protein 6.2 g/dL (6.3-8.2)
[2024-07-24 16:45] LABS: NT-Pro-B-Type Natriuretic Pept 6930 pg/mL
--- NOTE | 2024-07-24 16:53 | CT ---
EXAMINATION TYPE: CT brain wo con DATE OF EXAM: 07/24/2024 4:44 PM COMPARISON: Previous CT head study 02/12/2022.. CLINICAL INDICATION: Female, 68 years old with history of AMS, AMS. elevated sugar TECHNIQUE: Brain: Axial CT images of the brain were obtained with coronal and sagittal reformats created and rev iewed. Contrast used: None. Oral contrast used: None. CT DLP: 1152.4 mGycm, Automated exposure control for dose reduction was used. FINDINGS: Brain: Extra-axial spaces: No abnormal extra-axial fluid collections. Ventricular system: Dilatation in proportion to cerebral atrophy. Cerebral parenchyma: No acute intraparenchymal hemorrhage or mass effect. The marlow-white junction is well differentiated. Scattered hypoattenuating areas are seen within the white matter. Cerebellum: Unremarkable. Mass effect: No evidence of midline shift. Intracranial vasculature: unremarkable Soft tissues: Normal. Calvarium/osseous structures: No depressed skull fracture. Paranasal sinuses and mastoid air cells: Mild scattered paranasal sinus disease. Visualized orbits: The lenses are surgically removed from the globes. IMPRESSION: No acute intracranial process. [facility], , 07/24/2024 4:50 PM
[2024-07-24 16:57] LABS: INR 1.2 (<1.2); Partial Thromboplastin Time 25.2 sec (22.0-30.0); Prothrombin Time 12.7 sec (10.0-12.5)
[2024-07-24 18:01] LABS: Amorphous Sediment,Urine Occasional /hpf; Appearance,Urine Cloudy (Clear); Bacteria,Urine Rare /hpf; Bilirubin,Urine Negative (Negative); Blood,Urine Trace (Negative); Color,Urine Colorless; Glucose,Urine (UA) 4+ (Negative); Ketones,Urine Trace (Negative); Leukocyte Esterase,Urine Negative (Negative); Mucus,Urine Rare /hpf; Nitrite,Urine Negative (Negative); Protein,Urine Trace (Negative); RBC,Urine 2 /hpf (0-5); Specific Gravity,Urine 1.011 (1.001-1.035); Squamous Epithelial Cell,Urine 1 /hpf (0-4); Urobilinogen,Urine <2.0 mg/dL (<2.0); WBC,Urine 3 /hpf (0-5)
[2024-07-24] MEDS ORDERED: NALOXONE 0.4 MG/ML 1 ML VIAL IV PRN (18:09)
[2024-07-24] MEDS: SODIUM CHLORIDE 0.9% 1,000 ML IV SCH (18:27)
[2024-07-24 20:12] LABS: Glucose,Whole Blood 138 mg/dL (70-110)
[2024-07-25] MEDS ORDERED: cefTRIAXone 2 GM in DEXTROSE 5% IN WATER 50 ML IVPB SCH ×2 (00:15→09:00)
[2024-07-25] MEDS: cefTRIAXone 2 GM in DEXTROSE 5% IN WATER 50 ML IVPB SCH (00:24)
[2024-07-25] MEDS: PANTOPRAZOLE 40 MG TABLET PO SCH (00:25)
--- NOTE | 2024-07-25 00:42 | HP ---
HISTORY AND PHYSICAL HISTORY OF PRESENT ILLNESS: A white female, came in with altered mental status, polyuria, polydipsia, severe fatigue, over 1 to 2 days' time. She came in with a white count of 22,000. She had a bad infection last time and she felt this way. We are going to do a COVID test, work her up for sepsis. Consult with Dr. Farrell. She is severely dehydrated. We are going to her fluids overnight. She has an abnormal EKG. We will get an echo and get Cardiology to see her. PAST MEDICAL HISTORY: Cardiomyopathy, history of coronary artery disease, COPD. REVIEW OF SYSTEMS: Otherwise 14-point review of systems negative. PHYSICAL EXAMINATION: VITAL SIGNS: Blood pressure was 80/48 on admission; now, it is 100/58, temp 97 to 98, O2 97 to 99, pulse 80 to 89. CARDIOVASCULAR: S1, S2. LUNGS: Transmitted upper airway sounds. GI: Soft. HEMATOLOGY: Negative for Homans. PSYCHIATRIC: Fair mood and affect. ASSESSMENT: 1. Sepsis, unclear etiology. 2. Dehydration. 3. Possible viral syndrome, but she has leukocytosis with left shift, most likely bacterial infection. Do CTA of the abdomen and pelvis. Echo. Fluid rehydration and empiric antibiotics. Prognosis is guarded. MMODL / IJN: [id number] /
--- NOTE | 2024-07-25 02:12 | CT ---
EXAM: CT Chest Without Intravenous Contrast CLINICAL HISTORY: ITS.REASON CT Reason: sepsis TECHNIQUE: Axial computed tomography images of the chest without intravenous contrast. CTDI is 5.6 mGy and DLP is 317.4 mGy-cm. This CT exam was performed using one or more of the following dose reduction techniques: automated exposure control, adjustment of the mA and/or kV according to patient size, and/or use of iterative reconstruction technique. COMPARISON: No relevant prior studies available. FINDINGS: Lungs: Airspace consolidation at the LEFT lung base, concerning for round atelectasis. Mild pneumonia/aspiration not excluded. Pleural space: Unremarkable. No pneumothorax. No significant effusion. Heart: Unremarkable. No cardiomegaly. No significant pericardial effusion. No significant coronary artery calcifications. Mediastinum: Mild-moderate hiatal hernia. Bones/joints: Unremarkable. No acute fracture. No dislocation. Soft tissues: Unremarkable. Vasculature: Unremarkable. No thoracic aortic aneurysm. Lymph nodes: Unremarkable. No enlarged lymph nodes. Tubes, lines and devices: Pacemaker leads. IMPRESSION: 1. Airspace consolidation at the LEFT lung base, concerning for round atelectasis. Mild pneumonia/aspiration not excluded. 2. Mild-moderate hiatal hernia. EXAM: CT Abdomen Without Intravenous Contrast CLINICAL HISTORY: ITS.REASON CT Reason: sepsis TECHNIQUE: Axial computed tomography images of the abdomen without intravenous contrast. CTDI is 5.6 mGy and DLP is 317.4 mGy-cm. This CT exam was performed using one or more of the following dose reduction techniques: automated exposure control, adjustment of the mA and/or kV according to patient size, and/or use of iterative reconstruction technique. COMPARISON: No relevant prior studies available. FINDINGS: Lung bases: Unremarkable. No mass. No consolidation. Mediastinum: Mild-moderate hiatal hernia. Liver: Unremarkable. Gallbladder and bile ducts: Unremarkable. No calcified stones. No ductal dilation. Pancreas: Unremarkable. No ductal dilation. Spleen: Unremarkable. No splenomegaly. Adrenals: Unremarkable. No mass. Kidneys and ureters: Unremarkable. No obstructing stones. No hydronephrosis. Stomach and bowel: Unremarkable. No obstruction. No mucosal thickening. Intraperitoneal space: Unremarkable. No free air. No significant fluid collection. Bones/joints: No acute fracture. No dislocation. Soft tissues: Unremarkable. Vasculature: Unremarkable. No abdominal aortic aneurysm. Lymph nodes: Unremarkable. No enlarged lymph nodes. IMPRESSION: No renal stones.
[2024-07-25 06:05] LABS: Glucose,Whole Blood 158 mg/dL (70-110)
[2024-07-25] MEDS: INSULIN LISPRO (HumaLOG) 100 UNIT/ML 10 mL VL SQ SCH (06:39)
[2024-07-25] MEDS: FUROSEMIDE 40 MG TAB PO SCH (08:08)
[2024-07-25] MEDS: SPIRONOLACTONE 25 MG TAB PO SCH (08:08)
[2024-07-25] MEDS: DAPAGLIFLOZIN PROPANEDIOL 10 MG TABLET PO SCH (08:08)
[2024-07-25] MEDS: ATORVASTATIN 80 MG TAB PO SCH (08:08)
[2024-07-25] MEDS: PANTOPRAZOLE 40 MG/10 ML VIAL IV SCH (08:08)
[2024-07-25] MEDS: ASPIRIN 81 MG PO SCH (08:08)
[2024-07-25 12:03] LABS: Glucose,Whole Blood 232 mg/dL (70-110)
--- NOTE | 2024-07-25 12:29 | CA ---
Transthoracic Echo Report Name: Monica Crawley Age: 68 Gender: F : 1955 Exam Date: 07/25/2024 09:16 Exam Location: [facility] Ht (in): 69 Wt (lb): 165 Ordering Physician: Meliton Rojas MD Attending/Referring Phys: Advertising Operations Coordinator Britt Knapp RDCS Procedure CPT: Indications: chf Cardiac Hx: Technical Quality: Fair Contrast 1: Definity Total Dose (mL): 3 Contrast 2: Total Dose (mL): MEASUREMENTS (Male / Female) Normal Values 2D ECHO LV Diastolic Diameter PLAX 4.5 cm 4.2 - 5.9 / 3.9 - 5.3 cm LV Systolic Diameter PLAX 3.1 cm IVS Diastolic Thickness 1.2 cm 0.6 - 1.0 / 0.6 - 0.9 cm LVPW Diastolic Thickness 1.0 cm 0.6 - 1.0 / 0.6 - 0.9 cm LV Relative Wall Thickness 0.5 LVOT Diameter 2.2 cm LV Diastolic Volume MOD BP 117.7 cm??? 67 - 155 / 56 - 104 cm??? LV Systolic Volume MOD BP 50.6 cm??? 22 - 58 / 19 - 49 cm??? LV Ejection Fraction MOD BP 57.0 % >= 55 % LV Cardiac Index MOD BP 2487.8 cm???/min???m??? LV Diastolic Volume MOD 4C 109.3 cm??? LV Systolic Volume MOD 4C 49.0 cm??? LV Ejection Fraction MOD 4C 55.2 % LV Cardiac Index MOD 4C 2236.7 cm???/min???m??? LV Diastolic Length 4C 7.9 cm LV Systolic Length 4C 6.8 cm LV Diastolic Volume MOD 2C 125.9 cm??? LV Systolic Volume MOD 2C 50.5 cm??? LV Ejection Fraction MOD 2C 59.9 % LV Cardiac Index MOD 2C 2792.3 cm???/min???m??? LV Diastolic Length 2C 8.0 cm LV Systolic Length 2C 6.6 cm LA Volume 62.2 cm??? 18 - 58 / 22 - 52 cm??? LA Volume Index 32.5 cm???/m??? 16 - 28 cm???/m??? Ascending Aorta Diameter 3.5 cm M-MODE LV Diastolic Diameter MM 5.1 cm 4.2 - 5.9 / 3.9 - 5.3 cm LV Systolic Diameter MM 3.6 cm LV Cardiac Index MM Teich 2471.4 cm???/min???m??? IVS Diastolic Thickness MM 1.0 cm 0.6 - 1.0 / 0.6 - 0.9 cm LVPW Diastolic Thickness MM 1.2 cm 0.6 - 1.0 / 0.6 - 0.9 cm LV Relative Wall Thickness MM 0.4 0.24 - 0.42 / 0.22 - 0.42 LV Mass Index MM 109.8 g/m??? 49 - 115 / 43 - 95 g/m??? DOPPLER AV Peak Velocity 163.7 cm/s AV Peak Gradient 10.7 mmHg AV Mean Velocity 112.2 cm/s AV Mean Gradient 5.7 mmHg AV Velocity Time Integral 31.6 cm LVOT Peak Velocity 134.1 cm/s LVOT Peak Gradient 7.2 mmHg LVOT Velocity Time Integral 28.4 cm LVOT Stroke Volume 110.9 cm??? LVOT Stroke Volume Index 58.3 ml/m??? LVOT Cardiac Index 4110.9 cm???/min???m??? AV Area Cont Eq vti 3.5 cm??? AV Area Cont Eq pk 3.2 cm??? MV Area PHT 3.1 cm??? Mitral E Point Velocity 100.9 cm/s Mitral A Point Velocity 83.5 cm/s Mitral E to A Ratio 1.2 MV Deceleration Time 246.1 ms TR Peak Velocity 286.6 cm/s TR Peak Gradient 32.9 mmHg Right Atrial Pressure 5.0 mmHg Pulmonary Artery Systolic Pressu 37.9 mmHg Right Ventricular Systolic Press 37.9 mmHg PV Peak Velocity 107.7 cm/s PV Peak Gradient 4.6 mmHg FINDINGS Left Ventricle Left ventricular ejection fraction is estimated at 55-60 %. Moderately increased left ventricular mass. Mildly increased septal wall thickness. Mildly increased posterior wall thickness. Mildly decreased midwall fractional shortening. Mildly increased left ventricular diastolic volume. Mildly increased left ventricular systolic volume. Mildly increased left ventricular relative wall thickness. No obvious regional wall motion abnormalities. Right Ventricle Mild right ventricular dilatation. Normal right ventricular global systolic function. Mild pulmonary hypertension. Right Atrium Right atrial dilatation. Catheter/pacemaker wire in the right atrial cavity. Left Atrium Mildly increased left atrial volume. Mitral Valve Structurally normal mitral valve. Mild mitral annular calcification. No evidence for mitral valve prolapse. No mitral stenosis. Trace to mild mitral regurgitation. Aortic Valve Trileaflet aortic valve. Diffuse thickening (sclerosis) of the aortic valve cusps without reduced excursion. No aortic stenosis. Trace aortic regurgitation. Tricuspid Valve Structurally normal tricuspid valve. No tricuspid stenosis. Moderate tricuspid regurgitation. Pulmonic Valve Structurally normal pulmonic valve. No pulmonic stenosis. Trace pulmonic regurgitation. Pericardium No pericardial effusion. Aorta Normal size aortic root and proximal ascending aorta. CONCLUSIONS LVEF estimated at 55-60 %. No obvious regional wall motion abnormalities. Mild concentric LVH PPM wire noticed in RA and RV Mild biatrial dilatation. Mild RV dilatation Mild pulmonary hypertension RVSP estimated at 38 mmHg Thickened aortic valve leaflet with no significant stenosis Moderate tricuspid regurgitation. Previewed by: Dr Travis Espinoza (Electronically Signed) Final Date: 25 July 2024 12:28
[2024-07-25] MEDS: SODIUM CHLORIDE 0.9% 1,000 ML IV SCH (12:32)
[2024-07-25 13:00] LABS: Basophils # (A) 0.08 10*3/uL (0.00-0.10); Basophils % (A) 0.5 %; Eosinophils # (A) 0.02 10*3/uL (0.04-0.35); Eosinophils % (A) 0.1 %; HCT 30.9 % (37.2-46.3); HGB 10.6 g/dL (12.0-15.0); Lymphocytes # (A) 0.56 10*3/uL (0.90-5.00); Lymphocytes % (A) 3.3 %; MCH 30.5 pg (27.0-32.0); MCHC 34.3 g/dL (32.0-37.0); Mean Platelet Volume 11.9 fL (9.5-12.2); Monocytes # (A) 1.55 10*3/uL (0.20-1.00); Monocytes % (A) 9.1 %; Neutrophils # (A) 14.69 10*3/uL (1.80-7.70); Neutrophils % (A) 86.3 %; Platelet Count 87 10*3/uL (140-440); RBC 3.47 10*6/uL (4.10-5.20); RDW 13.9 % (11.5-14.5); WBC 17.02 10*3/uL (4.50-10.00)
[2024-07-25 13:16] LABS: ALT 38 U/L (4-34); AST 44 U/L (14-36); African American GFR (CKD) 47 (>60 ml/min/1.73 sqM); Albumin 2.6 g/dL (3.5-5.0); Albumin/Globulin Ratio 0.8; Alkaline Phosphatase 113 U/L (38-126); Anion Gap 14 mmol/L; Blood Urea Nitrogen 64 mg/dL (7-17); Calcium 8.2 mg/dL (8.4-10.2); Carbon Dioxide 14 mmol/L (22-30); Chloride 104 mmol/L (98-107); Globulin 3.4 g/dL; Glucose 201 mg/dL (74-99); Non-African American GFR(CKD) 41 (>60 ml/min/1.73 sqM); Potassium 4.5 mmol/L (3.5-5.1); Sodium 132 mmol/L (137-145); Total Bilirubin 0.8 mg/dL (0.2-1.3)
--- NOTE | 2024-07-25 13:27 | P.PN ---
Subjective Progress Note Date: 07/25/24 This is a pleasant 68 year old female patient of Dr Meliton Rojas. Patient comes in with complaints of weakness and dysuria. Patient feels like she has a urinary tract infection. On admission creatinine 1.9 and white blood cell count 22. Urine and blood cultures were taken. Patient has been started on IV ceftriaxone. Labs today reveal a sodium level of 132, BUN 64, creatinine 1.35. AST ALT and alk phos improving. Procalcitonin was 1.45. Echocardiogram reveals an EF 55-60% with moderate TR. Mild pulmonary hypertension Review of Systems Constitutional: Denied any fatigue denied any fever. Cardio vascular: denied any chest pain, palpitations Gastrointestinal: denied any nausea, vomiting, diarrhea Pulmonary: Denied any shortness of breath cough Neurologic denied any new focal deficits All inpatient medications were reviewed and appropriate changes in these medications as dictated in the interval history and assessment and plan. PHYSICAL EXAMINATION: GENERAL: The patient is alert and oriented x3, not in any acute distress. Well developed, well nourished. HEENT: Pupils are round and equally reacting to light. EOMI. No scleral icterus. No conjunctival pallor. Normocephalic, atraumatic. No pharyngeal erythema. No thyromegaly. CARDIOVASCULAR: S1 and S2 present. No murmurs, rubs, or gallops. PULMONARY: Chest is clear to auscultation, no wheezing or crackles. ABDOMEN: Soft, nontender, nondistended, normoactive bowel sounds. No palpable organomegaly. MUSCULOSKELETAL: No joint swelling or deformity. EXTREMITIES: No cyanosis, clubbing, or pedal edema. NEUROLOGICAL: Gross neurological examination did not reveal any focal deficits. SKIN: No rashes. Assessment and Plan Generalized weakness from infection/sepsis Acute urinary tract infection with sepsis present on admission Acute kidney injury, ATN from sepsis improving with IV fluids Diabetes mellitus type 2 Coronary artery disease Chronic diastolic dysfunction does not appear to be any acute exacerbation lasix is held Hypertension currently hypotensive lisinopril is held Former smoker GI prophylaxis Full Code Plan Continue IV ceftriaxone Pending culture; urine and blood ID following Cardiology following Continue normal saline at 75 mls/hr Repeat blood work in the AM The impression and plan of care has been dictated by Isela Sousa, Nurse Practitioner as directed. Dr. Collin MD I have performed a history and physical examination and medical decision making of this patient, discussed the same with the dictator, and agree with the dictators assessment and plan as written, documented as a scribe. Based on total visit time, I have performed more than 50% of this visit. Objective - Vital Signs Vital signs: Vital Signs Temp 98.5 F 07/25/24 07:06 Pulse 74 07/25/24 07:06 Resp 18 07/25/24 10:27 BP 91/59 07/25/24 07:06 Pulse Ox 98 07/25/24 07:06 FiO2 Intake & Output 07/24/24 07/25/24 07/25/24 18:59 06:59 18:59 Intake Total 720 Output Total 400 450 400 Balance -400 270 -400 Weight 74.843 kg 74.843 kg Intake: Oral 720 Output: Urine 400 450 Uretheral (Sellers) 400 Post Void Residual 400 Other: Voiding Method Diaper Diaper # Voids 2 1 # Bowel Movements 1 - Labs CBC & Chem 7: 07/24/24 16:13 07/24/24 16:13 Labs: Abnormal Lab Results - Last 24 Hours (Table) 07/24/24 07/24/24 07/24/24 Range/Units 15:44 16:13 16:13 WBC 22.37 H (4.50-10.00) 10*3/uL RBC 3.68 L (4.10-5.20) 10*6/uL Hgb 10.9 L (12.0-15.0) g/dL Hct 32.1 L (37.2-46.3) % Plt Count 120 L (140-440) 10*3/uL Immature Gran # 0.23 H (0.00-0.04) 10*3/uL Neutrophils # 21.06 H (1.80-7.70) 10*3/uL Lymphocytes # 0.31 L (0.90-5.00) 10*3/uL PT (10.0-12.5) sec INR (<1.2) Sodium 126 L (137-145) mmol/L Carbon Dioxide 12 L (22-30) mmol/L BUN 86 H (7-17) mg/dL Creatinine 1.93 H (0.52-1.04) mg/dL Glucose 202 H (74-99) mg/dL POC Glucose (mg/dL) 222 H (70-110) mg/dL Plasma Lactic Acid Diogenes (0.7-2.0) mmol/L Calcium 7.9 L (8.4-10.2) mg/dL Magnesium 2.7 H (1.6-2.3) mg/dL AST 45 H (14-36) U/L ALT 40 H (4-34) U/L Alkaline Phosphatase 136 H (38-126) U/L Total Protein 6.2 L (6.3-8.2) g/dL Albumin 2.8 L (3.5-5.0) g/dL Procalcitonin (0.02-0.50) ng/mL Urine Appearance (Clear) Urine Protein (Negative) Urine Glucose (UA) (Negative) Urine Ketones (Negative) Urine Blood (Negative) Amorphous Sediment (None) /hpf Urine Bacteria (None) /hpf Urine Mucus (None) /hpf 07/24/24 07/24/24 07/24/24 Range/Units 16:13 16:18 17:30 WBC (4.50-10.00) 10*3/uL RBC (4.10-5.20) 10*6/uL Hgb (12.0-15.0) g/dL Hct (37.2-46.3) % Plt Count (140-440) 10*3/uL Immature Gran # (0.00-0.04) 10*3/uL Neutrophils # (1.80-7.70) 10*3/uL Lymphocytes # (0.90-5.00) 10*3/uL PT 12.7 H (10.0-12.5) sec INR 1.2 H (<1.2) Sodium (137-145) mmol/L Carbon Dioxide (22-30) mmol/L BUN (7-17) mg/dL Creatinine (0.52-1.04) mg/dL Glucose (74-99) mg/dL POC Glucose (mg/dL) (70-110) mg/dL Plasma Lactic Acid Diogenes 2.2 H* (0.7-2.0) mmol/L Calcium (8.4-10.2) mg/dL Magnesium (1.6-2.3) mg/dL AST (14-36) U/L ALT (4-34) U/L Alkaline Phosphatase (38-126) U/L Total Protein (6.3-8.2) g/dL Albumin (3.5-5.0) g/dL Procalcitonin (0.02-0.50) ng/mL Urine Appearance Cloudy H (Clear) Urine Protein Trace H (Negative) Urine Glucose (UA) 4+ H (Negative) Urine Ketones Trace H (Negative) Urine Blood Trace H (Negative) Amorphous Sediment Occasional H (None) /hpf Urine Bacteria Rare H (None) /hpf Urine Mucus Rare H (None) /hpf 07/24/24 07/24/24 07/25/24 Range/Units 20:11 23:56 06:04 WBC (4.50-10.00) 10*3/uL RBC (4.10-5.20) 10*6/uL Hgb (12.0-15.0) g/dL Hct (37.2-46.3) % Plt Count (140-440) 10*3/uL Immature Gran # (0.00-0.04) 10*3/uL Neutrophils # (1.80-7.70) 10*3/uL Lymphocytes # (0.90-5.00) 10*3/uL PT (10.0-12.5) sec INR (<1.2) Sodium (137-145) mmol/L Carbon Dioxide (22-30) mmol/L BUN (7-17) mg/dL Creatinine (0.52-1.04) mg/dL Glucose (74-99) mg/dL POC Glucose (mg/dL) 138 H 158 H (70-110) mg/dL Plasma Lactic Acid Diogenes (0.7-2.0) mmol/L Calcium (8.4-10.2) mg/dL Magnesium (1.6-2.3) mg/dL AST (14-36) U/L ALT (4-34) U/L Alkaline Phosphatase (38-126) U/L Total Protein (6.3-8.2) g/dL Albumin (3.5-5.0) g/dL Procalcitonin 1.45 H (0.02-0.50) ng/mL Urine Appearance (Clear) Urine Protein (Negative) Urine Glucose (UA) (Negative) Urine Ketones (Negative) Urine Blood (Negative) Amorphous Sediment (None) /hpf Urine Bacteria (None) /hpf Urine Mucus (None) /hpf 07/25/24 Range/Units 12:01 WBC (4.50-10.00) 10*3/uL RBC (4.10-5.20) 10*6/uL Hgb (12.0-15.0) g/dL Hct (37.2-46.3) % Plt Count (140-440) 10*3/uL Immature Gran # (0.00-0.04) 10*3/uL Neutrophils # (1.80-7.70) 10*3/uL Lymphocytes # (0.90-5.00) 10*3/uL PT (10.0-12.5) sec INR (<1.2) Sodium (137-145) mmol/L Carbon Dioxide (22-30) mmol/L BUN (7-17) mg/dL Creatinine (0.52-1.04) mg/dL Glucose (74-99) mg/dL POC Glucose (mg/dL) 232 H (70-110) mg/dL Plasma Lactic Acid Diogenes (0.7-2.0) mmol/L Calcium (8.4-10.2) mg/dL Magnesium (1.6-2.3) mg/dL AST (14-36) U/L ALT (4-34) U/L Alkaline Phosphatase (38-126) U/L Total Protein (6.3-8.2) g/dL Albumin (3.5-5.0) g/dL Procalcitonin (0.02-0.50) ng/mL Urine Appearance (Clear) Urine Protein (Negative) Urine Glucose (UA) (Negative) Urine Ketones (Negative) Urine Blood (Negative) Amorphous Sediment (None) /hpf Urine Bacteria (None) /hpf Urine Mucus (None) /hpf Assessment and Plan Time with Patient: Less than 30
--- NOTE | 2024-07-25 13:31 | P.CRDCN ---
History of Present Illness Consult date: 07/25/24 Consult reason: congestive heart failure History of present illness: This is a 68-year-old female patient with history of hypertension, diabetes and hyperlipidemia ischemic cardiomyopathy status post multivessel stenting and a biventricular ICD implantation done at [facility]. Have been asked to evaluate the patient for heart failure. Patient gives history that she has a total of 7 stents. She last saw her cellophane tester in April of this year and everything was stable at that time. She states she has been walking and exercising on a regular basis. She states that 1 day last week she was at [facility] and it seemed like she was very cold outside she was feeling weak following that. She states she did not have any fever but on Sunday she developed sweats and thought she was coming down with something. She was not feeling well and her sister checked on her on Sunday. At that time she had not been eating or drinking very well. Her sister came back on to check on her and apparently the patient was out of it. She had not been eating or drinking but she had been taking all of her cardiac medications. She was brought into [facility] emergency center for evaluation. She currently denies chest pain or chest pressure, no palpitations, no shortness of breath. Blood pressure 91/59, heart rate in the 70s and 80s, pulse ox 98% on room air. EKG: Sinus rhythm, poor quality EKG Laboratory studies: WBC 22.3, hemoglobin 10.9, sodium 126, BUN 86 creatinine 1.93. Lactic acid 2.2 followed by 1.1. Magnesium 2.7. Troponin negative x 2. proBNP 6930. Acetone negative. COVID-[address] brain: No acute process. CT of the chest revealed airspace consolidation at the left lung base concerning for round atelectasis. Mild pneumonia aspiration not excluded. Mild to moderate hiatal hernia. Cardiomegaly with small to moderate bilateral pleural effusions with anasarca and ascites concerning for congestive heart failure Echocardiogram performed 07/24 revealed EF 55 to 60%. Mild concentric LVH. Mild biatrial dilatation. Mild RV dilatation. Mild pulmonary hypertension with RVSP 38 mmHg. Thickened aortic valve leaflets without significant stenosis. Moderate tricuspid regurgitation. Home cardiac medications: Aspirin 81 mg daily, atorvastatin 80 mg at bedtime, carvedilol 6.25 mg twice daily, Jardiance 25 mg daily, Lasix 40 mg daily, lisinopril 2.5 mg daily, spironolactone 25 mg twice daily Review Of Systems: Constitutional: No fever, no chills, no night sweats. Reports weight change. EENT: No headache. No dizziness. No nasal drainage or congestion. No epistaxis. No sore throat. Lungs: Reports shortness of breath, cough, no sputum production. No wheezing. Cardiovascular: No chest pain, no edema. No palpitations. No paroxysmal nocturnal dyspnea. No orthopnea. No lightheadedness or dizziness. No syncopal episodes. Abdominal: No abdominal pain. No nausea, vomiting. No diarrhea. No constipation. No bloody or tarry stools. Musculoskeletal: No myalgias. Reports muscle weakness. Neurologic: No aphasia. No facial droop. No change in mentation. No head injury. No headache. No paralysis. No paresthesia. PHYSICAL EXAM: VITAL SIGNS: Reviewed. GENERAL: Well-developed in no acute distress. NECK: Supple. No JVD or thyromegaly LUNGS: Respirations even and unlabored. Lungs clear to auscultation. HEART: Regular rate and rhythm. S1 and S2 heard. EXTREMITIES: Normal range of motion. No clubbing or cyanosis. Peripheral pulses intact. No pitting edema ASSESSMENT: Metabolic encephalopathy secondary to dehydration Acute kidney injury Hyponatremia Lactic acidosis Chronic systolic heart failure, reduced ejection fraction Ischemic cardiomyopathy status post AICD Coronary artery disease with prior stenting unknown details all performed at [facility] Chronic kidney disease Diabetes mellitus type 2 PLAN: Resume patient's home cardiac medications with the following changes Hold Lasix, lisinopril and Aldactone Decrease IV fluids to 75 cc/h for total of 1 L and then stop Obtain 2D echocardiogram Further recommendations pending patient's course Nurse practitioner note has been reviewed, I agree with documented findings and plan of care. Patient was seen and examined. Past Medical History Past Medical History: Coronary Artery Disease (CAD), Heart Failure, Diabetes Mellitus, Hypertension Additional Past Medical History / Comment(s): pacemaker History of Any Multi-Drug Resistant Organisms: None Reported Past Surgical History: Orthopedic Surgery Additional Past Surgical History / Comment(s): pacemaker, L hip surger Past Anesthesia/Blood Transfusion Reactions: No Reported Reaction Date of Last Stent Placement:: 06/27/20 Past Psychological History: No Psychological Hx Reported Smoking Status: Former smoker Past Alcohol Use History: None Reported Past Drug Use History: None Reported Medications and Allergies Home Medications Medication Instructions Recorded Confirmed Type Atorvastatin Calcium [Lipitor] 80 mg PO DAILY 12/31/21 07/24/24 History carvediloL [Coreg] 6.25 mg PO BID 12/31/21 07/24/24 History glipiZIDE 10 mg PO BID 12/31/21 07/24/24 History Aspirin EC [Ecotrin Low Dose] 81 mg PO DAILY 06/08/22 07/24/24 History INSULIN ASPART (NovoLOG) [NovoLOG 10 unit SQ TID-W/MEALS 06/08/22 07/24/24 History (formulary)] Omeprazole 40 mg PO DAILY 06/08/22 07/24/24 History Spironolactone [Aldactone] 25 mg PO DAILY 90 Days #90 tab 06/13/22 07/24/24 Rx lisinopriL [Zestril] 2.5 mg PO DAILY 90 Days #90 tab 06/13/22 07/24/24 Rx Empagliflozin [Jardiance] 25 mg PO DAILY 07/24/24 07/24/24 History Furosemide [Lasix] 40 mg PO DAILY 07/24/24 07/24/24 History Allergies Allergy/AdvReac Type Severity Reaction Status Date / Time moxifloxacin [From Avelox] Allergy Anaphylaxis Verified 07/24/24 16:10 Physical Exam Vitals: Vital Signs Temp Pulse Pulse Resp BP BP Pulse Ox 07/25/24 10:27 18 07/25/24 07:06 98.5 F 74 18 91/59 98 07/25/24 00:38 98.4 F 82 18 101/58 100 07/24/24 19:31 98.3 F 89 18 98/62 97 07/24/24 19:02 99.6 F 87 18 100/58 99 07/24/24 17:34 89 16 108/47 99 07/24/24 15:42 96 14 94/50 99 07/24/24 15:38 98.8 F 98 18 80/48 99 Intake and Output 07/24/24 07/25/24 07/25/24 22:59 06:59 14:59 Intake Total 720 Output Total 400 450 400 Balance -400 270 -400 Intake: Oral 720 Output: Urine 400 450 Uretheral (Sellers) 400 Post Void Residual 400 Other: Voiding Method Diaper Diaper # Voids 2 1 # Bowel Movements 1 Weight 74.843 kg Results 07/24/24 16:13 07/25/24 10:27 Cardiac Enzymes 07/24/24 07/24/24 07/24/24 Range/Units 16:13 16:18 23:56 AST 45 H (14-36) U/L Troponin I <0.012 <0.012 (0.000-0.034) ng/mL Coagulation 07/24/24 Range/Units 16:18 PT 12.7 H (10.0-12.5) sec APTT 25.2 (22.0-30.0) sec CBC 07/24/24 Range/Units 16: WBC 22.37 H (4.50-10.00) 10*3/uL RBC 3.68 L (4.10-5.20) 10*6/uL Hgb 10.9 L (12.0-15.0) g/dL Hct 32.1 L (37.2-46.3) % Plt Count 120 L (140-440) 10*3/uL Comprehensive Metabolic Panel 07/24/24 Range/Units 16:13 Sodium 126 L (137-145) mmol/L Potassium 4.5 (3.5-5.1) mmol/L Chloride 98 (98-107) mmol/L Carbon Dioxide 12 L (22-30) mmol/L BUN 86 H (7-17) mg/dL Creatinine 1.93 H (0.52-1.04) mg/dL Glucose 202 H (74-99) mg/dL Calcium 7.9 L (8.4-10.2) mg/dL AST 45 H (14-36) U/L ALT 40 H (4-34) U/L Alkaline Phosphatase 136 H (38-126) U/L Total Protein 6.2 L (6.3-8.2) g/dL Albumin 2.8 L (3.5-5.0) g/dL Current Medications Generic Name Dose Route Start Last Admin Trade Name Freq PRN Reason Stop Dose Admin Aspirin 81 mg 07/25/24 09:00 07/25/24 08:08 Aspirin 81 Mg PO 81 mg DAILY MARIA Administration Atorvastatin Calcium 80 mg 07/25/24 09:00 07/25/24 08:08 Atorvastatin 80 Mg Tab PO 80 mg DAILY MARIA Administration Carvedilol 6.25 mg 07/25/24 21:00 Carvedilol 6.25 Mg Tab PO BID-W/MEALS MARIA Dapagliflozin 10 mg 07/25/24 09:00 07/25/24 08:08 Dapagliflozin Propanediol 10 Mg Tablet PO 10 mg DAILY MAIRA Administration Furosemide 40 mg 07/25/24 09:00 07/25/24 08:08 Furosemide 40 Mg Tab PO 40 mg DAILY MARIA Administration Sodium Chloride 1,000 mls @ 130 mls/hr 07/24/24 18:15 07/25/24 08:09 Saline 0.9% IV Not Given .[id number] MARIA Ceftriaxone Sodium 2 gm/ 50 mls @ 100 mls/hr 07/25/24 00:04 07/25/24 08:08 Dextrose/Water IVPB 100 mls/hr Q24HR MARIA Administration Protocol Insulin Human Lispro 0 unit 07/25/24 07:30 07/25/24 06:39 Insulin Lispro (Humalog) 100 Unit/Ml 10 Ml Vl SQ 2 unit ACHS [facility] Administration Protocol Naloxone HCl 0.2 mg 07/24/24 18:09 Naloxone 0.4 Mg/Ml 1 Ml Vial IV Q2M PRN Opioid Reversal Ondansetron HCl 4 mg 07/24/24 18:09 Ondansetron 4 Mg/2 Ml Vial IVP Q8HR PRN Nausea And Vomiting Pantoprazole Sodium 40 mg 07/25/24 09:00 07/25/24 08:08 Pantoprazole 40 Mg/10 Ml Vial IV 40 mg DAILY MARIA Administration Pantoprazole Sodium 40 mg 07/24/24 23:45 07/25/24 06:39 Pantoprazole 40 Mg Tablet PO 40 mg [id number] MARIA Administration Spironolactone 25 mg 07/25/24 09:00 07/25/24 08:08 Spironolactone 25 Mg Tab PO 25 mg DAILY MARIA Administration Intake and Output 07/24/24 07/25/24 07/25/24 22:59 06:59 14:59 Intake Total 720 Output Total 400 450 400 Balance -400 270 -400 Intake: Oral 720 Output: Urine 400 450 Uretheral (Sellers) 400 Post Void Residual 400 Other: Voiding Method Diaper Diaper # Voids 2 1 # Bowel Movements 1 Weight 74.843 kg 07/24/24 16:13 07/24/24 16:13
[2024-07-25 13:43] LABS: RBC Morphology Normal
[2024-07-25 16:43] LABS: Glucose,Whole Blood 241 mg/dL (70-110)
[2024-07-25 20:19] LABS: Glucose,Whole Blood 235 mg/dL (70-110)
[2024-07-25] MEDS: TAMSULOSIN 0.4 MG CAP.ER.24H PO SCH (20:48)
[2024-07-25] MEDS: carvediloL 6.25 MG TAB PO SCH (20:49)
[2024-07-25] MEDS ORDERED: INSULIN GLARGINE (LANTUS) 100 UNIT/ML SYR SQ SCH (21:00)
[2024-07-25] MEDS: INSULIN GLARGINE (LANTUS) 100 UNIT/ML SYR SQ SCH (21:56)
--- NOTE | 2024-07-25 23:15 | P.CONS ---
History of Present Illness - Reason for Consult Consult date: 07/25/24 Sepsis Requesting physician: Meliton Rojas - Chief Complaint Weakness x few days - History of Present Illness Patient is a 68-year-old female with a past medical history significant for Coronary Artery Disease (CAD), Heart Failure, Diabetes Mellitus, Hypertension presenting to the hospital for evaluation of weakness nausea decreased appetite patient was brought into the hospital by the family who visited her and find her to be very weak patient complaining generalized weakness low energy patient denies having any headache or URI symptoms no chest pain no shortness with occasional cough patient did have some nausea but no vomiting decreased appetite no abdominal pain did have some urinary frequency but no hematuria patient on presentation to the hospital was afebrile had no fever Blood culture subsequently patient was mildly tachycardic with heart rate of 98 and borderline hypotensive but no need for pressor support patient was not hypoxic no need for supplemental oxygen patient did have white count of 22.37 with a left shift BUN and creatinine has been mildly elevated as well as liver enzymes urine work was significantly positive patient did have CT of the chest abdominal pelvis which shows airspace consolidation left lung base mild pneumoni a aspiration not excluded an abnormality on the CT abdominal pelvis did not show any acute abnormality in the abdominal pelvis,Patient was started on Rocephin infectious disease was consulted for further management of antibiotic therapy Review of Systems Positive point and negatives has been mentioned in the HPI, complete review of systems was performed and all other systems are negative Past Medical History Past Medical History: Coronary Artery Disease (CAD), Heart Failure, Diabetes Mellitus, Hypertension Additional Past Medical History / Comment(s): pacemaker History of Any Multi-Drug Resistant Organisms: None Reported Past Surgical History: Orthopedic Surgery Additional Past Surgical History / Comment(s): pacemaker, L hip surger Past Anesthesia/Blood Transfusion Reactions: No Reported Reaction Date of Last Stent Placement:: 06/27/20 Past Psychological History: No Psychological Hx Reported Smoking Status: Former smoker Past Alcohol Use History: None Reported Past Drug Use History: None Reported Medications and Allergies Home Medications Medication Instructions Recorded Confirmed Type Atorvastatin Calcium [Lipitor] 80 mg PO DAILY 12/31/21 07/24/24 History carvediloL [Coreg] 6.25 mg PO BID 12/31/21 07/24/24 History glipiZIDE 10 mg PO BID 12/31/21 07/24/24 History Aspirin EC [Ecotrin Low Dose] 81 mg PO DAILY 06/08/22 07/24/24 History INSULIN ASPART (NovoLOG) [NovoLOG 10 unit SQ TID-W/MEALS 06/08/22 07/24/24 History (formulary)] Omeprazole 40 mg PO DAILY 06/08/22 07/24/24 History Spironolactone [Aldactone] 25 mg PO DAILY 90 Days #90 tab 06/13/22 07/24/24 Rx lisinopriL [Zestril] 2.5 mg PO DAILY 90 Days #90 tab 06/13/22 07/24/24 Rx Empagliflozin [Jardiance] 25 mg PO DAILY 07/24/24 07/24/24 History Furosemide [Lasix] 40 mg PO DAILY 07/24/24 07/24/24 History Allergies Allergy/AdvReac Type Severity Reaction Status Date / Time moxifloxacin [From Avelox] Allergy Anaphylaxis Verified 07/24/24 16:10 Physical Exam Vitals: Vital Signs Temp Pulse Pulse Resp BP BP Pulse Ox 07/25/24 10:27 18 07/25/24 07:06 98.5 F 74 18 91/59 98 07/25/24 00:38 98.4 F 82 18 101/58 100 07/24/24 19:31 98.3 F 89 18 98/62 97 07/24/24 19:02 99.6 F 87 18 100/58 99 07/24/24 17:34 89 16 108/47 99 07/24/24 15:42 96 14 94/50 99 07/24/24 15:38 98.8 F 98 18 80/48 99 Intake and Output 07/24/24 07/25/24 07/25/24 22:59 06:59 14:59 Intake Total 720 Output Total 400 450 400 Balance -400 270 -400 Intake: Oral 720 Output: Urine 400 450 Uretheral (Sellers) 400 Post Void Residual 400 Other: Voiding Method Diaper Diaper # Voids 2 1 # Bowel Movements 1 Weight 74.843 kg GENERAL DESCRIPTION: Elderly female lying in bed, no distress. No tachypnea or accessory muscle of respiration use. HEENT: Shows Pallor , no scleral icterus. Oral mucous membrane is dry. NECK: Trachea central, no thyromegaly. LUNGS: Unlabored breathing. Decreased breath sound at the base HEART: S1, S2, regular rate and rhythm. No loud murmur ABDOMEN: Soft, no tenderness , guarding or rigidity, no organomegaly EXTREMITIES: No edema of feet. SKIN: No rash, no masses palpable. NEUROLOGICAL: The patient is awake, alert, oriented x3, mood and affect normal. Results CBC & Chem 7: 07/25/24 10:27 07/25/24 10:27 Labs: Abnormal Lab Results - Last 24 Hours (Table) 07/24/24 07/24/24 07/24/24 Range/Units 15:44 16:13 16:13 WBC 22.37 H (4.50-10.00) 10*3/uL RBC 3.68 L (4.10-5.20) 10*6/uL Hgb 10.9 L (12.0-15.0) g/dL Hct 32.1 L (37.2-46.3) % Plt Count 120 L (140-440) 10*3/uL Immature Gran # 0.23 H (0.00-0.04) 10*3/uL Neutrophils # 21.06 H (1.80-7.70) 10*3/uL Lymphocytes # 0.31 L (0.90-5.00) 10*3/uL PT (10.0-12.5) sec INR (<1.2) Sodium 126 L (137-145) mmol/L Carbon Dioxide 12 L (22-30) mmol/L BUN 86 H (7-17) mg/dL Creatinine 1.93 H (0.52-1.04) mg/dL Glucose 202 H (74-99) mg/dL POC Glucose (mg/dL) 222 H (70-110) mg/dL Plasma Lactic Acid Diogenes (0.7-2.0) mmol/L Calcium 7.9 L (8.4-10.2) mg/dL Magnesium 2.7 H (1.6-2.3) mg/dL AST 45 H (14-36) U/L ALT 40 H (4-34) U/L Alkaline Phosphatase 136 H (38-126) U/L Total Protein 6.2 L (6.3-8.2) g/dL Albumin 2.8 L (3.5-5.0) g/dL Procalcitonin (0.02-0.50) ng/mL Urine Appearance (Clear) Urine Protein (Negative) Urine Glucose (UA) (Negative) Urine Ketones (Negative) Urine Blood (Negative) Amorphous Sediment (None) /hpf Urine Bacteria (None) /hpf Urine Mucus (None) /hpf 07/24/24 07/24/24 07/24/24 Range/Units 16:13 16:18 17:30 WBC (4.50-10.00) 10*3/uL RBC (4.10-5.20) 10*6/uL Hgb (12.0-15.0) g/dL Hct (37.2-46.3) % Plt Count (140-440) 10*3/uL Immature Gran # (0.00-0.04) 10*3/uL Neutrophils # (1.80-7.70) 10*3/uL Lymphocytes # (0.90-5.00) 10*3/uL PT 12.7 H (10.0-12.5) sec INR 1.2 H (<1.2) Sodium (137-145) mmol/L Carbon Dioxide (22-30) mmol/L BUN (7-17) mg/dL Creatinine (0.52-1.04) mg/dL Glucose (74-99) mg/dL POC Glucose (mg/dL) (70-110) mg/dL Plasma Lactic Acid Diogenes 2.2 H* (0.7-2.0) mmol/L Calcium (8.4-10.2) mg/dL Magnesium (1.6-2.3) mg/dL AST (14-36) U/L ALT (4-34) U/L Alkaline Phosphatase (38-126) U/L Total Protein (6.3-8.2) g/dL Albumin (3.5-5.0) g/dL Procalcitonin (0.02-0.50) ng/mL Urine Appearance Cloudy H (Clear) Urine Protein Trace H (Negative) Urine Glucose (UA) 4+ H (Negative) Urine Ketones Trace H (Negative) Urine Blood Trace H (Negative) Amorphous Sediment Occasional H (None) /hpf Urine Bacteria Rare H (None) /hpf Urine Mucus Rare H (None) /hpf 07/24/24 07/24/24 07/25/24 Range/Units 20:11 23:56 06:04 WBC (4.50-10.00) 10*3/uL RBC (4.10-5.20) 10*6/uL Hgb (12.0-15.0) g/dL Hct (37.2-46.3) % Plt Count (140-440) 10*3/uL Immature Gran # (0.00-0.04) 10*3/uL Neutrophils # (1.80-7.70) 10*3/uL Lymphocytes # (0.90-5.00) 10*3/uL PT (10.0-12.5) sec INR (<1.2) Sodium (137-145) mmol/L Carbon Dioxide (22-30) mmol/L BUN (7-17) mg/dL Creatinine (0.52-1.04) mg/dL Glucose (74-99) mg/dL POC Glucose (mg/dL) 138 H 158 H (70-110) mg/dL Plasma Lactic Acid Diogenes (0.7-2.0) mmol/L Calcium (8.4-10.2) mg/dL Magnesium (1.6-2.3) mg/dL AST (14-36) U/L ALT (4-34) U/L Alkaline Phosphatase (38-126) U/L Total Protein (6.3-8.2) g/dL Albumin (3.5-5.0) g/dL Procalcitonin 1.45 H (0.02-0.50) ng/mL Urine Appearance (Clear) Urine Protein (Negative) Urine Glucose (UA) (Negative) Urine Ketones (Negative) Urine Blood (Negative) Amorphous Sediment (None) /hpf Urine Bacteria (None) /hpf Urine Mucus (None) /hpf Assessment and Plan (1) Pneumonia Current Visit: Yes Status: Acute Code(s): J18.9 - PNEUMONIA, UNSPECIFIED ORGANISM SNOMED Code(s): 397898135 (2) Sepsis Current Visit: Yes Status: Acute Code(s): A41.9 - SEPSIS, UNSPECIFIED ORGANISM SNOMED Code(s): 68956263 Plan: 1patient presented hospital with generalized weakness in this patient who did have features of SIRS with tachycardia hypotension elevated white count and evidence of pneumonia on the CT likely source for the sepsis and likely community-acquired as no other obvious focus of infection clinically or on initial investigation 2-we will wait for the blood culture to finalize try to obtain a sputum and check inflammatory markers 3-will treat with Rocephin 2 g daily while waiting for the workup to be completed We will follow on clinical condition and cultures to further adjust medication if needed Thank you for this consultation we will follow the patient along with you Dictation was produced using [email or web address] dictation software. please excuse any grammatical, word or spelling errors. Time with Patient: Greater than 30
[2024-07-26 00:49] LABS: Glucose,Whole Blood 196 mg/dL (70-110)
[2024-07-26 06:19] LABS: Glucose,Whole Blood 174 mg/dL (70-110)
[2024-07-26 10:03] LABS: ALT 39 U/L (8-44); AST 40 U/L (13-35); Albumin 2.4 g/dL (3.8-4.9); Albumin/Globulin Ratio 0.83 Ratio (1.60-3.17); Alkaline Phosphatase 97 U/L (41-126); BUN/Creat Ratio 38.46 Ratio (12.00-20.00); Calcium 7.5 mg/dL (8.7-10.3); Carbon Dioxide 14.9 mmol/L (21.6-31.8); Chloride 106 mmol/L (96-109); Globulin 2.9 g/dL (1.6-3.3); Glucose 166 mg/dL (70-110); Potassium 3.9 mmol/L (3.5-5.5); Sodium 135 mmol/L (135-145); Total Bilirubin 0.3 mg/dL (0.3-1.2); Total Protein 5.3 g/dL (6.2-8.2)
[2024-07-26 11:25] LABS: Acanthocytes 2+ (None Seen); Basophils # (A) 0.04 X 10*3/uL (0.00-0.10); Basophils % (A) 0.3 %; Eosinophils # (A) 0.06 X 10*3/uL (0.04-0.35); Eosinophils % (A) 0.4 %; HCT 28.2 % (37.2-46.3); HGB 9.2 g/dL (12.0-15.0); Lymphocytes # (A) 0.64 X 10*3/uL (0.90-5.00); Lymphocytes % (A) 4.6 %; MCH 29.5 pg (27.0-32.0); MCHC 32.6 g/dL (32.0-37.0); MCV 90.4 FL (80.0-97.0); Mean Platelet Volume 11.3 FL (9.5-12.2); Monocytes % (A) 9.4 %; NRBC Per 100 WBC 0 X 10*3/uL (0.00-0.01); Neutrophils # (A) 11.75 X 10*3/uL (1.80-7.70); Neutrophils % (A) 84.6 %; Platelet Count 88 X 10*3/uL (140-440); RBC 3.12 X 10*6/uL (4.10-5.20); WBC 13.89 X 10*3/uL (4.50-10.00)
--- NOTE | 2024-07-26 11:51 | P.PN ---
Subjective Progress Note Date: 07/26/24 Consult reason: congestive heart failure History of present illness: This is a 68-year-old female patient with history of hypertension, diabetes and hyperlipidemia ischemic cardiomyopathy status post multivessel stenting and a biventricular ICD implantation done at [facility]. Have been asked to evaluate the patient for heart failure. Patient gives history that she has a total of 7 stents. She last saw her floorhand in April of this year and everything was stable at that time. She states she has been walking and exercising on a regular basis. She states that 1 day last week she was at [facility] and it seemed like she was very cold outside she was feeling weak following that. She states she did not have any fever but on Sunday she developed sweats and thought she was coming down with something. She was not feeling well and her sister checked on her on Sunday. At that time she had not been eating or drinking very well. Her sister came back on to check on her and apparently the patient was out of it. She had not been eating or drinking but she had been taking all of her cardiac medications. She was brought into [facility] emergency center for evaluation. She currently denies chest pain or chest pressure, no palpitations, no shortness of breath. Blood pressure 91/59, heart rate in the 70s and 80s, pulse ox 98% on room air. EKG: Sinus rhythm, poor quality EKG Laboratory studies: WBC 22.3, hemoglobin 10.9, sodium 126, BUN 86 creatinine 1.93. Lactic acid 2.2 followed by 1.1. Magnesium 2.7. Troponin negative x 2. proBNP 6930. Acetone negative. COVID-[address] brain: No acute process. CT of the chest revealed airspace consolidation at the left lung base concerning for round atelectasis. Mild pneumonia aspiration not excluded. Mild to moderate hiatal hernia. Cardiomegaly with small to moderate bilateral pleural effusions with anasarca and ascites concerning for congestive heart failure Echocardiogram performed 07/24 revealed EF 55 to 60%. Mild concentric LVH. Mild biatrial dilatation. Mild RV dilatation. Mild pulmonary hypertension with RVSP 38 mmHg. Thickened aortic valve leaflets without significant stenosis. Moderate tricuspid regurgitation. Home cardiac medications: Aspirin 81 mg daily, atorvastatin 80 mg at bedtime, carvedilol 6.25 mg twice daily, Jardiance 25 mg daily, Lasix 40 mg daily, lisinopril 2.5 mg daily, spironolactone 25 mg twice daily 07/25 Patient seen and examined. She states she is feeling much better today and almost back to her baseline. She had a positive blood culture and ID is following for possible pneumonia. Blood pressure remains low and yesterday we held Lasix, lisinopril and Aldactone. We did order IV fluids for 1 L. Echocardiogram reveals EF of 55 to 60%. Mild concentric LVH. RVSP 38. Moderate tricuspid regurgitation. Blood pressure 97/60, heart rate 68, pulse ox 98% on room air. Repeat blood work reveals improvement of her kidney function with BUN 50 creatinine 1.3. WBC 13.[address] Chowdhury reviewed results of testing including echocardiogram with the patient and all questions answered. PHYSICAL EXAM: VITAL SIGNS: Reviewed. GENERAL: Well-developed in no acute distress. NECK: Supple. No JVD or thyromegaly LUNGS: Respirations even and unlabored. Lungs clear to auscultation. HEART: Regular rate and rhythm. S1 and S2 heard. EXTREMITIES: Normal range of motion. No clubbing or cyanosis. Peripheral pulses intact. No pitting edema ASSESSMENT: Metabolic encephalopathy secondary to dehydration Acute kidney injury Hyponatremia Lactic acidosis Bacteremia Chronic systolic heart failure, reduced ejection fraction Ischemic cardiomyopathy status post AICD Coronary artery disease with prior stenting unknown details all performed at [facility] Chronic kidney disease Diabetes mellitus type 2 PLAN: Resume patient's home cardiac medications with the following changes Continue to hold Lasix, lisinopril and Aldactone and resume once appropriate and blood pressures have recovered No further cardiac workup at this time. Cardiology will sign off this case and follow on an as-needed basis. Please reconsult for any new concerns. Patient may follow-up with her primary floorhand in the office in one to 2 weeks. Nurse practitioner note has been reviewed, I agree with documented findings and plan of care. Patient was seen and examined. Objective - Vital Signs Vital signs: Vital Signs Temp 97.3 F L 07/26/24 07:03 Pulse 68 07/26/24 07:03 Resp 18 07/26/24 07:03 BP 97/60 07/26/24 07:03 Pulse Ox 98 07/26/24 07:03 FiO2 Intake & Output 07/25/24 07/26/24 07/26/24 18:59 06:59 18:59 Intake Total 260 Output Total 1400 1200 Balance -1140 -1200 Intake: IV 10 Invasive Line 2 10 Oral 250 Output: Urine 1000 800 Straight 1000 800 Post Void Residual 400 400 Other: Voiding Method Toilet Toilet # Voids 1 1 # Bowel Movements 1 - Labs CBC & Chem 7: 07/26/24 03:10 07/26/24 03:10 Labs: Abnormal Lab Results - Last 24 Hours (Table) 07/25/24 07/25/24 07/25/24 Range/Units 10:27 10:27 12:01 WBC 17.02 H (4.50-10.00) 10*3/uL RBC 3.47 L (4.10-5.20) 10*6/uL Hgb 10.6 L (12.0-15.0) g/dL Hct 30.9 L (37.2-46.3) % Plt Count 87 L (140-440) 10*3/uL Immature Gran # 0.12 H (0.00-0.04) 10*3/uL Neutrophils # 14.69 H (1.80-7.70) 10*3/uL Lymphocytes # 0.56 L (0.90-5.00) 10*3/uL Monocytes # 1.55 H (0.20-1.00) 10*3/uL Eosinophils # 0.02 L (0.04-0.35) 10*3/uL Sodium 132 L (137-145) mmol/L Carbon Dioxide 14 L (22-30) mmol/L Anion Gap (4.00-12.00) mmol/L BUN 64 H (7-17) mg/dL Creatinine 1.35 H (0.52-1.04) mg/dL Est GFR (CKD-EPI) (>=60) BUN/Creatinine Ratio (12.00-20.00) Ratio Glucose 201 H (74-99) mg/dL POC Glucose (mg/dL) 232 H (70-110) mg/dL Calcium 8.2 L (8.4-10.2) mg/dL AST 44 H (14-36) U/L ALT 38 H (4-34) U/L Total Protein 6.0 L (6.3-8.2) g/dL Albumin 2.6 L (3.5-5.0) g/dL Albumin/Globulin Ratio (1.60-3.17) Ratio 07/25/24 07/25/24 07/26/24 Range/Units 16:42 20:17 00:48 WBC (4.50-10.00) 10*3/uL RBC (4.10-5.20) 10*6/uL Hgb (12.0-15.0) g/dL Hct (37.2-46.3) % Plt Count (140-440) 10*3/uL Immature Gran # (0.00-0.04) 10*3/uL Neutrophils # (1.80-7.70) 10*3/uL Lymphocytes # (0.90-5.00) 10*3/uL Monocytes # (0.20-1.00) 10*3/uL Eosinophils # (0.04-0.35) 10*3/uL Sodium (137-145) mmol/L Carbon Dioxide (22-30) mmol/L Anion Gap (4.00-12.00) mmol/L BUN (7-17) mg/dL Creatinine (0.52-1.04) mg/dL Est GFR (CKD-EPI) (>=60) BUN/Creatinine Ratio (12.00-20.00) Ratio Glucose (74-99) mg/dL POC Glucose (mg/dL) 241 H 235 H 196 H (70-110) mg/dL Calcium (8.4-10.2) mg/dL AST (14-36) U/L ALT (4-34) U/L Total Protein (6.3-8.2) g/dL Albumin (3.5-5.0) g/dL Albumin/Globulin Ratio (1.60-3.17) Ratio 07/26/24 07/26/24 Range/Units 03:10 06:08 WBC (4.50-10.00) 10*3/uL RBC (4.10-5.20) 10*6/uL Hgb (12.0-15.0) g/dL Hct (37.2-46.3) % Plt Count (140-440) 10*3/uL Immature Gran # (0.00-0.04) 10*3/uL Neutrophils # (1.80-7.70) 10*3/uL Lymphocytes # (0.90-5.00) 10*3/uL Monocytes # (0.20-1.00) 10*3/uL Eosinophils # (0.04-0.35) 10*3/uL Sodium (137-145) mmol/L Carbon Dioxide 14.9 L (22-30) mmol/L Anion Gap 14.10 H (4.00-12.00) mmol/L BUN 50.0 H (7-17) mg/dL Creatinine (0.52-1.04) mg/dL Est GFR (CKD-EPI) 45 L (>=60) BUN/Creatinine Ratio 38.46 H (12.00-20.00) Ratio Glucose 166 H (74-99) mg/dL POC Glucose (mg/dL) 174 H (70-110) mg/dL Calcium 7.5 L (8.4-10.2) mg/dL AST 40 H (14-36) U/L ALT (4-34) U/L Total Protein 5.3 L (6.3-8.2) g/dL Albumin 2.4 L (3.5-5.0) g/dL Albumin/Globulin Ratio 0.83 L (1.60-3.17) Ratio Microbiology - Last 24 Hours (Table) 07/24/24 23:00 Urine Culture - Final Urine,Voided 07/24/24 18:35 Blood Culture Gram Stain - Preliminary Blood Blood Culture - Preliminary Molecular ID
[2024-07-26 12:02] LABS: Glucose,Whole Blood 296 mg/dL (70-110)
--- NOTE | 2024-07-26 13:17 | P.PN ---
Subjective Progress Note Date: 07/26/24 This is a pleasant 68 year old female patient of Dr Meliton Rojas. Patient comes in with complaints of weakness and dysuria. Patient feels like she has a urinary tract infection. On admission creatinine 1.9 and white blood cell count 22. Urine and blood cultures were taken. Patient has been started on IV ceftriaxone. Labs today reveal a sodium level of 132, BUN 64, creatinine 1.35. AST ALT and alk phos improving. Procalcitonin was 1.45. Echocardiogram reveals an EF 55-60% with moderate TR. Mild pulmonary hypertension 07/26. Patient seen and examined. States she feels better. Vital signs stable. Denies any shortness of breath REVIEW OF SYSTEMS: CONSTITUTIONAL: No fever, no malaise,. CARDIOVASCULAR: No chest pain, no palpitations, no syncope. PULMONARY: As mentioned above GASTROINTESTINAL: No diarrhea, no nausea, no vomiting, no abdominal pain. NEUROLOGICAL: No headaches, no weakness, PHYSICAL EXAMINATION: GENERAL: The patient is alert and oriented x3, not in any acute distress. Well developed, well nourished. HEENT: Pupils are round and equally reacting to light. EOMI. No scleral icterus. No conjunctival pallor. Normocephalic, atraumatic. No pharyngeal erythema. No thyromegaly. CARDIOVASCULAR: S1 and S2 present. No murmurs, rubs, or gallops. PULMONARY: Chest is clear to auscultation, no wheezing or crackles. ABDOMEN: Soft, nontender, nondistended, normoactive bowel sounds. No palpable organomegaly. MUSCULOSKELETAL: No joint swelling or deformity. EXTREMITIES: No cyanosis, clubbing, or pedal edema. NEUROLOGICAL: Gross neurological examination did not reveal any focal deficits. SKIN: No rashes. Assessment and plan Generalized weakness from infection/sepsis Bacterial pneumonia Acute urinary tract infection with sepsis present on admission Acute kidney injury, ATN from sepsis improving with IV fluids Diabetes mellitus type 2 Coronary artery disease Chronic diastolic dysfunction does not appear to be any acute exacerbation lasix is held Hypertension currently hypotensive lisinopril is held Former smoker Monitor vital signs Monitor CBC Monitor CMP Follow-up blood cultures, blood culture positive for Staphylococcus lugdunenisis Continue IV Rocephin Continue aspirin, atorvastatin continue Coreg ID consult Labs and medication were reviewed.. Continue same treatment. Continue with symptomatic treatment. Resume home medication. Monitor labs and vitals. DVT and GI prophylaxis. Further recommendations as per clinical course of the patient Dictation was produced using [employer] dictation software. please excuse any grammatical, word or spelling errors. Objective - Vital Signs Vital signs: Vital Signs Temp 97.3 F L 07/26/24 07:03 Pulse 68 07/26/24 07:03 Resp 18 07/26/24 07:03 BP 97/60 07/26/24 07:03 Pulse Ox 98 07/26/24 07:03 FiO2 Intake & Output 07/25/24 07/26/24 07/26/24 18:59 06:59 18:59 Intake Total 260 Output Total 1400 1200 Balance -1140 -1200 Intake: IV 10 Invasive Line 2 10 Oral 250 Output: Urine 1000 800 Straight 1000 800 Post Void Residual 400 400 Other: Voiding Method Toilet Toilet # Voids 1 1 # Bowel Movements 1 - Labs CBC & Chem 7: 07/26/24 03:10 07/26/24 03:10 Labs: Abnormal Lab Results - Last 24 Hours (Table) 07/25/24 07/25/24 07/25/24 Range/Units 10:27 10:27 16:42 WBC 17.02 H (4.50-10.00) 10*3/uL RBC 3.47 L (4.10-5.20) 10*6/uL Hgb 10.6 L (12.0-15.0) g/dL Hct 30.9 L (37.2-46.3) % Plt Count 87 L (140-440) 10*3/uL Immature Gran # 0.12 H (0.00-0.04) 10*3/uL Neutrophils # 14.69 H (1.80-7.70) 10*3/uL Lymphocytes # 0.56 L (0.90-5.00) 10*3/uL Monocytes # 1.55 H (0.20-1.00) 10*3/uL Eosinophils # 0.02 L (0.04-0.35) 10*3/uL Acanthocytes (Spur) (None Seen) Sodium 132 L (137-145) mmol/L Carbon Dioxide 14 L (22-30) mmol/L Anion Gap (4.00-12.00) mmol/L BUN 64 H (7-17) mg/dL Creatinine 1.35 H (0.52-1.04) mg/dL Est GFR (CKD-EPI) (>=60) BUN/Creatinine Ratio (12.00-20.00) Ratio Glucose 201 H (74-99) mg/dL POC Glucose (mg/dL) 241 H (70-110) mg/dL Calcium 8.2 L (8.4-10.2) mg/dL AST 44 H (14-36) U/L ALT 38 H (4-34) U/L Total Protein 6.0 L (6.3-8.2) g/dL Albumin 2.6 L (3.5-5.0) g/dL Albumin/Globulin Ratio (1.60-3.17) Ratio 07/25/24 07/26/24 07/26/24 Range/Units 20:17 00:48 03:10 WBC 13.89 H (4.50-10.00) 10*3/uL RBC 3.12 L (4.10-5.20) 10*6/uL Hgb 9.2 L (12.0-15.0) g/dL Hct 28.2 L (37.2-46.3) % Plt Count 88 L (140-440) 10*3/uL Immature Gran # 0.10 H (0.00-0.04) 10*3/uL Neutrophils # 11.75 H (1.80-7.70) 10*3/uL Lymphocytes # 0.64 L (0.90-5.00) 10*3/uL Monocytes # 1.30 H (0.20-1.00) 10*3/uL Eosinophils # (0.04-0.35) 10*3/uL Acanthocytes (Spur) 2+ A (None Seen) Sodium (137-145) mmol/L Carbon Dioxide (22-30) mmol/L Anion Gap (4.00-12.00) mmol/L BUN (7-17) mg/dL Creatinine (0.52-1.04) mg/dL Est GFR (CKD-EPI) (>=60) BUN/Creatinine Ratio (12.00-20.00) Ratio Glucose (74-99) mg/dL POC Glucose (mg/dL) 235 H 196 H (70-110) mg/dL Calcium (8.4-10.2) mg/dL AST (14-36) U/L ALT (4-34) U/L Total Protein (6.3-8.2) g/dL Albumin (3.5-5.0) g/dL Albumin/Globulin Ratio (1.60-3.17) Ratio 07/26/24 07/26/24 07/26/24 Range/Units 03:10 06:08 11:59 WBC (4.50-10.00) 10*3/uL RBC (4.10-5.20) 10*6/uL Hgb (12.0-15.0) g/dL Hct (37.2-46.3) % Plt Count (140-440) 10*3/uL Immature Gran # (0.00-0.04) 10*3/uL Neutrophils # (1.80-7.70) 10*3/uL Lymphocytes # (0.90-5.00) 10*3/uL Monocytes # (0.20-1.00) 10*3/uL Eosinophils # (0.04-0.35) 10*3/uL Acanthocytes (Spur) (None Seen) Sodium (137-145) mmol/L Carbon Dioxide 14.9 L (22-30) mmol/L Anion Gap 14.10 H (4.00-12.00) mmol/L BUN 50.0 H (7-17) mg/dL Creatinine (0.52-1.04) mg/dL Est GFR (CKD-EPI) 45 L (>=60) BUN/Creatinine Ratio 38.46 H (12.00-20.00) Ratio Glucose 166 H (74-99) mg/dL POC Glucose (mg/dL) 174 H 296 H (70-110) mg/dL Calcium 7.5 L (8.4-10.2) mg/dL AST 40 H (14-36) U/L ALT (4-34) U/L Total Protein 5.3 L (6.3-8.2) g/dL Albumin 2.4 L (3.5-5.0) g/dL Albumin/Globulin Ratio 0.83 L (1.60-3.17) Ratio Microbiology - Last 24 Hours (Table) 07/24/24 18:35 Blood Culture Gram Stain - Preliminary Blood Blood Culture - Preliminary Staphylococcus lugdunenisis Molecular ID 07/24/24 23:00 Urine Culture - Final Urine,Voided
--- NOTE | 2024-07-26 14:24 | P.PN ---
Subjective Progress Note Date: 07/26/24 Principal diagnosis: Reason for follow-up is pneumonia and bacteremia Patient is a 68-year-old female with a past medical history significant for Coronary Artery Disease (CAD), Heart Failure, Diabetes Mellitus, Hypertension presenting to the hospital for evaluation of weakness nausea decreased appetite patient was brought into the hospital by the family concerning for weakness did have elevated white count CT chest with left lower lobe pneumonia blood cultures are positive for Staphylococcus Lugdunenisis On today's evaluation that is 07/26/2024, patient did not have any fever and denies any chills, patient is breathing comfortably on room air, patient with no chest pain or cough patient did not have any abdominal pain nausea vomiting or any loose stools. The patient white count is down to 13.810, creatinine is 1.3 Objective - Vital Signs Vital signs: Vital Signs Temp 97.3 F L 07/26/24 07:03 Pulse 68 07/26/24 07:03 Resp 18 07/26/24 07:03 BP 97/60 07/26/24 07:03 Pulse Ox 98 07/26/24 07:03 FiO2 Intake & Output 07/25/24 07/26/24 07/26/24 18:59 06:59 18:59 Intake Total 260 Output Total 1400 1200 Balance -1140 -1200 Intake: IV 10 Invasive Line 2 10 Oral 250 Output: Urine 1000 800 Straight 1000 800 Post Void Residual 400 400 Other: Voiding Method Toilet Toilet # Voids 1 1 # Bowel Movements 1 - Exam GENERAL DESCRIPTION: An elderly female lying in bed in no distress RESPIRATORY SYSTEM: Unlabored breathing , decreased breath sounds at bases HEART: S1 S2 regular rate and rhythm , ABDOMEN: Soft , no tenderness EXTREMITIES: No edema feet - Labs CBC & Chem 7: 07/26/24 03:10 07/26/24 03:10 Labs: Abnormal Lab Results - Last 24 Hours (Table) 07/25/24 07/25/24 07/25/24 Range/Units 10:27 16:42 20:17 WBC 17.02 H (4.50-10.00) 10*3/uL RBC 3.47 L (4.10-5.20) 10*6/uL Hgb 10.6 L (12.0-15.0) g/dL Hct 30.9 L (37.2-46.3) % Plt Count 87 L (140-440) 10*3/uL Immature Gran # 0.12 H (0.00-0.04) 10*3/uL Neutrophils # 14.69 H (1.80-7.70) 10*3/uL Lymphocytes # 0.56 L (0.90-5.00) 10*3/uL Monocytes # 1.55 H (0.20-1.00) 10*3/uL Eosinophils # 0.02 L (0.04-0.35) 10*3/uL Acanthocytes (Spur) (None Seen) Carbon Dioxide (21.6-31.8) mmol/L Anion Gap (4.00-12.00) mmol/L BUN (9.0-27.0) mg/dL Est GFR (CKD-EPI) (>=60) BUN/Creatinine Ratio (12.00-20.00) Ratio Glucose (70-110) mg/dL POC Glucose (mg/dL) 241 H 235 H (70-110) mg/dL Calcium (8.7-10.3) mg/dL AST (13-35) U/L Total Protein (6.2-8.2) g/dL Albumin (3.8-4.9) g/dL Albumin/Globulin Ratio (1.60-3.17) Ratio 07/26/24 07/26/24 07/26/24 Range/Units 00:48 03:10 03:10 WBC 13.89 H (4.50-10.00) 10*3/uL RBC 3.12 L (4.10-5.20) 10*6/uL Hgb 9.2 L (12.0-15.0) g/dL Hct 28.2 L (37.2-46.3) % Plt Count 88 L (140-440) 10*3/uL Immature Gran # 0.10 H (0.00-0.04) 10*3/uL Neutrophils # 11.75 H (1.80-7.70) 10*3/uL Lymphocytes # 0.64 L (0.90-5.00) 10*3/uL Monocytes # 1.30 H (0.20-1.00) 10*3/uL Eosinophils # (0.04-0.35) 10*3/uL Acanthocytes (Spur) 2+ A (None Seen) Carbon Dioxide 14.9 L (21.6-31.8) mmol/L Anion Gap 14.10 H (4.00-12.00) mmol/L BUN 50.0 H (9.0-27.0) mg/dL Est GFR (CKD-EPI) 45 L (>=60) BUN/Creatinine Ratio 38.46 H (12.00-20.00) Ratio Glucose 166 H (70-110) mg/dL POC Glucose (mg/dL) 196 H (70-110) mg/dL Calcium 7.5 L (8.7-10.3) mg/dL AST 40 H (13-35) U/L Total Protein 5.3 L (6.2-8.2) g/dL Albumin 2.4 L (3.8-4.9) g/dL Albumin/Globulin Ratio 0.83 L (1.60-3.17) Ratio 07/26/24 07/26/24 Range/Units 06:08 11:59 WBC (4.50-10.00) 10*3/uL RBC (4.10-5.20) 10*6/uL Hgb (12.0-15.0) g/dL Hct (37.2-46.3) % Plt Count (140-440) 10*3/uL Immature Gran # (0.00-0.04) 10*3/uL Neutrophils # (1.80-7.70) 10*3/uL Lymphocytes # (0.90-5.00) 10*3/uL Monocytes # (0.20-1.00) 10*3/uL Eosinophils # (0.04-0.35) 10*3/uL Acanthocytes (Spur) (None Seen) Carbon Dioxide (21.6-31.8) mmol/L Anion Gap (4.00-12.00) mmol/L BUN (9.0-27.0) mg/dL Est GFR (CKD-EPI) (>=60) BUN/Creatinine Ratio (12.00-20.00) Ratio Glucose (70-110) mg/dL POC Glucose (mg/dL) 174 H 296 H (70-110) mg/dL Calcium (8.7-10.3) mg/dL AST (13-35) U/L Total Protein (6.2-8.2) g/dL Albumin (3.8-4.9) g/dL Albumin/Globulin Ratio (1.60-3.17) Ratio Microbiology - Last 24 Hours (Table) 07/24/24 18:35 Blood Culture Gram Stain - Preliminary Blood Blood Culture - Preliminary Staphylococcus lugdunenisis Molecular ID 07/24/24 23:00 Urine Culture - Final Urine,Voided Assessment and Plan (1) Pneumonia Current Visit: Yes Status: Acute Code(s): J18.9 - PNEUMONIA, UNSPECIFIED ORGANISM SNOMED Code(s): 696415134 (2) Sepsis Current Visit: Yes Status: Acute Code(s): A41.9 - SEPSIS, UNSPECIFIED ORGANISM SNOMED Code(s): 04264320 (3) Bacteremia Current Visit: Yes Status: Acute Code(s): R78.81 - BACTEREMIA SNOMED Code(s): 2313445 Plan: 1patient presented hospital with generalized weakness in this patient who did have features of SIRS with tachycardia hypotension elevated white count and evidence of pneumonia on the CT likely source for the sepsis and likely community-acquired as no other obvious focus of infection clinically or on i nitial investigation 2-blood cultures came back positive with Staphylococcus Lugdunenisis source lik asha pneumonia blood culture will be repeated to document clearance 3-patient will be treated with Rocephin 2 g daily and monitor clinical course closely Dictation was produced using [employer] dictation software. please excuse any grammatical, word or spelling errors. Time with Patient: Less than 30
[2024-07-26 16:31] LABS: Glucose,Whole Blood 236 mg/dL (70-110)
[2024-07-26 21:21] LABS: Glucose,Whole Blood 187 mg/dL (70-110)
[2024-07-26] MEDS: IPRATROPIUM-ALBUTEROL 3 ML NEB INHALATION SCH (21:50)
[2024-07-27 06:15] LABS: Glucose,Whole Blood 221 mg/dL (70-110)
[2024-07-27 10:06] LABS: Basophils # (A) 0.03 X 10*3/uL (0.00-0.10); Basophils % (A) 0.2 %; Eosinophils # (A) 0.05 X 10*3/uL (0.04-0.35); Eosinophils % (A) 0.4 %; HCT 26.6 % (37.2-46.3); HGB 8.6 g/dL (12.0-15.0); Lymphocytes # (A) 0.76 X 10*3/uL (0.90-5.00); Lymphocytes % (A) 5.5 %; MCH 29.5 pg (27.0-32.0); MCHC 32.3 g/dL (32.0-37.0); MCV 91.1 FL (80.0-97.0); Mean Platelet Volume 11.5 FL (9.5-12.2); Monocytes # (A) 1.04 X 10*3/uL (0.20-1.00); Monocytes % (A) 7.5 %; NRBC Per 100 WBC 0 X 10*3/uL (0.00-0.01); Neutrophils # (A) 11.85 X 10*3/uL (1.80-7.70); Neutrophils % (A) 85.8 %; Platelet Count 87 X 10*3/uL (140-440); RBC 2.92 X 10*6/uL (4.10-5.20); RDW 14.1 % (11.5-14.5); WBC 13.81 X 10*3/uL (4.50-10.00)
[2024-07-27 10:16] LABS: ALT 43 U/L (8-44); AST 46 U/L (13-35); Albumin 2.4 g/dL (3.8-4.9); Alkaline Phosphatase 94 U/L (41-126); BUN/Creat Ratio 25.75 Ratio (12.00-20.00); Blood Urea Nitrogen 30.9 mg/dL (9.0-27.0); Calcium 7.6 mg/dL (8.7-10.3); Carbon Dioxide 14.5 mmol/L (21.6-31.8); Chloride 107 mmol/L (96-109); Glucose 131 mg/dL (70-110); Potassium 3.9 mmol/L (3.5-5.5); Sodium 136 mmol/L (135-145); Total Bilirubin 0.3 mg/dL (0.3-1.2); Total Protein 5.4 g/dL (6.2-8.2)
[2024-07-27 11:48] LABS: Glucose,Whole Blood 256 mg/dL (70-110)
[2024-07-27 11:50] LABS: Erythrocyte Sedimentation Rate 6 mm/Hr (0-30)
--- NOTE | 2024-07-27 14:15 | P.PN ---
Subjective Progress Note Date: 07/27/24 This is a pleasant 68 year old female patient of Dr Meliton Rojas. Patient comes in with complaints of weakness and dysuria. Patient feels like she has a urinary tract infection. On admission creatinine 1.9 and white blood cell count 22. Urine and blood cultures were taken. Patient has been started on IV ceftriaxone. Labs today reveal a sodium level of 132, BUN 64, creatinine 1.35. AST ALT and alk phos improving. Procalcitonin was 1.45. Echocardiogram reveals an EF 55-60% with moderate TR. Mild pulmonary hypertension 07/26. Patient seen and examined. States she feels better. Vital signs stable. Denies any shortness of breath 07/27. Patient seen examined. Breathing is improving. Denies any cough. Denies any fever or chills. Vital signs stable. Labs reviewed showed WBC 13.81, hemoglobin 0.6, sodium 137 potassium 3.9, BUN 30.9, creatinine 1.2 REVIEW OF SYSTEMS: CONSTITUTIONAL: No fever, no malaise,. CARDIOVASCULAR: No chest pain, no palpitations, no syncope. PULMONARY: As mentioned above GASTROINTESTINAL: No diarrhea, no nausea, no vomiting, no abdominal pain. NEUROLOGICAL: No headaches, no weakness, PHYSICAL EXAMINATION: GENERAL: The patient is alert and oriented x3, not in any acute distress. Well developed, well nourished. HEENT: Pupils are round and equally reacting to light. EOMI. No scleral icterus. No conjunctival pallor. Normocephalic, atraumatic. No pharyngeal erythema. No thyromegaly. CARDIOVASCULAR: S1 and S2 present. No murmurs, rubs, or gallops. PULMONARY: Chest is clear to auscultation, no wheezing or crackles. ABDOMEN: Soft, nontender, nondistended, normoactive bowel sounds. No palpable organomegaly. MUSCULOSKELETAL: No joint swelling or deformity. EXTREMITIES: No cyanosis, clubbing, or pedal edema. NEUROLOGICAL: Gross neurological examination did not reveal any focal deficits. SKIN: No rashes. Assessment and plan Generalized weakness from infection/sepsis Bacterial pneumonia Acute urinary tract infection with sepsis present on admission Acute kidney injury, ATN from sepsis improving with IV fluids Diabetes mellitus type 2 Coronary artery disease Chronic diastolic dysfunction does not appear to be any acute exacerbation lasix is held Hypertension currently hypotensive lisinopril is held Former smoker Monitor vital signs Monitor CBC Monitor CMP Follow-up blood cultures, blood culture positive for Staphylococcus lugdunenisis Continue IV Rocephin Continue aspirin, atorvastatin continue Coreg ID following Cardiology following Labs and medication were reviewed.. Continue same treatment. Continue with symptomatic treatment. Resume home medication. Monitor labs and vitals. DVT and GI prophylaxis. Further recommendations as per clinical course of the patient Dictation was produced using [employer] dictation software. please excuse any grammatical, word or spelling errors. Objective - Vital Signs Vital signs: Vital Signs Temp 98.1 F 07/27/24 07:32 Pulse 80 07/27/24 08:40 Resp 20 07/27/24 07:32 BP 104/68 07/27/24 07:32 Pulse Ox 98 07/27/24 07:32 FiO2 Intake & Output 07/26/24 07/27/24 07/27/24 18:59 06:59 18:59 Output Total 200 975 200 Balance -200 -975 -200 Weight 76.5 kg Output: Urine 200 975 200 Straight 475 - Labs CBC & Chem 7: 07/27/24 02:14 07/27/24 02:14 Labs: Abnormal Lab Results - Last 24 Hours (Table) 07/26/24 07/26/24 07/27/24 Range/Units 16:29 21:19 02:14 WBC 13.81 H (4.50-10.00) X 10*3/uL RBC 2.92 L (4.10-5.20) X 10*6/uL Hgb 8.6 L (12.0-15.0) g/dL Hct 26.6 L (37.2-46.3) % Plt Count 87 L (140-440) X 10*3/uL Immature Gran # 0.08 H (0.00-0.04) X 10*3/uL Neutrophils # 11.85 H (1.80-7.70) X 10*3/uL Lymphocytes # 0.76 L (0.90-5.00) X 10*3/uL Monocytes # 1.04 H (0.20-1.00) X 10*3/uL Carbon Dioxide (21.6-31.8) mmol/L Anion Gap (4.00-12.00) mmol/L BUN (9.0-27.0) mg/dL Est GFR (CKD-EPI) (>=60) BUN/Creatinine Ratio (12.00-20.00) Ratio Glucose (70-110) mg/dL POC Glucose (mg/dL) 236 H 187 H (70-110) mg/dL Calcium (8.7-10.3) mg/dL AST (13-35) U/L C-Reactive Protein (0.00-0.80) mg/dL Total Protein (6.2-8.2) g/dL Albumin (3.8-4.9) g/dL Albumin/Globulin Ratio (1.60-3.17) Ratio 07/27/24 07/27/24 07/27/24 Range/Units 02:14 06:13 11:47 WBC (4.50-10.00) X 10*3/uL RBC (4.10-5.20) X 10*6/uL Hgb (12.0-15.0) g/dL Hct (37.2-46.3) % Plt Count (140-440) X 10*3/uL Immature Gran # (0.00-0.04) X 10*3/uL Neutrophils # (1.80-7.70) X 10*3/uL Lymphocytes # (0.90-5.00) X 10*3/uL Monocytes # (0.20-1.00) X 10*3/uL Carbon Dioxide 14.5 L (21.6-31.8) mmol/L Anion Gap 14.50 H (4.00-12.00) mmol/L BUN 30.9 H (9.0-27.0) mg/dL Est GFR (CKD-EPI) 49 L (>=60) BUN/Creatinine Ratio 25.75 H (12.00-20.00) Ratio Glucose 131 H (70-110) mg/dL POC Glucose (mg/dL) 221 H 256 H (70-110) mg/dL Calcium 7.6 L (8.7-10.3) mg/dL AST 46 H (13-35) U/L C-Reactive Protein 14.30 H (0.00-0.80) mg/dL Total Protein 5.4 L (6.2-8.2) g/dL Albumin 2.4 L (3.8-4.9) g/dL Albumin/Globulin Ratio 0.80 L (1.60-3.17) Ratio Microbiology - Last 24 Hours (Table) 07/24/24 18:35 Blood Culture Gram Stain - Final Blood Blood Culture - Final Staphylococcus lugdunenisis Molecular ID
--- NOTE | 2024-07-27 15:34 | P.PN ---
Subjective Progress Note Date: 07/27/24 Principal diagnosis: Reason for follow-up is pneumonia and bacteremia Patient is a 68-year-old female with a past medical history significant for Coronary Artery Disease (CAD), Heart Failure, Diabetes Mellitus, Hypertension presenting to the hospital for evaluation of weakness nausea decreased appetite patient was brought into the hospital by the family concerning for weakness did have elevated white count CT chest with left lower lobe pneumonia blood cultures are positive for Staphylococcus Lugdunenisis On today's evaluation that is 07/27/2024, Patient is afebrile patient is currently on room air and denies having any shortness of breath, the patient denies any chest pain or cough, the patient denies any nausea vomiting did not have any abdominal pain and no diarrhea. Patient white count is 13.81, creatinine is 1.2 blood culture repeat currently pending Objective - Vital Signs Vital signs: Vital Signs Temp 98.6 F 07/27/24 14:08 Pulse 70 07/27/24 14:08 Resp 18 07/27/24 14:08 BP 99/62 07/27/24 14:08 Pulse Ox 98 07/27/24 14:08 FiO2 Intake & Output 07/26/24 07/27/24 07/27/24 18:59 06:59 18:59 Output Total 200 975 200 Balance -200 -975 -200 Weight 76.5 kg Output: Urine 200 975 200 Straight 475 - Exam GENERAL DESCRIPTION: An elderly female lying in bed in no distress RESPIRATORY SYSTEM: Unlabored breathing , decreased breath sounds at bases HEART: S1 S2 regular rate and rhythm , ABDOMEN: Soft , no tenderness EXTREMITIES: No edema feet - Labs CBC & Chem 7: 07/27/24 02:14 07/27/24 02:14 Labs: Abnormal Lab Results - Last 24 Hours (Table) 07/26/24 07/26/24 07/27/24 Range/Units 16:29 21:19 02:14 WBC 13.81 H (4.50-10.00) X 10*3/uL RBC 2.92 L (4.10-5.20) X 10*6/uL Hgb 8.6 L (12.0-15.0) g/dL Hct 26.6 L (37.2-46.3) % Plt Count 87 L (140-440) X 10*3/uL Immature Gran # 0.08 H (0.00-0.04) X 10*3/uL Neutrophils # 11.85 H (1.80-7.70) X 10*3/uL Lymphocytes # 0.76 L (0.90-5.00) X 10*3/uL Monocytes # 1.04 H (0.20-1.00) X 10*3/uL Carbon Dioxide (21.6-31.8) mmol/L Anion Gap (4.00-12.00) mmol/L BUN (9.0-27.0) mg/dL Est GFR (CKD-EPI) (>=60) BUN/Creatinine Ratio (12.00-20.00) Ratio Glucose (70-110) mg/dL POC Glucose (mg/dL) 236 H 187 H (70-110) mg/dL Calcium (8.7-10.3) mg/dL AST (13-35) U/L C-Reactive Protein (0.00-0.80) mg/dL Total Protein (6.2-8.2) g/dL Albumin (3.8-4.9) g/dL Albumin/Globulin Ratio (1.60-3.17) Ratio 07/27/24 07/27/24 07/27/24 Range/Units 02:14 06:13 11:47 WBC (4.50-10.00) X 10*3/uL RBC (4.10-5.20) X 10*6/uL Hgb (12.0-15.0) g/dL Hct (37.2-46.3) % Plt Count (140-440) X 10*3/uL Immature Gran # (0.00-0.04) X 10*3/uL Neutrophils # (1.80-7.70) X 10*3/uL Lymphocytes # (0.90-5.00) X 10*3/uL Monocytes # (0.20-1.00) X 10*3/uL Carbon Dioxide 14.5 L (21.6-31.8) mmol/L Anion Gap 14.50 H (4.00-12.00) mmol/L BUN 30.9 H (9.0-27.0) mg/dL Est GFR (CKD-EPI) 49 L (>=60) BUN/Creatinine Ratio 25.75 H (12.00-20.00) Ratio Glucose 131 H (70-110) mg/dL POC Glucose (mg/dL) 221 H 256 H (70-110) mg/dL Calcium 7.6 L (8.7-10.3) mg/dL AST 46 H (13-35) U/L C-Reactive Protein 14.30 H (0.00-0.80) mg/dL Total Protein 5.4 L (6.2-8.2) g/dL Albumin 2.4 L (3.8-4.9) g/dL Albumin/Globulin Ratio 0.80 L (1.60-3.17) Ratio Microbiology - Last 24 Hours (Table) 07/24/24 18:35 Blood Culture Gram Stain - Final Blood Blood Culture - Final Staphylococcus lugdunenisis Molecular ID Assessment and Plan (1) Pneumonia Current Visit: Yes Status: Acute Code(s): J18.9 - PNEUMONIA, UNSPECIFIED ORGANISM SNOMED Code(s): 322157817 (2) Sepsis Current Visit: Yes Status: Acute Code(s): A41.9 - SEPSIS, UNSPECIFIED ORGANISM SNOMED Code(s): 38254879 (3) Bacteremia Current Visit: Yes Status: Acute Code(s): R78.81 - BACTEREMIA SNOMED Code(s): 5187390 Plan: 1patient presented hospital with generalized weakness in this patient who did have features of SIRS with tachycardia hypotension elevated white count and evidence of pneumonia on the CT likely source for the sepsis and likely community-acquired as no other obvious focus of infection clinically or on initial investigation 2-blood cultures came back positive with Staphylococcus Lugdunenisis source likely pneumonia blood culture has been repeated to document clearance 3-patient currently being treated Rocephin 2 g daily while waiting for repeat culture to finalize Dictation was produced using [employer] dictation software. please excuse any grammatical, word or spelling errors. Time with Patient: Less than 30
[2024-07-27 16:56] LABS: Glucose,Whole Blood 273 mg/dL (70-110)
[2024-07-27 20:21] LABS: Glucose,Whole Blood 262 mg/dL (70-110)
[2024-07-27] MEDS: ONDANSETRON 4 MG/2 ML VIAL IVP PRN (23:42)
[2024-07-28 06:19] LABS: Glucose,Whole Blood 133 mg/dL (70-110)
[2024-07-28 10:53] LABS: Glucose,Whole Blood 264 mg/dL (70-110)
--- NOTE | 2024-07-28 13:52 | XR ---
EXAMINATION TYPE: XR foot complete RT DATE OF EXAM: 07/28/2024 COMPARISON: NONE HISTORY: Pain, great toe plantar ulcer TECHNIQUE: Frontal, lateral and oblique images of the right foot are obtained. FINDINGS: There is no acute fracture/dislocation evident. The joint spaces appear within normal limi ts. There is straightening of the first digit. No osseous erosion is identified. Moderate-sized plan tar calcaneal enthesophyte. Small posterior calcaneal enthesophyte. Ulceration along the plantar aspe ct of the first digit. No visualized soft tissue gas. Mild surrounding soft tissue swelling. IMPRESSION: 1. No acute fracture or dislocation. 2. Plantar ulceration of the first digit without evidence of osseous erosion to suggest osteomyelitis . [facility], , 07/28/2024 1:50 PM
[2024-07-28] MEDS: NAFCILLIN 2 GM in DEXTROSE 5% IN WATER 100 ML IVPB SCH (15:22)
[2024-07-28 15:54] LABS: Glucose,Whole Blood 244 mg/dL (70-110)
[2024-07-28] MEDS ORDERED: ceFAZolin 2 GM in DEXTROSE 5% IN WATER 50 ML IVPB SCH (16:00)
[2024-07-28 20:25] LABS: Glucose,Whole Blood 285 mg/dL (70-110)
--- NOTE | 2024-07-29 03:19 | PN ---
PROGRESS NOTE A 68-year-old white female, continues on DuoNebs, breathing treatments. IV Nafcillin. We will be switching to some oral antibiotics to go home on tomorrow for pneumonia. PHYSICAL EXAMINATION: CARDIOVASCULAR: S1 and S2. LUNGS: Transmitted upper airway sounds. GI: Abdomen is soft. NEUROLOGIC: Alert and oriented x3. Cultures are positive for Staph. Repeat blood culture so far negative. Urine cultures are negative. Being treated for pneumonia. Possibly be discharged to home if okay with infectious disease doctor tomorrow. Please see further orders. MMODL / IJN: [id number] /
[2024-07-29] MEDS: ACETAMINOPHEN TAB 325 MG TAB PO PRN (05:50)
[2024-07-29 06:12] LABS: Glucose,Whole Blood 224 mg/dL (70-110)
[2024-07-29 08:53] LABS: ALT 35 U/L (8-44); AST 34 U/L (13-35); Albumin 2.3 g/dL (3.8-4.9); Albumin/Globulin Ratio 0.82 Ratio (1.60-3.17); Alkaline Phosphatase 89 U/L (41-126); Blood Urea Nitrogen 22.2 mg/dL (9.0-27.0); Calcium 7.3 mg/dL (8.7-10.3); Carbon Dioxide 16.9 mmol/L (21.6-31.8); Chloride 106 mmol/L (96-109); Globulin 2.8 g/dL (1.6-3.3); Glucose 212 mg/dL (70-110); Potassium 4.3 mmol/L (3.5-5.5); Sodium 132 mmol/L (135-145); Total Bilirubin 0.3 mg/dL (0.3-1.2); Total Protein 5.1 g/dL (6.2-8.2)
[2024-07-29 11:10] LABS: Glucose,Whole Blood 245 mg/dL (70-110)
[2024-07-29 12:31] LABS: Basophils # (A) 0.03 X 10*3/uL (0.00-0.10); Basophils % (A) 0.3 %; Eosinophils # (A) 0.07 X 10*3/uL (0.04-0.35); Eosinophils % (A) 0.6 %; HCT 25.1 % (37.2-46.3); HGB 8.1 g/dL (12.0-15.0); Lymphocytes # (A) 0.61 X 10*3/uL (0.90-5.00); Lymphocytes % (A) 5.3 %; MCH 29.6 pg (27.0-32.0); MCHC 32.3 g/dL (32.0-37.0); MCV 91.6 FL (80.0-97.0); Mean Platelet Volume 11.5 FL (9.5-12.2); Monocytes # (A) 0.64 X 10*3/uL (0.20-1.00); Monocytes % (A) 5.6 %; NRBC Per 100 WBC 0 X 10*3/uL (0.00-0.01); Neutrophils # (A) 10.07 X 10*3/uL (1.80-7.70); Neutrophils % (A) 87.6 %; Platelet Count 100 X 10*3/uL (140-440); RBC 2.74 X 10*6/uL (4.10-5.20); RDW 14.4 % (11.5-14.5); WBC 11.49 X 10*3/uL (4.50-10.00)
--- NOTE | 2024-07-29 14:30 | PN ---
PROGRESS NOTE SUBJECTIVE: A 68-year-old white female with bacteremia, came in with sepsis. Repeat blood cultures positive as well as the first one. Wait for Dr. Farrell's recommendations. Remains on broad-spectrum antibiotics at this time. OBJECTIVE: CARDIOVASCULAR: S1, S2. HEMATOLOGY: Negative Homans. PSYCH: Fair mood and affect. GENERAL: She is sitting up in the chair, giving appropriate answers. She is still a little bit stronger than when she came in. We are going to wait for clearance from Dr. Farrell before we can send her home. Please see further orders. Continue IV antibiotics. Repeat blood cultures again. MMODL / IJN: [id number] /
--- NOTE | 2024-07-29 14:50 | P.PN ---
Subjective Progress Note Date: 07/28/24 Principal diagnosis: Reason for follow-up is pneumonia and bacteremia Patient is a 68-year-old female with a past medical history significant for Coronary Artery Disease (CAD), Heart Failure, Diabetes Mellitus, Hypertension presenting to the hospital for evaluation of weakness nausea decreased appetite patient was brought into the hospital by the family concerning for weakness did have elevated white count CT chest with left lower lobe pneumonia blood cultures are positive for Staphylococcus Lugdunenisis On today's evaluation that is 07/28/2024, patient has been afebrile, patient is breathing comfortably and is currently on room air, patient denies having any c hest pain and cough, patient denies nausea vomiting or diarrhea and no abdominal pain patient mentioning wound to the right big toe which has been going on for a while did not mention on initial evaluation. Patient did have blood culture repeat To be positive with gram-positive cocci no CBC was done today Objective - Vital Signs Vital signs: Vital Signs Temp 98.3 F 07/28/24 07:36 Pulse 64 07/28/24 09:29 Resp 15 07/28/24 07:36 BP 110/70 07/28/24 07:36 Pulse Ox 97 07/28/24 07:36 FiO2 Intake & Output 07/27/24 07/28/24 07/28/24 18:59 06:59 18:59 Output Total 200 Balance -200 Output: Urine 200 Other: Voiding Method Toilet # Voids 100 2 - Exam GENERAL DESCRIPTION: An elderly female lying in bed in no distress RESPIRATORY SYSTEM: Unlabored breathing , decreased breath sounds at bases HEART: S1 S2 regular rate and rhythm , ABDOMEN: Soft , no tenderness EXTREMITIES: Right big toe with the plantar ulcer and a callus but no redness or drainage - Labs CBC & Chem 7: 07/29/24 03:04 07/29/24 03:04 Labs: Abnormal Lab Results - Last 24 Hours (Table) 07/27/24 07/27/24 07/27/24 Range/Units 11:47 16:54 20:19 POC Glucose (mg/dL) 256 H 273 H 262 H (70-110) mg/dL 07/28/24 07/28/24 Range/Units 06:17 10:52 POC Glucose (mg/dL) 133 H 264 H (70-110) mg/dL Microbiology - Last 24 Hours (Table) 07/27/24 02:14 Blood Culture Gram Stain - Preliminary Blood 07/24/24 18:35 Blood Culture Gram Stain - Final Blood Blood Culture - Final Staphylococcus lugdunenisis Molecular ID Assessment and Plan (1) Pneumonia Current Visit: Yes Status: Acute Code(s): J18.9 - PNEUMONIA, UNSPECIFIED ORGANISM SNOMED Code(s): 091633510 (2) Sepsis Current Visit: Yes Status: Acute Code(s): A41.9 - SEPSIS, UNSPECIFIED ORGANISM SNOMED Code(s): 72767950 (3) Bacteremia Current Visit: Yes Status: Acute Code(s): R78.81 - BACTEREMIA SNOMED Code(s): 5259155 Plan: 1patient presented hospital with generalized weakness in this patient who did have features of SIRS with tachycardia hypotension elevated white count and evidence of pneumonia on the CT likely source for the sepsis and likely community-acquired as no other obvious focus of infection clinically or on initial investigation 2-blood cultures came back positive with Staphylococcus Lugdunenisis with initial concern for possible pneumonia however repeat blood cultures came back positive as well concerning for possible deep source she did mention ulcer to the right big toe which does not look infected however will obtain x-ray to make sure no evidence of any bony destruction we will also check an echocardiogram to make sure no evidence of any structural abnormality suspicious for endocarditis 3-blood will be repeated I will discontinue Rocephin and start the patient on naficillin Dictation was produced using [employer] dictation software. please excuse any grammatical, word or spelling errors. Time with Patient: Less than 30
--- NOTE | 2024-07-29 14:51 | P.PN ---
Subjective Progress Note Date: 07/29/24 Principal diagnosis: Reason for follow-up is pneumonia and bacteremia Patient is a 68-year-old female with a past medical history significant for Coronary Artery Disease (CAD), Heart Failure, Diabetes Mellitus, Hypertension presenting to the hospital for evaluation of weakness nausea decreased appetite patient was brought into the hospital by the family concerning for weakness did have elevated white count CT chest with left lower lobe pneumonia blood cultures are positive for Staphylococcus Lugdunenisis On today's evaluation that is 07/29/2024, Patient is afebrile this morning patient denies having any chest pain shortness of breath or cough, the patient is currently on room air, patient denies any abdominal pain no diarrhea no nausea no vomiting. Patient white count is down to 11.49, creatinine is 1.2 x-ray of the foot did not show any bony changes to the big toe Objective - Vital Signs Vital signs: Vital Signs Temp 97.8 F 07/29/24 09:17 Pulse 76 07/29/24 09:08 Resp 15 07/29/24 09:29 BP 100/51 07/29/24 07:24 Pulse Ox 98 07/29/24 07:24 FiO2 Intake & Output 07/28/24 07/29/24 07/29/24 18:59 06:59 18:59 Intake Total 300 Output Total 275 Balance -275 300 Weight 79 kg Intake: Oral 300 Output: Urine 275 Other: Voiding Method Toilet Toilet Toilet # Voids 5 2 - Exam GENERAL DESCRIPTION: An elderly female lying in bed in no distress RESPIRATORY SYSTEM: Unlabored breathing , decreased breath sounds at bases HEART: S1 S2 regular rate and rhythm , ABDOMEN: Soft , no tenderness EXTREMITIES: No edema - Labs CBC & Chem 7: 07/29/24 03:04 07/29/24 03:04 Labs: Abnormal Lab Results - Last 24 Hours (Table) 07/28/24 07/28/24 07/29/24 Range/Units 15:53 20:24 03:04 Sodium 132 L (135-145) mmol/L Carbon Dioxide 16.9 L (21.6-31.8) mmol/L Est GFR (CKD-EPI) 49 L (>=60) Glucose 212 H (70-110) mg/dL POC Glucose (mg/dL) 244 H 285 H (70-110) mg/dL Calcium 7.3 L (8.7-10.3) mg/dL Total Protein 5.1 L (6.2-8.2) g/dL Albumin 2.3 L (3.8-4.9) g/dL Albumin/Globulin Ratio 0.82 L (1.60-3.17) Ratio 07/29/24 07/29/24 Range/Units 06:11 11:09 Sodium (135-145) mmol/L Carbon Dioxide (21.6-31.8) mmol/L Est GFR (CKD-EPI) (>=60) Glucose (70-110) mg/dL POC Glucose (mg/dL) 224 H 245 H (70-110) mg/dL Calcium (8.7-10.3) mg/dL Total Protein (6.2-8.2) g/dL Albumin (3.8-4.9) g/dL Albumin/Globulin Ratio (1.60-3.17) Ratio Microbiology - Last 24 Hours (Table) 07/27/24 02:14 Blood Culture Gram Stain - Preliminary Blood Assessment and Plan (1) Pneumonia Current Visit: Yes Status: Acute Code(s): J18.9 - PNEUMONIA, UNSPECIFIED ORGANISM SNOMED Code(s): 968956163 (2) Sepsis Current Visit: Yes Status: Acute Code(s): A41.9 - SEPSIS, UNSPECIFIED ORGANISM SNOMED Code(s): 75965407 (3) Bacteremia Current Visit: Yes Status: Acute Code(s): R78.81 - BACTEREMIA SNOMED Code(s): 1381652 Plan: 1patient presented hospital with generalized weakness in this patient who did have features of SIRS with tachycardia hypotension elevated white count and evidence of pneumonia on the CT likely source for the sepsis and likely community-acquired as no other obvious focus of infection clinically or on initial investigation 2-blood cultures came back positive with Staphylococcus Lugdunenisis with initial concern for possible pneumonia however repeat blood cultures came back positive however has been finalized as a coagulase-negative staph with a question of possible skin contamination patient did have x-ray of the foot did not mention any bony changes suspicious for osteomyelitis echocardiogram did show some abnormality and will obtain a MIKAELA to make sure no evidence of any endocarditis 3-patient will be treated with naficillin and care discussed with admitting physician Dictation was produced using [employer] software. please excuse any grammatical, word or spelling errors. Time with Patient: Less than 30
[2024-07-29 16:23] LABS: Glucose,Whole Blood 230 mg/dL (70-110)
[2024-07-29 20:38] LABS: Glucose,Whole Blood 199 mg/dL (70-110)
--- NOTE | 2024-07-30 02:10 | PN ---
PROGRESS NOTE SUBJECTIVE: A 68-year-old white female, who looks weak and fatigued. T-max of 101 in the middle of the night. She has positive blood cultures on 2 separate orders. We have to do a transesophageal echo to rule out valvular endocarditis. PHYSICAL EXAMINATION: CARDIOVASCULAR: S1 and S2. LUNGS: Transmitted upper airway sounds. GI: Soft. HEMATOLOGY: Negative for Homans. PSYCHIATRIC: Fair mood and affect. ASSESSMENT: 1. Systolic congestive heart failure. 2. Rule out endocarditis. 3. Bacteremia. 4. Pneumonia. Continue antibiotics. Blood cultures. Repeat transesophageal echo per Cardiology. MMODL / IJN: [id number] /
[2024-07-30 05:59] LABS: Glucose,Whole Blood 152 mg/dL (70-110)
[2024-07-30] MEDS ORDERED: fentaNYL (PF) 50 MCG/ML 5 ML AMP IVP PRN (10:00)
[2024-07-30] MEDS ORDERED: MIDAZOLAM 2 MG/2 ML VIAL IV PRN (10:00)
[2024-07-30] MEDS: BENZOCAINE SPRAY 1 EACH MUCOUS MEM ONE (11:30)
[2024-07-30] MEDS: fentaNYL (PF) 50 MCG/ML 2 ML AMP IVP ONE (11:31)
[2024-07-30] MEDS: MIDAZOLAM 2 MG/2 ML VIAL IVP ONE (11:31)
--- NOTE | 2024-07-30 11:31 | P.PN ---
Subjective HISTORY OF PRESENT ILLNESS: This is a 68-year-old female patient with history of hypertension, diabetes and hyperlipidemia ischemic cardiomyopathy status post multivessel stenting and a biventricular ICD implantation done at [facility]. Have been asked to evaluate the patient for heart failure. Patient gives history that she has a t otal of 7 stents. She last saw her aircraft landing gear inspector in April of this year and everything was stable at that time. She states she has been walking and exercising on a regular basis. She states that 1 day last week she was at [facility] and it seemed like she was very cold outside she was feeling weak following that. She states she did not have any fever but on Sunday she developed sweats and thought she was coming down with something. She was not feeling well and her sister checked on her on Sunday. At that time she had not been eating or drinking very well. Her sister came back on to check on her and apparently the patient was out of it. She had not been eating or drinking but she had been taking all of her cardiac medications. She was brought into [facility] emergency center for evaluation. She currently denies chest pain or chest pressure, no palpitations, no shortness of breath. Blood pressure 91/59, heart rate in the 70s and 80s, pulse ox 98% on room air. EKG: Sinus rhythm, poor quality EKG Laboratory studies: WBC 22.3, hemoglobin 10.9, sodium 126, BUN 86 creatinine 1.93. Lactic acid 2.2 followed by 1.1. Magnesium 2.7. Troponin negative x 2. proBNP 6930. Acetone negative. COVID-[address] brain: No acute process. CT of the chest revealed airspace consolidation at the left lung base concerning for round atelectasis. Mild pneumonia aspiration not excluded. Mild to moderate hiatal hernia. Cardiomegaly with small to moderate bilateral pleural effusions with anasarca and ascites concerning for congestive heart failure Echocardiogram performed 07/24 revealed EF 55 to 60%. Mild concentric LVH. Mild biatrial dilatation. Mild RV dilatation. Mild pulmonary hypertension with RVSP 38 mmHg. Thickened aortic valve leaflets without significant stenosis. Moderate tricuspid regurgitation. Home cardiac medications: Aspirin 81 mg daily, atorvastatin 80 mg at bedtime, carvedilol 6.25 mg twice daily, Jardiance 25 mg daily, Lasix 40 mg daily, lisinopril 2.5 mg daily, spironolactone 25 mg twice daily 07/25 Patient seen and examined. She states she is feeling much better today and almost back to her baseline. She had a positive blood culture and ID is following for possible pneumonia. Blood pressure remains low and yesterday we held Lasix, lisinopril and Aldactone. We did order IV fluids for 1 L. Echocardiogram reveals EF of 55 to 60%. Mild concentric LVH. RVSP 38. Moderate tricuspid regurgitation. Blood pressure 97/60, heart rate 68, pulse ox 98% on room air. Repeat blood work reveals improvement of her kidney function with BUN 50 creatinine 1.3. WBC 13.[address] Chowdhury reviewed results of testing including echocardiogram with the patient and all questions answered. 07/30/2024 Cardiology was reconsulted secondary to bacteremia and request for MIKAELA. Patient's blood cultures on 07/24/2024 positive for Staphylococcus lugdunensis. Repeat cultures from 07/27/2024 are positive for coagulase-negative staph. Patient has been followed by infectious disease and remains on antibiotics. She denies any chest pain or pressure. She denies any shortness of breath. Vital signs are stable. PHYSICAL EXAM: VITAL SIGNS: Reviewed. GENERAL: Well-developed in no acute distress. NECK: Supple. No JVD or thyromegaly LUNGS: Respirations even and unlabored. Lungs essentially clear to auscultation bilaterally. HEART: Regular rate and rhythm. S1 and S2 heard. EXTREMITIES: Normal range of motion. No clubbing or cyanosis. Peripheral pulses intact. No lower extremity edema ASSESSMENT: Metabolic encephalopathy secondary to dehydration Acute kidney injury Hyponatremia Lactic acidosis Bacteremia Chronic systolic heart failure, reduced ejection fraction Ischemic cardiomyopathy status post AICD Coronary artery disease with prior stenting unknown details all performed at [facility] Chronic kidney disease Diabetes mellitus type 2 PLAN: Continue current cardiac medications including aspirin, atorvastatin, carvedilol, Farxiga N.p.o. Patient to undergo MIKAELA today with Dr. Espinoza Patient to follow-up postdischarge with her primary aircraft landing gear inspector Nurse practitioner note has been reviewed by physician. Signing provider agrees with the documented findings, assessment, and plan of care documented by FUEL YARD OPERATOR as a scribe. Objective - Vital Signs Vital signs: Vital Signs Temp 99.5 F 07/30/24 07:15 Pulse 66 04/23/25 10:57 Resp 16 07/30/24 10:57 BP 118/55 07/30/24 10:57 Pulse Ox 9 L 07/30/24 10:57 FiO2 Intake & Output 07/29/24 07/30/24 07/30/24 18:59 06:59 18:59 Intake Total 500 Output Total 300 200 Balance 500 -300 -200 Intake: Oral 500 Output: Urine 300 200 Other: Voiding Method Toilet Toilet Toilet # Voids 3 1 - Labs CBC & Chem 7: 07/29/24 03:04 07/29/24 03:04 Labs: Abnormal Lab Results - Last 24 Hours (Table) 07/29/24 07/29/24 07/29/24 Range/Units 03:04 16:21 20:37 WBC 11.49 H (4.50-10.00) X 10*3/uL RBC 2.74 L (4.10-5.20) X 10*6/uL Hgb 8.1 L (12.0-15.0) g/dL Hct 25.1 L (37.2-46.3) % Plt Count 100 L (140-440) X 10*3/uL Immature Gran # 0.07 H (0.00-0.04) X 10*3/uL Neutrophils # 10.07 H (1.80-7.70) X 10*3/uL Lymphocytes # 0.61 L (0.90-5.00) X 10*3/uL POC Glucose (mg/dL) 230 H 199 H (70-110) mg/dL 07/30/24 Range/Units 05:58 WBC (4.50-10.00) X 10*3/uL RBC (4.10-5.20) X 10*6/uL Hgb (12.0-15.0) g/dL Hct (37.2-46.3) % Plt Count (140-440) X 10*3/uL Immature Gran # (0.00-0.04) X 10*3/uL Neutrophils # (1.80-7.70) X 10*3/uL Lymphocytes # (0.90-5.00) X 10*3/uL POC Glucose (mg/dL) 152 H (70-110) mg/dL Microbiology - Last 24 Hours (Table) 07/27/24 02:14 Blood Culture Gram Stain - Preliminary Blood Blood Culture - Preliminary Coagulase Negative Staph
--- NOTE | 2024-07-30 12:03 | P.PN ---
Subjective Progress Note Date: 07/30/24 Procedure performed: 1. Transesophageal Echocardiogram with color flow doppler, pulsed wave doppler and continuous wave doppler, (CPT 74541, +[id number], +[id number]) 2. Moderate conscious sedation. Sedation time 8 mins. (CPT 36202) Indications: Infective endocarditis with persistent blood cultures positivity w ith coagulase-negative Staphylococcus Consent: I have discussed the risks, benefits and alternative therapies for the above-mentioned procedure. The patient has indicated understanding and acceptance of the risks of the procedure. Signed consent was obtained and was placed in the paper chart. Procedural Steps: Timeout was performed in usual fashion. Patient's heart rate, blood pressure, oxygen saturation and ECG were monitored. Benzocaine was sprayed liberally in the back of the throat. Bite block was placed between the jaw. 2 mg of Versed and 50 mcg of Fentanyl were administered intravenously. After achieving appropriate moderate conscious sedation, MIKAELA probe was advanced without difficulty and without any immediate complications to the esophagus. MIKALEA study was performed with color flow doppler, pulsed wave doppler and continuous wave doppler. The probe was then removed. Patient tolerated the procedure well. Patient was transferred to the post procedure area in stable and satisfactory condition. Throughout the procedure patient's heart rate, blood pressure, oxygen saturation and ECG were monitored. Total sedation time 8 mins. Complications: none FINDINGS Left Atrium: Normal Left atrial size. No evidence of mass or thrombus seen Left Atrial Appendage: No evidence of thrombus or mass seen in OSCAR Inter atrial septum: Intact inter-atrial septum with no evidence of atrial septal defect or patent foramen ovale. Left Ventricle: Normal global LV size and systolic function Right Atrium: Normal overall RA size. PPM wire noticed in RA. Evidence of multiple, bulky, mobile, vegetation noted on RA PPM wire, largest measuring 6 mm in diameter Right Ventricle: Normal global RV size and systolic function. PPM wire noticed in RV. Aortic Valve: Mild calcification and sclerosis of aortic valve leaflets with no significant stenosis or regurgitation by color Doppler. Mitral Valve: Structurally normal with trace mitral regurgitation. Pulmonic Valve: Not well visualized. Tricuspid Valve: Appears structurally normal with moderate regurgitation because of the PPM wire. Ascending aorta, Aortic root and Aortic arch: Normal size aortic root and asce nding aorta. Mild intimal thickening. No evidence of large atheroma or bulky calcification Descending aorta: Mild intimal thickening. No evidence of large atheroma or bulky calcification CONCLUSION: Multiple bulky mobile vegetation attached to PPM wire in RA, largest measuring 6 mm No evidence of vegetation noticed on left sided valves No clear evidence of vegetation on tricuspid valve Overall preserved LV size and systolic function Travis Espinoza MD, RPVI, FACC Thank you for allowing [facility] to participate in this patient's care. Feel free to reach out in case of any followup questions. Objective - Vital Signs Vital signs: Vital Signs Temp 99.5 F 07/30/24 07:15 Pulse 66 07/30/24 10:57 Resp 16 07/30/24 10:57 BP 118/55 07/30/24 10:57 Pulse Ox 9 L 07/30/24 10:57 FiO2 Intake & Output 07/29/24 07/30/24 07/30/24 18:59 06:59 18:59 Intake Total 500 Output Total 300 200 Balance 500 -300 -200 Intake: Oral 500 Output: Urine 300 200 Other: Voiding Method Toilet Toilet Toilet # Voids 3 1 - Labs CBC & Chem 7: 07/29/24 03:04 07/29/24 03:04 Labs: Abnormal Lab Results - Last 24 Hours (Table) 07/29/24 07/29/24 07/29/24 Range/Units 03:04 16:21 20:37 WBC 11.49 H (4.50-10.00) X 10*3/uL RBC 2.74 L (4.10-5.20) X 10*6/uL Hgb 8.1 L (12.0-15.0) g/dL Hct 25.1 L (37.2-46.3) % Plt Count 100 L (140-440) X 10*3/uL Immature Gran # 0.07 H (0.00-0.04) X 10*3/uL Neutrophils # 10.07 H (1.80-7.70) X 10*3/uL Lymphocytes # 0.61 L (0.90-5.00) X 10*3/uL POC Glucose (mg/dL) 230 H 199 H (70-110) mg/dL 07/30/24 Range/Units 05:58 WBC (4.50-10.00) X 10*3/uL RBC (4.10-5.20) X 10*6/uL Hgb (12.0-15.0) g/dL Hct (37.2-46.3) % Plt Count (140-440) X 10*3/uL Immature Gran # (0.00-0.04) X 10*3/uL Neutrophils # (1.80-7.70) X 10*3/uL Lymphocytes # (0.90-5.00) X 10*3/uL POC Glucose (mg/dL) 152 H (70-110) mg/dL Microbiology - Last 24 Hours (Table) 07/27/24 02:14 Blood Culture Gram Stain - Preliminary Blood Blood Culture - Preliminary Coagulase Negative Staph
[2024-07-30 16:33] LABS: Glucose,Whole Blood 150 mg/dL (70-110)
[2024-07-30 20:22] LABS: Glucose,Whole Blood 270 mg/dL (70-110)
[2024-07-31 05:55] LABS: Glucose,Whole Blood 128 mg/dL (70-110)
[2024-07-31] MEDS: LOSARTAN 25 MG TAB PO SCH (10:09)
[2024-07-31 11:49] LABS: Glucose,Whole Blood 231 mg/dL (70-110)
[2024-07-31 13:31] VITALS: BMI 25.7
--- NOTE | 2024-07-31 13:44 | P.PN ---
Subjective Progress Note Date: 07/30/24 Principal diagnosis: Reason for follow-up is pneumonia and bacteremia Patient is a 68-year-old female with a past medical history significant for Coronary Artery Disease (CAD), Heart Failure, Diabetes Mellitus, Hypertension presenting to the hospital for evaluation of weakness nausea decreased appetite patient was brought into the hospital by the family concerning for weakness did have elevated white count CT chest with left lower lobe pneumonia blood cultures are positive for Staphylococcus Lugdunenisis On today's evaluation that is 07/30/2024,the patient denies any fever or any chills, patient is breathing comfortably on room air, the patient denies chest pain shortness of breath and no significant cough, patient denies abdominal pain, no nausea vomiting or diarrhea. No lab draws today Objective - Vital Signs Vital signs: Vital Signs Temp 99.5 F 07/30/24 07:15 Pulse 66 07/30/24 10:57 Resp 16 07/30/24 10:57 BP 118/55 07/30/24 10:57 Pulse Ox 9 L 07/30/24 10:57 FiO2 Intake & Output 07/29/24 07/30/24 07/30/24 18:59 06:59 18:59 Intake Total 500 Output Total 300 200 Balance 500 -300 -200 Intake: Oral 500 Output: Urine 300 200 Other: Voiding Method Toilet Toilet Toilet # Voids 3 1 - Exam GENERAL DESCRIPTION: An elderly female lying in bed in no distress RESPIRATORY SYSTEM: Unlabored breathing , decreased breath sounds at bases HEART: S1 S2 regular rate and rhythm , ABDOMEN: Soft , no tenderness EXTREMITIES: No edema - Labs CBC & Chem 7: 07/29/24 03:04 07/29/24 03:04 Labs: Abnormal Lab Results - Last 24 Hours (Table) 07/29/24 07/29/24 07/30/24 Range/Units 16:21 20:37 05:58 POC Glucose (mg/dL) 230 H 199 H 152 H (70-110) mg/dL Microbiology - Last 24 Hours (Table) 07/27/24 02:14 Blood Culture Gram Stain - Preliminary Blood Blood Culture - Preliminary Coagulase Negative Staph Assessment and Plan (1) Pneumonia Current Visit: Yes Status: Acute Code(s): J18.9 - PNEUMONIA, UNSPECIFIED ORGANISM SNOMED Code(s): 277296471 (2) Sepsis Current Visit: Yes Status: Acute Code(s): A41.9 - SEPSIS, UNSPECIFIED ORGANISM SNOMED Code(s): 00033796 (3) Bacteremia Current Visit: Yes Status: Acute Code(s): R78.81 - BACTEREMIA SNOMED Code(s): 1747231 Plan: 1patient presented hospital with generalized weakness in this patient who did have features of SIRS with tachycardia hypotension elevated white count and evidence of pneumonia on the CT likely source for the sepsis and likely community-acquired as no other obvious focus of infection clinically or on initial investigation 2-blood cultures came back positive with Staphylococcus Lugdunenisis with initial concern for possible pneumonia however repeat blood cultures came back positive as well for the patient did have a MIKAELA did not show endocarditis but is a bit vegetation on the pacemaker wire 3-patient will be treated with naficillin however if the blood cultures from also came back positive she will need to be transferred to [facility] for possibly removal of the wires/pacemaker Dictation was produced using [employer] dictation software. please excuse any gra mmatical, word or spelling errors. Time with Patient: Less than 30
--- NOTE | 2024-07-31 13:46 | P.PN ---
Subjective Progress Note Date: 07/31/24 Principal diagnosis: Reason for follow-up is pneumonia and bacteremia Patient is a 68-year-old female with a past medical history significant for Coronary Artery Disease (CAD), Heart Failure, Diabetes Mellitus, Hypertension presenting to the hospital for evaluation of weakness nausea decreased appetite patient was brought into the hospital by the family concerning for weakness did have elevated white count CT chest with left lower lobe pneumonia blood cultures are positive for Staphylococcus Lugdunenisis On today's evaluation that is 07/31/2024,the patient remains to be afebrile, patient is on room air not requiring supplemental oxygen and denies any shortness of breath no chest pain or cough.Patient denies having any nausea or vomiting, no abdominal pain and no diarrhea has been reported. The patient did not have any lab draw today, blood cultures from 07/29/2024 also came back positive Objective - Vital Signs Vital signs: Vital Signs Temp 98.1 F 07/31/24 11:15 Pulse 71 07/31/24 11:15 Resp 16 07/31/24 11:15 BP 99/61 07/31/24 11:15 Pulse Ox 97 07/31/24 11:15 FiO2 Intake & Output 07/30/24 07/31/24 07/31/24 18:59 06:59 18:59 Intake Total 200 Output Total 200 Balance 0 Weight 79.1 kg 79.1 kg Intake: Oral 200 Output: Urine 200 Other: Voiding Method Toilet Toilet Toilet # Voids 1 1 - Exam GENERAL DESCRIPTION: An elderly female lying in bed in no distress RESPIRATORY SYSTEM: Unlabored breathing , decreased breath sounds at bases HEART: S1 S2 regular rate and rhythm , ABDOMEN: Soft , no tenderness EXTREMITIES: No edema - Labs CBC & Chem 7: 07/29/24 03:04 07/29/24 03:04 Labs: Abnormal Lab Results - Last 24 Hours (Table) 07/30/24 07/30/24 07/31/24 Range/Units 16:32 20:20 05:53 POC Glucose (mg/dL) 150 H 270 H 128 H (70-110) mg/dL 07/31/24 Range/Units 11:47 POC Glucose (mg/dL) 231 H (70-110) mg/dL Microbiology - Last 24 Hours (Table) 07/29/24 02:33 Blood Culture Gram Stain - Preliminary Blood Blood Culture - Preliminary Molecular ID 07/27/24 02:14 Blood Culture Gram Stain - Final Blood Blood Culture - Final Staphylococcus lugdunenisis Assessment and Plan (1) Pneumonia Current Visit: Yes Status: Acute Code(s): J18.9 - PNEUMONIA, UNSPECIFIED ORGANISM SNOMED Code(s): 308567755 (2) Sepsis Current Visit: Yes Status: Acute Code(s): A41.9 - SEPSIS, UNSPECIFIED ORGANI SM SNOMED Code(s): 52437813 (3) Bacteremia Current Visit: Yes Status: Acute Code(s): R78.81 - BACTEREMIA SNOMED Code(s): 1446226 Plan: 1patient presented hospital with generalized weakness in this patient who did have features of SIRS with tachycardia hypotension elevated white count and evidence of pneumonia on the CT likely source for the sepsis and likely community-acquired as no other obvious focus of infection clinically or on initial investigation 2-blood cultures came back positive with Staphylococcus Lugdunenisis with initial concern for possible pneumonia however repeat blood cultures came back positive as well for the patient did have a MIKAELA did not show endocarditis but is a bit vegetation on the pacemaker wire 3-patient currently is being treated with naficillin, the blood cultures from 07/29/2024 also came back positive, patient will likely need to be transferred to [facility] for possibly removal of the wires/pacemaker this has been communicated with the caseworker as well as admitting physician, more than 15 minutes were spent on the phone trying to get all of her patent solicitor at [facility] but unsuccessful Dictation was produced using [employer] dictation software. please excuse any gra mmatical, word or spelling errors. Time with Patient: Greater than 30
--- NOTE | 2024-07-31 13:51 | P.PN ---
Subjective Progress Note Date: 07/31/24 HISTORY OF PRESENT ILLNESS: This is a 68-year-old female patient with history of hypertension, diabetes and hyperlipidemia ischemic cardiomyopathy status post multivessel stenting and a biventricular ICD implantation done at [facility]. Have been asked to evaluate the patient for heart failure. Patient gives history that she has a total of 7 stents. She last saw her picker / packer in April of this year and everything was stable at that time. She states she has been walking and exercis ing on a regular basis. She states that 1 day last week she was at [facility] and it seemed like she was very cold outside she was feeling weak following that. She states she did not have any fever but on Sunday she developed sweats and thought she was coming down with something. She was not feeling well and her sister checked on her on Sunday. At that time she had not been eating or drinking very well. Her sister came back on to check on her and apparently the patient was out of it. She had not been eating or drinking but she had been taking all of her cardiac medications. She was brought into [facility] emergency center for evaluation. She currently denies chest pain or chest pressure, no palpitations, no shortness of breath. Blood pressure 91/59, heart rate in the 70s and 80s, pulse ox 98% on room air. EKG: Sinus rhythm, poor quality EKG Laboratory studies: WBC 22.3, hemoglobin 10.9, sodium 126, BUN 86 creatinine 1.93. Lactic acid 2.2 followed by 1.1. Magnesium 2.7. Troponin negative x 2. proBNP 6930. Acetone negative. COVID-[address] brain: No acute process. CT of the chest revealed airspace consolidation at the left lung base concerning for round atelectasis. Mild pneumonia aspiration not excluded. Mild to moderate hiatal hernia. Cardiomegaly with small to moderate bilateral pleural effusions with anasarca and ascites concerning for congestive heart failure Echocardiogram performed 07/24 revealed EF 55 to 60%. Mild concentric LVH. Mild biatrial dilatation. Mild RV dilatation. Mild pulmonary hypertension with RVSP 38 mmHg. Thickened aortic valve leaflets without significant stenosis. Moderate tricuspid regurgitation. Home cardiac medications: Aspirin 81 mg daily, atorvastatin 80 mg at bedtime, carvedilol 6.25 mg twice daily, Jardiance 25 mg daily, Lasix 40 mg daily, lisinopril 2.5 mg daily, spironolactone 25 mg twice daily 07/25 Patient seen and examined. She states she is feeling much better today and almost back to her baseline. She had a positive blood culture and ID is al[place]o wing for possible pneumonia. Blood pressure remains low and yesterday we held Lasix, lisinopril and Aldactone. We did order IV fluids for 1 L. Echocardiogram reveals EF of 55 to 60%. Mild concentric LVH. RVSP 38. Moderate tricuspid regurgitation. Blood pressure 97/60, heart rate 68, pulse ox 98% on room air. Repeat blood work reveals improvement of her kidney function with BUN 50 creatinine 1.3. WBC 13.[address] Chowdhury reviewed results of testing including echocardiogram with the patient and all questions answered. 07/30/2024 Cardiology was reconsulted secondary to bacteremia and request for MIKAELA. Patient's blood cultures on 07/24/2024 positive for Staphylococcus lugdunensis. Repeat cultures from 07/27/2024 are positive for coagulase-negative staph. Patient has been followed by infectious disease and remains on antibiotics. She denies any chest pain or pressure. She denies any shortness of breath. Vital signs are stable. 07/31 Patient underwent MIKAELA yesterday with Dr. Espinoza which revealed vegetation on the pacemaker wire in the RA. Recommendations to the patient were to follow-up with her primary picker / packer at [facility] who have placed the AICD. Blood pressure 99/61, heart rate in the 70s, pulse ox 97% on room air. PHYSICAL EXAM: VITAL SIGNS: Reviewed. GENERAL: Well-developed in no acute distress. NECK: Supple. No JVD or thyromegaly LUNGS: Respirations even and unlabored. Lungs essentially clear to auscultation bilaterally. HEART: Regular rate and rhythm. S1 and S2 heard. EXTREMITIES: Normal range of motion. No clubbing or cyanosis. Peripheral pulses intact. No lower extremity edema ASSESSMENT: Metabolic encephalopathy secondary to dehydration, resolved Acute kidney injury Hyponatremia Lactic acidosis Bacteremia Chronic systolic heart failure, reduced ejection fraction Ischemic cardiomyopathy status post AICD Coronary artery disease with prior stenting unknown details all performed at [facility] Chronic kidney disease Diabetes mellitus type 2 PLAN: Continue current cardiac medications including aspirin, atorvastatin, carvedilol, Farxiga And lisinopril 2.5 mg daily versus losartan Patient has been instructed to follow-up with her primary picker / packer at [facility] for lead extraction and lead replacement. Nurse practitioner note has been reviewed by physician. Signing provider agrees with the documented findings, assessment, and plan of care documented by WALL WASHER as a scribe. Objective - Vital Signs Vital signs: Vital Signs Temp 99.0 F 07/31/24 07:25 Pulse 73 07/31/24 08:09 Resp 13 07/31/24 07:25 BP 111/66 07/31/24 07:25 Pulse Ox 97 07/31/24 07:25 FiO2 Intake & Output 07/30/24 07/31/24 07/31/24 18:59 06:59 18:59 Intake Total 200 Output Total 200 Balance 0 Weight 79.1 kg Intake: Oral 200 Output: Urine 200 Other: Voiding Method Toilet Toilet # Voids 1 1 - Labs CBC & Chem 7: 07/29/24 03:04 07/29/24 03:04 Labs: Abnormal Lab Results - Last 24 Hours (Table) 07/30/24 07/30/24 07/31/24 Range/Units 16:32 20:20 05:53 POC Glucose (mg/dL) 150 H 270 H 128 H (70-110) mg/dL Microbiology - Last 24 Hours (Table) 07/29/24 02:33 Blood Culture Gram Stain - Preliminary Blood Blood Culture - Preliminary Molecular ID 07/27/24 02:14 Blood Culture Gram Stain - Final Blood Blood Culture - Final Staphylococcus lugdunenisis
[2024-07-31 16:23] LABS: Glucose,Whole Blood 187 mg/dL (70-110)
--- NOTE | 2024-07-31 20:44 | PN ---
PROGRESS NOTE SUBJECTIVE: A 68-year-old white female, dehydration, metabolic encephalopathy, found to have endocarditis with lesion on her cardiac device, she would be on IV antibiotics. MIKAELA was reviewed today. Possibly get hold of the renewable energy technician in [place] who put her device in the chest. She would need IV antibiotics at least 3 months. OBJECTIVE: CARDIOVASCULAR: S1, S2. LUNGS: Clear. GI: Soft. HEMATOLOGY: Negative Homans. ASSESSMENT: History of cardiomyopathy, endocarditis. Prognosis guarded due to Staph aureus blood cultures. Continue with the current treatments with IV antibiotics for 12 months. Prognosis guarded. MMODL / IJN: [id number] /
[2024-07-31 20:49] LABS: Glucose,Whole Blood 163 mg/dL (70-110)
[2024-08-01 05:56] LABS: Glucose,Whole Blood 159 mg/dL (70-110)
[2024-08-01 11:28] LABS: Glucose,Whole Blood 164 mg/dL (70-110)
--- NOTE | 2024-08-01 12:28 | P.PN ---
Subjective Progress Note Date: 08/01/24 HISTORY OF PRESENT ILLNESS: This is a 68-year-old female patient with history of hypertension, diabetes and hyperlipidemia ischemic cardiomyopathy status post multivessel stenting and a biventricular ICD implantation done at [facility]. Have been asked to evaluate the patient for heart failure. Patient gives history that she has a total of 7 stents. She last saw her brake tester in April of this year and everything was stable at that time. She states she has been walking and exercis ing on a regular basis. She states that 1 day last week she was at [facility] and it seemed like she was very cold outside she was feeling weak following that. She states she did not have any fever but on Sunday she developed sweats and thought she was coming down with something. She was not feeling well and her sister checked on her on Sunday. At that time she had not been eating or drinking very well. Her sister came back on to check on her and apparently the patient was out of it. She had not been eating or drinking but she had been taking all of her cardiac medications. She was brought into [facility] emergency center for evaluation. She currently denies chest pain or chest pressure, no palpitations, no shortness of breath. Blood pressure 91/59, heart rate in the 70s and 80s, pulse ox 98% on room air. EKG: Sinus rhythm, poor quality EKG Laboratory studies: WBC 22.3, hemoglobin 10.9, sodium 126, BUN 86 creatinine 1.93. Lactic acid 2.2 followed by 1.1. Magnesium 2.7. Troponin negative x 2. proBNP 6930. Acetone negative. COVID-[address] brain: No acute process. CT of the chest revealed airspace consolidation at the left lung base concerning for round atelectasis. Mild pneumonia aspiration not excluded. Mild to moderate hiatal hernia. Cardiomegaly with small to moderate bilateral pleural effusions with anasarca and ascites concerning for congestive heart failure Echocardiogram performed 07/24 revealed EF 55 to 60%. Mild concentric LVH. Mild biatrial dilatation. Mild RV dilatation. Mild pulmonary hypertension with RVSP 38 mmHg. Thickened aortic valve leaflets without significant stenosis. Moderate tricuspid regurgitation. Home cardiac medications: Aspirin 81 mg daily, atorvastatin 80 mg at bedtime, carvedilol 6.25 mg twice daily, Jardiance 25 mg daily, Lasix 40 mg daily, lisinopril 2.5 mg daily, spironolactone 25 mg twice daily 07/25 Patient seen and examined. She states she is feeling much better today and almost back to her baseline. She had a positive blood culture and ID is follo wing for possible pneumonia. Blood pressure remains low and yesterday we held Lasix, lisinopril and Aldactone. We did order IV fluids for 1 L. Echocardiogram reveals EF of 55 to 60%. Mild concentric LVH. RVSP 38. Moderate tricuspid regurgitation. Blood pressure 97/60, heart rate 68, pulse ox 98% on room air. Repeat blood work reveals improvement of her kidney function with BUN 50 creatinine 1.3. WBC 13.[address] Chowdhury reviewed results of testing including echocardiogram with the patient and all questions answered. 07/30/2024 Cardiology was reconsulted secondary to bacteremia and request for MIKAELA. Patient's blood cultures on 07/24/2024 positive for Staphylococcus lugdunensis. Repeat cultures from 07/27/2024 are positive for coagulase-negative staph. Patient has been followed by infectious disease and remains on antibiotics. She denies any chest pain or pressure. She denies any shortness of breath. Vital signs are stable. 07/31 Patient underwent MIKAELA yesterday with Dr. Espinoza which revealed vegetation on the pacemaker wire in the RA. Recommendations to the patient were to follow-up with her primary brake tester at [facility] who have placed the AICD. Blood pressure 99/61, heart rate in the 70s, pulse ox 97% on room air. 08/01 Patient seen and examined. Patient states that she is being transferred to [facility] to her primary brake tester. She is currently waiting for a bed to be available for her. Blood pressure 106/61, heart rate 64, pulse ox 99% on room air. Patient is afebrile. PHYSICAL EXAM: VITAL SIGNS: Reviewed. GENERAL: Well-developed in no acute distress. NECK: Supple. No JVD or thyromegaly LUNGS: Respirations even and unlabored. Lungs essentially clear to auscultation bilaterally. HEART: Regular rate and rhythm. S1 and S2 heard. EXTREMITIES: Normal range of motion. No clubbing or cyanosis. Peripheral pu lses intact. No lower extremity edema ASSESSMENT: Metabolic encephalopathy secondary to dehydration, resolved Acute kidney injury Hyponatremia Lactic acidosis Bacteremia secondary to vegetation on the pacemaker wire Chronic systolic heart failure, reduced ejection fraction Ischemic cardiomyopathy status post AICD Coronary artery disease with prior stenting unknown details all performed at [facility] Chronic kidney disease Diabetes mellitus type 2 PLAN: Continue current cardiac medications including aspirin, atorvastatin, carvedilol, Farxiga, lisinopril Patient is waiting for transfer to her primary brake tester at [facility] for probable lead extraction and lead replacement. Nurse practitioner note has been reviewed by physician. Signing provider agrees with the documented findings, assessment, and plan of care documented by CARDIOLOGY SPECIALIST as a scribe. Objective - Vital Signs Vital signs: Vital Signs Temp 97.9 F 08/01/24 07:40 Pulse 73 08/01/24 07:40 Resp 16 08/01/24 07:40 BP 106/60 08/01/24 07:40 Pulse Ox 97 08/01/24 07:40 FiO2 Intake & Output 07/31/24 08/01/24 08/01/24 18:59 06:59 18:59 Intake Total 1430 120 120 Balance 1430 120 120 Weight 79.1 kg 79.2 kg Intake: Intake, IV Titration 300 Amount Nafcillin 2 gm In 300 Dextrose 5% in Water 100 ml @ 50 mls/hr IVPB Q4HR [facility] Rx#:[id number] Oral 1130 120 120 Other: Voiding Method Toilet Toilet # Voids 3 1 # Bowel Movements 2 1 - Labs CBC & Chem 7: 07/29/24 03:04 07/29/24 03:04 Labs: Abnormal Lab Results - Last 24 Hours (Table) 07/31/24 07/31/24 07/31/24 Range/Units 11:47 16:22 20:43 POC Glucose (mg/dL) 231 H 187 H 163 H (70-110) mg/dL 08/01/24 Range/Units 05:54 POC Glucose (mg/dL) 159 H (70-110) mg/dL Microbiology - Last 24 Hours (Table) 07/29/24 02:33 Blood Culture Gram Stain - Preliminary Blood Blood Culture - Preliminary Molecular ID
--- NOTE | 2024-08-01 13:06 | P.PN ---
Subjective Progress Note Date: 08/01/24 Principal diagnosis: Metabolic encephalopathy secondary to dehydration, resolved Acute kidney injury Hyponatremia Lactic acidosis Bacteremia secondary to vegetation on the pacemaker wire Chronic systolic heart failure, reduced ejection fraction Ischemic cardiomyopathy status post AICD Coronary artery disease with prior stenting unknown details all performed at [facility] Chronic kidney disease Diabetes mellitus type 2 Patient seen eval examined during rounds labs reviewed medications reviewed, hemodynamic status stable, denies any chest pain, patient is being considered for possible transfer to her primary gasket winder review of data revealed that patient is 68-year-old female patient with history of hypertension, diabetes and hyperlipidemia ischemic cardiomyopathy status post multivessel stenting and a biventricular ICD implantation done at [facility]. Have been asked to evaluate the patient for heart failure. Patient gives history that she has a total of 7 stents. She last saw her gasket winder in April of this year and everything was stable at that time. She states she has been walking and exercising on a regular basis. She states that 1 day last week she was at [facility] and it seemed like she was very cold outside she was feeling weak following that. She states she did not have any fever but on Sunday she developed sweats and thought she was coming down with something. She was not feeling well and her sister checked on her on Sunday. At that time she had not been eating or drinking very well. Her sister came back on to check on her and apparently the patient was out of it. She had not been eating or drinking but she had been taking all of her cardiac medications. She was brought into [facility] emergency center for evaluation. She currently denies chest pain or chest pressure, no palpitations, no shortness of breath. Blood pressure 91/59, heart rate in the 70s and 80s, pulse ox 98% on room air. Objective - Vital Signs Vital signs: Vital Signs Temp 98.1 F 08/01/24 11:15 Pulse 64 08/01/24 11:15 Resp 16 08/01/24 11:15 BP 106/61 08/01/24 11:15 Pulse Ox 99 08/01/24 11:15 FiO2 Intake & Output 07/31/24 08/01/24 08/01/24 18:59 06:59 18:59 Intake Total 1430 120 120 Balance 1430 120 120 Weight 79.1 kg 79.2 kg Intake: Intake, IV Titration 300 Amount Nafcillin 2 gm In 300 Dextrose 5% in Water 100 ml @ 50 mls/hr IVPB Q4HR [facility] Rx#:[id number] Oral 1130 120 120 Other: Voiding Method Toilet Toilet Toilet # Voids 3 1 # Bowel Movements 2 1 - Exam VITAL SIGNS: Reviewed. GENERAL: Well-developed in no acute distress. NECK: Supple. No JVD or thyromegaly LUNGS: Respirations even and unlabored. Lungs essentially clear to auscultation bilaterally. HEART: Regular rate and rhythm. S1 and S2 heard. EXTREMITIES: Normal range of motion. No clubbing or cyanosis. Peripheral pul ses intact. No lower extremity edema - Labs CBC & Chem 7: 07/29/24 03:04 07/29/24 03:04 Labs: Abnormal Lab Results - Last 24 Hours (Table) 07/31/24 07/31/24 08/01/24 Range/Units 16:22 20:43 05:54 POC Glucose (mg/dL) 187 H 163 H 159 H (70-110) mg/dL 08/01/24 Range/Units 11:26 POC Glucose (mg/dL) 164 H (70-110) mg/dL Microbiology - Last 24 Hours (Table) 07/29/24 02:33 Blood Culture Gram Stain - Preliminary Blood Blood Culture - Preliminary Staphylococcus lugdunenisis Molecular ID Assessment and Plan Assessment: Metabolic encephalopathy secondary to dehydration, resolved Acute kidney injury Hyponatremia Lactic acidosis Bacteremia secondary to vegetation on the pacemaker wire Chronic systolic heart failure, reduced ejection fraction Ischemic cardiomyopathy status post AICD Coronary artery disease with prior stenting unknown details all performed at [facility] Chronic kidney disease Diabetes mellitus type 2 Plan: Continue broad-spectrum antibiotics, Continue maximal medical therapy for guideline directed therapy for heart failure Intravascular volume depletion dehydration improved, consider patient encouraged to take p.o. Continue sliding scale insulin Transfer to [facility] once bed available as per cardiovascular services and ID services Time with Patient: Greater than 30
--- NOTE | 2024-08-01 15:25 | P.PN ---
Subjective Progress Note Date: 08/01/24 Principal diagnosis: Reason for follow-up is pneumonia and bacteremia Patient is a 68-year-old female with a past medical history significant for Coronary Artery Disease (CAD), Heart Failure, Diabetes Mellitus, Hypertension presenting to the hospital for evaluation of weakness nausea decreased appetite patient was brought into the hospital by the family concerning for weakness did have elevated white count CT chest with left lower lobe pneumonia blood cultures are positive for Staphylococcus Lugdunenisis On today's evaluation that is 08/01/2024, the patient continues to be afebrile, the patient is on room air and breathing comfortably, the Pt denies having any chest pain or cough, the patient denies having any abdominal pain no vomiting or any diarrhea, no new symptoms. No new labs has been obtained today Objective - Vital Signs Vital signs: Vital Signs Temp 98.1 F 08/01/24 11:15 Pulse 64 08/01/24 11:15 Resp 16 08/01/24 11:15 BP 106/61 08/01/24 11:15 Pulse Ox 99 08/01/24 11:15 FiO2 Intake & Output 07/31/24 08/01/24 08/01/24 18:59 06:59 18:59 Intake Total 1430 120 120 Balance 1430 120 120 Weight 79.1 kg 79.2 kg Intake: Intake, IV Titration 300 Amount Nafcillin 2 gm In 300 Dextrose 5% in Water 100 ml @ 50 mls/hr IVPB Q4HR [facility] Rx#:[id number] Oral 1130 120 120 Other: Voiding Method Toilet Toilet # Voids 3 1 # Bowel Movements 2 1 - Exam GENERAL DESCRIPTION: An elderly female lying in bed in no distress RESPIRATORY SYSTEM: Unlabored breathing , decreased breath sounds at bases HEART: S1 S2 regular rate and rhythm , ABDOMEN: Soft , no tenderness EXTREMITIES: No edema - Labs CBC & Chem 7: 07/29/24 03:04 07/29/24 03:04 Labs: Abnormal Lab Results - Last 24 Hours (Table) 07/31/24 07/31/24 07/31/24 Range/Units 11:47 16:22 20:43 POC Glucose (mg/dL) 231 H 187 H 163 H (70-110) mg/dL 08/01/24 08/01/24 Range/Units 05:54 11:26 POC Glucose (mg/dL) 159 H 164 H (70-110) mg/dL Assessment and Plan (1) Pneumonia Current Visit: Yes Status: Acute Code(s): J18.9 - PNEUMONIA, UNSPECIFIED ORGANISM SNOMED Code(s): 467437074 (2) Sepsis Current Visit: Yes Status: Acute Code(s): A41.9 - SEPSIS, UNSPECIFIED ORGANISM SNOMED Code(s): 48928947 (3) Bacteremia Current Visit: Yes Status: Acute Code(s): R78.81 - BACTEREMIA SNOMED Code(s): 6698749 Plan: 1patient presented hospital with generalized weakness in this patient who did have features of SIRS with tachycardia hypotension elevated white count and evidence of pneumonia on the CT likely source for the sepsis and likely community-acquired as no other obvious focus of infection clinically or on initial investigation 2-blood cultures came back positive with Staphylococcus Lugdunenisis with initial concern for possible pneumonia however repeat blood cultures came back positive as well for the patient did have a MIKAELA did not show endocarditis but is a bit vegetation on the pacemaker wire 3-patient blood culture repeat on 07/31/2024 so far pending, to continue with n aficillin, awaiting transfer to [facility] question concern answered Dictation was produced using nfon dictation software. please excuse any grammatical, word or spelling errors. Time with Patient: Less than 30
[2024-08-01 16:50] LABS: Glucose,Whole Blood 164 mg/dL (70-110)
[2024-08-01 20:09] LABS: Glucose,Whole Blood 190 mg/dL (70-110)
[2024-08-02 06:14] LABS: Glucose,Whole Blood 146 mg/dL (70-110)
--- NOTE | 2024-08-02 09:48 | P.PN ---
Subjective Progress Note Date: 08/02/24 HISTORY OF PRESENT ILLNESS: This is a 68-year-old female patient with history of hypertension, diabetes and hyperlipidemia ischemic cardiomyopathy status post multivessel stenting and a biventricular ICD implantation done at [facility]. Have been asked to evaluate the patient for heart failure. Patient gives history that she has a total of 7 stents. She last saw her cannon fire direction specialist in April of this year and everything was stable at that time. She states she has been walking and exercis ing on a regular basis. She states that 1 day last week she was at [facility] and it seemed like she was very cold outside she was feeling weak following that. She states she did not have any fever but on Sunday she developed sweats and thought she was coming down with something. She was not feeling well and her sister checked on her on Sunday. At that time she had not been eating or drinking very well. Her sister came back on to check on her and apparently the patient was out of it. She had not been eating or drinking but she had been taking all of her cardiac medications. She was brought into [facility] emergency center for evaluation. She currently denies chest pain or chest pressure, no palpitations, no shortness of breath. Blood pressure 91/59, heart rate in the 70s and 80s, pulse ox 98% on room air. EKG: Sinus rhythm, poor quality EKG Laboratory studies: WBC 22.3, hemoglobin 10.9, sodium 126, BUN 86 creatinine 1.93. Lactic acid 2.2 followed by 1.1. Magnesium 2.7. Troponin negative x 2. proBNP 6930. Acetone negative. COVID-[address] brain: No acute process. CT of the chest revealed airspace consolidation at the left lung base concerning for round atelectasis. Mild pneumonia aspiration not excluded. Mild to moderate hiatal hernia. Cardiomegaly with small to moderate bilateral pleural effusions with anasarca and ascites concerning for congestive heart failure Echocardiogram performed 07/24 revealed EF 55 to 60%. Mild concentric LVH. Mild biatrial dilatation. Mild RV dilatation. Mild pulmonary hypertension with RVSP 38 mmHg. Thickened aortic valve leaflets without significant stenosis. Moderate tricuspid regurgitation. Home cardiac medications: Aspirin 81 mg daily, atorvastatin 80 mg at bedtime, carvedilol 6.25 mg twice daily, Jardiance 25 mg daily, Lasix 40 mg daily, lisinopril 2.5 mg daily, spironolactone 25 mg twice daily 07/25 Patient seen and examined. She states she is feeling much better today and almost back to her baseline. She had a positive blood culture and ID is follo wing for possible pneumonia. Blood pressure remains low and yesterday we held Lasix, lisinopril and Aldactone. We did order IV fluids for 1 L. Echocardiogram reveals EF of 55 to 60%. Mild concentric LVH. RVSP 38. Moderate tricuspid regurgitation. Blood pressure 97/60, heart rate 68, pulse ox 98% on room air. Repeat blood work reveals improvement of her kidney function with BUN 50 creatinine 1.3. WBC 13.[address] Chowdhury reviewed results of testing including echocardiogram with the patient and all questions answered. 07/30/2024 Cardiology was reconsulted secondary to bacteremia and request for MIKAELA. Patient's blood cultures on 07/24/2024 positive for Staphylococcus lugdunensis. Repeat cultures from 07/27/2024 are positive for coagulase-negative staph. Patient has been followed by infectious disease and remains on antibiotics. She denies any chest pain or pressure. She denies any shortness of breath. Vital signs are stable. 07/31 Patient underwent MIKAELA yesterday with Dr. Espinoza which revealed vegetation on the pacemaker wire in the RA. Recommendations to the patient were to follow-up with her primary cannon fire direction specialist at [facility] who have placed the AICD. Blood pressure 99/61, heart rate in the 70s, pulse ox 97% on room air. 08/01 Patient seen and examined. Patient states that she is being transferred to [facility] to her primary cannon fire direction specialist. She is currently waiting for a bed to be available for her. Blood pressure 106/61, heart rate 64, pulse ox 99% on room air. Patient is afebrile. 08/02 Patient seen and examined. No change in condition. Blood pressure 106/65, heart rate 70, pulse ox 97% on room air. PHYSICAL EXAM: VITAL SIGNS: Reviewed. GENERAL: Well-developed in no acute distress. NECK: Supple. No JVD or thyromegaly LUNGS: Respirations even and unlabored. Lungs essentially clear to auscultation bilaterally. HEART: Regular rate and rhythm. S1 and S2 heard. EXTREMITIES: Normal range of motion. No clubbing or cyanosis. Peripheral pulses intact. 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 Nurse practitioner note has been reviewed by physician. Signing provider agrees with the documented findings, assessment, and plan of care documented by ROLLER [employer]ER as a scribe. Objective - Vital Signs Vital signs: Vital Signs Temp 98.4 F 08/02/24 03:35 Pulse 70 08/02/24 03:35 Resp 18 08/02/24 03:35 BP 106/65 08/02/24 03:35 Pulse Ox 97 08/02/24 03:35 FiO2 Intake & Output 08/01/24 08/02/24 08/02/24 18:59 06:59 18:59 Intake Total 1140 120 Balance 1140 120 Weight 79.3 kg Intake: Intake, IV Titration 300 Amount Nafcillin 2 gm In 300 Dextrose 5% in Water 100 ml @ 50 mls/hr IVPB Q4HR [facility] Rx#:[id number] Oral 840 120 Other: Voiding Method Toilet Toilet # Voids 1 # Bowel Movements 1 - Labs CBC & Chem 7: 07/29/24 03:04 07/29/24 03:04 Labs: Abnormal Lab Results - Last 24 Hours (Table) 08/01/24 08/01/24 08/01/24 Range/Units 11:26 16:49 20:07 POC Glucose (mg/dL) 164 H 164 H 190 H (70-110) mg/dL 08/02/24 Range/Units 06:13 POC Glucose (mg/dL) 146 H (70-110) mg/dL Microbiology - Last 24 Hours (Table) 07/31/24 13:57 Blood Culture - Preliminary Blood 07/29/24 02:33 Blood Culture Gram Stain - Preliminary Blood Blood Culture - Preliminary Staphylococcus lugdunenisis Molecular ID
--- NOTE | 2024-08-02 10:04 | P.PN ---
Subjective Progress Note Date: 08/02/24 Principal diagnosis: Metabolic encephalopathy secondary to dehydration, resolved Acute kidney injury Hyponatremia Lactic acidosis Bacteremia secondary to vegetation on the pacemaker wire Chronic systolic heart failure, reduced ejection fraction Ischemic cardiomyopathy status post AICD Coronary artery disease with prior stenting unknown details all performed at [facility] Chronic kidney disease Diabetes mellitus type 2 August 02, 2024, patient seen eval examined during rounds labs reviewed medication and care plan discussed, patient remains on broad-spectrum antibio tics tolerating well, currently on nafcillin, patient being continued on bronchodilator and on home medicine. Awaiting placement at [facility] for more definitive intervention related to remove pacer wires where vegetations noted however no clear-cut endocarditis identified, blood cultures have been consistently positive for staph species multiple times Patient seen eval examined during rounds labs reviewed medications reviewed, hemodynamic status stable, denies any chest pain, patient is being considered for possible transfer to her primary chip loft worker review of data revealed that patient is 68-year-old female patient with history of hypertension, diabetes and hyperlipidemia ischemic cardiomyopathy status post multivessel stenting and a biventricular ICD implantation done at [facility]. Have been asked to evaluate the patient for heart failure. Patient gives history that she has a total of 7 stents. She last saw her chip loft worker in April of this year and everything was stable at that time. She states she has been walking and exercising on a regular basis. She states that 1 day last week she was at [facility] and it seemed like she was very cold outside she was feeling weak following that. She states she did not have any fever but on Sunday she developed sweats and thought she was coming down with something. She was not feeling well and her sister checked on her on Sunday. At that time she had not been eating or drinking very well. Her sister came back on to check on her and apparently the patient was out of it. She had not been eating or drinking but she had been taking all of her cardiac medications. She was brought into [facility] emergency center for evaluation. She currently denies chest pain or chest pressure, no palpitations, no shortness of breath. Blood pressure 91/59, heart rate in the 70s and 80s, pulse ox 98% on room air. Objective - Vital Signs Vital signs: Vital Signs Temp 98.4 F 08/02/24 03:35 Pulse 70 08/02/24 03:35 Resp 18 08/02/24 03:35 BP 106/65 08/02/24 03:35 Pulse Ox 97 08/02/24 03:35 FiO2 Intake & Output 08/01/24 08/02/24 08/02/24 18:59 06:59 18:59 Intake Total 1140 120 Balance 1140 120 Weight 79.3 kg Intake: Intake, IV Titration 300 Amount Nafcillin 2 gm In 300 Dextrose 5% in Water 100 ml @ 50 mls/hr IVPB Q4HR [facility] Rx#:[id number] Oral 840 120 Other: Voiding Method Toilet Toilet # Voids 1 # Bowel Movements 1 - Exam VITAL SIGNS: Reviewed. GENERAL: Well-developed in no acute distress. NECK: Supple. No JVD or thyromegaly LUNGS: Respirations even and unlabored. Lungs essentially clear to auscultation bilaterally. HEART: Regular rate and rhythm. S1 and S2 heard. EXTREMITIES: Normal range of motion. No clubbing or cyanosis. Peripheral pulses intact. No lower extremity edema - Labs CBC & Chem 7: 07/29/24 03:04 07/29/24 03:04 Labs: Abnormal Lab Results - Last 24 Hours (Table) 08/01/24 08/01/24 08/01/24 Range/Units 11:26 16:49 20:07 POC Glucose (mg/dL) 164 H 164 H 190 H (70-110) mg/dL 08/02/24 Range/Units 06:13 POC Glucose (mg/dL) 146 H (70-110) mg/dL Microbiology - Last 24 Hours (Table) 07/31/24 13:57 Blood Culture - Preliminary Blood 07/29/24 02:33 Blood Culture Gram Stain - Preliminary Blood Blood Culture - Preliminary Staphylococcus lugdunenisis Molecular ID Assessment and Plan Assessment: Metabolic encephalopathy secondary to dehydration, resolved Acute kidney injury Hyponatremia Lactic acidosis Bacteremia secondary to vegetation on the pacemaker wire Chronic systolic heart failure, reduced ejection fraction Ischemic cardiomyopathy status post AICD Coronary artery disease with prior stenting unknown details all performed at [facility] Chronic kidney disease Diabetes mellitus type 2 Plan: Continue broad-spectrum antibiotics, Continue maximal medical therapy for guideline directed therapy for heart failure Intravascular volume depletion dehydration improved, consider patient encouraged to take p.o. Continue sliding scale insulin Transfer to [facility] once bed available as per cardiovascular services and ID services Time with Patient: Greater than 30
[2024-08-02 11:10] LABS: Glucose,Whole Blood 234 mg/dL (70-110)
--- NOTE | 2024-08-02 14:48 | P.PN ---
Subjective Progress Note Date: 08/02/24 Principal diagnosis: Reason for follow-up is pneumonia and bacteremia Patient is a 68-year-old female with a past medical history significant for Coronary Artery Disease (CAD), Heart Failure, Diabetes Mellitus, Hypertension presenting to the hospital for evaluation of weakness nausea decreased appetite patient was brought into the hospital by the family concerning for weakness did have elevated white count CT chest with left lower lobe pneumonia blood cultures are positive for Staphylococcus Lugdunenisis On today's evaluation that is 08/02/2024, Patient is afebrile patient is currently on room air and denies having any shortness of breath, the patient denies any chest pain or cough, the patient denies any nausea vomiting did not have any abdominal pain and no diarrhea. No new lab has been obtained today blood cultures from 07/31/2024 also came back positive Objective - Vital Signs Vital signs: Vital Signs Temp 98.1 F 08/02/24 08:00 Pulse 73 08/02/24 12:00 Resp 16 08/02/24 12:00 BP 104/63 08/02/24 12:00 Pulse Ox 98 08/02/24 12:00 FiO2 Intake & Output 08/01/24 08/02/24 08/02/24 18:59 06:59 18:59 Intake Total 1140 120 240 Balance 1140 120 240 Weight 79.3 kg Intake: Intake, IV Titration 300 Amount Nafcillin 2 gm In 300 Dextrose 5% in Water 100 ml @ 50 mls/hr IVPB Q4HR [facility] Rx#:[id number] Oral 840 120 240 Other: Voiding Method Toilet Toilet Toilet # Voids 1 # Bowel Movements 1 - Exam GENERAL DESCRIPTION: An elderly female lying in bed in no distress RESPIRATORY SYSTEM: Unlabored breathing , decreased breath sounds at bases HEART: S1 S2 regular rate and rhythm , ABDOMEN: Soft , no tenderness EXTREMITIES: No edema - Labs CBC & Chem 7: 07/29/24 03:04 07/29/24 03:04 Labs: Abnormal Lab Results - Last 24 Hours (Table) 08/01/24 08/01/24 08/02/24 Range/Units 16:49 20:07 06:13 POC Glucose (mg/dL) 164 H 190 H 146 H (70-110) mg/dL 08/02/24 Range/Units 11:09 POC Glucose (mg/dL) 234 H (70-110) mg/dL Microbiology - Last 24 Hours (Table) 07/29/24 02:33 Blood Culture Gram Stain - Final Blood Blood Culture - Final Staphylococcus lugdunenisis Molecular ID 07/31/24 13:57 Blood Culture - Preliminary Blood Assessment and Plan (1) Pneumonia Current Visit: Yes Status: Acute Code(s): J18.9 - PNEUMONIA, UNSPECIFIED ORGANISM SNOMED Code(s): 720321014 (2) Sepsis Current Visit: Yes Status: Acute Code(s): A41.9 - SEPSIS, UNSPECIFIED ORGANISM SNOMED Code(s): 07865424 (3) Bacteremia Current Visit: Yes Status: Acute Code(s): R78.81 - BACTEREMIA SNOMED Code(s): 2254537 Plan: 1patient presented hospital with generalized weakness in this patient who did have features of SIRS with tachycardia hypotension elevated white count and evidence of pneumonia on the CT likely source for the sepsis and likely community-acquired as no other obvious focus of infection clinically or on initial investigation 2-blood cultures came back positive with Staphylococcus Lugdunenisis with initial concern for possible pneumonia however repeat blood cultures came back positive as well for the patient did have a MIKAELA did not show endocarditis but is a bit vegetation on the pacemaker wire 3-patient blood culture repeat on 07/31/2024 came back positive blood culture have been repeated this morning, currently being treated naficillin will add rifampin, awaiting transfer to [facility] at the bedside question concern answered Dictation was produced using [employer] dictation software. please excuse any grammatical, word or spelling errors.
[2024-08-02 16:03] LABS: Glucose,Whole Blood 200 mg/dL (70-110)
[2024-08-02 20:18] LABS: Glucose,Whole Blood 236 mg/dL (70-110)
[2024-08-02] MEDS: rifAMPin 300 MG CAP PO SCH (20:22)
[2024-08-03 05:53] LABS: Glucose,Whole Blood 189 mg/dL (70-110)
--- NOTE | 2024-08-03 10:32 | P.PN ---
Subjective Progress Note Date: 08/03/24 Principal diagnosis: Metabolic encephalopathy secondary to dehydration, resolved Acute kidney injury Hyponatremia Lactic acidosis Bacteremia secondary to vegetation on the pacemaker wire Chronic systolic heart failure, reduced ejection fraction Ischemic cardiomyopathy status post AICD Coronary artery disease with prior stenting unknown details all performed at [facility] Chronic kidney disease Diabetes mellitus type 2 August 03, 2024, patient seen eval examined during rounds labs reviewed medications reviewed care plan discussed, patient had a low-grade temperature overnight this morning afebrile, soft blood pressure however MAP is 69, room air oxygen saturation is 99%.Labs not done today we will repeat labs in a.m. August 02, 2024, patient seen eval examined during rounds labs reviewed medication and care plan discussed, patient remains on broad-spectrum antibiotics tolerating well, currently on nafcillin, patient being continued on bronchodilator and on home medicine. Awaiting placement at [facility] for more definitive intervention related to remove pacer wires where vegetations noted however no clear-cut endocarditis identified, blood cultures have been consistently positive for staph species multiple times Patient seen eval examined during rounds labs reviewed medications reviewed, hemodynamic status stable, denies any chest pain, patient is being considered for possible transfer to her primary cytopathology technologist review of data revealed that patient is 68-year-old female patient with history of hypertension, diabetes and hyperlipidemia ischemic cardiomyopathy status post multivessel stenting and a biventricular ICD implantation done at [facility]. Have been asked to evaluate the patient for heart failure. Patient gives history that she has a total of 7 stents. She last saw her cytopathology technologist in April of this year and everything was stable at that time. She states she has been walking and exer cising on a regular basis. She states that 1 day last week she was at [facility] and it seemed like she was very cold outside she was feeling weak following that. She states she did not have any fever but on Sunday she developed sweats and thought she was coming down with something. She was not feeling well and her sister checked on her on Sunday. At that time she had not been eating or drinking very well. Her sister came back on to check on her and apparently the patient was out of it. She had not been eating or drinking but she had been taking all of her cardiac medications. She was brought into [facility] emergency center for evaluation. She currently denies chest pain or chest pressure, no palpitations, no shortness of breath. Blood pressure 91/59, heart rate in the 70s and 80s, pulse ox 98% on room air. Objective - Vital Signs Vital signs: Vital Signs Temp 97.5 F L 08/03/24 03:11 Pulse 64 08/03/24 03:11 Resp 17 08/03/24 03:11 BP 94/57 08/03/24 03:11 Pulse Ox 99 08/03/24 03:11 FiO2 Intake & Output 08/02/24 08/03/24 08/03/24 18:59 06:59 18:59 Intake Total 780 400 Balance 780 400 Weight 78.3 kg Intake: Oral 780 400 Other: Voiding Method Toilet Toilet # Voids 2 1 # Bowel Movements 1 1 - Exam VITAL SIGNS: Reviewed. GENERAL: Well-developed in no acute distress. NECK: Supple. No JVD or thyromegaly LUNGS: Respirations even and unlabored. Lungs essentially clear to auscultation bilaterally. HEART: Regular rate and rhythm. S1 and S2 heard. EXTREMITIES: Normal range of motion. No clubbing or cyanosis. Peripheral pulses intact. No lower extremity edema - Labs CBC & Chem 7: 07/29/24 03:04 07/29/24 03:04 Labs: Abnormal Lab Results - Last 24 Hours (Table) 08/02/24 08/02/24 08/02/24 Range/Units 11:09 16:02 20:16 POC Glucose (mg/dL) 234 H 200 H 236 H (70-110) mg/dL 08/03/24 Range/Units 05:52 POC Glucose (mg/dL) 189 H (70-110) mg/dL Microbiology - Last 24 Hours (Table) 07/31/24 13:57 Blood Culture Gram Stain - Preliminary Blood Blood Culture - Preliminary 07/29/24 02:33 Blood Culture Gram Stain - Final Blood Blood Culture - Final Staphylococcus lugdunenisis Molecular ID Assessment and Plan Assessment: Metabolic encephalopathy secondary to dehydration, resolved Acute kidney injury Hyponatremia Lactic acidosis Bacteremia secondary to vegetation on the pacemaker wire Chronic systolic heart failure, reduced ejection fraction Ischemic cardiomyopathy status post AICD Coronary artery disease with prior stenting unknown details all performed at [facility] Chronic kidney disease Diabetes mellitus type 2 Plan: Continue broad-spectrum antibiotics, Continue maximal medical therapy for guideline directed therapy for heart failure Intravascular volume depletion dehydration improved, consider patient encouraged to take p.o. Continue sliding scale insulin Repeat labs in the morning Transfer to [facility] once bed available as per cardiovascular services and ID services Time with Patient: Greater than 30
[2024-08-03 11:12] LABS: Glucose,Whole Blood 278 mg/dL (70-110)
[2024-08-03 16:23] LABS: Glucose,Whole Blood 159 mg/dL (70-110)
[2024-08-03 19:43] LABS: Glucose,Whole Blood 221 mg/dL (70-110)
[2024-08-04 05:37] LABS: Glucose,Whole Blood 152 mg/dL (70-110)
[2024-08-04 07:17] LABS: Basophils # (A) 0.06 10*3/uL (0.00-0.10); Basophils % (A) 0.4 %; Eosinophils # (A) 0.06 10*3/uL (0.04-0.35); Eosinophils % (A) 0.4 %; HCT 27.3 % (37.2-46.3); Lymphocytes # (A) 0.81 10*3/uL (0.90-5.00); Lymphocytes % (A) 5.2 %; Mean Platelet Volume 10.6 fL (9.5-12.2); Monocytes # (A) 0.88 10*3/uL (0.20-1.00); Monocytes % (A) 5.6 %; Neutrophils # (A) 13.78 10*3/uL (1.80-7.70); Neutrophils % (A) 87.6 %; Platelet Count 110 10*3/uL (140-440); RDW 15.1 % (11.5-14.5); WBC 15.72 10*3/uL (4.50-10.00)
[2024-08-04 07:37] LABS: ALT 12 U/L (4-34); AST 21 U/L (14-36); African American GFR (CKD) 32 (>60 ml/min/1.73 sqM); Albumin 2.1 g/dL (3.5-5.0); Alkaline Phosphatase 86 U/L (38-126); Anion Gap 9 mmol/L; Blood Urea Nitrogen 17 mg/dL (7-17); Calcium 7.1 mg/dL (8.4-10.2); Carbon Dioxide 20 mmol/L (22-30); Chloride 106 mmol/L (98-107); Glucose 135 mg/dL (74-99); Non-African American GFR(CKD) 28 (>60 ml/min/1.73 sqM); Sodium 135 mmol/L (137-145); Total Protein 5.2 g/dL (6.3-8.2)
[2024-08-04 07:47] LABS: Potassium 2.7 mmol/L (3.5-5.1)
[2024-08-04] MEDS ORDERED: Potassium Replacement Protocol 1 EACH MISC MISCELLANE PRN (07:56)
[2024-08-04] MEDS: POTASSIUM CHLORIDE ER 20 MEQ TAB.ER PO SCH (08:28)
[2024-08-04] MEDS: SODIUM CHLORIDE 0.9% 500 ML 500 ML IV ONE (08:36)
--- NOTE | 2024-08-04 10:26 | P.PN ---
Subjective Progress Note Date: 08/04/24 Principal diagnosis: Metabolic encephalopathy secondary to dehydration, resolved Acute kidney injury Hyponatremia Lactic acidosis Bacteremia secondary to vegetation on the pacemaker wire Chronic systolic heart failure, reduced ejection fraction Ischemic cardiomyopathy status post AICD Coronary artery disease with prior stenting unknown details all performed at [facility] Chronic kidney disease Diabetes mellitus type 2 August 04, 2024, patient seen eval examined during rounds labs reviewed medication care plan discussed, respiratory status remains stable however pat ient had low-grade fever and nausea last night, patient remains on IV nafcillin tolerating well, ID service has been following labs from today reviewed current vitals include fever of 98.1, heart rate 61 blood pressure 94/58 room air oxygen saturation is 98%, WBC count is 15.7, hemoglobin hematocrit 01/03 platelet count of 110 sodium is 135 potassium is 2.7 BUN/creatinine is seventeen 1.83 will karoline ck another set of labs for tomorrow blood sugar remained mid 100-200 range, blood culture all of them have positive for staph species August 03, 2024, patient seen eval examined during rounds labs reviewed medications reviewed care plan discussed, patient had a low-grade temperature overnight this morning afebrile, soft blood pressure however MAP is 69, room air oxygen saturation is 99%.Labs not done today we will repeat labs in a.m. August 02, 2024, patient seen eval examined during rounds labs reviewed medication and care plan discussed, patient remains on broad-spectrum antibiotics tolerating well, currently on nafcillin, patient being continued on bronchodilator and on home medicine. 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 Have been asked to evaluate the patient for heart failure. Patient gives history that she has a total of 7 stents. She last saw her emt driver in April of this year and everything was stable at that time. She states she has been walking and exercising on a regular basis. She states that 1 day last week she was at [facility] and it seemed like she was very cold outside she was feeling weak following that. She states she did not have any fever but on Sunday she developed sweats and thought she was coming down with something. She was not feeling well and her sister checked on her on Sunday. At that time she had not been eating or drinking very well. Her sister came back on to check on her and apparently the patient was out of it. She had not been eating or drinking but she had been taking all of her cardiac medications. She was brought into [facility] emergency center for evaluation. She currently denies chest pain or chest pressure, no palpitations, no shortness of breath. Blood pressure 91/59, heart rate in the 70s and 80s, pulse ox 98% on room air. Objective - Vital Signs Vital signs: Vital Signs Temp 98.1 F 08/04/24 08:15 Pulse 61 08/04/24 08:15 Resp 16 08/04/24 08:15 BP 94/58 08/04/24 09:59 Pulse Ox 98 08/04/24 08:15 FiO2 Intake & Output 08/03/24 08/04/24 08/04/24 18:59 06:59 18:59 Intake Total 780 240 240 Output Total 100 Balance 780 140 240 Weight 78.4 kg Intake: Oral 780 240 240 Output: Emesis 100 Other: Voiding Method Toilet Toilet # Voids 1 1 - Exam VITAL SIGNS: Reviewed. GENERAL: Well-developed in no acute distress. NECK: Supple. No JVD or thyromegaly LUNGS: Respirations even and unlabored. Lungs essentially clear to auscultation bilaterally. HEART: Regular rate and rhythm. S1 and S2 heard. EXTREMITIES: Normal range of motion. No clubbing or cyanosis. Peripheral pulses intact. No lower extremity edema - Labs CBC & Chem 7: 08/04/24 06:30 08/04/24 06:30 Labs: Abnormal Lab Results - Last 24 Hours (Table) 08/03/24 08/03/24 08/03/24 Range/Units 11:10 16:22 19:41 WBC (4.50-10.00) 10*3/uL RBC (4.10-5.20) 10*6/uL Hgb (12.0-15.0) g/dL Hct (37.2-46.3) % Plt Count (140-440) 10*3/uL Immature Gran # (0.00-0.04) 10*3/uL Neutrophils # (1.80-7.70) 10*3/uL Lymphocytes # (0.90-5.00) 10*3/uL Sodium (137-145) mmol/L Potassium (3.5-5.1) mmol/L Carbon Dioxide (22-30) mmol/L Creatinine (0.52-1.04) mg/dL Glucose (74-99) mg/dL POC Glucose (mg/dL) 278 H 159 H 221 H (70-110) mg/dL Calcium (8.4-10.2) mg/dL Total Bilirubin (0.2-1.3) mg/dL Total Protein (6.3-8.2) g/dL Albumin (3.5-5.0) g/dL 08/04/24 08/04/24 08/04/24 Range/Units 05:36 06:30 06:30 WBC 15.72 H (4.50-10.00) 10*3/uL RBC 3.00 L (4.10-5.20) 10*6/uL Hgb 9.0 L D (12.0-15.0) g/dL Hct 27.3 L (37.2-46.3) % Plt Count 110 L (140-440) 10*3/uL Immature Gran # 0.13 H (0.00-0.04) 10*3/uL Neutrophils # 13.78 H (1.80-7.70) 10*3/uL Lymphocytes # 0.81 L (0.90-5.00) 10*3/uL Sodium 135 L (137-145) mmol/L Potassium 2.7 L* (3.5-5.1) mmol/L Carbon Dioxide 20 L (22-30) mmol/L Creatinine 1.83 H (0.52-1.04) mg/dL Glucose 135 H (74-99) mg/dL POC Glucose (mg/dL) 152 H (70-110) mg/dL Calcium 7.1 L (8.4-10.2) mg/dL Total Bilirubin 2.0 H (0.2-1.3) mg/dL Total Protein 5.2 L (6.3-8.2) g/dL Albumin 2.1 L (3.5-5.0) g/dL Microbiology - Last 24 Hours (Table) 07/31/24 13:57 Blood Culture Gram Stain - Preliminary Blood Blood Culture - Preliminary Staphylococcus lugdunenisis Assessment and Plan Assessment: Hypokalemia, on replacement Hypotension due to nausea vomiting and volume depletion getting fluid bolus monitor close Metabolic encephalopathy secondary to dehydration, resolved Acute kidney injury Hyponatremia Lactic acidosis Bacteremia secondary to vegetation on the pacemaker wire Chronic systolic heart failure, reduced ejection fraction Ischemic cardiomyopathy status post AICD Coronary artery disease with prior stenting unknown details all performed at [facility] Chronic kidney disease Diabetes mellitus type 2 Plan: IV fluid bolus Replace potassium as per protocol Continue broad-spectrum antibiotics, Continue maximal medical therapy for guideline directed therapy for heart failure Intravascular volume depletion dehydration improved, consider patient encouraged to take p.o. Continue sliding scale insulin Repeat labs in the morning Transfer to [facility] once bed available as per cardiovascular services and ID services Time with Patient: Greater than 30
--- NOTE | 2024-08-04 10:32 | P.DS ---
Providers Date of admission: 07/24/24 18:11 Expected date of discharge: 08/04/24 Attending physician: Meliton Rojas Consults: 07/24/24 23:44 Consult Physician Routine Consulting Provider: Chaz Farrell Consult Reason/Comments: sepsis Do you want consulting provider notified?: Yes 07/24/24 23:56 Consult Physician Routine Consulting Provider: Saad García Consult Reason/Comments: chf Do you want consulting provider notified?: Yes 07/29/24 13:04 Consult Physician Routine Consulting Provider: Roberth Lay Consult Reason/Comments: + BC , Endocarditis , MIKAELA Do you want consulting provider notified?: Yes Primary care physician: [facility] Course: Metabolic encephalopathy secondary to dehydration, resolved Acute kidney injury Hyponatremia Lactic acidosis Bacteremia secondary to vegetation on the pacemaker wire Chronic systolic heart failure, reduced ejection fraction Ischemic cardiomyopathy status post AICD Coronary artery disease with prior stenting unknown details all performed at [facility] Chronic kidney disease Diabetes mellitus type 2 Hypokalemia Volume depletion dehydration August 04, 2024, patient seen eval examined during rounds labs reviewed medication care plan discussed, respiratory status remains stable however patient had low-grade fever and nausea last night, patient remains on IV nafcillin tolerating well, ID service has been following labs from today reviewed current vitals include fever of 98.1, heart rate 61 blood pressure 94/58 room air oxygen saturation is 98%, WBC count is 15.7, hemoglobin hematocrit 01/03 platelet count of 110 sodium is 135 potassium is 2.7 BUN/creatinine is seventeen 1.83 will check another set of labs for tomorrow blood sugar remained mid 100-200 range, blood culture all of them have positive for staph species August 03, 2024, patient seen eval examined during rounds labs reviewed medications reviewed care plan discussed, patient had a low-grade temperature overnight this morning afebrile, soft blood pressure however MAP is 69, room air oxygen saturation is 99%.Labs not done today we will repeat labs in a.m. August 02, 2024, patient seen eval examined during rounds labs reviewed medication and care plan discussed, patient remains on broad-spectrum antibiotics tolerating well, currently on nafcillin, patient being continued on bronchodilator and on home medicine. 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 Have been asked to evaluate the patient for heart failure. Patient gives history that she has a total of 7 stents. She last saw her pig conveyor operator in April of this year and everything was stable at that time. She states she has been walking and exercising on a regular basis. She states that 1 day last week she was at [facility] and it seemed like she was very cold outside she was feeling weak following that. She states she did not have any fever but on Sunday she developed sweats and thought she was coming down with something. She was not feeling well and her sister checked on her on Sunday. At that time she had not been eating or drinking very well. Her sister came back on to check on her and apparently the patient was out of it. She had not been eating or drinking but she had been taking all of her cardiac medications. She was brought into [facility] emergency center for evaluation. She currently denies chest pain or chest pressure, no palpitations, no shortness of breath. Blood pressure 91/59, heart rate in the 70s and 80s, pulse ox 98% on room air. Assessment: Patient to go to [facility] once room is available Health Concerns: Hypokalemia, on replacement Hypotension due to nausea vomiting and volume depletion getting fluid bolus monitor close Metabolic encephalopathy secondary to dehydration, resolved Acute kidney injury Hyponatremia Lactic acidosis Bacteremia secondary to vegetation on the pacemaker wire Chronic systolic heart failure, reduced ejection fraction Ischemic cardiomyopathy status post AICD Coronary artery disease with prior stenting unknown details all performed at [facility] Chronic kidney disease Diabetes mellitus type 2 Pertinent Studies: Please review CT scan and blood culture reports finding of echocardiogram as well as CT scan of chest abdomen pelvis, and brain CT Procedures: Patient to be transferred to [facility] once bed available for more definitive intervention Patient Condition at Discharge: Serious Plan - Discharge Summary Discharge Rx Participant: Yes New Discharge Prescriptions: No Action carvediloL [Coreg] 6.25 mg PO BID Omeprazole 40 mg PO DAILY Aspirin EC [Ecotrin Low Dose] 81 mg PO DAILY Spironolactone [Aldactone] 25 mg PO DAILY 90 Days #90 tab Furosemide [Lasix] 40 mg PO DAILY glipiZIDE 10 mg PO BID Atorvastatin Calcium [Lipitor] 80 mg PO DAILY INSULIN ASPART (NovoLOG) [NovoLOG (formulary)] 10 unit SQ TID-W/MEALS lisinopriL [Zestril] 2.5 mg PO DAILY 90 Days #90 tab Empagliflozin [Jardiance] 25 mg PO DAILY Discharge Medication List Atorvastatin Calcium [Lipitor] 80 mg PO DAILY 12/31/21 [History] carvediloL [Coreg] 6.25 mg PO BID 12/31/21 [History] glipiZIDE 10 mg PO BID 12/31/21 [History] Aspirin EC [Ecotrin Low Dose] 81 mg PO DAILY 06/08/22 [History] INSULIN ASPART (NovoLOG) [NovoLOG (formulary)] 10 unit SQ TID-W/MEALS 06/08/22 [History] Omeprazole 40 mg PO DAILY 06/08/22 [History] Spironolactone [Aldactone] 25 mg PO DAILY 90 Days #90 tab 06/13/22 [Rx] lisinopriL [Zestril] 2.5 mg PO DAILY 90 Days #90 tab 06/13/22 [Rx] Empagliflozin [Jardiance] 25 mg PO DAILY 07/24/24 [History] Furosemide [Lasix] 40 mg PO DAILY 07/24/24 [History] Follow up Appointment(s)/Referral(s): Meliton Rojas MD [Primary Care Provider] - 1-2 days [facility], [NON-STAFF] - As Needed Discharge/Stand Alone Forms: Who Do I Call?, Adult [facility] List, Assisted Living Facilities
[2024-08-04 11:34] LABS: Glucose,Whole Blood 207 mg/dL (70-110)
[2024-08-04 16:39] LABS: Glucose,Whole Blood 188 mg/dL (70-110)
[2024-08-04 20:08] LABS: Glucose,Whole Blood 238 mg/dL (70-110)
[2024-08-05 06:11] LABS: Glucose,Whole Blood 151 mg/dL (70-110)
[2024-08-05 07:09] LABS: Basophils # (A) 0.07 10*3/uL (0.00-0.10); Basophils % (A) 0.6 %; Eosinophils % (A) 0.8 %; HCT 27.5 % (37.2-46.3); HGB 9.2 g/dL (12.0-15.0); Lymphocytes # (A) 0.65 10*3/uL (0.90-5.00); Lymphocytes % (A) 5.3 %; MCH 30.3 pg (27.0-32.0); MCHC 33.5 g/dL (32.0-37.0); MCV 90.5 fL (80.0-97.0); Mean Platelet Volume 10.5 fL (9.5-12.2); Monocytes # (A) 0.68 10*3/uL (0.20-1.00); Monocytes % (A) 5.5 %; Neutrophils # (A) 10.79 10*3/uL (1.80-7.70); Neutrophils % (A) 87.2 %; Platelet Count 116 10*3/uL (140-440); RBC 3.04 10*6/uL (4.10-5.20); RDW 15.1 % (11.5-14.5); WBC 12.36 10*3/uL (4.50-10.00)
[2024-08-05 07:32] LABS: ALT 12 U/L (4-34); AST 22 U/L (14-36); African American GFR (CKD) 25 (>60 ml/min/1.73 sqM); Alkaline Phosphatase 86 U/L (38-126); Anion Gap 9 mmol/L; Blood Urea Nitrogen 17 mg/dL (7-17); Calcium 6.8 mg/dL (8.4-10.2); Carbon Dioxide 17 mmol/L (22-30); Chloride 107 mmol/L (98-107); Glucose 135 mg/dL (74-99); Non-African American GFR(CKD) 22 (>60 ml/min/1.73 sqM); Potassium 3.3 mmol/L (3.5-5.1); Sodium 133 mmol/L (137-145); Total Protein 5.2 g/dL (6.3-8.2)
--- NOTE | 2024-08-05 07:47 | P.PN ---
Subjective Progress Note Date: 08/03/24 Principal diagnosis: Reason for follow-up is pneumonia and bacteremia Patient is a 68-year-old female with a past medical history significant for Coronary Artery Disease (CAD), Heart Failure, Diabetes Mellitus, Hypertension presenting to the hospital for evaluation of weakness nausea decreased appetite patient was brought into the hospital by the family concerning for weakness did have elevated white count CT chest with left lower lobe pneumonia blood cultures are positive for Staphylococcus Lugdunenisis On today's evaluation that is 08/03/2024, patient has been afebrile, patient is breathing comfortably and is currently on room air, patient denies having any c hest pain and cough, patient denies nausea vomiting or diarrhea and no abdominal pain. No lab draw today Objective - Vital Signs Vital signs: Vital Signs Temp 97.6 F 08/03/24 08:00 Pulse 65 08/03/24 11:49 Resp 16 08/03/24 11:49 BP 122/74 08/03/24 11:49 Pulse Ox 99 08/03/24 11:49 FiO2 Intake & Output 08/02/24 08/03/24 08/03/24 18:59 06:59 18:59 Intake Total 780 400 540 Balance 780 400 540 Weight 78.3 kg Intake: Oral 780 400 540 Other: Voiding Method Toilet Toilet Toilet # Voids 2 1 1 # Bowel Movements 1 1 - Exam GENERAL DESCRIPTION: An elderly female lying in bed in no distress RESPIRATORY SYSTEM: Unlabored breathing , decreased breath sounds at bases HEART: S1 S2 regular rate and rhythm , ABDOMEN: Soft , no tenderness EXTREMITIES: No edema - Labs CBC & Chem 7: 08/05/24 06:43 08/05/24 06:43 Labs: Abnormal Lab Results - Last 24 Hours (Table) 08/02/24 08/02/24 08/03/24 Range/Units 16:02 20:16 05:52 POC Glucose (mg/dL) 200 H 236 H 189 H (70-110) mg/dL 08/03/24 Range/Units 11:10 POC Glucose (mg/dL) 278 H (70-110) mg/dL Microbiology - Last 24 Hours (Table) 07/31/24 13:57 Blood Culture Gram Stain - Preliminary Blood Blood Culture - Preliminary Staphylococcus lugdunenisis 07/29/24 02:33 Blood Culture Gram Stain - Final Blood Blood Culture - Final Staphylococcus lugdunenisis Molecular ID Assessment and Plan (1) Pneumonia Current Visit: Yes Status: Acute Code(s): J18.9 - PNEUMONIA, UNSPECIFIED ORGANISM SNOMED Code(s): 932468158 (2) Sepsis Current Visit: Yes Status: Acute Code(s): A41.9 - SEPSIS, UNSPECIFIED ORGA NISM SNOMED Code(s): 81051837 (3) Bacteremia Current Visit: Yes Status: Acute Code(s): R78.81 - BACTEREMIA SNOMED Code(s): 3721335 Plan: 1patient presented hospital with generalized weakness in this patient who did have features of SIRS with tachycardia hypotension elevated white count and evidence of pneumonia on the CT likely source for the sepsis and likely community-acquired as no other obvious focus of infection clinically or on initial investigation 2-blood cultures came back positive with Staphylococcus Lugdunenisis with initial concern for possible pneumonia however repeat blood cultures came back positive as well for the patient did have a MIKAELA did not show endocarditis but is a bit vegetation on the pacemaker wire 3-patient blood culture repeat on 07/31/2024 came back positive blood culture have been repeated this morning which are currently pending, 4patient is currently being treated with naficillin and rifampin, Dictation was produced using [employer] dictation software. please excuse any gra mmatical, word or spelling errors. Time with Patient: Less than 30
--- NOTE | 2024-08-05 07:48 | P.PN ---
Subjective Progress Note Date: 08/04/24 Principal diagnosis: Reason for follow-up is pneumonia and bacteremia Patient is a 68-year-old female with a past medical history significant for Coronary Artery Disease (CAD), Heart Failure, Diabetes Mellitus, Hypertension presenting to the hospital for evaluation of weakness nausea decreased appetite patient was brought into the hospital by the family concerning for weakness did have elevated white count CT chest with left lower lobe pneumonia blood cultures are positive for Staphylococcus Lugdunenisis On today's evaluation that is 08/04/2024, Patient is afebrile this morning patient denies having any chest pain shortness of breath or cough, the patient is currently on room air, patient denies any abdominal pain no diarrhea no nausea no vomiting. Patient white count is 15.72 creatinine is 1.83, blood culture from 424 positive Objective - Vital Signs Vital signs: Vital Signs Temp 97.7 F 08/04/24 11:31 Pulse 66 08/04/24 11:31 Resp 16 08/04/24 11:31 BP 93/57 08/04/24 11:31 Pulse Ox 98 08/04/24 11:31 FiO2 Intake & Output 08/03/24 08/04/24 08/04/24 18:59 06:59 18:59 Intake Total 780 240 240 Output Total 100 Balance 780 140 240 Weight 78.4 kg Intake: Oral 780 240 240 Output: Emesis 100 Other: Voiding Method Toilet Toilet Toilet # Voids 1 1 - Exam GENERAL DESCRIPTION: An elderly female lying in bed in no distress RESPIRATORY SYSTEM: Unlabored breathing , decreased breath sounds at bases HEART: S1 S2 regular rate and rhythm , ABDOMEN: Soft , no tenderness EXTREMITIES: No edema - Labs CBC & Chem 7: 08/05/24 06:43 08/05/24 06:43 Labs: Abnormal Lab Results - Last 24 Hours (Table) 08/03/24 08/03/24 08/04/24 Range/Units 16:22 19:41 05:36 WBC (4.50-10.00) 10*3/uL RBC (4.10-5.20) 10*6/uL Hgb (12.0-15.0) g/dL Hct (37.2-46.3) % Plt Count (140-440) 10*3/uL Immature Gran # (0.00-0.04) 10*3/uL Neutrophils # (1.80-7.70) 10*3/uL Lymphocytes # (0.90-5.00) 10*3/uL Sodium (137-145) mmol/L Potassium (3.5-5.1) mmol/L Carbon Dioxide (22-30) mmol/L Creatinine (0.52-1.04) mg/dL Glucose (74-99) mg/dL POC Glucose (mg/dL) 159 H 221 H 152 H (70-110) mg/dL Calcium (8.4-10.2) mg/dL Total Bilirubin (0.2-1.3) mg/dL Total Protein (6.3-8.2) g/dL Albumin (3.5-5.0) g/dL 08/04/24 08/04/24 08/04/24 Range/Units 06:30 06:30 11:32 WBC 15.72 H (4.50-10.00) 10*3/uL RBC 3.00 L (4.10-5.20) 10*6/uL Hgb 9.0 L D (12.0-15.0) g/dL Hct 27.3 L (37.2-46.3) % Plt Count 110 L (140-440) 10*3/uL Immature Gran # 0.13 H (0.00-0.04) 10*3/uL Neutrophils # 13.78 H (1.80-7.70) 10*3/uL Lymphocytes # 0.81 L (0.90-5.00) 10*3/uL Sodium 135 L (137-145) mmol/L Potassium 2.7 L* (3.5-5.1) mmol/L Carbon Dioxide 20 L (22-30) mmol/L Creatinine 1.83 H (0.52-1.04) mg/dL Glucose 135 H (74-99) mg/dL POC Glucose (mg/dL) 207 H (70-110) mg/dL Calcium 7.1 L (8.4-10.2) mg/dL Total Bilirubin 2.0 H (0.2-1.3) mg/dL Total Protein 5.2 L (6.3-8.2) g/dL Albumin 2.1 L (3.5-5.0) g/dL Microbiology - Last 24 Hours (Table) 07/31/24 13:57 Blood Culture Gram Stain - Final Blood Blood Culture - Final Staphylococcus lugdunenisis Assessment and Plan (1) Pneumonia Current Visit: Yes Status: Acute Code(s): J18.9 - PNEUMONIA, UNSPECIFIED ORGANISM SNOMED Code(s): 586577871 (2) Sepsis Current Visit: Yes Status: Acute Code(s): A41.9 - SEPSIS, UNSPECIFIED ORGANISM SNOMED Code(s): 12120418 (3) Bacteremia Current Visit: Yes Status: Acute Code(s): R78.81 - BACTEREMIA SNOMED Code(s): 4437814 Plan: 1patient presented hospital with generalized weakness in this patient who did have features of SIRS with tachycardia hypotension elevated white count and evidence of pneumonia on the CT likely source for the sepsis and likely commun ity-acquired as no other obvious focus of infection clinically or on initial investigation 2-blood cultures came back positive with Staphylococcus Lugdunenisis with initial concern for possible pneumonia however repeat blood cultures came back positive as well for the patient did have a MIKAELA did not show endocarditis but is a bit vegetation on the pacemaker wire 3-patient blood culture repeat on 07/31/2024 came back positive blood culture repeat has been requested again to document clearance 4patient is currently being treated with naficillin and rifampin, patient is currently waiting for transfer to [facility] for more definite surgical treatment, question concern answered Dictation was produced using [employer] dictation software. please excuse any grammatical, word or spelling errors. Time with Patient: Less than 30
[2024-08-05] MEDS: POTASSIUM CHLORIDE ER 20 MEQ TAB.ER PO SCH (09:32)
[2024-08-05 11:01] VITALS: RESP 16
--- NOTE | 2024-08-05 11:04 | P.PN ---
Subjective Progress Note Date: 08/05/24 Principal diagnosis: Metabolic encephalopathy secondary to dehydration, resolved Acute kidney injury Hyponatremia Lactic acidosis Bacteremia secondary to vegetation on the pacemaker wire Chronic systolic heart failure, reduced ejection fraction Ischemic cardiomyopathy status post AICD Coronary artery disease with prior stenting unknown details all performed at [facility] Chronic kidney disease Diabetes mellitus type 2 August 05, 2024, patient seen eval examined during rounds patient hemodynamic status slightly improved today as well as electrolytes, episode of nausea was noted today however fever was not present patient remains afebrile. A set of vitals include blood pressure is 90/60 saturation 97% heart rate 69 temperature is 98 laboratory data WBC count is 12.36 hemoglobin hematocrit stable 01/03, chemistry fairly within normal limit sodium 133 potassium 3.3 potassium is being replaced BUN/creatinine 17/2.23. Noted medication including bronchodilator ma ximal medical therapy guideline-directed for heart failure insulin and nafcillin replacement of potassium in addition to nafcillin patient has been on rifampin as well noted BUN/creatinine increasing will consult nephrology August 04, 2024, patient seen eval examined during rounds labs reviewed medi cation care plan discussed, respiratory status remains stable however patient had low-grade fever and nausea last night, patient remains on IV nafcillin tolerating well, ID service has been following labs from today reviewed current vitals include fever of 98.1, heart rate 61 blood pressure 94/58 room air oxygen saturation is 98%, WBC count is 15.7, hemoglobin hematocrit 01/03 platelet count of 110 sodium is 135 potassium is 2.7 BUN/creatinine is seventeen 1.83 will check another set of labs for tomorrow blood sugar remained mid 100-200 range, blood culture all of them have positive for staph species August 03, 2024, patient seen eval examined during rounds labs reviewed medications reviewed care plan discussed, patient had a low-grade temperature overnight this morning afebrile, soft blood pressure however MAP is 69, room air oxygen saturation is 99%.Labs not done today we will repeat labs in a.m. August 02, 2024, patient seen eval examined during rounds labs reviewed medication and care plan discussed, patient remains on broad-spectrum antibiotics tolerating well, currently on nafcillin, patient being continued on bronchodilator and on home medicine. Awaiting placement at [facility] for more definitive intervention related to remove pacer wires where vegetations noted however no clear-cut endocarditis identified, blood cultures have been consistently positive for staph species multiple times Patient seen eval examined during rounds labs reviewed medications reviewed, hemodynamic status stable, denies any chest pain, patient is being considered for possible transfer to her primary technical sales engineer review of data revealed that patient is 68-year-old female patient with history of hypertension, diabetes and hyperlipidemia ischemic cardiomyopathy status post multivessel stenting and a biventricular ICD implantation done at [facility]. Have been asked to evaluate the patient for heart failure. Patient gives history that she has a total of 7 stents. She last saw her technical sales engineer in April of this year and everything was stable at that time. She states she has been walking and exercising on a regular basis. She states that 1 day last week she was at [facility] and it seemed like she was very cold outside she was feeling weak following that. She states she did not have any fever but on Sunday she developed sweats and thought she was coming down with something. She was not feeling well and her sister checked on her on Sunday. At that time she had not been eating or drinking very well. Her sister came back on to check on her and apparently the patient was out of it. She had not been eating or drinking but she had been taking all of her cardiac medications. She was brought into [facility] emergency center for evaluation. She currently denies chest pain or chest pressure, no palpitations, no shortness of breath. Blood pressure 91/59, heart rate in the 70s and 80s, pulse ox 98% on room air. Objective - Vital Signs Vital signs: Vital Signs Temp 98.0 F 08/05/24 07:57 Pulse 69 08/05/24 07:57 Resp 20 08/05/24 07:57 BP 88/58 08/05/24 07:57 Pulse Ox 97 08/05/24 07:57 FiO2 Intake & Output 08/04/24 08/05/24 08/05/24 18:59 06:59 18:59 Intake Total 720 221 Output Total 400 75 Balance 720 -400 146 Weight 80.1 kg Intake: Oral 720 221 Output: Urine 400 Emesis 75 Other: Voiding Method Toilet Toilet Toilet # Voids 2 - Exam VITAL SIGNS: Reviewed. GENERAL: Well-developed in no acute distress. NECK: Supple. No JVD or thyromegaly LUNGS: Respirations even and unlabored. Lungs essentially clear to auscultation bilaterally. HEART: Regular rate and rhythm. S1 and S2 heard. EXTREMITIES: Normal range of motion. No clubbing or cyanosis. Peripheral pulses intact. No lower extremity edema - Labs CBC & Chem 7: 08/05/24 06:43 08/05/24 06:43 Labs: Abnormal Lab Results - Last 24 Hours (Table) 08/04/24 08/04/24 08/04/24 Range/Units 11:32 16:38 19:32 WBC (4.50-10.00) 10*3/uL RBC (4.10-5.20) 10*6/uL Hgb (12.0-15.0) g/dL Hct (37.2-46.3) % Plt Count (140-440) 10*3/uL Immature Gran # (0.00-0.04) 10*3/uL Neutrophils # (1.80-7.70) 10*3/uL Lymphocytes # (0.90-5.00) 10*3/uL Sodium (137-145) mmol/L Potassium 3.4 L (3.5-5.1) mmol/L Carbon Dioxide (22-30) mmol/L Creatinine (0.52-1.04) mg/dL Glucose (74-99) mg/dL POC Glucose (mg/dL) 207 H 188 H (70-110) mg/dL Calcium (8.4-10.2) mg/dL Total Bilirubin (0.2-1.3) mg/dL Total Protein (6.3-8.2) g/dL Albumin (3.5-5.0) g/dL 08/04/24 08/05/24 08/05/24 Range/Units 20:06 06:09 06:43 WBC 12.36 H (4.50-10.00) 10*3/uL RBC 3.04 L (4.10-5.20) 10*6/uL Hgb 9.2 L (12.0-15.0) g/dL Hct 27.5 L (37.2-46.3) % Plt Count 116 L (140-440) 10*3/uL Immature Gran # 0.07 H (0.00-0.04) 10*3/uL Neutrophils # 10.79 H (1.80-7.70) 10*3/uL Lymphocytes # 0.65 L (0.90-5.00) 10*3/uL Sodium (137-145) mmol/L Potassium (3.5-5.1) mmol/L Carbon Dioxide (22-30) mmol/L Creatinine (0.52-1.04) mg/dL Glucose (74-99) mg/dL POC Glucose (mg/dL) 238 H 151 H (70-110) mg/dL Calcium (8.4-10.2) mg/dL Total Bilirubin (0.2-1.3) mg/dL Total Protein (6.3-8.2) g/dL Albumin (3.5-5.0) g/dL 08/05/24 Range/Units 06:43 WBC (4.50-10.00) 10*3/uL RBC (4.10-5.20) 10*6/uL Hgb (12.0-15.0) g/dL Hct (37.2-46.3) % Plt Count (140-440) 10*3/uL Immature Gran # (0.00-0.04) 10*3/uL Neutrophils # (1.80-7.70) 10*3/uL Lymphocytes # (0.90-5.00) 10*3/uL Sodium 133 L (137-145) mmol/L Potassium 3.3 L (3.5-5.1) mmol/L Carbon Dioxide 17 L (22-30) mmol/L Creatinine 2.23 H (0.52-1.04) mg/dL Glucose 135 H (74-99) mg/dL POC Glucose (mg/dL) (70-110) mg/dL Calcium 6.8 L (8.4-10.2) mg/dL Total Bilirubin 2.0 H (0.2-1.3) mg/dL Total Protein 5.2 L (6.3-8.2) g/dL Albumin 2.0 L (3.5-5.0) g/dL Microbiology - Last 24 Hours (Table) 07/31/24 13:57 Blood Culture Gram Stain - Final Blood Blood Culture - Final Staphylococcus lugdunenisis Assessment and Plan Assessment: Hypokalemia, on replacement Hypotension due to nausea vomiting and volume depletion getting fluid bolus monitor close Acute on chronic kidney disease with a rising creatinine Metabolic encephalopathy secondary to dehydration, resolved Acute kidney injury Hyponatremia Lactic acidosis Bacteremia secondary to vegetation on the pacemaker wire Chronic systolic heart failure, reduced ejection fraction Ischemic cardiomyopathy status post AICD Coronary artery disease with prior stenting unknown details all performed at [facility] Chronic kidney disease Diabetes mellitus type 2 Plan: Nephrology consultation IV fluid gentle rehydration however concern about fluid overload will defer it to expertise of nephrology Replace potassium as per protocol Continue broad-spectrum antibiotics, Continue maximal medical therapy for guideline directed therapy for heart failure Intravascular volume depletion dehydration improved, consider patient encouraged to take p.o. Continue sliding scale insulin Repeat labs in the morning Transfer to [facility] once bed available as per cardiovascular serv ices and ID services Time with Patient: Greater than 30
[2024-08-05 12:20] LABS: Glucose,Whole Blood 116 mg/dL (70-110)
--- NOTE | 2024-08-05 15:01 | P.PN ---
Subjective Progress Note Date: 08/05/24 Principal diagnosis: Reason for follow-up is pneumonia and bacteremia Patient is a 68-year-old female with a past medical history significant for Coronary Artery Disease (CAD), Heart Failure, Diabetes Mellitus, Hypertension presenting to the hospital for evaluation of weakness nausea decreased appetite patient was brought into the hospital by the family concerning for weakness did have elevated white count CT chest with left lower lobe pneumonia blood cultures are positive for Staphylococcus Lugdunenisis On today's evaluation that is 08/05/2024,the patient denies any fever or any chills, patient is breathing comfortably on room air, the patient denies chest pain shortness of breath and no significant cough, patient denies abdominal pain, no nausea vomiting or diarrhea. Patient white count is down to 12.36, creatinine is 2.23 Objective - Vital Signs Vital signs: Vital Signs Temp 98.3 F 08/05/24 11:01 Pulse 70 08/05/24 11:01 Resp 16 08/05/24 11:01 BP 89/53 08/05/24 11:01 Pulse Ox 96 08/05/24 11:01 FiO2 Intake & Output 08/04/24 08/05/24 08/05/24 18:59 06:59 18:59 Intake Total 720 221 Output Total 400 75 Balance 720 -400 146 Weight 80.1 kg Intake: Oral 720 221 Output: Urine 400 Emesis 75 Other: Voiding Method Toilet Toilet Toilet # Voids 2 - Exam GENERAL DESCRIPTION: An elderly female lying in bed in no distress RESPIRATORY SYSTEM: Unlabored breathing , decreased breath sounds at bases HEART: S1 S2 regular rate and rhythm , ABDOMEN: Soft , no tenderness EXTREMITIES: No edema - Labs CBC & Chem 7: 08/05/24 06:43 08/05/24 06:43 Labs: Abnormal Lab Results - Last 24 Hours (Table) 08/04/24 08/04/24 08/04/24 Range/Units 16:38 19:32 20:06 WBC (4.50-10.00) 10*3/uL RBC (4.10-5.20) 10*6/uL Hgb (12.0-15.0) g/dL Hct (37.2-46.3) % Plt Count (140-440) 10*3/uL Immature Gran # (0.00-0.04) 10*3/uL Neutrophils # (1.80-7.70) 10*3/uL Lymphocytes # (0.90-5.00) 10*3/uL Sodium (137-145) mmol/L Potassium 3.4 L (3.5-5.1) mmol/L Carbon Dioxide (22-30) mmol/L Creatinine (0.52-1.04) mg/dL Glucose (74-99) mg/dL POC Glucose (mg/dL) 188 H 238 H (70-110) mg/dL Calcium (8.4-10.2) mg/dL Total Bilirubin (0.2-1.3) mg/dL Total Protein (6.3-8.2) g/dL Albumin (3.5-5.0) g/dL 08/05/24 08/05/24 08/05/24 Range/Units 06:09 06:43 06:43 WBC 12.36 H (4.50-10.00) 10*3/uL RBC 3.04 L (4.10-5.20) 10*6/uL Hgb 9.2 L (12.0-15.0) g/dL Hct 27.5 L (37.2-46.3) % Plt Count 116 L (140-440) 10*3/uL Immature Gran # 0.07 H (0.00-0.04) 10*3/uL Neutrophils # 10.79 H (1.80-7.70) 10*3/uL Lymphocytes # 0.65 L (0.90-5.00) 10*3/uL Sodium 133 L (137-145) mmol/L Potassium 3.3 L (3.5-5.1) mmol/L Carbon Dioxide 17 L (22-30) mmol/L Creatinine 2.23 H (0.52-1.04) mg/dL Glucose 135 H (74-99) mg/dL POC Glucose (mg/dL) 151 H (70-110) mg/dL Calcium 6.8 L (8.4-10.2) mg/dL Total Bilirubin 2.0 H (0.2-1.3) mg/dL Total Protein 5.2 L (6.3-8.2) g/dL Albumin 2.0 L (3.5-5.0) g/dL 08/05/24 Range/Units 12:18 WBC (4.50-10.00) 10*3/uL RBC (4.10-5.20) 10*6/uL Hgb (12.0-15.0) g/dL Hct (37.2-46.3) % Plt Count (140-440) 10*3/uL Immature Gran # (0.00-0.04) 10*3/uL Neutrophils # (1.80-7.70) 10*3/uL Lymphocytes # (0.90-5.00) 10*3/uL Sodium (137-145) mmol/L Potassium (3.5-5.1) mmol/L Carbon Dioxide (22-30) mmol/L Creatinine (0.52-1.04) mg/dL Glucose (74-99) mg/dL POC Glucose (mg/dL) 116 H (70-110) mg/dL Calcium (8.4-10.2) mg/dL Total Bilirubin (0.2-1.3) mg/dL Total Protein (6.3-8.2) g/dL Albumin (3.5-5.0) g/dL Microbiology - Last 24 Hours (Table) 07/31/24 13:57 Blood Culture Gram Stain - Final Blood Blood Culture - Final Staphylococcus lugdunenisis Assessment and Plan (1) Pneumonia Current Visit: Yes Status: Acute Code(s): J18.9 - PNEUMONIA, UNSPECIFIED ORGANISM SNOMED Code(s): 451085455 (2) Sepsis Current Visit: Yes Status: Acute Code(s): A41.9 - SEPSIS, UNSPECIFIED ORGANISM SNOMED Code(s): 75293934 (3) Bacteremia Current Visit: Yes Status: Acute Code(s): R78.81 - BACTEREMIA SNOMED Code(s): 1726942 Plan: 1patient presented hospital with generalized weakness in this patient who did have features of SIRS with tachycardia hypotension elevated white count and evidence of pneumonia on the CT likely source for the sepsis and likely community-acquired as no other obvious focus of infection clinically or on initial investigation 2-blood cultures came back positive with Staphylococcus Lugdunenisis with ini tial concern for possible pneumonia however repeat blood cultures came back positive as well for the patient did have a MIKAELA did not show endocarditis but is a bit vegetation on the pacemaker wire 3-patient blood culture repeat on 07/31/2024 came back positive blood culture repeat has been requested again to document clearance 4patient is currently being treated with naficillin and rifampin, patient noticed to have a worsening of her creatinine we will check a urine for eosinophil, repeat BMP with a.m. lab if any worsening creatinine will benefit from nephrology evaluation Dictation was produced using [employer] dictation software. please excuse any grammatical, word or spelling errors.
[2024-08-05 16:28] LABS: Glucose,Whole Blood 173 mg/dL (70-110)
[2024-08-05 20:09] LABS: Glucose,Whole Blood 204 mg/dL (70-110)
[2024-08-06 05:50] LABS: Glucose,Whole Blood 138 mg/dL (70-110)
[2024-08-06 07:55] LABS: Basophils # (A) 0.07 10*3/uL (0.00-0.10); Basophils % (A) 0.6 %; Eosinophils # (A) 0.18 10*3/uL (0.04-0.35); Eosinophils % (A) 1.6 %; HCT 28.1 % (37.2-46.3); HGB 8.9 g/dL (12.0-15.0); Lymphocytes # (A) 0.52 10*3/uL (0.90-5.00); Lymphocytes % (A) 4.7 %; MCH 29.3 pg (27.0-32.0); MCHC 31.7 g/dL (32.0-37.0); MCV 92.4 fL (80.0-97.0); Mean Platelet Volume 10.1 fL (9.5-12.2); Monocytes # (A) 0.58 10*3/uL (0.20-1.00); Monocytes % (A) 5.3 %; Neutrophils # (A) 9.59 10*3/uL (1.80-7.70); Neutrophils % (A) 87.3 %; Platelet Count 122 10*3/uL (140-440); RBC 3.04 10*6/uL (4.10-5.20); RDW 15.3 % (11.5-14.5)
[2024-08-06 08:13] LABS: ALT 13 U/L (4-34); AST 25 U/L (14-36); African American GFR (CKD) 25 (>60 ml/min/1.73 sqM); Albumin 2.1 g/dL (3.5-5.0); Alkaline Phosphatase 88 U/L (38-126); Anion Gap 8 mmol/L; Blood Urea Nitrogen 18 mg/dL (7-17); Carbon Dioxide 19 mmol/L (22-30); Chloride 106 mmol/L (98-107); Glucose 116 mg/dL (74-99); Non-African American GFR(CKD) 22 (>60 ml/min/1.73 sqM); Potassium 3.6 mmol/L (3.5-5.1); Sodium 133 mmol/L (137-145); Total Bilirubin 2.1 mg/dL (0.2-1.3); Total Protein 5.5 g/dL (6.3-8.2)
--- NOTE | 2024-08-06 10:46 | P.PN ---
Subjective Progress Note Date: 08/06/24 Principal diagnosis: Metabolic encephalopathy secondary to dehydration, resolved Acute kidney injury Hyponatremia Lactic acidosis Bacteremia secondary to vegetation on the pacemaker wire Chronic systolic heart failure, reduced ejection fraction Ischemic cardiomyopathy status post AICD Coronary artery disease with prior stenting unknown details all performed at [facility] Chronic kidney disease Diabetes mellitus type 2 August 06, 2024, patient seen eval examined during rounds labs reviewed medication care plan discussed, respiratory status overall remains stable pat ient on room air, denies any chest pain, appreciated noted recommendation for nephrology, patient is still waiting for placement patient remains on nafcillin labs from today reviewed WBC slowly coming down was 11 hemoglobin hematocrit remains unchanged overall remains stable, chemistry reviewed sodium 133 potassium 3.6 up from 3.3, BUN/creatinine is 18/2.23 August 05, 2024, patient seen eval examined during rounds patient hemodynamic status slightly improved today as well as electrolytes, episode of nausea was noted today however fever was not present patient remains afebrile. A set of vitals include blood pressure is 90/60 saturation 97% heart rate 69 temperature is 98 laboratory data WBC count is 12.36 hemoglobin hematocrit stable 01/03, chemistry fairly within normal limit sodium 133 potassium 3.3 potassium is being replaced BUN/creatinine 17/2.23. Noted medication including bronchodilator maximal medical therapy guideline-directed for heart failure insulin and nafcillin replacement of potassium in addition to nafcillin patient has been on rifampin as well noted BUN/creatinine increasing will consult nephrology August 04, 2024, patient seen eval examined during rounds labs reviewed medication care plan discussed, respiratory status remains stable however patient had low-grade fever and nausea last night, patient remains on IV nafcillin tolerating well, ID service has been following labs from today reviewed current vitals include fever of 98.1, heart rate 61 blood pressure 94/58 room air oxygen saturation is 98%, WBC count is 15.7, hemoglobin hematocrit 01/03 platelet count of 110 sodium is 135 potassium is 2.7 BUN/creatinine is seventeen 1.83 will check another set of labs for tomorrow blood sugar remained mid 100-200 range, blood culture all of them have positive for staph species August 03, 2024, patient seen eval examined during rounds labs reviewed medications reviewed care plan discussed, patient had a low-grade temperature overnight this morning afebrile, soft blood pressure however MAP is 69, room air oxygen saturation is 99%.Labs not done today we will repeat labs in a.m. August 02, 2024, patient seen eval examined during rounds labs reviewed medication and care plan discussed, patient remains on broad-spectrum antibiotics tolerating well, currently on nafcillin, patient being continued on bronchodilator and on home medicine. Awaiting placement at 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. Have been asked to evaluate the patient for heart failure. Patient gives history that she has a total of 7 stents. She last saw her light rail train operator in April of this year and everything was stable at that time. She states she has been walking and exercising on a regular basis. She states that 1 day last week she was at [facility] and it seemed like she was very cold outside she was feeling weak following that. She states she did not have any fever but on Sunday she developed sweats and thought she was coming down with something. She was not feeling well and her sister checked on her on Sunday. At that time she had not been eating or drinking very well. Her sister came back on to check on her and apparently the patient was out of it. She had not been eating or drinking but she had been taking all of her cardiac medications. She was brought into [facility] emergency center for evaluation. She currently denies chest pain or chest pressure, no palpitations, no shortness of breath. Blood pressure 91/59, heart rate in the 70s and 80s, pulse ox 98% on room air. Objective - Vital Signs Vital signs: Vital Signs Temp 98.0 F 08/06/24 04:05 Pulse 71 08/06/24 08:00 Resp 16 08/06/24 08:00 BP 106/63 08/06/24 08:00 Pulse Ox 98 08/06/24 08:00 FiO2 Intake & Output 08/05/24 08/06/24 08/06/24 18:59 06:59 18:59 Intake Total 547 Output Total 75 Balance 472 Intake: Oral 547 Output: Emesis 75 Other: Voiding Method Toilet Toilet # Voids 1 1 1 # Bowel Movements 1 1 1 - Exam VITAL SIGNS: Reviewed. GENERAL: Well-developed in no acute distress. NECK: Supple. No JVD or thyromegaly LUNGS: Respirations even and unlabored. Lungs essentially clear to auscultation bilaterally. HEART: Regular rate and rhythm. S1 and S2 heard. EXTREMITIES: Normal range of motion. No clubbing or cyanosis. Peripheral pulses intact. No lower extremity edema - Labs CBC & Chem 7: 08/06/24 07:13 08/06/24 07:13 Labs: Abnormal Lab Results - Last 24 Hours (Table) 08/05/24 08/05/24 08/05/24 Range/Units 12:18 16:26 20:08 WBC (4.50-10.00) 10*3/uL RBC (4.10-5.20) 10*6/uL Hgb (12.0-15.0) g/dL Hct (37.2-46.3) % MCHC (32.0-37.0) g/dL Plt Count (140-440) 10*3/uL Immature Gran # (0.00-0.04) 10*3/uL Neutrophils # (1.80-7.70) 10*3/uL Lymphocytes # (0.90-5.00) 10*3/uL Sodium (137-145) mmol/L Carbon Dioxide (22-30) mmol/L BUN (7-17) mg/dL Creatinine (0.52-1.04) mg/dL Glucose (74-99) mg/dL POC Glucose (mg/dL) 116 H 173 H 204 H (70-110) mg/dL Calcium (8.4-10.2) mg/dL Total Bilirubin (0.2-1.3) mg/dL Total Protein (6.3-8.2) g/dL Albumin (3.5-5.0) g/dL 08/06/24 08/06/24 08/06/24 Range/Units 05:49 07:13 07:13 WBC 11.00 H (4.50-10.00) 10*3/uL RBC 3.04 L (4.10-5.20) 10*6/uL Hgb 8.9 L (12.0-15.0) g/dL Hct 28.1 L (37.2-46.3) % MCHC 31.7 L (32.0-37.0) g/dL Plt Count 122 L (140-440) 10*3/uL Immature Gran # 0.06 H (0.00-0.04) 10*3/uL Neutrophils # 9.59 H (1.80-7.70) 10*3/uL Lymphocytes # 0.52 L (0.90-5.00) 10*3/uL Sodium 133 L (137-145) mmol/L Carbon Dioxide 19 L (22-30) mmol/L BUN 18 H (7-17) mg/dL Creatinine 2.23 H (0.52-1.04) mg/dL Glucose 116 H (74-99) mg/dL POC Glucose (mg/dL) 138 H (70-110) mg/dL Calcium 7.0 L (8.4-10.2) mg/dL Total Bilirubin 2.1 H (0.2-1.3) mg/dL Total Protein 5.5 L (6.3-8.2) g/dL Albumin 2.1 L (3.5-5.0) g/dL Assessment and Plan Assessment: Hypokalemia, on replacement Hypotension due to nausea vomiting and volume depletion getting fluid bolus monitor close Acute on chronic kidney disease with a rising creatinine Metabolic encephalopathy secondary to dehydration, resolved Acute kidney injury Hyponatremia Lactic acidosis Bacteremia secondary to vegetation on the pacemaker wire Chronic systolic heart failure, reduced ejection fraction Ischemic cardiomyopathy status post AICD Coronary artery disease with prior stenting unknown details all performed at [facility] Chronic kidney disease Diabetes mellitus type 2 Plan: Nephrology consultation noted appreciated monitor off of SUYAPA inhibitor IV fluid gentle rehydration however concern about fluid overload will defer it to expertise of nephrology Replace potassium as per protocol Continue broad-spectrum antibiotics, Continue maximal medical therapy for guideline directed therapy for heart failure Intravascular volume depletion dehydration improved, consider patient encouraged to take p.o. Continue sliding scale insulin Repeat labs in the morning Transfer to [facility] once bed available as per cardiovascular services and ID services Time with Patient: Greater than 30
[2024-08-06 11:22] LABS: Glucose,Whole Blood 172 mg/dL (70-110)
--- NOTE | 2024-08-06 11:41 | P.NPCON ---
History of Present Illness - Reason for Consult acute renal failure - History of Present Illness Patient is a 68-year-old female with history of coronary artery disease, type 2 diabetes, hypertension who is admitted to the hospital with complaints of significant weakness and lethargy. 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 Serum creatinine was 1.9 on admission and decreased to 1.2. Subsequently started to increase again to 1.8 and today it is 2.2 mg/dL. Patient states she has been voiding Blood pressure is noted to be on the lower side. Patient is maintained on low- dose lisinopril. Patient reports diarrhea 4-5 times a day which is quite watery. Currently maintained on nafcillin. Past Medical History Past Medical History: Coronary Artery Disease (CAD), Heart Failure, Diabetes Mellitus, Hypertension Additional Past Medical History / Comment(s): pacemaker History of Any Multi-Drug Resistant Organisms: None Reported Past Surgical History: Orthopedic Surgery Additional Past Surgical History / Comment(s): pacemaker, L hip surger Past Anesthesia/Blood Transfusion Reactions: No Reported Reaction Date of Last Stent Placement:: 06/27/20 Past Psychological History: No Psychological Hx Reported Smoking Status: Former smoker Past Alcohol Use History: None Reported Past Drug Use History: None Reported Medications and Allergies Home Medications Medication Instructions Recorded Confirmed Type Atorvastatin Calcium [Lipitor] 80 mg PO DAILY 12/31/21 07/24/24 History carvediloL [Coreg] 6.25 mg PO BID 12/31/21 07/24/24 History glipiZIDE 10 mg PO BID 12/31/21 07/24/24 History Aspirin EC [Ecotrin Low Dose] 81 mg PO DAILY 06/08/22 07/24/24 History INSULIN ASPART (NovoLOG) [NovoLOG 10 unit SQ TID-W/MEALS 06/08/22 07/24/24 History (formulary)] Omeprazole 40 mg PO DAILY 06/08/22 07/24/24 History Spironolactone [Aldactone] 25 mg PO DAILY 90 Days #90 tab 06/13/22 07/24/24 Rx lisinopriL [Zestril] 2.5 mg PO DAILY 90 Days #90 tab 06/13/22 07/24/24 Rx Empagliflozin [Jardiance] 25 mg PO DAILY 07/24/24 07/24/24 History Furosemide [Lasix] 40 mg PO DAILY 07/24/24 07/24/24 History Allergies Allergy/AdvReac Type Severity Reaction Status Date / Time moxifloxacin [From Avelox] Allergy Anaphylaxis Verified 07/24/24 16:10 Physical Exam Vitals: Vital Signs Temp Pulse Resp BP Pulse Ox 08/06/24 08:00 71 16 106/63 98 08/06/24 06:34 109/65 08/06/24 04:05 98.0 F 73 16 109/59 99 08/05/24 23:53 98.0 F 69 16 102/65 99 08/05/24 19:56 98.1 F 73 16 104/68 99 08/05/24 16:38 72 88/59 08/05/24 15:25 97.8 F 67 16 85/61 99 08/05/24 13:11 70 Intake and Output 08/05/24 08/06/24 08/06/24 22:59 06:59 14:59 Intake Total 236 120 Balance 236 120 Intake: Oral 236 120 Other: Voiding Method Toilet Toilet # Voids 1 1 # Bowel Movements 1 1 Patient is comfortable awake alert oriented x 3. No acute distress Examination of the heart S1 and S2 Examination of the lungs bilateral breath sounds are heard Abdomen is soft nontender Examination of lower extremity shows no significant edema Results - Lab Results Most recent lab results Calcium 7.0 mg/dL (8.4-10.2) L 08/06/24 07:13 Magnesium 2.7 mg/dL (1.6-2.3) H 07/24/24 16:13 08/06/24 07:13 08/06/24 07:13 Assessment and Plan Assessment: 1. Acute kidney injury, ATN, nonoliguric most likely related to low blood pressure and underlying infection. Urine eosinophils 0. Lisinopril will be discontinued and patient will be started on gentle IV hydration given his significant diarrhea over the last few days. UA shows trace protein and trace blood 2. Staphylococcus bacteremia associated with vegetations on the pacemaker leads. Plans to transfer to [facility], awaiting bed 3. Anemia rule out iron deficiency 4. Hyponatremia on initial admission, improved with IV hydration 5. Mild non-anion gap metabolic acidosis secondary to acute kidney injury Plan: DC lisinopril as blood pressure is low. Add gentle IV hydration Repeat labs in a.m. May continue nafcillin for now. Low suspicion for acute interstitial nephritis given urine eosinophils of 0 Thank you for the consultation. We will continue to follow the patient with you during her hospitalization.
[2024-08-06] MEDS ORDERED: IPRATROPIUM-ALBUTEROL 3 ML NEB INHALATION PRN (11:42)
[2024-08-06 15:25] LABS: % Iron Saturation 21.32 (12.00-45.00)
[2024-08-06 16:11] LABS: Glucose,Whole Blood 141 mg/dL (70-110)
--- NOTE | 2024-08-06 17:03 | P.PN ---
Subjective Progress Note Date: 08/06/24 Principal diagnosis: Reason for follow-up is pneumonia and bacteremia Patient is a 68-year-old female with a past medical history significant for Coronary Artery Disease (CAD), Heart Failure, Diabetes Mellitus, Hypertension presenting to the hospital for evaluation of weakness nausea decreased appetite patient was brought into the hospital by the family concerning for weakness did have elevated white count CT chest with left lower lobe pneumonia blood cultures are positive for Staphylococcus Lugdunenisis On today's evaluation that is 08/06/2024,the patient remains to be afebrile, patient is on room air not requiring supplemental oxygen and denies any shortness of breath no chest pain or cough.Patient denies having any nausea or vomiting, no abdominal pain, complaining of some diarrhea. Patient white count is 11,000, creatinine is 2.23 same as yesterday urine for eosinophils 0 blood culture 08/05/2024 so far pending Objective - Vital Signs Vital signs: Vital Signs Temp 98.0 F 08/06/24 04:05 Pulse 71 08/06/24 08:00 Resp 16 08/06/24 08:00 BP 106/63 08/06/24 08:00 Pulse Ox 98 08/06/24 08:00 FiO2 Intake & Output 08/05/24 08/06/24 08/06/24 18:59 06:59 18:59 Intake Total 547 240 Output Total 75 Balance 472 240 Intake: Oral 547 240 Output: Emesis 75 Other: Voiding Method Toilet Toilet Toilet # Voids 1 1 1 # Bowel Movements 1 1 1 - Exam GENERAL DESCRIPTION: An elderly female lying in bed in no distress RESPIRATORY SYSTEM: Unlabored breathing , decreased breath sounds at bases HEART: S1 S2 regular rate and rhythm , ABDOMEN: Soft , no tenderness EXTREMITIES: No edema - Labs CBC & Chem 7: 08/06/24 07:13 08/06/24 07:13 Labs: Abnormal Lab Results - Last 24 Hours (Table) 08/05/24 08/05/24 08/06/24 Range/Units 16:26 20:08 05:49 WBC (4.50-10.00) 10*3/uL RBC (4.10-5.20) 10*6/uL Hgb (12.0-15.0) g/dL Hct (37.2-46.3) % MCHC (32.0-37.0) g/dL Plt Count (140-440) 10*3/uL Immature Gran # (0.00-0.04) 10*3/uL Neutrophils # (1.80-7.70) 10*3/uL Lymphocytes # (0.90-5.00) 10*3/uL Sodium (137-145) mmol/L Carbon Dioxide (22-30) mmol/L BUN (7-17) mg/dL Creatinine (0.52-1.04) mg/dL Glucose (74-99) mg/dL POC Glucose (mg/dL) 173 H 204 H 138 H (70-110) mg/dL Calcium (8.4-10.2) mg/dL Total Bilirubin (0.2-1.3) mg/dL Total Protein (6.3-8.2) g/dL Albumin (3.5-5.0) g/dL 08/06/24 08/06/24 08/06/24 Range/Units 07:13 07:13 11:17 WBC 11.00 H (4.50-10.00) 10*3/uL RBC 3.04 L (4.10-5.20) 10*6/uL Hgb 8.9 L (12.0-15.0) g/dL Hct 28.1 L (37.2-46.3) % MCHC 31.7 L (32.0-37.0) g/dL Plt Count 122 L (140-440) 10*3/uL Immature Gran # 0.06 H (0.00-0.04) 10*3/uL Neutrophils # 9.59 H (1.80-7.70) 10*3/uL Lymphocytes # 0.52 L (0.90-5.00) 10*3/uL Sodium 133 L (137-145) mmol/L Carbon Dioxide 19 L (22-30) mmol/L BUN 18 H (7-17) mg/dL Creatinine 2.23 H (0.52-1.04) mg/dL Glucose 116 H (74-99) mg/dL POC Glucose (mg/dL) 172 H (70-110) mg/dL Calcium 7.0 L (8.4-10.2) mg/dL Total Bilirubin 2.1 H (0.2-1.3) mg/dL Total Protein 5.5 L (6.3-8.2) g/dL Albumin 2.1 L (3.5-5.0) g/dL Assessment and Plan (1) Pneumonia Current Visit: Yes Status: Acute Code(s): J18.9 - PNEUMONIA, UNSPECIFIED ORGANISM SNOMED Code(s): 476370808 (2) Sepsis Current Visit: Yes Status: Acute Code(s): A41.9 - SEPSIS, UNSPECIFIED ORGANISM SNOMED Code(s): 28119429 (3) Bacteremia Current Visit: Yes Status: Acute Code(s): R78.81 - BACTEREMIA SNOMED Code(s): 5018989 Plan: 1patient presented hospital with generalized weakness in this patient who did have features of SIRS with tachycardia hypotension elevated white count and evidence of pneumonia on the CT likely source for the sepsis and likely community-acquired as no other obvious focus of infection clinically or on initial investigation 2-blood cultures came back positive with Staphylococcus Lugdunenisis with initial concern for possible pneumonia however repeat blood cultures came back positive as well for the patient did have a MIKAELA did not show endocarditis but is a bit vegetation on the pacemaker wire 3-patient blood culture repeat on 07/31/2024 came back positive blood culture repeat has been repeated on 08/05/2024 which are currently pending 4patient is currently being treated with naficillin and rifampin,, nephrology consulted for elevated creatinine, urine for eosinophils 0, discussed with the educational psychology teacher we will continue with the current antibiotic therapy Dictation was produced using [employer] dictation software. please excuse any grammatical, word or spelling errors. Time with Patient: Less than 30
[2024-08-06 20:15] LABS: Glucose,Whole Blood 200 mg/dL (70-110)
[2024-08-06 23:25] VITALS: BP 100/63; PULSE 85; TEMP 98.6
--- NOTE | 2024-08-07 11:48 | CDI ---
Documentation Clarification Form Date: 08/07/2024 10:51:17 AM From: Ester Bradshaw RN, CCDS Phone: [phone] Admit Date: 07/24/2024 06:11:00 PM Patient Name: Monica Crawley Visit Number: [id number] Discharge Date: 08/06/2024 11:53:00 PM ATTENTION: The Clinical Documentation Specialists (CDI) and [facility] Coding Staff appreciate your assistance in clarifying documentation. Please respond to the clarification below the line at the bottom and electronically sign. The CDI & [facility] Coding staff will review the response and follow-up if needed. Please note: Queries are made part of the Legal Health Record. If you have any questions, please contact the author of this message via ITS. Doctor. Angelito Garcia Sepsis is documented in the H/P and continued in the attending progress notes through 07/27/24 but is not noted in subsequent documentation. Clarification is requested. History/Risk Factors: Coronary Artery Disease Heart Failure, Diabetes Mellitus, Hypertension, AICD Clinical Indicators: 68-year-old female with complains of weakness nausea poor appetite. 07/24 VS: 80/48 98 18 98.8 99% 07/24 Labs: WBC 22.3, Neutrophils 21.06, HGB 10.9 NA 126 BUN 86, CR 1.93, Lactic acid 2.2 BNP 6930 07/25 Airspace consolidation at the LEFT lung base, concerning for round atelectasis. Mild pneumonia/aspiration not excluded. 07/30 MIKAELA: vegetation on the pacemaker wire in the RA. 07/25 ID: patient did have feature of SIRS with tachycardia hypotension elevated white count and evidence of pneumonia on the Ct likely source for the sepsis and likely community-acquired on initial investigation 07/25 attending progress notes: acute urinary tract infection with sepsis present on admission 07/26 attending progress notes: Generalized weakness from infection/sepsis. Bacterial pneumonia. Acute urinary tract infection with sepsis present on admission Treatment: Rocephin 2 GM IVPB Q 8 HRS Nafcillin Sodium 2 GM IVPB Q4HR Please clarify if the sepsis is: [ ] Sepsis is confirmed, remains under treatment [ ] Sepsis is confirmed, resolved [ ] Other condition, please specify [ ] Unable to determine (Template Last Revised: June 2020) MTDD
--- NOTE | 2024-08-08 08:45 | CDI ---
Documentation Clarification Form Date: 08/08/24 From: Tamanna Villagran Admit Date: 07/24/2024 06:11:00 PM Patient Name: Monica Crawley Visit Number: [id number] Discharge Date: 08/06/2024 11:53:00 PM ATTENTION: The Clinical Documentation Specialists (CDI) and [facility] Coding Staff appreciate your assistance in clarifying documentation. Please respond to the clarification below the line at the bottom and electronically sign. The CDI & [facility] Coding staff will review the response and follow-up if needed. Please note: Queries are made part of the Legal Health Record. If you have any questions, please contact the author of this message via ITS. Doctor/Provider: Angelito Garcia, The patients principal diagnosis the diagnosis that was chiefly responsible for the admission - has not been clearly identified and clarification is requested. The patient presented with the following with altered mental status, polyuria, polydipsia, severe fatigue. History/Risk factors: cardiomyopathy, CAD, COPD, HTN w CKD & chronic systolic CHF Clinical Indicators: Sepsis unclear etiology, dehydration, likely bacterial infection. Lab findings: WBC 22.37, neutrophils 21.03, ESR 6, plasma lactic acid 2.2, procalcitonin 1.45, C-reactive protein 14.30 Blood Culture: Staphylococcus lugdunesnisis MIKAELA Note: Did not show endocarditis but a bit vegetation on the pacemaker wire. Vital Signs: on admission: T 98.8, P 98, R 18, BP 80/48, O2 99 RA 07/29: T 101.3 Treatment: Started on IV Rocephin- stopped 07/28, 07/28 IV Nafcillin Transferred to [facility] 08/06 In your professional opinion, can you please clarify which diagnosis, after study, was the reason chiefly responsible for the admission? [ x ] Sepsis due to vegetation on pacemaker leads, please specify organism__Staphylococcus species [ ] Sepsis due to pneumonia, specify organism [ ] Other, please specify [ ] Unable to determine MTDD
== END 2024-08-06 23:53 | disposition short-term general hospital (02) | DRG 314 ==
LOC: EC 15:34 → 5NMEDONC 18:11 → 4SSUR 18:18 → 3SCARD 07-30 14:51
PROVIDERS: ADMIT Family Medicine; ATTEND Family Medicine
DX: T82.7XXA Infection and inflammatory reaction due to other cardiac and vascular devices, implants and grafts, initial encounter (principal); A41.2 Sepsis due to unspecified staphylococcus; R65.20 Severe sepsis without septic shock; N17.0 Acute kidney failure with tubular necrosis; G93.41 Metabolic encephalopathy; R18.8 Other ascites; E87.20 Acidosis, unspecified; I13.0 Hypertensive heart and chronic kidney disease with heart failure and stage 1 through stage 4 chronic kidney disease, or unspecified chronic kidney disease; J44.0 Chronic obstructive pulmonary disease with (acute) lower respiratory infection; I50.22 Chronic systolic (congestive) heart failure; E87.1 Hypo-osmolality and hyponatremia; N39.0 Urinary tract infection, site not specified; I27.20 Pulmonary hypertension, unspecified; E11.22 Type 2 diabetes mellitus with diabetic chronic kidney disease; N18.9 Chronic kidney disease, unspecified; I07.1 Rheumatic tricuspid insufficiency; Z79.4 Long term (current) use of insulin; B95.7 Other staphylococcus as the cause of diseases classified elsewhere; K44.9 Diaphragmatic hernia without obstruction or gangrene; I25.5 Ischemic cardiomyopathy; I95.89 Other hypotension; E78.5 Hyperlipidemia, unspecified; E86.0 Dehydration; E87.6 Hypokalemia; I25.10 Atherosclerotic heart disease of native coronary artery without angina pectoris; Z20.822 Contact with and (suspected) exposure to COVID-19; Z79.82 Long term (current) use of aspirin; Z79.84 Long term (current) use of oral hypoglycemic drugs; Z79.899 Other long term (current) drug therapy; Z95.810 Presence of automatic (implantable) cardiac defibrillator; Z87.891 Personal history of nicotine dependence; Z95.5 Presence of coronary angioplasty implant and graft; Z88.1 Allergy status to other antibiotic agents; Y83.8 Other surgical procedures as the cause of abnormal reaction of the patient, or of later complication, without mention of misadventure at the time of the procedure
CPT/HCPCS: 36415; 70450; 71250; 74150; 80053; 81001; 82009; 82533; 83540; 83550; 83605; 83735; 83880; 84132; 84145; 84484; 85025; 85610; 85652; 85730; 86140; 87040; 87077; 87086; 87186; 87205; 87635; 93005; 93306; 93312; 93320; 93325; 94640; 96360; 99291

== ENCOUNTER → 2024-09-30 | Outpatient (CLI) | payer MEDICARE ==
[2024-09-30 15:05] LABS: HCT 33.6 % (37.2-46.3); MCH 29.1 pg (27.0-32.0); MCHC 29.8 g/dL (32.0-37.0); MCV 97.7 FL (80.0-97.0); Mean Platelet Volume 10.7 FL (9.5-12.2); NRBC Per 100 WBC 0 X 10*3/uL (0.00-0.01); Platelet Count 236 X 10*3/uL (140-440); RBC 3.44 X 10*6/uL (4.10-5.20); RDW 16.3 % (11.5-14.5); WBC 7.25 X 10*3/uL (4.50-10.00)
[2024-09-30 15:20] LABS: Blood Urea Nitrogen 10.9 mg/dL (9.0-27.0); Carbon Dioxide 16.6 mmol/L (21.6-31.8); Chloride 104 mmol/L (96-109); Potassium 4.3 mmol/L (3.5-5.5); Sodium 136 mmol/L (135-145)
== END | disposition home or self-care (01) ==
LOC: LABWHC1 11:09
PROVIDERS: ATTEND Family Medicine
DX: F33.0 Major depressive disorder, recurrent, mild (principal); B95.62 Methicillin resistant Staphylococcus aureus infection as the cause of diseases classified elsewhere; R78.81 Bacteremia
CPT/HCPCS: 36415; 80051; 82565; 84520; 85027; 87040

== ENCOUNTER → 2024-10-28 | Outpatient (CLI) | payer MEDICARE | END | disposition home or self-care (01) | LOC: LABWHC1 13:05 | PROVIDERS: ATTEND Physician Assistant Medical | DX: I38 Endocarditis, valve unspecified (principal) | CPT/HCPCS: 87040 ==